=== PATIENT | female | born 1960 | race Caucasian/White ===

== ENCOUNTER 2020-04-29 10:58 | Emergency (ER) | payer MEDICARE, MEDICAID, SELFPAY ==
--- NOTE | ~2020-04-29 | US_ITS ---
US venous doppler LE RT DATE: 04/29/2020 12:08 INDICATION: Pain and swelling of the right leg TECHNIQUE: Real-time and color flow imaging and Doppler analysis of the veins of the right lower extr emity COMPARISON: None FINDINGS: The right greater saphenous vein is patent. There is spontaneous and phasic flow and normal augmentation and color flow signal and normal compression of the deep veins of the right lower extre mity. IMPRESSION: No evidence of deep venous thrombosis of the right lower extremity Reviewed, dictated and finalized at Location A. Reviewed, dictated and finalized at location A.
[2020-04-29 11:02] VITALS: BP 152/81; PULSE 95; RESP 20; TEMP 36.4; O2SAT 97
[2020-04-29 12:04] LABS: Basophils Percent Auto 0.6 % (0.2-1.2); Eosinophils Absolute Auto 0.1 K/mm3 (0-0.3); Eosinophils Percent Auto 1.5 % (0-4.4); Hematocrit 37.9 % (37.0-47.0); Hemoglobin 13.2 g/dL (12.0-15.0); Immature Granulocyte Absolute 0.03 K/mm3 (0.00-0.031); Immature Granulocyte Percent A 0.6 % (0-0.5); Lymphocytes Absolute Auto 1.98 K/mm3 (0.9-3.2); Lymphocytes Percent Auto 42.1 % (18.3-44.2); Mean Corpuscular HGB Conc 34.8 g/dl (32-36); Mean Corpuscular Hemoglobin 29.9 pg (26-34); Mean Corpuscular Volume 85.9 fl (80-100); Mean Platelet Volume 9.8 fl (7.4-10.4); Monocytes Absolute Auto 0.5 K/mm3 (0.1-0.6); Monocytes Percent Auto 11.1 % (2.6-8.5); Neutrophils Absolute Auto 2.1 K/mm3 (1.3-6.7); Neutrophils Percent Auto 44.1 % (45.5-73.1); Platelet Count Result 202 k/mm3 (150-375); Red Blood Count 4.41 M/mm3 (4.2-5.4); Red Cell Distribution Width 15.1 % (11.5-14.5); White Blood Count 4.7 K/mm3 (4.5-10.0)
[2020-04-29 12:14] LABS: Prothrombin Time 12.5 Seconds (11.1-14.7)
[2020-04-29 12:15] LABS: Partial Thromboplastin Time 23.2 SECONDS (22.3-36.8)
[2020-04-29 12:18] LABS: Alanine Aminotransferase 26 U/L (4-35); Albumin Level 3.6 g/dL (3.5-5.1); Alkaline Phosphatase 88 U/L (38-126); Anion Gap 7.6 mmol/L (7-16); Aspartate Amino Transferase 23 U/L (14-36); Bilirubin,Total 1.1 mg/dL (0.2-1.3); Blood Urea Nitrogen 15 mg/dL (7-17); CRP 2.1 mg/dL (<1.0); Calcium 8.5 mg/dL (8.4-10.2); Carbon Dioxide 25 mmol/L (22-30); Chloride 107 mmol/L (98-107); Estimated CRCL calculation 94 ml/min; Estimated Glomerular Filt Rate > 60; Glucose 103 mg/dL (65-105); Potassium 3.6 mmol/L (3.4-5.0); Sodium 136 mmol/L (137-145)
--- NOTE | 2020-04-29 13:05 | ED.LOWEXIN ---
HPI - Extremity Injury (Lower) General Chief Complaint: Extremity Injury, Lower Stated Complaint: right leg swelling/pain Time Seen by Provider: 04/29/20 11:16 Source: patient Mode of arrival: ambulatory Limitations: no limitations History of Present Illness HPI Narrative: This patient is a 59 year old female who presents for evaluation of right leg swelling. PAtient states on Thursday she developed mild redness to right lower leg. She had a video call with her PCP her prescribed doxycycline for cellulitis. She states yesterday and today her right leg feels like it is swollen. She reports redness is also now located to right calf. She denies chest pain or sob. She denies nausea, vomiting, fever or chills. Related Data Home Medications Medication Instructions Recorded Confirmed budesonide-formoterol [Symbicort] INHALATION 04/29/20 cyclobenzaprine mg 04/29/20 doxycycline hyclate 04/29/20 hydrocodone-acetaminophen tablet 04/29/20 nitrofurantoin monohyd/m-cryst 04/29/20 ranolazine mg PO 04/29/20 rosuvastatin mg 04/29/20 sumatriptan succinate mg PO 04/29/20 topiramate 04/29/20 04/29/20 Allergies Allergy/AdvReac Type Severity Reaction Status Date / Time Penicillins Allergy Mild Rash Verified 04/29/20 11:43 naproxen Allergy Unknown Hives Verified 04/29/20 11:43 NSAIDS (Non-Steroidal Allergy Hives Verified 04/29/20 11:43 Anti-Inflamma Review of Systems Review of Systems: All systems reviewed & are unremarkable except as noted in HPI and below PMFSH Past Medical History Medical History (Updated 04/29/20 @ 13:11 by Ale Mena MD) Migraine Surgical History Surgical History (Updated 04/29/20 @ 13:08 by Ale Mena MD) H/O tubal ligation Social History Social History (Updated 04/29/20 @ 13:09 by Ale Mena MD) Smoking status: Never smoker Alcohol intake: never Gender identity (if verbalized by the patient): Female Exam Const: General: no acute distress and alert Orientation/consciousness: patient oriented x3 Resp: Effort & Inspection: normal respiratory effort and no retractions Auscultation: clear to auscultation bilaterally Cardio: Rate: regular rate Rhythm: regular rhythm GI: GI Palp: Yes Soft to palpation, No Tenderness to palpation present (GI), No Guarding due to palpation present (GI) and No Rigid due to palpation Neuro: General: patient oriented x3 and moves all extremities Extrem: Other: FROM to right leg, mild blotchy areas of erythema to right lower leg. No significant swelling noticed or edema. She has strong palpable pedal pulses Course Reevaluation(s) Reevaluation #1: I have discussed with patient that labs are unremarkable. No DVT found. I will change her antibiotics. Date: 04/29/20 Time: 13:10 Vital Signs Vital signs: Vital Signs Temperature 97.6 F 04/29/20 11:02 Pulse Rate 95 04/29/20 11:02 Respiratory Rate 20 04/29/20 11:02 Blood Pressure 152/81 H 04/29/20 11:02 Pulse Oximetry 97 04/29/20 11:02 Temperature 97.8 F 04/29/20 13:36 Pulse Rate 64 04/29/20 13:36 Respiratory Rate 16 04/29/20 13:36 Blood Pressure 118/72 04/29/20 13:36 Pulse Oximetry 96 04/29/20 13:36 MDM - Extremity Injury (Lower) Lab Data Attestation: I reviewed the patient's lab results. Result diagrams: 04/29/20 11:56 04/29/20 11:56 Labs: Lab Results 04/29/20 04/29/20 04/29/20 Range/Units 11:56 11:56 11:56 WBC 4.7 (4.5-10.0) K/mm3 RBC 4.41 (4.2-5.4) M/mm3 Hgb 13.2 (12.0-15.0) g/dL Hct 37.9 (37.0-47.0) % MCV 85.9 (80-100) fl MCH 29.9 (26-34) pg MCHC 34.8 (32-36) g/dl RDW 15.1 H (11.5-14.5) % Plt Count 202 (150-375) k/mm3 MPV 9.8 (7.4-10.4) fl Immature Gran % (Auto) 0.6 H (0-0.5) % Neut % (Auto) 44.1 L (45.5-73.1) % Lymph % (Auto) 42.1 (18.3-44.2) % Crawford % (Auto) 11.1 H (2.6-8.5) % Eos % (Auto) 1.5 (0-
[2020-04-29 13:36] VITALS: BP 118/72; PULSE 64; RESP 16; TEMP 36.6; O2SAT 96
== END 2020-04-29 13:37 | disposition home or self-care (01) ==
PROVIDERS: Emergency Provider General Practice; PCP Emergency Medicine
DX: L03.115 Cellulitis of right lower limb (principal)
CPT/HCPCS: 36415; 80053; 85025; 85610; 85730; 86140; 93971; 99284

== ENCOUNTER → 2020-07-26 17:53 | Outpatient (CLI) | payer MEDICARE, MEDICAID, SELFPAY ==
--- NOTE | ~2020-07-26 | MR_ITS ---
EXAMINATION: MR cervical spine wo [facility] EXAM DATE: 07/26/2020 19:14 INDICATION: Cervical spondylosis. Neck pain radiating to shoulders and down arms. TECHNIQUE: Multi-sequential, multiplanar MR images of the cervical spine were obtained without contra st. Axial T2, axial T2 MERGE sequence. Sagittal T1, T2, T2 fat saturation images also obtained. Th ere is no prior study for comparison. FINDINGS: There is moderate disc disease at C6-7. Mild loss of the C5-6 disc height. Right mastoid e ffusion. The vertebral bodies are aligned in the AP dimension. Paraspinal soft tissue is unremarkable . The spinal cord signal intensity and intrinsic morphology is normal. Cervicomedullary junction is n ormal in appearance. Level by level evaluation: C2-C3: Disc does not extend beyond the endplate margin. Uncovertebral joint arthropathy: None. Facet joint arthropathy: Moderate right. Neural foraminal stenosis: No stenosis. Central canal stenosis: No stenosis. C3-C4: Disc does not extend beyond the endplate margin. Uncovertebral joint arthropathy: Mild bilateral. Facet joint arthropathy: Mild to moderate bilateral. Neural foraminal stenosis: Mild left. Central canal stenosis: No stenosis. C4-C5: Disc does not extend beyond the endplate margin. Uncovertebral joint arthropathy: Mild bilateral. Facet joint arthropathy: Mild bilateral. Neural foraminal stenosis: Mild bilateral. Central canal stenosis: No stenosis. C5-C6: There is a mild diffuse disc bulge. Uncovertebral joint arthropathy: Moderate bilateral. Facet joint arthropathy: Mild to moderate bilateral. Neural foraminal stenosis: Moderate left, mild to moderate right. Central canal stenosis: Mild. C6-C7: There is a mild diffuse disc bulge. Uncovertebral joint arthropathy: Moderate bilateral. Facet joint arthropathy: Mild bilateral. Neural foraminal stenosis: Mild to moderate bilateral. Central canal stenosis: Mild. C7-T1: Disc does not extend beyond the endplate margin. Uncovertebral joint arthropathy: Mild bilateral. Facet joint arthropathy: Mild bilateral. Neural foraminal stenosis: No stenosis. Central canal stenosis: No stenosis. IMPRESSION: 1. Moderate midcervical arthropathy. . Reviewed, dictated and finalized at location A.
== END ==
PROVIDERS: PCP Emergency Medicine; Visit Provider Emergency Medicine
DX: M47.892 Other spondylosis, cervical region (principal)
CPT/HCPCS: 72141

== ENCOUNTER 2020-10-01 14:00 | Outpatient (RCR) | payer MEDICARE, MEDICAID, SELFPAY ==
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
--- NOTE | 2020-09-05 13:44 | PCPTNOTE ---
Patient called & cancelled scheduled appointment this date due to increased pain following difficulty with constipation. Patient plans to attend next scheduled appt.
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
== END 2020-11-14 07:34 | disposition home or self-care (01) ==
LOC: ANHPT 14:00
PROVIDERS: PCP Emergency Medicine
DX: M25.511 Pain in right shoulder (principal); M25.512 Pain in left shoulder
CPT/HCPCS: 97032; 97110; 97140; 97162

== ENCOUNTER 2020-10-22 14:05 | Outpatient (CLI) | payer MEDICARE, MEDICAID, SELFPAY ==
--- NOTE | ~2020-10-22 | US_ITS ---
EXAMINATION: US retroperitoneal comp DATE: 10/22/2020 15:25 INDICATION: Chronic cystitis TECHNIQUE: Multiple grayscale, color Doppler, and pulsed Doppler images of the kidneys and renal tamara hayley were obtained. COMPARISON: None. FINDINGS: The right kidney measures 10.3 x 5.1 x 5.0 cm. The left kidney measures 10.4 x 5.7 x 5.7 cm. The kidn eys demonstrate normal echogenicity. There is no hydronephrosis in either kidney. No stones identifi ed. The bladder appears normal but is incompletely distended measuring approximately 9 x 5 x 5 cm whi ch mildly limits evaluation. IMPRESSION: 1. Normal renal and bladder ultrasound images. Of note e mail system administrator reported patient demonstrated urg ency despite the incompletely distended bladder. Reviewed, dictated and finalized at location A. CH OFFICE ADMINISTRATOR IMPRESSION: 1. Normal renal and bladder ultrasound images. Of note e mail system administrator reported santos sesay demonstrated urgency despite the incompletely distended bladder.
== END 2020-10-22 14:06 | disposition home or self-care (01) ==
PROVIDERS: PCP Emergency Medicine; Visit Provider Nurse Practitioner Adult Health
DX: N30.20 Other chronic cystitis without hematuria (principal)
CPT/HCPCS: 76770

== ENCOUNTER 2021-04-27 21:27 | Emergency (ER) | payer MEDICARE, MEDICAID, SELFPAY ==
--- NOTE | ~2021-04-27 | XR_ITS ---
XR ankle RT min 3V DATE: 04/27/2021 23:35 INDICATION: Right ankle and foot pain TECHNIQUE: 4 views COMPARISON: None FINDINGS: There is a small osteochondroma of the distal fibular diametaphysis. No fracture or dislocation of the ankle or disruption of the ankle mortise. No periosteal reaction or bone destruction. IMPRESSION: No fracture or dislocation Reviewed, dictated and finalized at location A. IMPRESSION: No fracture or dislocation
--- NOTE | ~2021-04-27 | XR_ITS ---
XR foot RT min 3V DATE: 04/27/2021 22:31 INDICATION: Fall 3 days ago. Right ankle and foot pain TECHNIQUE: 4 views COMPARISON: None FINDINGS: Mild osteoarthritis at the first metatarsophalangeal joint. No fracture, dislocation, periosteal reaction or bone destruction. IMPRESSION: Mild osteoarthritis at first metatarsophalangeal joint No recent fracture or dislocation Reviewed, dictated and finalized at location A.
[2021-04-27 21:28] VITALS: BP 143/95; PULSE 87; RESP 16; TEMP 36.8; O2SAT 97
--- NOTE | 2021-04-27 23:13 | ED.LOWEXIN ---
HPI - Extremity Injury (Lower) General Chief Complaint: Extremity Injury, Lower Stated Complaint: right foot pain after fall Time Seen by Provider: 04/27/21 22:45 Source: patient and RN notes reviewed Mode of arrival: wheelchair Limitations: no limitations History of Present Illness HPI Narrative: This is a 60 year old female with history of chronic right knee pain, back pain who presents for evaluation of right foot pain s/p fall. Patient states her right knee gave out on and it caused her to fall inverting her right foot. She developed pain and bruising at that time. She has been treating her pain with her chronic pain medications and wrapping her foot. Tonight she states she was walking when her knee gave out again and she fell again. Her right foot pain has worsened. Her pain is worse with trying to bear weight. Her pain is located right lateral foot just under her ankle. She took hydrocodone 10 mg 4 hours ago. She denies hitting her head or LOC. Related Data Home Medications Medication Instructions Recorded Confirmed furosemide 04/27/21 hydrocodone-acetaminophen tablet 04/27/21 omeprazole 04/27/21 oxybutynin chloride mg PO 04/27/21 ranolazine [Ranexa] mg PO 04/27/21 rosuvastatin mg 04/27/21 sumatriptan succinate mg PO 04/27/21 venlafaxine mg PO 04/27/21 Allergies Allergy/AdvReac Type Severity Reaction Status Date / Time Penicillins Allergy Mild Rash Verified 04/27/21 22:04 naproxen Allergy Unknown Hives Verified 04/27/21 22:04 NSAIDS (Non-Steroidal Allergy Hives Verified 04/27/21 22:04 Anti-Inflamma Review of Systems Review of Systems: All systems reviewed & are unremarkable except as noted in HPI and below PMFSH Past Medical History Medical History (Updated 04/27/21 @ 23:55 by Ale Mena MD) Chronic pain Migraine Surgical History Surgical History H/O tubal ligation Social History Social History (Updated 03/01/21 @ 09:42 by Monica Ibarra MA) Smoking status: Current every day smoker Alcohol intake: never Gender identity (if verbalized by the patient): Female Exam Const: General: no acute distress and alert Orientation/consciousness: patient oriented x3 Eyes: EOM: EOMs intact bilaterally Resp: Effort & Inspection: normal respiratory effort Neuro: General: patient oriented x3 and moves all extremities Extrem: Other: right foot with ecchymosis to right lateral foot, with swelling and tenderness just under right lateral malleolus, strong pedal pulsse Psych: Mental Status: mental status grossly normal Affect: normal affect Course Reevaluation(s) Reevaluation #1: I have reviewed with patient that she xray showing likely avulsion injury. She will be given glynn bandage with postop shoe. She states she does not think she can use crutches but she has a walker at home. Date: 04/27/21 Time: 23:52 Vital Signs Vital signs: Vital Signs Temperature 98.3 F 04/27/21 21:28 Pulse Rate 87 04/27/21 21:28 Respiratory Rate 16 04/27/21 21:28 Blood Pressure 143/95 H 04/27/21 21:28 Pulse Oximetry 97 04/27/21 21:28 Temperature 98.3 F 04/27/21 21:28 Pulse Rate 87 04/27/21 21:28 Respiratory Rate 16 04/27/21 21:28 Blood Pressure 143/95 H 04/27/21 21:28 Pulse Oximetry 97 04/27/21 21:28 MDM - Extremity Injury (Lower) Imaging Data Attestation: I personally reviewed and interpreted this imaging study as follows: My impression: right foot /ankle xray- avulsion injury at cuboid Discharge Plan Discharge Clinical Impression: Avulsion fracture of bone, Right ankle sprain Patient Disposition: Home, Self-Care Condition: Stable Instructions: Antibiotic Form, Avulsion Fracture (ED) Additional Instructions: IT is recommended to get fracture foot to help you bear weight. Follow up with your orthopedic surgeon within 1-2 weeks for reevaluation. Elevate when you
== END 2021-04-28 00:31 | disposition home or self-care (01) ==
PROVIDERS: Emergency Provider General Practice; PCP Emergency Medicine
DX: S93.401A Sprain of unspecified ligament of right ankle, initial encounter (principal); S92.211A Displaced fracture of cuboid bone of right foot, initial encounter for closed fracture; F17.200 Nicotine dependence, unspecified, uncomplicated; M19.071 Primary osteoarthritis, right ankle and foot; W18.39XA Other fall on same level, initial encounter; X50.9XXA Other and unspecified overexertion or strenuous movements or postures, initial encounter
CPT/HCPCS: 73610; 73630; 99284

== ENCOUNTER 2021-07-09 08:49 | Outpatient (CLI) | payer MEDICARE, MEDICAID, SELFPAY ==
[2021-07-09 12:49] LABS: NT Pro B Type Natriuretic Pept 368 pg/mL (5-100)
[2021-07-11 19:32] LABS: Alpha-1-Antitrypsin, QN 167 mg/dL (83-199)
[2021-07-13 23:46] LABS: NIL 0.11 IU/mL; Quantiferon TB Plus, 1T NEGATIVE (NEGATIVE); TB1-NIL <0.00 IU/mL; TB2-NIL <0.00 IU/mL
[2021-07-14 00:06] LABS: Immunoglobulin E 162 kU/L (<=114)
--- NOTE | 2021-07-15 12:00 | WPDMETH ---
Methacholine Procedure Perform Procedure Performed Methacholine Challenge Methacholine Challenge Testing was performed with increasing doses of nebulized methacholine using a 2 minute tidal breathing protocol. Following the administration of nebulized methacholine with concentration of 10 milligram/mL at level 4, the measured FEV1 decreased by approximately 26% from the baseline value. Post administration of a bronchodilator the FEV1 increased back up near the baseline value. Impression: Positive methacholine challenge testing.
== END 2021-07-09 08:50 | disposition home or self-care (01) ==
PROVIDERS: PCP Emergency Medicine; Visit Provider Nurse Practitioner
DX: J45.909 Unspecified asthma, uncomplicated (principal); R06.09 Other forms of dyspnea
CPT/HCPCS: 36415; 82103; 82104; 82785; 83880; 86480; 94070; J7674

== ENCOUNTER 2021-07-12 15:30 | Outpatient (CLI) | payer MEDICARE, MEDICAID, SELFPAY ==
--- NOTE | ~2021-07-12 | CT_ITS ---
EXAMINATION: CT diagnostic chest wo con DATE: 07/12/2021 15:59 INDICATION: Decreased diffusion capacity of the lungs TECHNIQUE: Computed tomography (CT) of the chest was performed without intravenous contrast. The dose -length product (DLP) was 718.05 mGy-cm. Automated exposure control and iterative reconstruction tech [employer] were employed. COMPARISON: 02/21/2009 FINDINGS: The lungs are free of focal airspace opacities. There is mild atelectasis. No pleural effus ion or pneumothorax is identified. Calcified right hilar lymph nodes are consistent with old granulom atous disease. The heart size is normal. There is dense calcification of the mitral annulus. Coronary artery atherosclerosis is noted. There are no pathologically enlarged thoracic lymph nodes. Chronic nodular thickening of the left adrenal gland is unchanged. There is severe thoracic spondylosis. IMPRESSION: 1. No CT correlate for the patient's symptoms. Reviewed, dictated and finalized at location F.
[2021-07-12 16:32] LABS: Basophils Absolute Auto 0.1 K/mm3 (0.0-0.1); Basophils Percent Auto 0.9 % (0.2-1.2); Eosinophils Absolute Auto 0.1 K/mm3 (0-0.3); Eosinophils Percent Auto 2.4 % (0-4.4); Hematocrit 43.5 % (37.0-47.0); Hemoglobin 14.6 g/dL (12.0-15.0); Immature Granulocyte Absolute 0.01 K/mm3 (0.00-0.031); Immature Granulocyte Percent A 0.2 % (0-0.5); Lymphocytes Absolute Auto 1.91 K/mm3 (0.9-3.2); Lymphocytes Percent Auto 32.6 % (18.3-44.2); Mean Corpuscular HGB Conc 33.6 g/dl (32-36); Mean Corpuscular Hemoglobin 29.3 pg (26-34); Mean Corpuscular Volume 87.3 fl (80-100); Mean Platelet Volume 9.6 fl (7.4-10.4); Monocytes Absolute Auto 0.5 K/mm3 (0.1-0.6); Monocytes Percent Auto 7.8 % (2.6-8.5); Neutrophils Absolute Auto 3.3 K/mm3 (1.3-6.7); Neutrophils Percent Auto 56.1 % (45.5-73.1); Platelet Count Result 217 k/mm3 (150-375); Red Blood Count 4.98 M/mm3 (4.2-5.4); White Blood Count 5.9 K/mm3 (4.5-10.0)
== END 2021-07-12 15:31 | disposition home or self-care (01) ==
PROVIDERS: PCP Emergency Medicine; Visit Provider Nurse Practitioner
DX: R94.2 Abnormal results of pulmonary function studies (principal)
CPT/HCPCS: 36415; 71250; 85025

== ENCOUNTER 2021-07-16 12:35 | Outpatient (CLI) | payer MEDICARE, MEDICAID, SELFPAY ==
[2021-07-20 01:17] LABS: Anti Nuclear Antibody Pattern Nuclear, Nucleolar; Anti Nuclear Antibody Titer 1:40 (Negative)
[2021-07-20 05:06] LABS: Angiotensin Converting Enzyme 44.3 U/L (9-67)
[2021-07-20 15:00] LABS: Blastomyces Antibody Negative (Negative)
[2021-07-24 17:19] LABS: Coccidioides Ab to F Ag (IgG) NEGATIVE; Coccidioides Ab to TP Ag (IgM) NEGATIVE
== END 2021-07-16 12:36 | disposition home or self-care (01) ==
PROVIDERS: PCP Emergency Medicine; Visit Provider Nurse Practitioner
DX: J84.10 Pulmonary fibrosis, unspecified (principal)
CPT/HCPCS: 36415; 82164; 86038; 86039; 86612; 86635; 86698

== ENCOUNTER 2021-07-31 15:06 | Outpatient (CLI) | payer MEDICARE, MEDICAID, SELFPAY ==
[2021-07-31 18:02] LABS: Rheumatoid Factor < 8.6 IU/ML (<12)
[2021-08-02 22:25] LABS: ANCA Screen Negative (Negative)
[2021-08-05 17:25] LABS: Scleroderma 70 Antibody <1.0
[2021-08-05 19:35] LABS: JO 1 Antibody <1.0; RNP Antibodies <1.0; SS-A <1.0; SS-B <1.0
== END 2021-07-31 15:07 | disposition home or self-care (01) ==
PROVIDERS: PCP Emergency Medicine; Visit Provider Nurse Practitioner
DX: R76.8 Other specified abnormal immunological findings in serum (principal)
CPT/HCPCS: 36415; 86021; 86225; 86235; 86430

== ENCOUNTER 2021-09-01 12:35 | Outpatient (CLI) | payer MEDICARE, MEDICAID, SELFPAY ==
--- NOTE | ~2021-09-01 | MR_ITS ---
EXAMINATION: MR lumbar spine wo con EXAM DATE: 09/01/2021 13:42 INDICATION: Radiculopathy, lumbar region. TECHNIQUE: Multi-sequential, multiplanar MR images of the lumbar spine were obtained without contrast . Sagittal T1, T2, T2 fat saturation images. Axial T2 weighted images. Comparison is made to prior examination from 04/21/2018. FINDINGS: There is moderate disc disease L2-L5 and T8-T11. Moderate size Schmorl's node superior endp late of L3 unchanged. The conus medullaris terminates at the L1 level and has normal signal intensity and morphology. There are no suspicious marrow signal abnormalities. Paraspinal soft tissue is unre markable. Level by level evaluation: T12-L1: Disc does not extend beyond the endplate margin. Facet arthropathy: Mild right. Neural foraminal stenosis: No stenosis. Central canal stenosis: No stenosis. L1-L2: Disc does not extend beyond the endplate margin. Facet arthropathy: Mild. Neural foraminal stenosis: No stenosis. Central canal stenosis: No stenosis. L2-L3: There is a mild to moderate diffuse disc bulge. Facet arthropathy: Mild to moderate. Neural foraminal stenosis: Mild to moderate left, mild right. Central canal stenosis: Mild. L3-L4: There is a moderate diffuse disc bulge. Facet arthropathy: Moderate . Ligamentum flavum enlargement. Neural foraminal stenosis: Moderate left, mild to moderate right. Central canal stenosis: Moderate. L4-L5: There is a moderate diffuse disc bulge. Facet arthropathy: Moderate. Neural foraminal stenosis: Moderate right, mild to moderate left. Central canal stenosis: Moderate. L5-S1: There is a mild diffuse disc bulge. Facet arthropathy: Moderate right, mild to moderate left. Neural foraminal stenosis: Mild right. Central canal stenosis: No stenosis. Mild interval progression spondylosis and central canal stenosis at L3-4 and L4-5. IMPRESSION: 1. Moderate mid lumbar spondylosis. Reviewed, dictated and finalized at location A. E FINISHER
== END 2021-09-01 12:36 | disposition home or self-care (01) ==
PROVIDERS: PCP Emergency Medicine; Visit Provider Anesthesiology
DX: M47.26 Other spondylosis with radiculopathy, lumbar region (principal)
CPT/HCPCS: 72148

== ENCOUNTER 2021-10-24 16:00 | Outpatient (RCR) | payer MEDICARE, MEDICAID, SELFPAY ==
--- NOTE | 2021-10-10 13:38 | PTOPEVAL ---
PHYSICAL THERAPY EVALUATION AND PLAN OF CARE 10-10-21 Thank you for referring Lisa Krueger to [facility] for the diagnosis of s/p R TKR. Lisa is scheduled to be seen for therapy? 2 x/week for 3 weeks. Please review, sign, date and return this plan of care ANITA. I agree with and certify that the following plan of care is medically necessary. Referring Physician Date Attending Provider: GRIFFIN Martinez PT Outpatient Evaluation Document 10/10/21 12:35 RADHA (Rec: 10/10/21 13:38 RADHA [id number]) Past Medical History Source of Past Medical History Recalled from Previous Visit, Confirmed with Patient/Family Neurological History Hx Other Neurological Disorders Yes: non diabetic neuropathy B feet and calves Cardiovascular History Hx Hypercholesterolemia Yes: meds Hx Peripheral Vascular Disease Yes Respiratory History Hx Asthma Yes Hx Chronic Obstructive Pulmonary Disease Yes (COPD) Gastrointestinal History Hx Appendectomy Yes Hx Other Gastrointestinal Disorders Yes: [place]'s esophagus Musculoskeletal History Hx Back Pain Yes: chronic back and neck pain- under care pain mgt for back pain Hx Degenerative Disk Disease Yes Hx Joint Replacement Yes: R shoulder replacement 2013 Hx Other Musculoskeletal Disorders Yes: spinal OA Endocrine History Hx Endocrine Disorders No Significant History HEENT History Hx Other HEENT Disorders Yes: sleep apnea-has night machine Pain History Has Past Pain Affected Your Daily Life Yes: neck and back issues-has had injections Other History Hx Other Medical Conditions Yes: obesity, stent L groin for circulation issues:B lower leg vein surgeries Evaluation Information Problem Diagnosis s/p R TKR Onset Sep 12, 2021 Subjective Information after left hospital, went to Query Text:As Reported By Patient/ [facility] for rehab, only stayed few Family days then went home; have CPM at home, set to 120, using daily; only doing exercise that she is doing at home i supine quad and glut set; using the wheeled walker, but short distance in her house without it; Previous Treatments Previous Treatments For This Problem have not had any HHC or out pt PT since left hospital Prior Level of Function Activity Level (Last 3 Months)
--- NOTE | 2021-10-17 15:58 | PCPTNOTE ---
Patient called & cancelled scheduled appointment this date due to not having a ride.
--- NOTE | 2021-10-29 16:38 | PCPTNOTE ---
Patient did not show up for scheduled appointment this date; called and left voicemail for reminder call on next appointment on 10/31 @15:30.
--- NOTE | 2021-11-04 13:27 | PCPTNOTE ---
pt called and canceled today's reeval, due to not feeling well;
--- NOTE | 2021-11-26 09:41 | PCPTNOTE ---
PHYSICAL THERAPY DISCHARGE 11-26-21 Attending Provider: GRIFFIN Martinez Patient:Lisa Krueger Date of :1960 Ms. Krueger has not returned for any further treatments since 10/24/2021, therefore she will be discharged at this time. She received 4 PT sessions, from October 10 to for the diagnosis of s/p R TKR. The goals were not assessed. Thank you for referring this patient to [facility]. Please review, sign, date and return this discharge summary ANITA. I have been updated about the patient's current status and I agree with discharge from the above service at this time. Referring Physician Date
== END 2021-12-25 10:41 | disposition home or self-care (01) ==
LOC: ANHPT 16:00
PROVIDERS: PCP Emergency Medicine; Visit Provider Physician Assistant
DX: Z47.1 Aftercare following joint replacement surgery (principal); Z96.651 Presence of right artificial knee joint
CPT/HCPCS: 97014; 97110; 97116; 97140; 97161; 97530; G0283

== ENCOUNTER 2022-01-08 15:02 | Outpatient (CLI) | payer MEDICARE, MEDICAID, SELFPAY ==
--- NOTE | ~2022-01-08 | XR_ITS ---
EXAMINATION: XR hip RT min 2V DATE: 01/08/2022 15:38 INDICATION: Right hip pain. TECHNIQUE: 2 views of right hip were obtained. COMPARISON: None. FINDINGS: Bone alignment is normal. No fracture. There is mild right hip osteoarthritis. Partially vi sualized is a vascular stent overlying the spine. IMPRESSION: 1. Mild right hip osteoarthritis. Reviewed, dictated and finalized at location A.
[2022-01-08 15:39] LABS: Anion Gap 10 mmol/L (8-16); Blood Urea Nitrogen 19 mg/dL (7-17); Carbon Dioxide 22 mmol/L (22-30); Chloride 105 mmol/L (98-107); Estimated Glomerular Filt Rate > 60; Glucose 157 mg/dL (65-110); Potassium 4.3 mmol/L (3.4-5.0); Sodium 137 mmol/L (137-145)
[2022-01-08 16:37] LABS: Calcium 8.5 mg/dL (8.4-10.2)
== END 2022-01-08 15:03 | disposition home or self-care (01) ==
PROVIDERS: PCP Emergency Medicine; Visit Provider Anesthesiology
DX: M16.11 Unilateral primary osteoarthritis, right hip (principal); Z79.899 Other long term (current) drug therapy
CPT/HCPCS: 36415; 73502; 80048

== ENCOUNTER 2022-11-14 00:20 | Emergency (ER) | payer MEDICARE, MEDICAID, SELFPAY ==
--- NOTE | ~2022-11-14 | XR_ITS ---
Left Knee Technique: AP, lateral, and oblique views were obtained. Clinical History: Pain Findings: No fracture or dislocation is seen. Mild tricompartmental degenerative spurring is noted.. Soft tissues are unremarkable. No joint effusion is seen. Impression: Mild tricompartmental degenerative change. Reviewed, dictated and finalized at location . ER MANAGER Impression: Mild tricompartmental degenerative change.
[2022-11-14 00:24] VITALS: BP 125/75; PULSE 72; RESP 20; TEMP 36.7; O2SAT 100
--- NOTE | 2022-11-14 01:39 | PC.NURSE ---
pt states she has increased l knee pain. denies any injury. states she needs a knee replacement but hasn't had it done yet. states she took hydrocodone, gabapentin, and muscle relaxer without any relief.
--- NOTE | 2022-11-14 01:42 | ED.EXTPRO ---
HPI - Extremity Problem General Chief complaint: Extremity Problem,Nontraumatic Stated complaint: knee pain Time Seen by Provider: 11/14/22 01:35 History of Present Illness HPI Narrative: 62-year-old female with a history of beatty's esophagus here for evaluation of atraumatic left knee pain. Patient states the pain has been present for 3 years but got acutely worse over the past week. States that she is on her feet all day and has been walking a lot more than usual. States the pain is gotten bad over the past 3 days and it has been difficult to walk. Has attempted hydrocodone and gabapentin without relief of her pain. Denies any trauma to the knee. No calf pain, leg swelling, fevers or chills, nausea or vomiting. History of right knee replacement at [facility] last year. No recent surgeries or history of DVT. Related Data Home Medications Medication Instructions Recorded Confirmed budesonide-formoterol HFA 160 2 puff inhalation Q12H 08/15/21 mcg-4.5 mcg/actuation aerosol inhaler (Symbicort) clindamycin HCl 300 mg capsule 300 mg PO Q6H 08/15/21 Allergies Allergy/AdvReac Type Severity Reaction Status Date / Time Penicillins Allergy Mild Rash Verified 04/27/21 22:04 naproxen Allergy Unknown Hives Verified 04/27/21 22:04 NSAIDS (Non-Steroidal Allergy Hives Verified 04/27/21 22:04 Anti-Inflamma Review of Systems Review of Systems: Gen: Denies fevers or chills Eyes: Denies eye pain or visual change ENT: Denies congestion Respiratory: Denies shortness of breath or cough CV: Denies chest pain or palpitations GI: Denies abdominal pain nausea, emesis or diarrhea denies burning, urgency, frequency or hematuria Musculoskeletal: Reports left knee pain Neuro: Denies numbness, tingling, weakness or focal weakness Skin: Denies rash Except as documented, all other systems reviewed and negative [facility] Past Medical History Medical History Chronic pain Migraine Surgical History Surgical History H/O tubal ligation Social History Social History (Updated 03/01/21 @ 09:42 by FILIPE Ramsay Smoking status: Current every day smoker Alcohol intake: never Gender identity (if verbalized by the patient): Female Exam Narrative: APPEARANCE: Well appearing, no pain in distress, well-nourished. Head: Normocephalic and atraumatic. EYES: PERRLA/EOMI, conjunctivae clear NOSE: No nasal drainage EARS: External ear normal in appearance THROAT: Oropharynx is clear. Mucous membranes are moist. NECK: Supple. No adenopathy, no masses. RESPIRATORY: Airway patent, respirations nonlabored. Clear to auscultation bilaterally, no rales, rhonchi, wheezing. CARDIOVASCULAR: Regular rate and rhythm without murmurs, rubs, or gallops. ABDOMINAL: Normoactive bowel sounds. Soft, nontender, nondistended. No rebound tenderness or guarding. MUSCULOSKELETAL: No pain with active range of motion of the left knee. No tenderness to palpation along the joint line at the patella. No obvious deformity. No pain with palpation of the calf. No pain with palpation of the hip or low back. Extremities are warm and well-perfused. Moves all extremities well. No edema. NEURO: Normal speech. No focal neurologic deficits. SKIN: Skin is warm and dry. No rashes. PSYCHIATRIC: Normal affect/mood. Course Vital Signs Vital signs: Vital Signs Temperature 98.0 F 11/14/22 00:24 Pulse Rate 72 11/14/22 00:24 Respiratory Rate 20 11/14/22 00:24 Blood Pressure 125/75 11/14/22 00:24 Pulse Oximetry 100 11/14/22 00:24 Oxygen Delivery Room Air 11/14/22 00:24 Temperature 98.0 F 11/14/22 00:24 Pulse Rate 72 11/14/22 00:24 Respiratory Rate 20 11/14/22 00:24 Blood Pressure 125/75 11/14/22 00:24 Pulse Oximetry 100 11/14/22 00:24 Oxygen Delivery Room Air 11/14/22 00:24 MDM - Extremity (No
[2022-11-14] MEDS: CYCLOBENZAPRINE HCL 5 MG TABLET PO (02:07)
[2022-11-14] MEDS: LIDOCAINE 5% PATCH 1 PATCH TRANSDERM (02:07)
[2022-11-14] MEDS: predniSONE 20 MG TABLET 40 MG PO (02:09)
[2022-11-14 03:50] VITALS: BP 136/71; PULSE 85; RESP 16; O2SAT 98
== END 2022-11-14 03:50 | disposition home or self-care (01) ==
PROVIDERS: Emergency Provider Physician Assistant; PCP Emergency Medicine
DX: M25.562 Pain in left knee (principal); G89.29 Other chronic pain; Z96.651 Presence of right artificial knee joint; F17.200 Nicotine dependence, unspecified, uncomplicated
CPT/HCPCS: 73562; 99283; A9270; J7512

== ENCOUNTER 2023-10-20 10:12 | Outpatient (CLI) | payer MEDICARE, MEDICAID, SELFPAY ==
--- NOTE | 2023-10-20 11:00 | NEURO_ITS ---
Impression: # Complains of pain in both hands. # Mild Carpal Tunnel Syndrome bilaterally. # Left ulnar neuropathy around the elbow. # Needle/EMG exam mildly abnormal. Nerve Conduction Studies Anti Sensory Summary Table Stim Site NR Peak (ms) P-T Amp (?V) Site1 Site2 Delta-P (ms) Dist (cm) Blaze (m/s) Left Median Anti Sensory (2-3nd Digit) Wrist 4.1 41.5 Wrist 2-3nd Digit 4.1 14.0 34 Wrist 4.3 19.1 Wrist 2-3nd Digit 4.1 14.0 34 Right Median Anti Sensory (2-3nd Digit) Wrist 3.8 20.5 Wrist 2-3nd Digit 3.8 14.0 37 Wrist 3.6 51.7 Wrist 2-3nd Digit 3.8 14.0 37 Left Radial Anti Sensory (Base 1st Digit) Wrist 2.2 21.9 Wrist Base 1st Digit 2.2 0.0 Right Radial Anti Sensory (Base 1st Digit) Wrist 2.4 33.5 Wrist Base 1st Digit 2.4 0.0 Left Ulnar Anti Sensory (5th Digit) Wrist 2.2 38.5 Wrist 5th Digit 2.2 14.0 64 Right Ulnar Anti Sensory (5th Digit) Wrist 2.1 69.3 Wrist 5th Digit 2.1 14.0 67 Motor Summary Table Stim Site NR Onset (ms) O-P Amp (mV) Site1 Site2 Delta-0 (ms) Dist (cm) Blaze (m/s) Left Median Motor (Abd Poll Brev) Wrist 3.7 2.3 Elbow Wrist 4.4 26.0 59 Elbow 8.1 1.4 Right Median Motor (Abd Poll Brev) Wrist 3.5 1.7 Elbow Wrist 4.4 26.0 59 Elbow 7.9 1.3 Left Ulnar Motor (Abd Dig Minimi) Wrist 2.3 5.7 A Elbow Wrist 6.1 29.0 48 A Elbow 8.4 3.7 B Elbow Wrist 5.0 23.0 46 B Elbow 7.3 3.4 Right Ulnar Motor (Abd Dig Minimi) Wrist 2.0 5.5 A Elbow Wrist 5.0 29.0 58 A Elbow 7.0 4.6 F Wave Studies NR F-Lat (ms) L-R F-Lat (ms) Left Median (Mrkrs) (Abd Poll Brev) 26.89 1.34 Right Median (Mrkrs) (Abd Poll Brev) 25.55 1.34 Left Ulnar (Mrkrs) (Abd Dig Min) 27.35 0.58 Right Ulnar (Mrkrs) (Abd Dig Min) 26.77 0.58 EMG Side Muscle Nerve Root Ins Act Fibs Amp Dur Recrt Comment Right 1stDorInt Ulnar C8-T1 Nml Nml Nml Nml Nml Right Ext Indicis Radial (Post Int) C7-8 Nml Nml Nml Nml Nml Right Ext Digitorum Radial (Post Int) C7-8 Nml Nml Nml Nml Nml Right BrachioRad Radial C5-6 Nml Nml Nml Nml Nml Right PronatorTeres Median C6-7 Nml Nml Nml Nml Nml Right Abd Poll Brev Median C8-T1 Nml Nml Nml Nml Nml Left 1stDorInt Ulnar C8-T1 Nml Nml Nml >12ms Reduced Left Ext Indicis Radial (Post Int) C7-8 Nml Nml Nml Nml Nml Left Ext Digitorum Radial (Post Int) C7-8 Nml Nml Nml Nml Nml Left BrachioRad Radial C5-6 Nml Nml Nml Nml Nml Left PronatorTeres Median C6-7 Nml Nml Nml Nml Nml Left Abd Poll Brev Median C8-T1 Nml Nml Nml Nml Nml Left Abd Dig Min Ulnar C8-T1 Nml Nml Nml >12ms Reduced MTDD
== END 2023-10-20 10:13 | disposition home or self-care (01) ==
LOC: ANHNEURO 10:13
PROVIDERS: PCP Emergency Medicine; Visit Provider Orthopaedic Surgery
DX: G56.03 Carpal tunnel syndrome, bilateral upper limbs (principal); G56.22 Lesion of ulnar nerve, left upper limb
CPT/HCPCS: 95886; 95911

== ENCOUNTER 2024-07-01 15:07 | Outpatient (CLI) | payer MEDICARE, MEDICAID, SELFPAY ==
--- NOTE | ~2024-07-01 | CT_ITS ---
EXAMINATION: CT lung screening DATE: 07/01/2024 15:36 INDICATION: Nicotine dependence TECHNIQUE: Computed tomography (CT) of the chest was performed without intravenous contrast. The dose -length product was 326.34 mGy-cm. Automated exposure control and iterative reconstruction technique were employed. COMPARISON: CT dated 07/12/2021 FINDINGS: There is evidence for chronic granulomatous disease. No thoracic lymphadenopathy. Heart siz e normal. No thoracic lymphadenopathy. No endobronchial lesions. There is atherosclerosis of the aort a and coronary arteries. Fatty infiltration of the liver. There are calcified granulomas in the right upper lobe. No pneumothorax. No focal airspace consolidation. No noncalcified pulmonary nodules or m asses are identified. Moderate thoracic spondylosis. No focal lytic or blastic lesions. IMPRESSION: 1. Lung-RADS category 1: Negative. Continue annual screening with noncontrast low-dose chest CT in 12 months. Reviewed, dictated and finalized at location B. IMPRESSION: 1. Lung-RADS category 1: Negative. Continue annual screening with noncontrast l ow-dose chest CT in 12 months.
== END 2024-07-01 15:08 | disposition home or self-care (01) ==
PROVIDERS: PCP Emergency Medicine; Visit Provider Emergency Medicine
DX: Z12.2 Encounter for screening for malignant neoplasm of respiratory organs (principal); F17.210 Nicotine dependence, cigarettes, uncomplicated
CPT/HCPCS: 71271

== ENCOUNTER 2024-07-11 23:22 | Emergency (ER) | payer MEDICARE, MEDICAID, SELFPAY ==
--- NOTE | ~2024-07-11 | XR_ITS ---
Left Knee Technique: AP, lateral, and oblique views were obtained. Clinical History: Pain and swelling Findings: No fracture or dislocation is seen. Osseous alignment is anatomic. There is moderate to adv anced tricompartmental degenerative change.. Soft tissues are unremarkable. No joint effusion is seen . Impression: Moderate to advanced tricompartmental osteoarthritis. Reviewed, dictated and finalized at location . Impression: Moderate to advanced tricompartmental osteoarthritis.
[2024-07-11 23:26] VITALS: BP 147/71; PULSE 85; RESP 16; TEMP 36.2; O2SAT 98
[2024-07-12 00:01] VITALS: BP 130/80; PULSE 71; RESP 15; TEMP 36.6; O2SAT 96
[2024-07-12 00:10] LABS: Basophils Absolute Auto 0.1 K/mm3 (0.0-0.1); Basophils Percent Auto 0.6 % (0.2-1.2); Eosinophils Absolute Auto 0.2 K/mm3 (0-0.3); Eosinophils Percent Auto 1.6 % (0-4.4); Hematocrit 38.7 % (37.0-47.0); Hemoglobin 12.9 g/dL (12.0-15.0); Immature Granulocyte Absolute 0.03 K/mm3 (0.00-0.031); Immature Granulocyte Percent A 0.3 % (0-0.5); Lymphocytes Absolute Auto 3.11 K/mm3 (0.9-3.2); Lymphocytes Percent Auto 32.6 % (18.3-44.2); Mean Corpuscular HGB Conc 33.3 g/dl (32-36); Mean Corpuscular Hemoglobin 29.4 pg (26-34); Mean Corpuscular Volume 88.2 fl (80-100); Mean Platelet Volume 9.8 fl (7.4-10.4); Monocytes Absolute Auto 0.5 K/mm3 (0.1-0.6); Monocytes Percent Auto 5.5 % (2.6-8.5); Neutrophils Absolute Auto 5.7 K/mm3 (1.3-6.7); Neutrophils Percent Auto 59.4 % (45.5-73.1); Platelet Count Result 218 k/mm3 (150-375); Red Blood Count 4.39 M/mm3 (4.2-5.4); Red Cell Distribution Width 13.2 % (11.5-14.5); White Blood Count 9.5 K/mm3 (4.5-10.0)
[2024-07-12 00:27] LABS: Anion Gap 6 mmol/L (4-12); Blood Urea Nitrogen 27 mg/dL (7-17); Carbon Dioxide 31 mmol/L (22-30); Chloride 101 mmol/L (98-107); Estimated CRCL calculation 67 ml/min; Estimated Glomerular Filt Rate > 60; Glucose 114 mg/dL (65-110); Potassium 4.3 mmol/L (3.4-5.0); Sodium 138 mmol/L (137-145)
[2024-07-12 00:30] LABS: INR 0.9; Prothrombin Time 12.5 Seconds (11.1-14.7)
[2024-07-12 00:31] LABS: Partial Thromboplastin Time 27.7 Seconds (22.3-36.8)
[2024-07-12 01:19] LABS: D Dimer 0.39 ug/mL (<0.48)
--- NOTE | 2024-07-12 01:20 | ED.GENADULT ---
HPI - General Adult General Chief complaint: Extremity Problem,Nontraumatic Stated complaint: left leg pain Time Seen by Provider: 07/11/24 23:56 History of Present Illness HPI narrative: patient is a 63-year-old female who presents emergency department chief complaint of pain and swelling in her left patient reports that started having some redness in the posterior calf on the left side reports she has pain and swelling behind patient reports she is supposed eventually have a knee replacement on that side. Patient reports no trauma denies fever Related Data Home Medications Medication Instructions Recorded Confirmed budesonide-formoterol HFA 160 2 puff inhalation Q12H 08/15/21 mcg-4.5 mcg/actuation aerosol inhaler (Symbicort) clindamycin HCl 300 mg capsule 300 mg PO Q6H 08/15/21 Allergies Allergy/AdvReac Type Severity Reaction Status Date / Time Penicillins Allergy Mild Rash Verified 07/11/24 23:23 naproxen Allergy Unknown Hives Verified 07/11/24 23:23 NSAIDS (Non-Steroidal Allergy Hives Verified 07/11/24 23:23 Anti-Inflamma Review of Systems Review of Systems: A 10 system review of systems was completed on the patient and is negative except for what is stated in the HPI. Nursing and ancillary documentation was reviewed. [facility] Past Medical History Medical History Chronic pain Migraine Surgical History Surgical History H/O tubal ligation Social History Social History Smoking status: Current every day smoker Alcohol intake: never Gender identity (if verbalized by the patient): Female Exam Narrative: GENERAL: Well-appearing, well-nourished, and in no acute distress. HEAD: Normocephalic, atraumatic. EYES: PERRLA and EOMI. ENT: Nares clear, no rhinorrhea or epistaxis. Mucous membranes moist. NECK: Supple. CHEST: Clear to auscultation. No respiratory distress. HEART: Regular rate and rhythm. No murmur heard. Normal peripheral pulses. ABDOMEN: Soft, nontender, nondistended, normal active bowel sounds. EXTREMITIES: Normal range of motion slight area of redness on the posterior calf on the left side. No edema. SKIN: Warm, dry, no rash. NEURO: No focal deficits. Alert and oriented x3. PSYCH: Normal mood and affect. Course Vital Signs Vital signs: Vital Signs Temperature 36.2 C L 07/11/24 23:26 Pulse Rate 85 07/11/24 23:26 Respiratory Rate 16 07/11/24 23:26 Blood Pressure 147/71 H 07/11/24 23:26 Pulse Oximetry 98 07/11/24 23:26 Oxygen Delivery Room Air 07/11/24 23:26 Temperature 36.6 C 07/12/24 00:01 Pulse Rate 71 07/12/24 00:01 Respiratory Rate 15 07/12/24 00:01 Blood Pressure 130/80 07/12/24 00:01 Pulse Oximetry 96 07/12/24 00:01 Oxygen Delivery Room Air 07/12/24 00:01 Medical Decision Making MDM Narrative Medical decision making narrative: differential diagnosis includes DVT, cellulitis, contusion patient has no reported trauma x-ray showed no evidence of fracture laboratory studies showed a normal CBC electrolytes were within normal limits coags were normal D-dimer is 0.39 which is negative Vital Signs Vital Signs: Vital Signs Temperature 36.2 C L 07/11/24 23:26 Pulse Rate 85 07/11/24 23:26 Respiratory Rate 16 07/11/24 23:26 Blood Pressure 147/71 H 07/11/24 23:26 Pulse Oximetry 98 07/11/24 23:26 Oxygen Delivery Room Air 07/11/24 23:26 Temperature 36.6 C 07/12/24 00:01 Pulse Rate 71 07/12/24 00:01 Respiratory Rate 15 07/12/24 00:01 Blood Pressure 130/80 07/12/24 00:01 Pulse Oximetry 96 07/12/24 00:01 Oxygen Delivery Room Air 07/12/24 00:01 Lab Data 07/11/24 23:32 07/11/24 23:32 Labs: Lab Results 07/11/24 Range/Units 23:32 WBC
[2024-07-12 01:43] VITALS: BP 117/74; PULSE 67; RESP 16; TEMP 37.1; O2SAT 95
== END 2024-07-12 01:44 | disposition home or self-care (01) ==
PROVIDERS: Emergency Provider Emergency Medicine; PCP Emergency Medicine
DX: M79.662 Pain in left lower leg (principal); F17.200 Nicotine dependence, unspecified, uncomplicated; M17.12 Unilateral primary osteoarthritis, left knee
CPT/HCPCS: 36415; 73562; 80048; 85025; 85380; 85610; 85730; 93971; 99281; 99283

== ENCOUNTER 2024-07-12 06:53 | Outpatient (CLI) | payer MEDICARE, MEDICAID, SELFPAY ==
--- NOTE | ~2024-07-12 | US_ITS ---
EXAMINATION:US venous doppler LE INDICATION:Leg pain and swelling TECHNIQUE: Multiple grayscale, color flow and Doppler images of the left lower extremity deep venous systems were obtained and reviewed. COMPARISON:No prior studies for comparison. FINDINGS: The common femoral, superficial femoral and popliteal veins demonstrate normal respiratory variation, augmentation and compressibility. Color flow is also seen within the posterior tibial, pe roneal, and profunda veins. There is superficial thrombosis of the greater saphenous vein. IMPRESSION: 1: No lower extremity deep venous thrombosis. 2: Superficial thrombosis of the greater saphenous vein. Reviewed, dictated and finalized at location B.
== END 2024-07-12 06:54 | disposition home or self-care (01) ==
PROVIDERS: PCP Emergency Medicine; Visit Provider Emergency Medicine
DX: M79.89 Other specified soft tissue disorders (principal); I82.812 Embolism and thrombosis of superficial veins of left lower extremity
CPT/HCPCS: 93971

== ENCOUNTER 2024-07-12 20:25 | Emergency (ER) | payer MEDICARE, MEDICAID, SELFPAY ==
[2024-07-12 21:08] VITALS: BP 139/79; PULSE 73; RESP 18; TEMP 36.4; O2SAT 96
[2024-07-12 22:24] VITALS: BP 120/70; PULSE 67; RESP 16; O2SAT 95
--- NOTE | 2024-07-12 23:00 | ED.EXTPRO ---
HPI - Extremity Problem General Chief complaint: Extremity Problem,Nontraumatic Stated complaint: Blood clot in left leg. +US today Time Seen by Provider: 07/12/24 22:23 Source: patient Mode of arrival: ambulatory Limitations: no limitations History of Present Illness HPI Narrative: This is a 63-year-old female that presents to the emergency department for abnormal outpatient ultrasound. Reports she was called and told she had a blood clot in her leg. Her primary is currently out of town, she presented to the ER for further management. Related Data Home Medications Medication Instructions Recorded Confirmed budesonide-formoterol HFA 160 2 puff inhalation Q12H 08/15/21 mcg-4.5 mcg/actuation aerosol inhaler (Symbicort) clindamycin HCl 300 mg capsule 300 mg PO Q6H 08/15/21 Allergies Allergy/AdvReac Type Severity Reaction Status Date / Time Penicillins Allergy Mild Rash Verified 07/12/24 21:12 naproxen Allergy Unknown Hives Verified 07/12/24 21:12 NSAIDS (Non-Steroidal Allergy Hives Verified 07/12/24 21:12 Anti-Inflamma Review of Systems Review of Systems: CONSTITUTIONAL: Denies fever MUSCULOSKELETAL: Reports myalgia. All systems reviewed & are unremarkable except as noted in HPI and below PMFSH Past Medical History Medical History Chronic pain Migraine Surgical History Surgical History H/O tubal ligation Social History Social History Smoking status: Current every day smoker Alcohol intake: never Gender identity (if verbalized by the patient): Female Exam Narrative: GENERAL: Well-appearing, well-nourished, and in no acute distress. HEAD: Normocephalic, atraumatic. EYES: EOMI. EXTREMITIES: Normal range of motion. Mild redness and edema distal to the left knee. Normal DP pulse. Normal sensation SKIN: Warm, dry, no rash. NEURO: No focal deficits. Alert and oriented x3. PSYCH: Normal mood and affect Course Course Emergency Course: Shared decision making occurred. Patient will be treated supportively, she has follow up with her ux design lead in the morning Vital Signs Vital signs: Vital Signs Temperature 97.5 F L 07/12/24 21:08 Pulse Rate 73 07/12/24 21:08 Respiratory Rate 18 07/12/24 21:08 Blood Pressure 139/79 07/12/24 21:08 Pulse Oximetry 96 07/12/24 21:08 Oxygen Delivery Room Air 07/12/24 21:08 Temperature 97.5 F L 07/12/24 21:08 Pulse Rate 67 07/12/24 22:24 Respiratory Rate 16 07/12/24 22:24 Blood Pressure 120/70 07/12/24 22:24 Pulse Oximetry 95 07/12/24 22:24 Oxygen Delivery Room Air 07/12/24 22:24 MDM - Extremity (Nontraumatic) MDM Narrative Medical decision making narrative: Patient presents to the emergency department for superficial venous thrombosis of the greater saphenous vein. This is distal to the knee. Shared decision making with the patient, we have decided to manage supportively at this time. I did put an order for repeat ultrasound of her leg to be done within the next week. She reports she has follow-up with her ux design lead in the morning. She was given warnings to return to the ER Differential Diagnosis Differential diagnosis: Likely superficial thrombophlebitis and deep vein thrombosis of lower extremity Imaging Data Radiologist's impression: IMPRESSION: 1: No lower extremity deep venous thrombosis. 2: Superficial thrombosis of the greater saphenous vein. Critical Care Time Critical Care Time Critical Care Time: No Discharge Plan Discharge Clinical Impression: Acute superficial venous thrombosis of left lower extremity Patient Disposition: Home, Self-Care Condition: Stable Instructions: Superficial Thrombophlebitis (ED) Additional Instructions: Return if symptoms worsen or concerns: any
[2024-07-12 23:49] VITALS: BP 108/72; PULSE 68; RESP 16; O2SAT 100
== END 2024-07-12 23:50 | disposition home or self-care (01) ==
PROVIDERS: Emergency Provider Physician Assistant; PCP Emergency Medicine
DX: I82.812 Embolism and thrombosis of superficial veins of left lower extremity (principal); F17.200 Nicotine dependence, unspecified, uncomplicated
CPT/HCPCS: 99281

== ENCOUNTER 2024-10-28 15:33 | Outpatient (CLI) | payer MEDICARE, MEDICAID, SELFPAY ==
--- NOTE | ~2024-10-28 | MR_ITS ---
EXAMINATION: MR cervical spine wo con DATE: 10/28/2024 16:14 INDICATION: Cervical radicular pain. TECHNIQUE: Magnetic resonance imaging (MRI) of the cervical spine was performed without intravenous c ontrast. COMPARISON: Cervical spine MRI 07/26/2020 FINDINGS: Alignment is normal. There is a compression fracture of C5 inferior endplate with less than 1/5 loss of height and edema-like marrow signal intensity. There is moderately decreased disc height at C5-C6 and severely decreased disc height at C6-C7. The spinal cord signal intensity is normal. Th e following disc levels are specifically discussed: C2-C3: The disc does not extend beyond the endplate margin. There is no uncovertebral joint osteoarth ritis. There is severe right and moderate left facet joint osteoarthritis. There is no neural foramin al stenosis. There is no central canal stenosis. C3-C4: There is a central protrusion. There is no uncovertebral joint osteoarthritis. There is severe right and moderate left facet joint osteoarthritis. There is mild left neural foraminal stenosis. Th ere is mild central canal stenosis. C4-C5: The disc is bulging. There is mild bilateral uncovertebral joint osteoarthritis. There is mode rate bilateral facet joint osteoarthritis. There is mild bilateral neural foraminal stenosis. There i s mild central canal stenosis. C5-C6: The disc is bulging. There is severe bilateral uncovertebral joint osteoarthritis. There is mi ld bilateral facet joint osteoarthritis. There is moderate bilateral neural foraminal stenosis. There is mild central canal stenosis. C6-C7: The disc is bulging. There is severe bilateral uncovertebral joint osteoarthritis. There is mi ld bilateral facet joint osteoarthritis. There is mild bilateral neural foraminal stenosis. There is mild central canal stenosis. C7-T1: There is a central protrusion. There is no uncovertebral joint osteoarthritis. There is severe bilateral facet joint osteoarthritis. There is mild bilateral neural foraminal stenosis. There is mi ld central canal stenosis. IMPRESSION: 1. C5 compression fracture, probably subacute. 2. Severe cervical spondylosis, slightly worsened from 07/26/2020. Reviewed, dictated and finalized at location B. E SPECIALIST
== END 2024-10-28 15:34 | disposition home or self-care (01) ==
LOC: MICIMG 15:36
PROVIDERS: PCP Emergency Medicine; Visit Provider Pain Medicine Pain Medicine
DX: S12.400A Unspecified displaced fracture of fifth cervical vertebra, initial encounter for closed fracture (principal); M43.02 Spondylolysis, cervical region; X58.XXXA Exposure to other specified factors, initial encounter
CPT/HCPCS: 72141

== ENCOUNTER 2024-12-07 15:15 | Outpatient (CLI) | payer MEDICARE, MEDICAID, SELFPAY ==
--- NOTE | ~2024-12-07 | XR_ITS ---
XR chest 2V Ordering provider: Brad Blancas MD History: 64 years Female with . Anterior chest wall pain . Comparison: None. FINDINGS: MEDIASTINUM: The cardiac silhouette is not enlarged. LUNGS: No infiltrates, effusions or pneumothorax. OTHER: No free air under the diaphragm. Right shoulder arthroplasty. Degenerative changes of the spin e. IMPRESSION: No acute cardiopulmonary pathology. Reviewed, dictated and finalized at location A. R FIELD SERVICE TECHNICIAN
--- NOTE | ~2024-12-07 | XR_ITS ---
XR ribs LT 2V Ordering provider: Brad Blancas MD History: . LEFT SIDE RIB PAIN FROM FALL 3 WKS AGO . Comparison: None. FINDINGS: BONES: Fracture of the left fourth, fifth, sixth and seventh ribs. Left shoulder osteoarthritic changes. Degenerative spine. LEFT LUNG: No effusions or infiltrates. No pneumothorax. SOFT TISSUES: Normal. IMPRESSION: Multiple left rib fractures. Reviewed, dictated and finalized at location A. SS SERVICE REPRESENTATIVE
--- OUTSIDE RECORDS SUMMARY | 2024-12-07 17:08 | XMS_ITS | Referral Summary ---
Author Organization [facility] [employer] Address [address] [place] [address] Care Team Providers Care Glass Cut Off Supervisor Name Role Phone Brad Blancas MD Primary Care Provider [phone] Elkin Bautista MD Unavailable Babatunde Valdez RN Unavailable [phone] Source Comments [facility],non-owned Affiliates and Associated Physician Practices is amultiple site organization consisting of ambulatory clinics and hospital sitesin [place], [place], [place] and [place]. This disclosure is being madepursuant to the Care Everywhere program and may not contain all information available regarding this patient. Last updated 18.[facility] Allergies Active Allergy Reactions Criticality Noted Date Comments Naproxen Urticaria 03/16/2015 Nsaids Nausea and/or Vomiting Low 07/15/2016 Penicillins Rash Medium 02/20/2015 Aminobenzoate Rash,Itching Medium 02/20/2015 Medications * Be aware that medications may not be up to date on this document. Alwaysverify current medications with the patient. Medication Sig Dispensed Refills Start Date End Date Status omeprazole (PRILOSEC) 20 MG capsule Take 20 mg by mouth daily before breakfast Active sertraline (ZOLOFT) 25 MG tablet Take 25 mg by mouth once daily Active nitroGLYCERIN (NITROSTAT) 0.4 MG tablet Dissolve 0.4 mg under the tongue every 5 minutes as needed for Angina Active topiramate (TOPAMAX) 100 MG tablet Take 100 mg by mouth 2 times daily Active ranolazine ER 12hr (RANEXA) 1000 MG tablet Take 1,000 mg by mouth every 12 hours Active gabapentin (NEURONTIN) 100 MG capsule 100 mg 2 times daily 06/21/2018 Acti ve albuterol (PROVENTIL;VENTOLIN) (2.5 MG/3ML) 0.083% nebulizer solution USE 3 ML IN NEBULIZER THREE TIMES DAILY DIRECTED 10/03/2019 Active cyclobenzaprine (FLEXERIL) 10 MG tablet Take by mouth 2 times daily 07/11/2020 Active fluticasone propionate (FLONASE) 50 MCG/ACT nasal spray fluticasone propionate 50 mcg/actuation nasal spray,suspension USE 2 SPRAYS IN EACH NOSTRIL BID FOR 7 DAYS. Active furosemide (LASIX) 20 MG tablet Take by mouth once daily 06/14/2020 Active HYDROcodone-acetamin ophen (NORCO) 10-325 MG tablet hydrocodone 10 mg-acetaminophen 325 mg tablet Active rosuvastatin (CRESTOR) 40 MG tablet Take by mouth once daily 05/18/2020 Active SUMAtriptan (IMITREX) 50 MG tablet as needed 02/20/2020 Active oxybutynin CR 24hr (DITROPAN-XL) 10 MG tablet Take 10 mg by mouth once daily 07/06/2020 Active Active Problems Problem Noted Date Diagnosed Date Smoker 06/23/2016 Status post shoulder replacement, right 08/14/20 15 Overview (09/08/2018): Overview: ICD-10 update Degenerative arthritis of right shoulder region 03/16/2015 Glenohumeral arthritis, right 02/20/2015 Immunizations Name Administration Dates Next Due INFLUENZA VACCINE 08/05/2020 INFLUENZA VACCINE, QUADR. (A FLURIA, FLUZONE QUADRIVALENT; 6MO+) (IIV4) 06/23/2016 PNEUMOCOCCAL PPSV23 06/23/2016 Zoster Hzv Vacc Recombinant Inj Im 06/11/2020 Social History Tobacco Use Types Packs/Day Years Used Date Smoking Tobacco: Every Day Cigarettes 1.5 40 Smokeless Tobacco: Never Tobacco Cessation:Counseling Given: Yes Alcohol Use Standard Drinks/Week Comments No 0 (1 standard drink = 0.6 oz pur e alcohol) Sex and Gender Information Value Date Recorded Sex Assigned at Not on file Gender Identity Not on file Sexual Orientation Not on file Last Filed Vital Signs Vital Sign Reading Time Taken Comments Blood Pressure 132/79 07/17/2020 10:11 AM CDT Pulse 64 07/17/2020 10:11 AM CDT Temperature 36.3 C (97.4 F) 03/20/2015 5:32 AM CDT Respiratory Rate 14 03/20/2015 5:32 AM CDT Oxygen Saturation 94% 03/20/2015 5:32 AM CDT Inhaled Oxygen Concentration - - Weight 104.3 kg (230 lb) 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 No 03/20/2015 Is person blind or have serious difficulty seein g? No 03/20/2015 Does person have serious dif ficulty walking/climbing stairs? No 03/20/2015 Does person have difficulty dressing/bathing? No 03/20/2015 Does person have difficulty doing errands alone? No 03/20/2015 Cognitive Status Response Date of Assessm ent Does person have difficulty concentrating/remembering/making decisions? No 03/20/2015 Plan of Treatment Not on file Medical Devices Implanted Type Area Blocker Metal Base Device Identifier Shelf Expiration Date Model / Serial / Lot [place] Peg Xlink 44mm Implanted:Qty: 1 on 03/19/2015 by Jose Polo MD at [facility] Right: Shoulder [employer] 02/02/2020 6 [id number] Harvey Bone Merrill-G Hv 40/20 Implanted:Qty: 1 on 03/19/2015 by Jose Polo MD at [facility] Right: Shoulder [employer] 10/05/2016 [id number] / / [id number] [employer] Porocoat Stem Implanted:Qty: 1 on 03/19/2015 by Jose Polo MD at [facility] Right: Shoulder [employer] 08/05/2024 1100-07-14 0 / / [id number] [employer] Anatomic Proximal Body Implanted:Qty: 1 on 03/19/2015 by Jose Polo MD at [facility] Right: Shoulder [employer] 09/04/2024 0 / / [id number] [employer] Eccentric Humeral Head Implanted:Qty: 1 on 03/19/2015 by Jose Polo MD at [facility] Right: Shoulder [employer] 03/05/2024 0 / / [id number] Sys Shld Tot Arthroplst Implanted:Qty: 1 on 03/19/2015 by Jose Polo MD at [facility] [employer] S3 DEPUY / / Procedures Procedure Name Priority Date/Time Associated Diagnosis Comments BASIC METABOLIC PANEL (CALCIUM TOTAL) AM Draw 03/20/2015 3:49 AM CDT from Last 3 Months or Most Recently Relevant to Health Maintenance Results * (ABNORMAL) BASIC METABOLIC PANEL (CALCIUM TOTAL) (03/20/2015 3:49 AM CDT) [facility] Glucose 120(H) 74 - 106 mg/dL 03/20/2015 5:44 AM CDT [facility] Sodium 141 136 - 145 mmol/L 03/20/2015 5:44 AM CDT [facility] Potassium 4.3 3.5 - 5.1 mmol/L 03/20/2015 5:44 AM CDT [facility] Chloride 105 98 - 107 mmol/L 03/20/2015 5:44 AM CDT [facility] CO2 27 22 - 31 mmol/L 03/20/2015 5:44 AM CDT [facility] Calcium 8.4(L) 8.5 - 10.1 mg/dL 03/20/2015 5:44 AM CDT [facility] Anion Gap 9 5 - 15 mmol/L 03/20/2015 5:44 AM CDT [facility] BUN 8 7 - 21 mg/dL 03/20/2015 5:44 AM CDT [facility] Creatinine 0.67 0.50 - 1.30 mg/dL 03/20/2015 5:44 AM CDT [facility] eGFR by MDRD >60 >60 mL/min/1.7 3m2 03/20/2015 5:44 AM CDT [facility] eGFR by MDRD >60 >60 mL/min/1.7 3m2 03/20/2015 5:44 AM CDT [facility] Blood BLOOD SPECIMEN / Unknown Lab Venipuncture / Unknown 03/20/2015 3:49 AM CDT 03/20/2015 5:15 AM CDT Hira Esqueda MD LAB - CHEMISTRY JACK Lai Organization Address City/State/ZIP Co de Phone Number [facility] [address] [place] [address] from Last 3 Months or Most Recently Relevant to Health Maintenance Advance Directives * Full Code (Latest Code Status on File) Date Activated Date Inactivated Comments 03/19/2015 9:35 PM 03/20/2015 6:23 PM Care Teams Glass Cut Off Supervisor Relationship Specialty Start Date End Date Brad Blancas MD [address] [place] [address] PCP - General Family Medicine 06/23/16 Elkin Bautista MD [address] [place], [place] [address] [place] [address] Internal Medicine 06/23/16 Babatunde Valdez, RN Folder Machine Adjuster 03/20/15
--- OUTSIDE RECORDS SUMMARY | 2024-12-07 17:08 | XMS_ITS | Referral Summary ---
Author Organization [facility] [address] Address [address] [place] [address] Care Team Providers Care Forest Technician Name Role Phone Brad Blancas MD Primary Care Provider Gadiel Wadsworth Unavailable [phone] Rebel Guajardo MD Unavailable Encounters Date Type Department Care Team Description 11/21/2024 Orders Only [facility] Emergency Department [address] [place] [address] Prema Couch MD 11/05/2024 Documentation [facility] 4th Floor [address] [place] [id number] Omar Rae MD 11/04/2024 7:39 PM SPAGHETTI PRESS HELPER - 11/05/2024 6:46 AM SPAGHETTI PRESS HELPER Emergency [facility] Emergency Department [address] [place] [address] Sen Mike MD Kim, Albert Junhyun, MD Spondylosis of lumbar spine (Primary Dx); History of COPD; NITA (obstructive sleep apnea); History of depression; Cervical stenosis of spinal canal Discharge Disposition: Discharge to home or self care from Last 3 Months Allergies Active Allergy Reactions Criticality Noted Date Comments Aminobenzoic Acid Itching,Rash Medium 02/20/2015 Atorvastatin Muscle pain High 02/10/2018 Celecoxib Hives Medium 01/28/2022 Isosorbide Headache High 01/01/2017 Meloxicam Hives Medium 01/28/2022 Naproxen Hives,Urticaria Medium 03/16/2015 Nsaids (Non-Steroidal Anti-Inflammatory Drug) Nausea & Vomiting,Nausea And Vomiting Low 07/15/2016 Penicillins Rash High 02/20/2015 Medications RANEXA 1,000 mg 12 hr tablet TAKE ONE TABLET DAILY FOR CHRONIC ANGINA 4 9 Active fluticasone propionate (FLONASE) 50 mcg/actuation nasal spray Administer 2 sprays into each nostril as needed Active nitroglycerin (NITROSTAT) 0.4 mg SL tablet nitroglycerin 0.4 mg sublingual tablet Active rosuvastatin (CRESTOR) 40 mg tablet Take 1 tablet (40 mg total) by mouth daily 0 Active oxybutynin XL (DITROPAN-XL) 10 mg 24 hr tablet Take 1 tablet (10 mg total) by mouth daily 0 Active furosemide (LASIX) 20 mg tablet Take by mouth daily 0 Active venlafaxine XR (EFFEXOR-XR) 75 mg 24 hr capsule Take by mouth daily 0 Active SUMAtriptan (IMITREX) 50 mg tablet Take 1 tablet (50 mg total) by mouth once as needed 0 Active cyclobenzaprin e (FLEXERIL) 10 mg tablet Take by mouth 2 (two) times a day as needed 0 Active montelukast (SINGULAIR) 10 mg tablet Take 1 tablet (10 mg total) by mouth nightly Active azelastine (ASTELIN) 137 mcg (0.1 %) nasal spray Administer 1 spray into each nostril 2 (two) times a day Use in each nostril as directed Active loratadine (CLARITIN) 10 mg tablet Take 1 tablet (10 mg total) by mouth daily Active cholecalcifero l (VITAMIN D-3) 5,000 unit capsule Take 1 capsule (5,000 Units total) by mouth daily Active albuterol 1.25 mg/3 mL nebulizer solution Take 3 mL (1.25 mg total) by nebulization every 6 (six) hours as needed for wheezing Active buprenorphine (BUTRANS) 7.5 mcg/hour 2 Active omeprazole (PriLOSEC) 20 mg capsule 2 Active pregabalin (LYRICA) 100 mg capsule 2 Active chlorthalidone 25 mg tablet daily Active econazole 1 % cream daily Active losartan (COZAAR) 50 mg tablet 1 tablet (50 mg total) Active lubiprostone (AMITIZA) 24 mcg capsule every 12 hours Act oskar metFORMIN (GLUCOPHAGE) 500 mg tablet daily Active Gemtesa 75 mg tablet Take 75 mg by mouth daily 4 Active Mounjaro 12.5 mg/0.5 mL pen injector INJECT (12.5MG) BY SUBCUTANEOUS ROUTE EVERY WEEK 4 Active biotin 10,000 mcg capsule Take by mouth daily Active HYDROcodone-ac etaminophen (NORCO) 7.5-325 mg per tablet Take 1 tablet by mouth every 4 (four) hours as needed 4 Active gabapentin (NEURONTIN) 100 mg capsule Take 1 capsule (100 mg total) by mouth 3 (three) times a day As needed Active budesonide-for moteroL (SYMBICORT) 80-4.5 mcg/actuation inhaler Inhale 2 puffs 2 (two) times a day Rinse mouth with water after use. Do not swallow. 1 each 11 4 Active Active Problems Problem Noted Date Diagnosed Date History of total knee arthroplasty, right 2021 Pre-operative clearance 09/13/2021 Acute sinusitis 07/16/2021 Asthma 07/16/2021 Pulmonary granuloma 07/16/2021 Knee pain 06/14/2021 Morbid obesity with BMI of 45.0-49.9, adult 06/05 Anxiety 01/24/2021 Calcaneal spur 01/24/2021 Carpal tunnel syndrome 01/24/2021 Cough 01/24/2021 Degeneration of intervertebral disc 01/24/2021 Depressive disorder 01/24/2021 Disorder of bursae of shoulder region 01/24/2021 Enthesopathy of hip region 01/24/2021 Hypertensive disorder 01/24/2021 Numbness of lower limb 01/24/2021 Microscopic hematuria 01/24/2021 Migraine 01/24/2021 Neuropathy 01/24/2021 Nicotine dependence 01/24/2021 Shoulder joint pain 01/24/2021 Upper respiratory infection 01/24/2021 Urinary incontinence 01/24/2021 Adrenal nodule 07/19/2020 Assessment & Plan (02/28/2021 4:57 PM CDT): Laboratory workup requested again, including 24 hour metanephrines, 1 mg dexamethasone suppression test, aldosterone renin ratio Will repeat adrenal imaging with CT of the abdomen Assessment & Plan (07/19/2020 3:36 PM CDT): With radiographic appearance of a benign adenoma. Although there is no clear indication of hyper functionality, will request a 1 mg dexamethasone suppression test to rule out hypercortisolism, as well as 24 hour urine collection for free metanephrine, to rule out pheochromocytoma Also will request aldosterone to renin ratio. If negative, follow-up in 4-[address] Special screening examination for unspecified vi ral disease 05/30/2020 Exposure to SARS-associated coronavirus 05/16/20 20 History of tobacco use 03/08/2019 Chronic obstructive pulmonary disease 03/08/2019 Edema 02/10/2018 Gastroesophageal reflux disease with hiatal bladimir ia 10/19/2017 Sciatica 01/01/2017 Skin lesion 12/19/2016 Atherosclerotic heart diseas e of [place] coronary artery without angina pectoris 12/19/2016 Chronic venous hypertension (idiopathic) with inflammation of bilateral lower extremity 12/09/2016 Obesity 11/13/2016 Bradycardia, unspecified 11/13/2016 Obstructive sleep apnea 11/13/2016 Personal history of nicotine dependence 11/13/19 17 Shortness of breath 11/13/2016 Complains of low back pain 07/15/2016 Elevated lipids 07/15/2016 Generalized anxiety disorder 07/15/2016 Smoker 06/23/2016 Status post shoulder replacement, right 08/14/20 15 Overview (01/24/2021): Overview: ICD-10 update Primary osteoarthritis of right knee 03/16/2015 Glenohumeral arthritis, right 02/20/2015 Immunizations Immunization Administration Dates Next Due Pfizer SARS-CoV-2 Monovalent Vaccination (12+ Yrs) PURPLE 01/01/2021,12/04/2020 Social History Tobacco Use Types Packs/Day Years Used Date Smoking Tobacco: Former Cigarettes 1.5 3.2 1 11/09/2020 - 1968 Smokeless Tobacco: Never Tobacco Cessation:Counseling Given: Not Answered Alcohol Use Standard Drinks/Week Comments Yes 0 (1 standard drink = 0.6 oz pur e alcohol) AUDIT-C Answer Date Recorded Q1: How often do you have a drink containing alc ohol? Never 09/09/2021 Average Number of Drinks Not on file Frequency of Binge Drinking Not on file 03/2021 PHQ-2 Answer Date Recorded PHQ-2 Total Score (If total score is 3 or more points, staff should administer the PHQ-9) 0 09/15/2021 Personal Safety Answer Date Recorded Have you ever been in or are you currently in a harmful physical or emotional relationship or is someone making you feel afraid or unsafe? Denies 11/04/2024 Comments Unknown Sex and Gender Information Value Date Recorded Sex Assigned at Not on file Legal Sex Female 1:45 AM SPAGHETTI PRESS HELPER Gender Identity Not on file Sexual Orientation Not on file Last Filed Vital Signs Vital Sign Reading Time Taken Comments Blood Pressure 104/55 11/05/2024 6:30 AM SPAGHETTI PRESS HELPER Pulse 61 11/05/2024 6:30 AM SPAGHETTI PRESS HELPER Temperature 36.5 C (97.7 F) 11/04/2024 5:03 PM SPAGHETTI PRESS HELPER Respiratory Rate 16 11/05/2024 6:30 AM SPAGHETTI PRESS HELPER Oxygen Saturation 91% 11/05/2024 6:30 AM SPAGHETTI PRESS HELPER Inhaled Oxygen Concentration - - Weight 98.4 kg (217 lb) 11/04/2024 5:03 PM SPAGHETTI PRESS HELPER Height 154.9 cm (5' 1 ) 11/04/2024 5:03 PM SPAGHETTI PRESS HELPER Body Mass Index 41 11/04/2024 5:03 PM SPAGHETTI PRESS HELPER Plan of Treatment Not on file Medical Devices Implanted Type Area Planting Material Carrier Device Identifier Shelf Expiration Date Model / Serial / Lot [employer]ed[employer] [id number] Attune Cruciate Retain Cementless Knee Right 4 Component Femoral - [id number] Implanted:Qty: 1 on 09/12/2021 by Jose Luis Yin MD at [facility] Right: Knee [employer] 10/04/2030 [id number] / / [id number] [employer] [id number] Attune 7mm Cruciate Retaining Rotate Platform Knee 4 Insert - [id number] Implanted:Qty: 1 on 09/12/2021 by Jose Luis Yin MD at [facility] Right: Knee [employer] 11/04/2024 [id number] / / [id number] [employer] [id number] Attune Cementless Rotate Platform Knee 5 Baseplate Tibial - [id number] Implanted:Qty: 1 on 09/12/2021 by Jose Luis Yin MD at [facility] Right: Knee [employer] 04/03/2031 [id number] / / 04/03/2031 Procedures Procedure Name Priority Date/Time Associated Diagnosis Comments MRI SPINE THORACIC LUMBAR W WO CONTRAST ED Urgent/IP Urgent 11/05/2024 12:59 AM SPAGHETTI PRESS HELPER APTT STAT 11/04/2024 11:44 PM SPAGHETTI PRESS HELPER PROTIME-INR STAT 11/04/2024 11:[address] THORACIC AND LUMBAR SPINE WO CONTRAST ED Urgent/IP Urgent 11/04/2024 11:[address] HEAD AND CERVICAL SPINE WO CONTRAST ED Urgent/IP Urgent 11/04/2024 11:40 PM SPAGHETTI PRESS HELPER XR SPINE CERVICAL 2 OR 3 VIEWS ED Urgent/IP Urgent 11/04/2024 10:25 PM SPAGHETTI PRESS HELPER XR SPINE LUMBAR 2 OR 3 VIEWS ED Urgent/IP Urgent 11/04/2024 10:25 PM SPAGHETTI PRESS HELPER POCT GLUCOSE DEVICE Routine 11/04/2024 1 0:00 PM SPAGHETTI PRESS HELPER B CHECK SAMPLE STAT 11/04/2024 10:00 PM SPAGHETTI PRESS HELPER NEURO MR OUTSIDE CONSULT Routine 11/04/2024 9:43 PM SPAGHETTI PRESS HELPER ECG 12-LEAD STAT 11/04/2024 9:14 PM SPAGHETTI PRESS HELPER XR CHEST 1 VIEW ED Urgent/IP Urgent 11/04/2024 9:00 PM SPAGHETTI PRESS HELPER EGFR STAT 11/04/2024 8:54 PM SPAGHETTI PRESS HELPER DIFFERENTIAL AUTO STAT 11/04/2024 8:5 4 PM SPAGHETTI PRESS HELPER TROPONIN I HIGH-SENSITIVITY Routine 11/04/2024 8:54 PM SPAGHETTI PRESS HELPER CBC WITH AUTO DIFFERENTIAL STAT 11/04/2024 8:54 PM SPAGHETTI PRESS HELPER COMPREHENSIVE METABOLIC PANEL STAT 11/04/2024 8:54 PM SPAGHETTI PRESS HELPER TYPE AND SCREEN STAT 11/04/2024 8:54 PM SPAGHETTI PRESS HELPER from Last 3 Months Results * MRI Spine Thoracic and Lumbar W WO Contrast (11/05/2024 12:59 AM SPAGHETTI PRESS HELPER) Anatomical Region Laterality Modality Spine N/A Magnetic Resonan ce 11/05/2024 2:47 AM SPAGHETTI PRESS HELPER Impressions 11/05/2024 7:01 AM SPAGHETTI PRESS HELPER 1. Multilevel degenerative changes in the lumbar spine are most pronounced from L2 to L5 and most severe at L3-L4 with severe spinal canal stenosis. Moderate right L4-L5 and bilateral L3-L4 and left L2-L3 neural foraminal stenosis. 2. Lower back muscle edema on the right at L4-L5, which may be due to muscle strain or trauma. 3. Multilevel degenerative changes in the thoracic and lumbar spine with multiple sites of active Modic type I endplate changes. No high-grade spinal canal or neuroforaminal stenosis. 4. Thickening at the posterior zhao of the left adrenal gland as seen on 07/01/2024 CT and may be compatible with an adrenal adenoma. If clinically indicated, may correlate with dedicated imaging. Dictated by: Lucho Mayer M.D. The radiology attending physician has personally reviewed this study, and had reviewed and/or edited this written report and agrees with it. Electronically signed by: Joycelyn Ruggiero MD, PhD Narrative 11/05/2024 7:01 AM SPAGHETTI PRESS HELPER EXAMINATION: 1. Magnetic resonance imaging (MRI) of the thoracic spine without and with contrast 2. Magnetic resonance imaging (MRI) of the lumbar spine without and with contrast HISTORY: 64 years-old Female with chronic back pain. Patient originally presented due to concern for cervical spine fracture on MRI. Concern for cauda equina syndrome. TECHNIQUE: Multiplanar multi-weighted MRI of the thoracic was performed without and with intravenous contrast using the standard protocol. Multiplanar multi-weighted MRI of the lumbar spine was performed without and with intravenous contrast using the standard protocol. Contrast information: 18 mL Gadoterate Meglumine COMPARISON: CT thoracic and lumbar spine 11/04/2024 FINDINGS: THORACIC SPINE: There is slight right convex curvature of the midthoracic spine. There are no suspicious vertebral body lesions. Modic type I endplate changes present at T4-T5, T7-T8, T10-T11, and T12-L1. Modic type II endplate changes present at T5-T6 . There are no compression fractures. The spinal cord demonstrates normal signal intensity on all sequences. There is multilevel intervertebral disc height loss and vacuum disc phenomenon. Limited views of the chest and abdomen show no soft tissue abnormality. The aorta is normal. There are multilevel mild disc bulges, most prominently at T4-T5,, T5-T6, T6-T7, T8-T9, T9-T10, and T10-T11. There is multilevel facet arthropathy. There is no high-grade neuroforaminal stenosis. There is mild spinal canal stenosis at T10-T11. LUMBAR SPINE: Slight rightward curvature of the lumbar spine. There are no suspicious vertebral body lesions. Modic type I endplate changes present at T12-L1 and L3-L4. Modic type II endplate changes present at L2-L3, L3-L4, L4-L5. Prominent Schmorl's node in the superior endplate of L3. There are no compression fractures. The conus medullaris terminates at the level of L1-L2. The distal spinal cord signal intensity is normal. There is multilevel intervertebral disc height loss with vacuum disc phenomenon, most prominently at L3-L4 and L4-L5, better seen on CT. There fissures present at L3-L4 and L4-L5. There is a left common iliac vein stent. Linear edema present in the paraspinal musculature on the right at L4-L5. The aorta is normal. L1-L2: Minimal diffuse disc bulge with ligamentum flavum hypertrophy. There is moderate bilateral facet arthropathy. There is no neuroforaminal stenosis. There is no spinal canal stenosis. L2-L3: Diffuse disc bulge with ligamentum flavum hypertrophy. There is moderate bilateral facet arthropathy. There is mild right and moderate left neuroforaminal stenosis. There is moderate spinal canal stenosis. L3-L4: Diffuse disc bulge with effacement of the left greater than right lateral recesses. There is severe bilateral facet arthropathy. There is moderate bilateral neuroforaminal stenosis. There is severe spinal canal stenosis. L4-L5: Mild diffuse disc bulge. Ligamentum flavum hypertrophy. Effacement of the bilateral lateral recesses. There is severe bilateral facet arthropathy. There is moderate right and mild left neuroforaminal stenosis. There is moderate spinal canal stenosis. L5-S1: Mild diffuse disc bulge There is severe bilateral facet arthropathy. There is moderate right and mild left neuroforaminal stenosis. There is no spinal canal stenosis. 1.0 cm thickening at the posterior zhao of the left adrenal gland. Procedure Note Joycelyn Ruggiero MD PhD - 11/05/2024 EXAMINATION: 1. Magnetic resonance imaging (MRI) of the thoracic spine without and with contrast 2. Magnetic resonance imaging (MRI) of the lumbar spine without and with contrast HISTORY: 64 years-old Female with chronic back pain. Patient originally presented due to concern for cervical spine fracture on MRI. Concern for cauda equina syndrome. TECHNIQUE: Multiplanar multi-weighted MRI of the thoracic was performed without and with intravenous contrast using the standard protocol. Multiplanar multi-weighted MRI of the lumbar spine was performed without and with intravenous contrast using the standard protocol. Contrast information: 18 mL Gadoterate Meglumine COMPARISON: CT thoracic and lumbar spine 11/04/2024 FINDINGS: THORACIC SPINE: There is slight right convex curvature of the midthoracic spine. There are no suspicious vertebral body lesions. Modic type I endplate changes present at T4-T5, T7-T8, T10-T11, and T12-L1. Modic type II endplate changes present at T5-T6 . There are no compression fractures. The spinal cord demonstrates normal signal intensity on all sequences. There is multilevel intervertebral disc height loss and vacuum disc phenomenon. Limited views of the chest and abdomen show no soft tissue abnormality. The aorta is normal. There are multilevel mild disc bulges, most prominently at T4-T5,, T5-T6, T6-T7, T8-T9, T9-T10, and T10-T11. There is multilevel facet arthropathy. There is no high-grade neuroforaminal stenosis. There is mild spinal canal stenosis at T10-T11. LUMBAR SPINE: Slight rightward curvature of the lumbar spine. There are no suspicious vertebral body lesions. Modic type I endplate changes present at T12-L1 and L3-L4. Modic type II endplate changes present at L2-L3, L3-L4, L4-L5. Prominent Schmorl's node in the superior endplate of L3. There are no compression fractures. The conus medullaris terminates at the level of L1-L2. The distal spinal cord signal intensity is normal. There is multilevel intervertebral disc height loss with vacuum disc phenomenon, most prominently at L3-L4 and L4-L5, better seen on CT. There fissures present at L3-L4 and L4-L5. There is a left common iliac vein stent. Linear edema present in the paraspinal musculature on the right at L4-L5. The aorta is normal. L1-L2: Minimal diffuse disc bulge with ligamentum flavum hypertrophy. There is moderate bilateral facet arthropathy. There is no neuroforaminal stenosis. There is no spinal canal stenosis. L2-L3: Diffuse disc bulge with ligamentum flavum hypertrophy. There is moderate bilateral facet arthropathy. There is mild right and moderate left neuroforaminal stenosis. There is moderate spinal canal stenosis. L3-L4: Diffuse disc bulge with effacement of the left greater than right lateral recesses. There is severe bilateral facet arthropathy. There is moderate bilateral neuroforaminal stenosis. There is severe spinal canal stenosis. L4-L5: Mild diffuse disc bulge. Ligamentum flavum hypertrophy. Effacement of the bilateral lateral recesses. There is severe bilateral facet arthropathy. There is moderate right and mild left neuroforaminal stenosis. There is moderate spinal canal stenosis. L5-S1: Mild diffuse disc bulge There is severe bilateral facet arthropathy. There is moderate right and mild left neuroforaminal stenosis. There is no spinal canal stenosis. 1.0 cm thickening at the posterior zhao of the left adrenal gland. IMPRESSION: 1. Multilevel degenerative changes in the lumbar spine are most pronounced from L2 to L5 and most severe at L3-L4 with severe spinal canal stenosis. Moderate right L4-L5 and bilateral L3-L4 and left L2-L3 neural foraminal stenosis. 2. Lower back muscle edema on the right at L4-L5, which may be due to muscle strain or trauma. 3. Multilevel degenerative changes in the thoracic and lumbar spine with multiple sites of active Modic type I endplate changes. No high-grade spinal canal or neuroforaminal stenosis. 4. Thickening at the posterior zhao of the left adrenal gland as seen on 07/01/2024 CT and may be compatible with an adrenal adenoma. If clinically indicated, may correlate with dedicated imaging. Dictated by: Lucho Mayer M.D. The radiology attending physician has personally reviewed this study, and had reviewed and/or edited this written report and agrees with it. Electronically signed by: Joycelyn Ruggiero MD, PhD Prema Couch MD IMG MRI PROCEDURES Final Result * aPTT (11/04/2024 11:44 PM SPAGHETTI PRESS HELPER) aPTT 28 28 - 38 sec Comment: Interpretive Data Heparin therapeutic range: 66.0 - 100.0 seconds. Range based on correlation with therapeutic heparin activity range of 0.3 - 0.7 Units/mL. Current interpretive data was last revised on 2023. Blood 11/04/2024 11:4 4 PM SPAGHETTI PRESS HELPER 11/05/2024 12:17 AM SPAGHETTI PRESS HELPER Prema Couch MD LAB BLOOD ORDERABLES Fin al Result [facility] Department [place] [address] * Protime-INR (11/04/2024 11:44 PM SPAGHETTI PRESS HELPER) PT 11.5 9.7 - 13.0 sec INR 1.06 0.90 - 1.20 [facility] Comment: Interpretive data Oral anticoagulant therapeutic ranges: Venous thromboembolism prophylaxis or treatment: 2.0-3.0 CARDIOLOGY Standard range: 2.0-3.0 High-intensity range: 2.5-3.5 Refer to indication-specific guidelines for appropriate target ranges for prosthetic heart valve replacement. Current interpretive data was last revised on 2019. Blood 11/04/2024 11:4 4 PM SPAGHETTI PRESS HELPER 11/05/2024 12:17 AM SPAGHETTI PRESS HELPER Prema Couch MD LAB BLOOD ORDERABLES Fin al Result [facility] Department [place] [address] * CT Head and Cervical Spine WO Contrast (11/04/2024 11:40 PM SPAGHETTI PRESS HELPER) Anatomical Region Laterality Modality Head and Neck N/A Computed Tomogra phy 11/05/2024 12:0 3 AM SPAGHETTI PRESS HELPER Impressions 11/05/2024 9:47 AM SPAGHETTI PRESS HELPER 1. No acute intracranial hemorrhage, hemorrhage or herniation. No large edematous hypodensity to suggest acute territorial infarct. 2. Degenerative changes in the cervical vertebrae without definite vertebral body height loss to suggest compression fracture. Mild canal stenosis at C5-C6. 3. Degenerative changes in the lumbar spine, most prominent at L4-S1 with moderate to severe canal stenosis. 4. Left iliac vein stent is seen with apparent projection beyond the wall of the inferior vena cava. Dictated by: Lu Palomino MD The radiology attending physician has personally reviewed this study, and had reviewed and/or edited this written report and agrees with it. Electronically signed by: Shakeel Goodwin MD Narrative 11/05/2024 9:47 AM SPAGHETTI PRESS HELPER EXAMINATION: 1. CT head without contrast 2. CT of the cervical spine without contrast 3. CT of the thoracic spine with contrast 4. CT of the lumbar spine with contrast HISTORY: 64-year-old with possible subacute C5 fracture and most recent MRI on 10/28/2024 and and numbness in the left face left arm and left leg a fall the day before . TECHNIQUE: CT of the head was performed with images acquired from skull base to vertex without intravenous contrast. CT of the cervical spine was performed according to the standard protocol without intravenous contrast. Dedicated reconstructions of the thoracic and lumbar spine were generated using data from a CT of the chest, abdomen, and pelvis acquired with intravenous contrast according to standard protocol. COMPARISON: MRI on 10/28/2024 FINDINGS: HEAD: There is no acute intracranial hemorrhage. Ventricles are of normal size and morphology. No mass effect or midline shift is present. The delcid-white matter differentiation is normal. The visualized portions of the orbits are normal. The visualized portions of the mastoids are normal. The visualized portions of the paranasal sinuses are normal. No fractures are identified. Partially empty sella CERVICAL SPINE: The loss of cervical lordosis. Minimal retrolisthesis of C5 over C6. Degenerative disc disease most prominent at C5-C6 and C6-C7 with endplate erosions. No definite evidence of compression fracture. The craniocervical junction is normal. Limited views of the skull base appear normal. The sphenoid sinus is well aerated. No soft tissue abnormality is identified. Degenerative disc disease in the cervical spine most prominent at C5-T1. There is mild spinal canal stenosis C5-C6. There is severe degenerative disc height loss at C6-C7. Mild facet arthropathy and uncovertebral arthropathy throughout the cervical spine without high-grade neural foraminal or spinal canal stenosis. THORACIC SPINE: There are 12 rib-bearing thoracic vertebra. Minimal levocurvature of the thoracic spine. There is no acute fracture. Vertebral bodies are normal in height without compression fractures Degenerative disc height loss throughout the thoracic spine, with endplate erosions most prominent at T7-T12. No significant spinal canal or neuroforaminal stenosis. LUMBAR SPINE: There is no acute fracture. The vertebral bodies are normal in height without compression fractures. Degenerative disc disease most prominent at L4-S1. Moderate to severe bilateral neural foraminal stenosis from L1 through S1. Moderate to severe canal stenosis at L5-S1. Moderate canal stenosis at L4-5. No Dependent atelectasis in both lungs. Calcification of the abdominal aorta. Left iliac vein stent is seen with apparent projection beyond the wall of the inferior vena cava. Nodularity of the left adrenal. Procedure Note Shakeel Goodwin MD PhD - 11/05/2024 EXAMINATION: 1. CT head without contrast 2. CT of the cervical spine without contrast 3. CT of the thoracic spine with contrast 4. CT of the lumbar spine with contrast HISTORY: 64-year-old with possible subacute C5 fracture and most recent MRI on 10/28/2024 and and numbness in the left face left arm and left leg a fall the day before Thanksgiving. TECHNIQUE: CT of the head was performed with images acquired from skull base to vertex without intravenous contrast. CT of the cervical spine was performed according to the standard protocol without intravenous contrast. Dedicated reconstructions of the thoracic and lumbar spine were generated using data from a CT of the chest, abdomen, and pelvis acquired with intravenous contrast according to standard protocol. COMPARISON: MRI on 10/28/2024 FINDINGS: HEAD: There is no acute intracranial hemorrhage. Ventricles are of normal size and morphology. No mass effect or midline shift is present. The delcid-white matter differentiation is normal. The visualized portions of the orbits are normal. The visualized portions of the mastoids are normal. The visualized portions of the paranasal sinuses are normal. No fractures are identified. Partially empty sella CERVICAL SPINE: The loss of cervical lordosis. Minimal retrolisthesis of C5 over C6. Degenerative disc disease most prominent at C5-C6 and C6-C7 with endplate erosions. No definite evidence of compression fracture. The craniocervical junction is normal. Limited views of the skull base appear normal. The sphenoid sinus is well aerated. No soft tissue abnormality is identified. Degenerative disc disease in the cervical spine most prominent at C5-T1. There is mild spinal canal stenosis C5-C6. There is severe degenerative disc height loss at C6-C7. Mild facet arthropathy and uncovertebral arthropathy throughout the cervical spine without high-grade neural foraminal or spinal canal stenosis. THORACIC SPINE: There are 12 rib-bearing thoracic vertebra. Minimal levocurvature of the thoracic spine. There is no acute fracture. Vertebral bodies are normal in height without compression fractures Degenerative disc height loss throughout the thoracic spine, with endplate erosions most prominent at T7-T12. No significant spinal canal or neuroforaminal stenosis. LUMBAR SPINE: There is no acute fracture. The vertebral bodies are normal in height without compression fractures. Degenerative disc disease most prominent at L4-S1. Moderate to severe bilateral neural foraminal stenosis from L1 through S1. Moderate to severe canal stenosis at L5-S1. Moderate canal stenosis at L4-5. No Dependent atelectasis in both lungs. Calcification of the abdominal aorta. Left iliac vein stent is seen with apparent projection beyond the wall of the inferior vena cava. Nodularity of the left adrenal. IMPRESSION: 1. No acute intracranial hemorrhage, hemorrhage or herniation. No large edematous hypodensity to suggest acute territorial infarct. 2. Degenerative changes in the cervical vertebrae without definite vertebral body height loss to suggest compression fracture. Mild canal stenosis at C5-C6. 3. Degenerative changes in the lumbar spine, most prominent at L4-S1 with moderate to severe canal stenosis. 4. Left iliac vein stent is seen with apparent projection beyond the wall of the inferior vena cava. Dictated by: Lu Palomino MD The radiology attending physician has personally reviewed this study, and had reviewed and/or edited this written report and agrees with it. Electronically signed by: Shakeel Goodwin MD Prema Couch MD IMG CT PROCEDURES Final Result * CT Thoracic and Lumbar Spine WO Contrast (11/04/2024 11:40 PM [employer]HE[employer] PRESS HELPER) Anatomical Region Laterality Modality Spine N/A Computed Tomogra phy 11/05/2024 12:0 3 AM [employer]HE[employer] PRESS HELPER Impressions 11/05/2024 9:47 AM [employer]HE[employer] PRESS HELPER 1. No acute intracranial hemorrhage, hemorrhage or herniation. No large edematous hypodensity to suggest acute territorial infarct. 2. Degenerative changes in the cervical vertebrae without definite vertebral body height loss to suggest compression fracture. Mild canal stenosis at C5-C6. 3. Degenerative changes in the lumbar spine, most prominent at L4-S1 with moderate to severe canal stenosis. 4. Left iliac vein stent is seen with apparent projection beyond the wall of the inferior vena cava. Dictated by: Lu Palomino MD The radiology attending physician has personally reviewed this study, and had reviewed and/or edited this written report and agrees with it. Electronically signed by: Shakeel Goodwin MD Narrative 11/05/2024 9:47 AM SPAGHE[employer] PRESS HELPER EXAMINATION: 1. CT head without contrast 2. CT of the cervical spine without contrast 3. CT of the thoracic spine with contrast 4. CT of the lumbar spine with contrast HISTORY: 64-year-old with possible subacute C5 fracture and most recent MRI on 10/28/2024 and and numbness in the left face left arm and left leg a fall the day before Thanksgiving. TECHNIQUE: CT of the head was performed with images acquired from skull base to vertex without intravenous contrast. CT of the cervical spine was performed according to the standard protocol without intravenous contrast. Dedicated reconstructions of the thoracic and lumbar spine were generated using data from a CT of the chest, abdomen, and pelvis acquired with intravenous contrast according to standard protocol. COMPARISON: MRI on 10/28/2024 FINDINGS: HEAD: There is no acute intracranial hemorrhage. Ventricles are of normal size and morphology. No mass effect or midline shift is present. The delcid-white matter differentiation is normal. The visualized portions of the orbits are normal. The visualized portions of the mastoids are normal. The visualized portions of the paranasal sinuses are normal. No fractures are identified. Partially empty sella CERVICAL SPINE: The loss of cervical lordosis. Minimal retrolisthesis of C5 over C6. Degenerative disc disease most prominent at C5-C6 and C6-C7 with endplate erosions. No definite evidence of compression fracture. The craniocervical junction is normal. Limited views of the skull base appear normal. The sphenoid sinus is well aerated. No soft tissue abnormality is identified. Degenerative disc disease in the cervical spine most prominent at C5-T1. There is mild spinal canal stenosis C5-C6. There is severe degenerative disc height loss at C6-C7. Mild facet arthropathy and uncovertebral arthropathy throughout the cervical spine without high-grade neural foraminal or spinal canal stenosis. THORACIC SPINE: There are 12 rib-bearing thoracic vertebra. Minimal levocurvature of the thoracic spine. There is no acute fracture. Vertebral bodies are normal in height without compression fractures Degenerative disc height loss throughout the thoracic spine, with endplate erosions most prominent at T7-T12. No significant spinal canal or neuroforaminal stenosis. LUMBAR SPINE: There is no acute fracture. The vertebral bodies are normal in height without compression fractures. Degenerative disc disease most prominent at L4-S1. Moderate to severe bilateral neural foraminal stenosis from L1 through S1. Moderate to severe canal stenosis at L5-S1. Moderate canal stenosis at L4-5. No Dependent atelectasis in both lungs. Calcification of the abdominal aorta. Left iliac vein stent is seen with apparent projection beyond the wall of the inferior vena cava. Nodularity of the left adrenal. Procedure Note Shakeel Goodwin MD PhD - 11/05/2024 EXAMINATION: 1. CT head without contrast 2. CT of the cervical spine without contrast 3. CT of the thoracic spine with contrast 4. CT of the lumbar spine with contrast HISTORY: 64-year-old with possible subacute C5 fracture and most recent MRI on 10/28/2024 and and numbness in the left face left arm and left leg a fall the day before Thanksgiving. TECHNIQUE: CT of the head was performed with images acquired from skull base to vertex without intravenous contrast. CT of the cervical spine was performed according to the standard protocol without intravenous contrast. Dedicated reconstructions of the thoracic and lumbar spine were generated using data from a CT of the chest, abdomen, and pelvis acquired with intravenous contrast according to standard protocol. COMPARISON: MRI on 10/28/2024 FINDINGS: HEAD: There is no acute intracranial hemorrhage. Ventricles are of normal size and morphology. No mass effect or midline shift is present. The delcid-white matter differentiation is normal. The visualized portions of the orbits are normal. The visualized portions of the mastoids are normal. The visualized portions of the paranasal sinuses are normal. No fractures are identified. Partially empty sella CERVICAL SPINE: The loss of cervical lordosis. Minimal retrolisthesis of C5 over C6. Degenerative disc disease most prominent at C5-C6 and C6-C7 with endplate erosions. No definite evidence of compression fracture. The craniocervical junction is normal. Limited views of the skull base appear normal. The sphenoid sinus is well aerated. No soft tissue abnormality is identified. Degenerative disc disease in the cervical spine most prominent at C5-T1. There is mild spinal canal stenosis C5-C6. There is severe degenerative disc height loss at C6-C7. Mild facet arthropathy and uncovertebral arthropathy throughout the cervical spine without high-grade neural foraminal or spinal canal stenosis. THORACIC SPINE: There are 12 rib-bearing thoracic vertebra. Minimal levocurvature of the thoracic spine. There is no acute fracture. Vertebral bodies are normal in height without compression fractures Degenerative disc height loss throughout the thoracic spine, with endplate erosions most prominent at T7-T12. No significant spinal canal or neuroforaminal stenosis. LUMBAR SPINE: There is no acute fracture. The vertebral bodies are normal in height without compression fractures. Degenerative disc disease most prominent at L4-S1. Moderate to severe bilateral neural foraminal stenosis from L1 through S1. Moderate to severe canal stenosis at L5-S1. Moderate canal stenosis at L4-5. No Dependent atelectasis in both lungs. Calcification of the abdominal aorta. Left iliac vein stent is seen with apparent projection beyond the wall of the inferior vena cava. Nodularity of the left adrenal. IMPRESSION: 1. No acute intracranial hemorrhage, hemorrhage or herniation. No large edematous hypodensity to suggest acute territorial infarct. 2. Degenerative changes in the cervical vertebrae without definite vertebral body height loss to suggest compression fracture. Mild canal stenosis at C5-C6. 3. Degenerative changes in the lumbar spine, most prominent at L4-S1 with moderate to severe canal stenosis. 4. Left iliac vein stent is seen with apparent projection beyond the wall of the inferior vena cava. Dictated by: Lu Palomino MD The radiology attending physician has personally reviewed this study, and had reviewed and/or edited this written report and agrees with it. Electronically signed by: Shakeel Goodwin MD Prema Couch MD IMG CT PROCEDURES Final Result * XR Spine Lumbar 2 or 3 Views (11/04/2024 10:25 PM [employer] PRESS HELPER) Anatomical Region Laterality Modality Spine N/A Computed Radiogr aphy 11/04/2024 10:5 7 PM [employer] PRESS HELPER Impressions 11/05/2024 9:15 AM [employer] PRESS HELPER Lumbar spine: Left iliac stent. Vascular calcifications. Apparent cortical irregularity off the T12 vertebral body may be related to rotation/overlapping osseous structures versus a fracture. Recommend correlation with point tenderness. Otherwise, vertebral body heights are maintained. No significant anterolisthesis or retrolisthesis. Multilevel facet arthropathy. Cervical spine: The C5-C7 vertebral bodies are obscured by overlying soft tissues. The remainder of the vertebral body heights and intervertebral disc spaces are preserved. No anterolisthesis or retrolisthesis. Multilevel facet and uncovertebral joint arthropathy. No acute displaced dens fracture. The lateral masses of C1 are well aligned with C2. Partially imaged prevertebral soft tissue thickening anterior to C5 which is nonspecific and could be related to collapse of soft tissues versus hematoma. Dictated by: Rayray Devine MD The radiology attending physician has personally reviewed this study, and had reviewed and/or edited this written report and agrees with it. Electronically signed by: Trell Castaneda M.D. Narrative 11/05/2024 9:15 AM [employer]HE[employer]I PRESS HELPER EXAMINATION: XR SPINE LUMBAR 2 OR 3 VIEWS, XR SPINE CERVICAL 2 OR 3 VIEWS HISTORY: Concern for lumbar spine fracture with saddle anesthesia, and bilateral arm weakness COMPARISON: MR cervical spine 10/28/2024, CT abdomen 03/25/2021 Procedure Note Trell Castaneda MD - 11/05/2024 EXAMINATION: XR SPINE LUMBAR 2 OR 3 VIEWS, XR SPINE CERVICAL 2 OR 3 VIEWS HISTORY: Concern for lumbar spine fracture with saddle anesthesia, and bilateral arm weakness COMPARISON: MR cervical spine 10/28/2024, CT abdomen 03/25/2021 IMPRESSION: Lumbar spine: Left iliac stent. Vascular calcifications. Apparent cortical irregularity off the T12 vertebral body may be related to rotation/overlapping osseous structures versus a fracture. Recommend correlation with point tenderness. Otherwise, vertebral body heights are maintained. No significant anterolisthesis or retrolisthesis. Multilevel facet arthropathy. Cervical spine: The C5-C7 vertebral bodies are obscured by overlying soft tissues. The remainder of the vertebral body heights and intervertebral disc spaces are preserved. No anterolisthesis or retrolisthesis. Multilevel facet and uncovertebral joint arthropathy. No acute displaced dens fracture. The lateral masses of C1 are well aligned with C2. Partially imaged prevertebral soft tissue thickening anterior to C5 which is nonspecific and could be related to collapse of soft tissues versus hematoma. Dictated by: Rayray Devine MD The radiology attending physician has personally reviewed this study, and had reviewed and/or edited this written report and agrees with it. Electronically signed by: Trell Castaneda M.D. us Prema Couch MD IMG XR PROCEDURES Final Result * XR Spine Cervical 2 or 3 Views (11/04/2024 10:25 PM SP[employer]HE[employer]I PRESS HELPER) Anatomical Region Laterality Modality Spine N/A Computed Radiogr aphy 11/04/2024 10:5 7 PM [employer]HE[employer] PRESS HELPER Impressions 11/05/2024 9:15 AM [employer]HE[employer] PRESS HELPER Lumbar spine: Left iliac stent. Vascular calcifications. Apparent cortical irregularity off the T12 vertebral body may be related to rotation/overlapping osseous structures versus a fracture. Recommend correlation with point tenderness. Otherwise, vertebral body heights are maintained. No significant anterolisthesis or retrolisthesis. Multilevel facet arthropathy. Cervical spine: The C5-C7 vertebral bodies are obscured by overlying soft tissues. The remainder of the vertebral body heights and intervertebral disc spaces are preserved. No anterolisthesis or retrolisthesis. Multilevel facet and uncovertebral joint arthropathy. No acute displaced dens fracture. The lateral masses of C1 are well aligned with C2. Partially imaged prevertebral soft tissue thickening anterior to C5 which is nonspecific and could be related to collapse of soft tissues versus hematoma. Dictated by: Rayray Devine MD The radiology attending physician has personally reviewed this study, and had reviewed and/or edited this written report and agrees with it. Electronically signed by: Trell Castaneda M.D. Narrative 11/05/2024 9:15 AM [employer]AGHETTI PRESS HELPER EXAMINATION: XR SPINE LUMBAR 2 OR 3 VIEWS, XR SPINE CERVICAL 2 OR 3 VIEWS HISTORY: Concern for lumbar spine fracture with saddle anesthesia, and bilateral arm weakness COMPARISON: MR cervical spine 10/28/2024, CT abdomen 03/25/2021 Procedure Note Trell Castaneda MD - 11/05/2024 EXAMINATION: XR SPINE LUMBAR 2 OR 3 VIEWS, XR SPINE CERVICAL 2 OR 3 VIEWS HISTORY: Concern for lumbar spine fracture with saddle anesthesia, and bilateral arm weakness COMPARISON: MR cervical spine 10/28/2024, CT abdomen 03/25/2021 IMPRESSION: Lumbar spine: Left iliac stent. Vascular calcifications. Apparent cortical irregularity off the T12 vertebral body may be related to rotation/overlapping osseous structures versus a fracture. Recommend correlation with point tenderness. Otherwise, vertebral body heights are maintained. No significant anterolisthesis or retrolisthesis. Multilevel facet arthropathy. Cervical spine: The C5-C7 vertebral bodies are obscured by overlying soft tissues. The remainder of the vertebral body heights and intervertebral disc spaces are preserved. No anterolisthesis or retrolisthesis. Multilevel facet and uncovertebral joint arthropathy. No acute displaced dens fracture. The lateral masses of C1 are well aligned with C2. Partially imaged prevertebral soft tissue thickening anterior to C5 which is nonspecific and could be related to collapse of soft tissues versus hematoma. Dictated by: Rayray Devine MD The radiology attending physician has personally reviewed this study, and had reviewed and/or edited this written report and agrees with it. Electronically signed by: Trell Castaneda M.D. Prema Couch MD IMG XR PROCEDURES Final Result * Check Sample (11/04/2024 10:00 PM [employer]HE[employer] PRESS HELPER) ABO Rh A Positive [facility] OTHER 11/04/2024 10:0 0 PM [employer]HE[employer]I PRESS HELPER 11/04/2024 10:55 PM SP[employer]HE[employer]I PRESS HELPER Sen Mike MD LAB BLOOD ORDERABLES Final Re sult Performing Organization Address [facility] Co de Phone Number [facility] [place] [address] BJ * POCT glucose (11/04/2024 10:00 PM SPAGHETTI PRESS HELPER) Glucose, POC 87 70 - 199 mg/dL Blood 11/04/2024 10:0 0 PM [employer]HE[employer]I PRESS HELPER 11/04/2024 10:00 PM [employer] PRESS HELPER Result [facility] Sen Mike MD LAB POCT ORDERABLES - DEVICE Final Result Performing Organization Address [facility] de Phone Number [facility] Department [place] [address] * Neuro MR Outside Consult (11/04/2024 9:43 PM SPAGHETTI PRESS HELPER) Anatomical Region Laterality Modality N/A Magnetic Resonan ce 11/05/2024 9:28 AM SP[employer]HETTI PRESS HELPER Impressions 11/05/2024 9:28 AM [employer]I PRESS HELPER Mild to moderate degenerative changes of the cervical spine as described above. The findings, conclusions and recommendations within this report do not replace the initial findings, conclusions and recommendations made at the facility where the study was performed based upon the imaging and clinical condition at that time. Comparison with the prior report and clinical history is necessary. The provided images may or may not represent the [place] source data set and thus may contain changes that may lower the accuracy of this second-opinion interpretation. Electronically signed by: Dimitry Garcia M.D. Narrative 11/05/2024 9:28 AM [employer]HE[employer]I PRESS HELPER EXAMINATION: RADIOLOGY CONSULTATION ON OUTSIDE IMAGING STUDY STUDY INITIALLY PERFORMED: 10/28/2024 at [facility]. TYPE OF STUDY: Multiple MR images of the spine without intravenous contrast are provided at the time of this interpretation. CONTRAST ROUTE: No contrast was administered. The protocol was adequate to address the clinical question. The outside final report was not available at the time of this second opinion interpretation. TYPE OF CONSULTATION: Consult on outside imaging study with images submitted through [facility] DATE OF CONSULTATION: 11/05/2024 8:58 AM HISTORY: Neck pain COMPARISON: None available. FINDINGS: There is normal alignment of the cervical spine with no compression fracture. There is mild degenerative disc disease most significantly involving the level of C6-C7 with Modic changes. Cord signal is within normal limits. Axial views demonstrate no significant canal stenosis. There is [id number] foraminal narrowing on the right side at the level of C4-C5, moderate bilateral foraminal stenosis at C5-C6 due to uncovertebral joint disease, and mild bilateral foraminal stenosis at C6-C7. Procedure Note Dimitry Garcia MD PhD - 11/05/2024 EXAMINATION: RADIOLOGY CONSULTATION ON OUTSIDE IMAGING STUDY STUDY INITIALLY PERFORMED: 10/28/2024 at [facility]. TYPE OF STUDY: Multiple MR images of the spine without intravenous contrast are provided at the time of this interpretation. CONTRAST ROUTE: No contrast was administered. The protocol was adequate to address the clinical question. The outside final report was not available at the time of this second opinion interpretation. TYPE OF CONSULTATION: Consult on outside imaging study with images submitted through [facility] DATE OF CONSULTATION: 11/05/2024 8:58 AM HISTORY: Neck pain COMPARISON: None available. FINDINGS: There is normal alignment of the cervical spine with no compression fracture. There is mild degenerative disc disease most significantly involving the level of C6-C7 with Modic changes. Cord signal is within normal limits. Axial views demonstrate no significant canal stenosis. There is [id number] foraminal narrowing on the right side at the level of C4-C5, moderate bilateral foraminal stenosis at C5-C6 due to uncovertebral joint disease, and mild bilateral foraminal stenosis at C6-C7. IMPRESSION: Mild to moderate degenerative changes of the cervical spine as described above. The findings, conclusions and recommendations within this report do not replace the initial findings, conclusions and recommendations made at the facility where the study was performed based upon the imaging and clinical condition at that time. Comparison with the prior report and clinical history is necessary. The provided images may or may not represent the [place] source data set and thus may contain changes that may lower the accuracy of this second-opinion interpretation. Electronically signed by: Dimitry Garcia M.D. Prema Couch MD IMG MRI PROCEDURES Final Result * ECG 12-LEAD (11/04/2024 9:14 PM SPAGHETTI PRESS HELPER) Narrative [facility] - 11/04/2024 9:14 PM SPAGHETTI PRESS HELPER Sen Mike MD 11/04/2024 9:15 PM ECG 12 lead Date/Time: 11/04/2024 9:14 PM Performed by: Sen Mike MD Authorized by: Prema Couch MD Quality: Tracing quality: Limited by artifact Rate: ECG rate: 69 ECG rate assessment: normal Rhythm: Rhythm: sinus rhythm Ectopy: Ectopy: none QRS: QRS axis: Normal Conduction: Conduction: normal ST segments: ST segments: Normal T waves: T waves: normal Previous ECG: Previous ECG: Compared to current Date of previous EC06/26/2021 Similarity: No change Interpretation: Interpretation: normal Recommended Follow-up: Recommended follow up: further workup in the ED Procedure Note Sen Mike MD - 11/04/2024 9:14 PM CST Procedure ECG 12 lead Date/Time: 11/04/2024 9:14 PM Performed by: Sen Mike MD Authorized by: Prema Couch MD Quality: Tracing quality: Limited by artifact Rate: ECG rate: 69 ECG rate assessment: normal Rhythm: Rhythm: sinus rhythm Ectopy: Ectopy: none QRS: QRS axis: Normal Conduction: Conduction: normal ST segments: ST segments: Normal T waves: T waves: normal Previous ECG: Previous ECG: Compared to current Date of previous EC06/26/2021 Similarity: No change Interpretation: Interpretation: normal Recommended Follow-up: Recommended follow up: further workup in the ED Sen Mike MD 11/04/242114 us Prema Couch MD ECG ORDERABLES Final Re sult [facility] * XR Chest 1 View (11/04/2024 9:00 PM SPAGHETTI PRESS HELPER) Anatomical Region Laterality Modality Body, Chest N/A Computed Radiogr aphy 11/04/2024 9:07 PM SPAGHETTI PRESS HELPER Impressions 11/05/2024 9:15 AM SPAGHETTI PRESS HELPER The current study is compared with the prior radiograph dated 09/10/[address] 07/01/2024. Right shoulder arthroplasty. No focal consolidation or pulmonary edema. No pleural effusion. No pneumothorax. Cardiomediastinal silhouette is stable. Dictated by: Rayray Devine MD The radiology attending physician has personally reviewed this study, and had reviewed and/or edited this written report and agrees with it. Electronically signed by: Trell Castaneda M.D. Narrative 11/05/2024 9:15 AM [employer]AGHETTI PRESS HELPER EXAMINATION: 1 view chest radiograph Procedure Note Trell Castaneda MD - 11/05/2024 EXAMINATION: 1 view chest radiograph IMPRESSION: The current study is compared with the prior radiograph dated 09/10/[address] 07/01/2024. Right shoulder arthroplasty. No focal consolidation or pulmonary edema. No pleural effusion. No pneumothorax. Cardiomediastinal silhouette is stable. Dictated by: Rayray Devine MD The radiology attending physician has personally reviewed this study, and had reviewed and/or edited this written report and agrees with it. Electronically signed by: Trell Tonya, M.D. us Prema Couch MD IMG XR PROCEDURES Final Result * Troponin I high-sensitivity (11/04/2024 8:54 PM SPAGHETTI PRESS HELPER) Trop I hs 4 <=17 ng/L Comment: Interpretive Data For further hscTnI resources including the diagnostic algorithm and an aid in interpretation, copy and paste this link: https://bjhlab.testcatalog.org/show/[email or web address] Current Interpretive Data last revised 2020. Blood 11/04/2024 8:54 PM SPAGHETTI PRESS HELPER 11/04/2024 9:09 PM SPAGHETTI PRESS HELPER us Prema Couch MD LAB BLOOD ORDERABLES Fin al Result [facility] Department [place] [address] * eGFR (11/04/2024 8:54 PM SPAGHETTI PRESS HELPER) Pathologist [facility] eGFR >90 >=60 mL/min/1. 73 m2 Comment: Interpretive Data Reference Interval Normal >/= 90 mL/min/1.73m2 Mildly decreased* 60 - 89 mL/min/1.73m2 Mildly to moderately decreased 45 - 59 mL/min/1.73m2 Moderately to severely decreased 30 - 44 mL/min/1.73m2 Severely decreased 15 - 29 mL/min/1.73m2 Kidney Failure < 15 mL/min/1.73m2 *Relative to young adult level Estimated glomerular filtration rate is determined by the 2020 CKD-EPI equation recommended by the National Kid[employer] (A Unifying Approach to GFR Estimation: Recommendations of the NKF-ASK Task Force on Reassessing the Inclusion of Race in Diagnosing Kidney Disease, JASN 2020). The CKD-EPI equation should not be used for patients with unstable renal function and has not been validated in children and those over 70. Current interpretive data was last reviewed 2021. Blood 11/04/2024 8:54 PM SP[employer]HETTI PRESS HELPER 11/04/2024 9:09 PM SPAGHETTI PRESS HELPER us Prema Couch MD LAB BLOOD ORDERABLES Fin al Result [facility] Department [place] [address] * Differential, auto (11/04/2024 8:54 PM SPAGHETTI PRESS HELPER) Neutrophil abs 2.0 1.5 - 6.5 K/cumm Imm gran abs 0.0 0.0 - 0.1 K/cumm [facility] Lymphocyte abs 2.4 0.8 - 3.3 K/cumm [facility] Monocyte abs 0.4 0.2 - 0.8 K/cumm [facility] Eosinophil abs 0.1 0.0 - 0.5 K/cumm [facility] Basophil abs 0.0 0.0 - 0.1 K/cumm [facility] Neutrophil pct 40.0 % [facility] Comment: Interpretive Data Percent cell count reference ranges are not reported, since discordance with absolute values may lead to misinterpretation of CBC data. Current Interpretive Data was last revised on 2018. Imm gran pct 0.2 % [facility] Comment: Interpretive Data Percent cell count reference ranges are not reported, since discordance with absolute values may lead to misinterpretation of CBC data. Current Interpretive Data was last revised on 2018. Lymphocyte pct 48.6 % [facility] Comment: Interpretive Data Percent cell count reference ranges are not reported, since discordance with absolute values may lead to misinterpretation of CBC data. Current Interpretive Data was last revised on 2018. Monocyte pct 8.0 % [facility] Comment: Interpretive Data Percent cell count reference ranges are not reported, since discordance with absolute values may lead to misinterpretation of CBC data. Current Interpretive Data was last revised on 2018. Eosinophil pct 2.4 % [facility] Comment: Interpretive Data Percent cell count reference ranges are not reported, since discordance with absolute values may lead to misinterpretation of CBC data. Current Interpretive Data was last revised on 2018. Basophil pct 0.8 % [facility] Comment: Interpretive Data Percent cell count reference ranges are not reported, since discordance with absolute values may lead to misinterpretation of CBC data. Current Interpretive Data was last revised on 2018. Blood 11/04/2024 8:54 PM SPAGHETTI PRESS HELPER 11/04/2024 9:09 PM SPAGHETTI PRESS HELPER Prema Couch MD LAB BLOOD ORDERABLES Fin al Result Performing Organization Address City/[facility]/ZIP Co de Phone Number [facility] [place] [address] * CBC with auto differential (11/04/2024 8:54 PM SPAGHETTI PRESS HELPER) [facility] WBC 5.0 3.8 - 9.9 K/cumm Hgb 12.9 11.9 - 15.5 g/dL [facility] Hct 37.6 35.6 - 45.5 % [facility] Plt 216 150 - 400 K/cumm [facility] MPV 10.2 9.1 - 12.3 fL [facility] RBC 4.49 3.90 - 5.20 M/cumm [facility] MCV 83.7 81.3 - 96.4 fL [facility] MCH 28.7 27.1 - 33.3 pg [facility] MCHC 34.3 32.3 - 35.7 g/dL [facility] RDW CV 13.0 11.1 - 14.9 % [facility] RDW SD 39.8 35.7 - 48.1 fL [facility] NRBC abs 0.00 0.00 - 0.01 K/cumm [facility] Blood 11/04/2024 8:54 PM SP[employer]HETTI PRESS HELPER 11/04/2024 9:09 PM SPAGHETTI PRESS HELPER Prema Couch MD LAB BLOOD ORDERABLES Fin al Result Performing Organization Address City/[facility]/ZIP Co de Phone Number [facility] Department [place] [address] * Type and screen (11/04/2024 8:54 PM SPAGHETTI PRESS HELPER) Idalia, indirect Negative ABO Rh A Positive [facility] Blood 11/04/2024 8:54 PM SPAGHETTI PRESS HELPER 11/04/2024 9:06 PM [employer]AGHETTI PRESS HELPER Narrative [facility] - 11/04/2024 9:53 PM SPAGHETTI PRESS HELPER Has the patient had Daratumumab or Isatuximab in the past 6 months?->Unknown Prema Couch MD LAB BLOOD BANK TEST ORDE MARK Final Result [facility] Department [place] [address] * Comprehensive metabolic panel (11/04/2024 8:54 PM SPAGHETTI PRESS HELPER) Pathologist [facility] Sodium 145 135 - 145 mmol/L Potassium, pl 4.2 3.3 - 4.9 mmol/L [facility] Chloride 109 97 - 110 mmol/L [facility] CO2 28 22 - 32 mmol/L [facility] Anion gap 8 2 - 15 mmol/L [facility] BUN 16 6 - 25 mg/dL [facility] Creatinine 0.73 0.60 - 1.10 mg/dL [facility] Glucose 95 70 - 199 mg/dL [facility] Comment: Interpretive Data Fasting glucose >/= 126 mg/dl is diagnostic for diabetes. Fasting is defined as no caloric intake for at least 8 hours. Fasting glucose between 100 mg/dl to 125 mg/dl is diagnostic of prediabetes. In a patient with classic symptoms of hyperglycemia or hyperglycemic crisis, a random glucose >/= 200 mg/dl is diagnostic for diabetes. In the absence of unequivocal hyperglycemia, results should be confirmed by repeat testing. The classification and Diagnosis of Diabetes Diabetes Care 202; 46: S19-S40. Current interpretive data was last revised 2022. Calcium 9.2 8.5 - 10.3 mg/dL [facility] Bilirubin, total 0.6 0.1 - 1.2 mg/dL [facility] Protein, pl 7.0 6.5 - 8.5 g/dL [facility] Albumin 3.9 3.5 - 5.0 g/dL [facility] Alk phos 86 40 - 130 Units/L [facility] ALT 20 7 - 45 Units/L [facility] AST 34 10 - 45 Units/L [facility] Blood 11/04/2024 8:54 PM SPAGHETTI PRESS HELPER 11/04/2024 9:09 PM SPAGHETTI PRESS HELPER us Prema Couch MD LAB BLOOD ORDERABLES Fin al Result [facility] Department [place] [address] from Last 3 Months Insurance [employer] IDPA IDPA [employer] MEDICARE [employer] IDPA Advance Directives For more information, please contact: [phone] * Full Code (Latest Code Status on File) Date Activated Date Inactivated Comments 09/12/2021 8:02 AM 09/17/2021 6:41 PM Care Teams Forest Technician Relationship Specialty Start Date End Date Brad Blancas MD [address] [place] [address] PCP - General Family Medicine 02/14/19 Gadiel Wadsworth PA [address] [place] [address] [address] [place] [address] Physician [facility] Orthopedic Surgery 09/17/21 [place] [id number] [address] [address] Consulting Physician Cardiovascular Disease 08/08/24
--- OUTSIDE RECORDS SUMMARY | 2024-12-07 17:08 | XMS_ITS | Patient Health Summary ---
Author Organization [facility] Address [address] [place] [address] Care Team Providers Care Supreme Court Judge Name Role Phone Brad Blancas MD Primary Care Provider [phone] Elkin Bautista MD Unavailable Babatunde Valdez RN Unavailable [phone] Note [address] [facility],non-owned Affiliates and Associated Physician Practices is amultiple site organization consisting of ambulatory clinics and hospital sitesin [place], [place] and [place]. This disclosure is being madepursuant to the Care Everywhere program and may not contain all information available regarding this patient. Last updated 18.[facility] Allergies * Naproxen(Urticaria) * Nsaids(Nausea and/or Vomiting) -Low Criticality * Penicillins(Rash) -Medium Criticality * Aminobenzoate(Rash,Itching) -Medium Criticality * Naproxen(Urticaria) -Medium Criticality,Inactive * Penicillins(Rash) -Medium Criticality,Inactive Medications * Be aware that medications may not be up to date on this document. Alwaysverify current medications with the patient. * omeprazole (PRILOSEC) 20 MG capsule Take 20 mg by mouth daily before breakfast * sertraline (ZOLOFT) 25 MG tablet Take 25 mg by mouth once daily * nitroGLYCERIN (NITROSTAT) 0.4 MG tablet Dissolve 0.4 mg under the tongue every 5 minutes as needed for Angina * topiramate (TOPAMAX) 100 MG tablet Take 100 mg by mouth 2 times daily * ranolazine ER 12hr (RANEXA) 1000 MG tablet Take 1,000 mg by mouth every 12 hours * gabapentin (NEURONTIN) 100 MG capsule(Started 06/21/2018) 100 mg 2 times daily * albuterol (PROVENTIL;VENTOLIN) (2.5 MG/3ML) 0.083% nebulizer solution(Started 10/03/2019) USE 3 ML IN NEBULIZER THREE TIMES DAILY DIRECTED * cyclobenzaprine (FLEXERIL) 10 MG tablet(Started 07/11/2020) Take by mouth 2 times daily * fluticasone propionate (FLONASE) 50 MCG/ACT nasal spray fluticasone propionate 50 mcg/actuation nasal spray,suspension USE 2 SPRAYS IN EACH NOSTRIL BID FOR 7 DAYS. * furosemide (LASIX) 20 MG tablet(Started 06/14/2020) Take by mouth once daily * HYDROcodone-acetaminophen (NORCO) 10-325 MG tablet hydrocodone 10 mg-acetaminophen 325 mg tablet * rosuvastatin (CRESTOR) 40 MG tablet(Started 05/18/2020) Take by mouth once daily * SUMAtriptan (IMITREX) 50 MG tablet(Started 02/20/2020) as needed * oxybutynin CR 24hr (DITROPAN-XL) 10 MG tablet(Started 07/06/2020) Take 10 mg by mouth once daily Active Problems Problem Noted Date Diagnosed Date Smoker 06/23/2016 Status post shoulder replacement, right 08/14/20 15 Degenerative arthritis of right shoulder region 03/16/2015 Glenohumeral arthritis, right 02/20/2015 Immunizations * INFLUENZA VACCINE(Given 08/05/2020) * INFLUENZA VACCINE, QUADR. (AFLURIA, FLUZONE QUADRIVALENT; 6MO+) (IIV4)(Given 06/23/2016) * PNEUMOCOCCAL PPSV23(Given 06/23/2016) * Zoster Hzv Vacc Recombinant Inj Im(Given 06/11/2020) Social History Tobacco Use Types Packs/Day Years [...] 104.3 kg (230 lb) 10/02/2020 8:59 AM INDUSTRIAL RELATIONS COMMISSIONER Height 154.9 cm (5' 1 ) 10/02/2020 8:59 AM INDUSTRIAL RELATIONS COMMISSIONER Body Mass Index 43.46 10/02/2020 8:59 AM INDUSTRIAL RELATIONS COMMISSIONER Medical Devices Implanted Type Area Assembler Movement Device Identifier Shelf Expiration Date Model / Serial / Lot [place] Peg Xlink 44mm Implanted:Qty: 1 on 03/19/2015 by Jose Polo MD at [facility] [place] Right: Shoulder [employer] 02/02/2020 6 / / [id number] Harvey Bone [place]-G Hv 40/20 Implanted:Qty: 1 on 03/19/2015 by Jose Polo MD at [facility] [place] Right: Shoulder [employer] 10/05/2016 [id number] / / [id number] [employer] Porocoat Stem Implanted:Qty: 1 on 03/19/2015 by Jose Polo MD at [facility] [place] Right: Shoulder [employer] 08/05/202410991100-07-14 0 / / [id number] [employer] Anatomic Proximal Body Implanted:Qty: 1 on 03/19/2015 by Jose Polo MD at [facility] [place] Right: Shoulder [employer] 09/04/20241099 0 / / [id number] [employer] Eccentric Humeral Head Implanted:Qty: 1 on 03/19/2015 by Jose Polo MD at [facility] [place] Right: Shoulder [employer] 03/05/2024 0 / / [id number] Sys Shld Tot Arthroplst Implanted:Qty: 1 on 03/19/2015 by Jose Polo MD at [facility] [employer] S3 DEPUY / / Procedures * VT DRAIN/INJECT LARGE JOINT/BURSA(Performed 07/17/2020) Performed for Chronic pain of both shoulders * XR SHOULDER BILAT 2VW OR MORE(Performed 07/17/2020) Performed for Pain * XR LUMBAR SPINE 2 OR 3VW(Performed 09/08/2018) Performed for Osteoarthritis of spine with radiculopathy, lumbar region * VT DESTROY PREMALIG LESION, 1ST LESION(Performed 07/20/2018) Performed for Actinic keratosis * VT DESTRUCT BENIGN LESION, 1-14(Performed 07/20/2018) Performed for Seborrheic keratoses, inflamed * VT DESTROY PREMALIG LESION, 1ST LESION(Performed 02/04/2018) Performed for Actinic keratosis * VT DESTROY PREMALIG LESION, 2-14(Performed 02/04/2018) Performed for Actinic keratosis * XR SHOULDER RIGHT 2VW OR MORE(Performed 05/05/2017) Performed for Right shoulder pain, unspecified chronicity * XR LUMBAR SPINE 2 OR 3VW(Performed 04/29/2017) Performed for Back pain, unspecified back location, unspecified back pain laterality, unspecified chronicity * XR KNEE BILAT 4VW OR MORE(Performed 08/13/2016) Performed for Chronic pain of both knees * XR SHOULDER RIGHT 2VW OR MORE(Performed 10/16/2015) Performed for Right shoulder pain * XR PELVIS W BILAT HIP 2VW(Performed 08/15/2015) Performed for Bilateral hip pain * XR KNEE BILAT 4VW OR MORE(Performed 08/15/2015) Performed for Bilateral knee pain * XR SHOULDER RIGHT 2VW OR MORE(Performed 06/12/2015) Performed for Pain in joint, shoulder region, right * XR SHOULDER RIGHT 2VW OR MORE(Performed 05/01/2015) Performed for Pain in joint, shoulder region, right * XR SHOULDER RIGHT 2VW OR MORE(Performed 04/03/2015) Performed for Pain in joint, shoulder region, right * CARDIAC RHYTHM STRIP ORDER(Performed 03/21/2015) * CARDIAC EKG ORDER(Performed 03/21/2015) * LAB RESULTS ORDER(Performed 03/21/2015) * BASIC METABOLIC PANEL (CALCIUM TOTAL)(Performed 03/20/2015) * CBC W AUTO DIFFERENTIAL(Performed 03/20/2015) * XR SHOULDER RIGHT 2VW OR MORE(Performed 03/19/2015) Performed for Primary osteoarthritis of right shoulder * ARTHROPLASTY TOTAL SHOULDER(Performed 03/19/2015) Performed for Primary localized osteoarthrosis, shoulder region * PERIPHERAL BLOCK(Performed 03/19/2015) * CULTURE MSSA/MRSA(Performed 02/20/2015) Performed for Pre-op evaluation Results * VT DRAIN/INJECT LARGE JOINT/BURSA (07/17/2020 10:48 AM CDT) Narrative Jose Polo MD - 07/17/2020 10:48 AM CDT Jose Polo MD 07/17/2020 10:48 AM INJECTION PROCEDURE NOTE: The injection site was marked. A timeout was performed. Under sterile conditions, without complications, tolerated well by the patient, 4 cc ropivacaine and 80 mg (2 cc) triamcinolone were injected into the left subacromial space posteriorly. Jose Polo MD PROCEDURE/MINOR SURG ICAL ORDERABLES * XR SHOULDER BILAT 2VW (07/17/2020 10:09 AM CDT) Anatomical Region Laterality Modality Upper Extremity Radiographic Juana ging 07/17/2020 11:5 8 AM CDT Impressions 07/17/2020 11:59 AM CDT Unchanged intact right shoulder arthroplasty Left shoulder primary osteoarthritis *Reading Radiologist: Leo Stevens on 07/17/2020 at 11:59 AM Narrative 07/17/2020 11:59 AM CDT Bilateral shoulders, 3 views each DATE: 07/17/2020. INDICATION: Bilateral shoulder pain. FINDINGS: On the right a total shoulder arthroplasty is unchanged since 05/05/2017. No evidence of hardware failure or loosening. On the left the joint space is narrowed and subchondral cysts are noted in the glenoid indicating primary osteoarthritis. The AC joint is normally aligned. Procedure Note Leo Stevens MD - 07/17/2020 Bilateral shoulders, 3 views each DATE: 07/17/2020. INDICATION: Bilateral shoulder pain. FINDINGS: On the right a total shoulder arthroplasty is unchanged since 05/05/2017. No evidence of hardware failure or loosening. On the left the joint space is narrowed and subchondral cysts are noted in the glenoid indicating primary osteoarthritis. The AC joint is normally aligned. IMPRESSION Unchanged intact right shoulder arthroplasty Left shoulder primary osteoarthritis *Reading Radiologist: Leo Stevens on 07/17/2020 at 11:59 AM Jose Polo MD DIAGNOSTIC IMAGING O RDERABLES * XR LUMBAR SPINE 2 OR 3VW (09/08/2018 3:48 PM INDUSTRIAL RELATIONS COMMISSIONER) Only the most recent of2 resultswithin the time period is included. Anatomical Region Laterality Modality Spine Radiographic Juana ging 09/08/2018 3:52 PM INDUSTRIAL RELATIONS COMMISSIONER Impressions 09/08/2018 4:16 PM INDUSTRIAL RELATIONS COMMISSIONER Degenerative changes. Edited by Shraddha Adame on 09/08/2018 4:14 PM Reading Radiologist: Cas Bui MD on 09/08/2018 at 4:16 PM Narrative 09/08/2018 4:16 PM INDUSTRIAL RELATIONS COMMISSIONER LUMBOSACRAL SPINE TWO VIEWS HISTORY: Pain. AP and lateral views of the lumbosacral spine show normal vertebral heights. There is interspace height loss with sclerosis and spur formation seen on vertebral bodies. Pedicles are intact. A stent projects over the lower lumbar spine. Procedure Note Cas Bui MD - 09/08/2018 LUMBOSACRAL SPINE TWO VIEWS HISTORY: Pain. AP and lateral views of the lumbosacral spine show normal vertebral heights. There is interspace height loss with sclerosis and spur formation seen on vertebral bodies. Pedicles are intact. A stent projects over the lower lumbar spine. IMPRESSION Degenerative changes. Edited by Shraddha Adame on 09/08/2018 4:14 PM Reading Radiologist: Cas Bui MD on 09/08/2018 at 4:16 PM Marilee Fritz PA-C DIAGNOSTIC IMAG ING ORDERABLES * VT DESTROY PREMALIG LESION, 1ST LESION (07/20/2018 9:19 AM CDT) Narrative Monica Hughes MD - 07/20/2018 9:19 AM CDT Khloe Isabel MD 07/14/2018 7:40 PM Diagnosis and treatment options discussed for AKs. Verbal consent obtained. Cryotherapy (Liquid Nitrogen) performed to 1 lesion on L dorsal foot for 6-7 seconds each. Number of cycles: 1. Wound care reviewed and post-cryotherapy handout given. Khloe Isabel MD [facility] Dermatology Resident, PGY-4 Monica Hughes MD PROCEDURE/MINOR CHIU RGICAL ORDERABLES * VT DESTRUCT BENIGN LESION, 1-14 (07/20/2018 9:19 AM CDT) Narrative Monica Hughes MD - 07/20/2018 9:19 AM CDT Khloe Isabel MD 07/14/2018 7:41 PM Diagnosis and treatment options discussed for ISK. Verbal consent obtained. Cryotherapy (Liquid Nitrogen) performed to 3 lesions on L upper chest, R shoulder, R inner thigh for 10 seconds each. Number of cycles: 1. Wound care reviewed and post-cryotherapy handout given. Khloe Isabel MD [facility] Dermatology Resident, PGY-4 Moncia Hughes MD PROCEDURE/MINOR CHIU RGICAL ORDERABLES * XR SHOULDER 2+ VW RIGHT (05/05/2017 8:50 AM CDT) Only the most recent of6 resultswithin the time period is included. Anatomical Region Laterality Modality Upper Extremity Radiographic Juana ging 05/05/2017 9:50 AM CDT Impressions 05/05/2017 9:51 AM CDT Right total shoulder arthroplasty in unchanged near anatomic position. Narrative 05/05/2017 9:51 AM CDT Examination: Right shoulder minimum 2 views History: Right shoulder pain Findings: 3 views of the right shoulder were performed with comparison made to 10/16/2015. There is a right total shoulder arthroplasty in unchanged near anatomic position. There is no periprosthetic lucency or acute fracture. Procedure Note Antwon Mckenzie MD - 05/05/2017 Examination: Right shoulder minimum 2 views History: Right shoulder pain Findings: 3 views of the right shoulder were performed with comparison made to 10/16/2015. There is a right total shoulder arthroplasty in unchanged near anatomic position. There is no periprosthetic lucency or acute fracture. IMPRESSION Right total shoulder arthroplasty in unchanged near anatomic position. Jose Polo MD DIAGNOSTIC IMAGING O RDERABLES * XR KNEE BILAT MIN 4 VIEWS (08/13/2016 10:27 AM INDUSTRIAL RELATIONS COMMISSIONER) Only the most recent of2 resultswithin the time period is included. Anatomical Region Laterality Modality Lower Extremity Radiographic Juana ging 08/13/2016 10:3 2 AM INDUSTRIAL RELATIONS COMMISSIONER Narrative 08/13/2016 10:47 AM INDUSTRIAL RELATIONS COMMISSIONER BILATERAL KNEES, 6 VIEWS HISTORY: Knee pain There is mild tricompartmental hypertrophic degenerative change with medial sided joint space narrowing on the right. No fracture or dislocation or joint effusion is seen. Edited by Marilyn Cadena on 08/13/2016 10:36 AM Procedure Note Qasim Sharpe MD - 08/13/2016 BILATERAL KNEES, 6 VIEWS HISTORY: Knee pain There is mild tricompartmental hypertrophic degenerative change with medial sided joint space narrowing on the right. No fracture or dislocation or joint effusion is seen. Edited by Marilyn Cadena on 08/13/2016 10:36 AM Daniel Deluca MD DIAGNOSTIC IMAGING ORDERABLES * XR PELVIS W BILAT HIP 2VW (08/15/2015 9:47 AM INDUSTRIAL RELATIONS COMMISSIONER) Anatomical Region Laterality Modality Pelvis, Lower Extremity Radiogra phic Imaging 08/15/2015 10:1 1 AM INDUSTRIAL RELATIONS COMMISSIONER Narrative 08/15/2015 11:00 AM INDUSTRIAL RELATIONS COMMISSIONER BILATERAL HIPS, 5 VIEWS INCLUDING AP PELVIS HISTORY: Pain. There is mild degenerative change of the hip joints bilaterally. No joint space narrowing is seen. The sacroiliac joints are open. Edited by Glory Lyle on 08/15/2015 10:49 AM Procedure Note Qasim Sharpe MD - 08/15/2015 BILATERAL HIPS, 5 VIEWS INCLUDING AP PELVIS HISTORY: Pain. There is mild degenerative change of the hip joints bilaterally. No joint space narrowing is seen. The sacroiliac joints are open. Edited by Glory Lyle on 08/15/2015 10:49 AM Daniel Deluca MD DIAGNOSTIC IMAGING ORDERABLES * CARDIAC RHYTHM STRIP ORDER (03/21/2015 7:20 PM CDT) Narrative 03/21/2015 7:20 PM CDT Ordered by an unspecified provider. Scanned Document CARDIAC SERVICES ORD ERABLES * CARDIAC EKG ORDER (03/21/2015 7:20 PM CDT) Narrative 03/21/2015 7:20 PM CDT Ordered by an unspecified provider. Scanned Document CARDIAC SERVICES ORD ERABLES * LAB RESULTS ORDER (03/21/2015 7:19 PM CDT) Narrative 03/21/2015 7:19 PM CDT Ordered by an unspecified provider. Scanned Document LAB - THERAPEUTIC DR TEE MONITORING ORDERABLES * (ABNORMAL) CBC W AUTO DIFFERENTIAL (03/20/2015 3:49 AM CDT) WBC 8.9 4.4 - 10.7 x10^9/L 03/20/2015 5:35 AM CDT [facility] WBC Corrected x10^9/L 03/20/2015 5:35 AM CDT [facility] RBC 4.18 3.80 - 5.20 x10^12/L 03/20/2015 5:35 AM CDT [facility] Hemoglobin 12.2 12.0 - 15.6 gm/dL 03/20/2015 5:35 AM CDT [facility] Hematocrit 35.7(L) 35.9 - 45.5 % 03/20/2015 5:35 AM CDT [facility] MCV 85.4 80.7 - 98.3 fl 03/20/2015 5:35 AM CDT [facility] MCH 29.2 26.7 - 34.0 pg 03/20/2015 5:35 AM CDT [facility] MCHC 34.2 30.8 - 35.9 gm/dL 03/20/2015 5:35 AM CDT [facility] Platelet Count 220 153 - 416 x10^9/L 03/20/2015 5:35 AM CDT [facility] RDW-CV 13.4 12.1 - 14.9 % 03/20/2015 5:35 AM CDT [facility] MPV 9.9 9.4 - 12.9 fl 03/20/2015 5:35 AM CDT [facility] Neutrophils % 87.2(H) 44.0 - 73.0 % 03/20/2015 5:35 AM CDT [facility] Lymphocytes % 8.1(L) 20.0 - 43.0 % 03/20/2015 5:35 AM CDT [facility] Monocytes % 4.4(L) 5.0 - 13.0 % 03/20/2015 5:35 AM CDT [facility] Eosinophils % 0.0 0.0 - 6.0 % 03/20/2015 5:35 AM CDT [facility] Basophils % 0.1 0.0 - 2.0 % 03/20/2015 5:35 AM CDT [facility] Immature Granulocytes 0.2 0 - 1 % 03/20/2015 5:35 AM T [facility] Neutrophil Absolute 7.79(H) 2.01 - 7.14 x10^9/L 03/20/2015 5:35 AM CDT [facility] Lymphocytes Absolute 0.72(L) 1.07 - 3.94 x10^9/L 03/20/2015 5:35 AM CDT [facility] Monocytes Absolute 0.39 0.26 - 1.07 x10^9/L 03/20/2015 5:35 AM CDT [facility] Eosinophils Absolute 0.00 0 - 0.47 x10^9/L 03/20/2015 5:35 AM T [facility] Basophils Absolute 0.01 0 - 0.08 x10^9/L 03/20/2015 5:35 AM T [facility] Immature Granulocytes Absolute 0.02 0.00 - 0.06 x10^9/L 03/20/2015 5:35 AM T [facility] Blood BLOOD SPECIMEN / Unknown Lab Venipuncture / Unknown 03/20/2015 3:49 AM CDT 03/20/2015 5:14 AM CDT Hira Esqueda MD LAB - HEMATOLOGY ORD ERABLES [facility] [address] [place] [address] * (ABNORMAL) BASIC METABOLIC PANEL (CALCIUM TOTAL) (03/20/2015 3:49 AM CDT) Glucose 120(H) 74 - 106 mg/dL 03/20/2015 5:44 AM CDT [facility] Sodium 141 136 - 145 mmol/L 03/20/2015 5:44 AM CDT [facility] Potassium 4.3 3.5 - 5.1 mmol/L 03/20/2015 5:44 AM CDT [facility] Chloride 105 98 - 107 mmol/L 03/20/2015 5:44 AM CDT [facility] CO2 27 22 - 31 mmol/L 03/20/2015 5:44 AM CDT [facility] Calcium 8.4(L) 8.5 - 10.1 mg/dL 03/20/2015 5:44 AM CDT [facility] Anion Gap 9 5 - 15 mmol/L 03/20/2015 5:44 AM CDT [facility] BUN 8 7 - 21 mg/dL 03/20/2015 5:44 AM CDT [facility] Creatinine 0.67 0.50 - 1.30 mg/dL 03/20/2015 5:44 AM CDT [facility] eGFR by MDRD >60 >60 mL/min/1.7 3m2 03/20/2015 5:44 AM CDT [facility] eGFR by MDRD >60 >60 mL/min/1.7 3m2 03/20/2015 5:44 AM CDT [facility] Blood BLOOD SPECIMEN / Unknown Lab Venipuncture / Unknown 03/20/2015 3:49 AM CDT 03/20/2015 5:15 AM CDT Hira Esqueda MD LAB - CHEMISTRY [facility] [place] Organization Address City/State/ZIP Co de Phone Number [facility] [address] [place] [address] * PERIPHERAL BLCOK (03/19/2015 4:04 PM CDT) Narrative Yang Covarrubias MD - 03/19/2015 4:04 PM CDT Yang Covarrubias MD 03/19/2015 4:04 PM Peripheral Block Patient Location: holding area Pre Procedure Indication: at surgeon's request Preanesthetic Checklist: patient identified, IV checked, site marked, risks and benefits discussed, surgical consent verified, monitors and equipment checked, pre-op evaluation done, timeout performed, informed consent obtained and questions answered / anesthesia plan accepted Monitors: BP, Pulse Ox, EKG and ETCO2 Patient Condition: sedated, meaningful contact maintained Patient Position: sitting Procedure Laterality: right Block Performed: interscalene Prep: Chloraprep Sterile Field: sterile field established Skin Numbed with: lidocaine 1% Needle Type: nerve stimulator Needle Gauge: 22 Needle Length: 80mm Nerve Stimulator .5 Loss of Stimulation at 0.4 mA Ultrasound guided Technique: in plane Visualization: target ID'd and good spread of local around target 40 mL Other Additives: decadron 4 Events blood not aspirated injection not painful no injection resistance no paresthesia no other events Block Start Time: 03/19/2015 3:35 PM Block End Time: 03/19/2015 3:45 PM Block Performed by: Satish Yang Covarrubias MD GENERAL ANESTHESIA ORDERABLES * CULTURE MSSA/MRSA (02/20/2015 2:58 PM CDT) Culture Negative for MRSA/MSSA CHARLES 02/21/2015 6:28 PM CDT [facility] MICROBIOLOGY Microbiology SPECIMEN FROM NASAL FOSSAE / Unknown Collection / Unknown 02/20/2015 2:58 PM CDT 02/20/2015 2:58 PM CDT Jose Polo MD LAB - MICROBIOLOGY O RDERABLES [facility] MICROBIOLOGY [address] [phone] Judge Relationship Specialty Start Date End Date Brad Blancas MD [address] [place] [address] PCP - General Family Medicine 06/23/16 Elkin Bautista MD [address] [place] [address] [address] [place] [address] Internal Medicine 06/23/16 Babatunde Valdez RN Product Design Manager 03/20/15
--- OUTSIDE RECORDS SUMMARY | 2024-12-07 17:08 | XMS_ITS | Clinical Summary ---
Author Organization [facility] [employer] Address [address] [place] [address] Care Team Providers Care Sql Tech Name Role Phone Brad Blancas MD Primary Care Provider Elkin Bautista MD Unavailable Babatunde Valdez RN Unavailable [phone] Source Comments [facility],non-owned Affiliates and Associated Physician Practices is amultiple site organization consisting of ambulatory clinics and hospital sitesin [place], [place], [place] and [place]. This disclosure is being madepursuant to the Care Everywhere program and may not contain all information available regarding this patient. Last updated 18.[facility] [employer] Allergies Active Allergy Reactions Criticality Noted Date [...] Zoster Hzv Vacc Recombinant Inj Im 06/11/2020 Family History Medical History Relation Name Comments Cancer - Skin, Melanoma Maternal Grandfather Cancer - Skin, Non Melanoma Mother Cancer - Skin, Non Melanoma Sister Asthma Neg Hx CVA Neg Hx Cancer - Breast Neg Hx Cancer - Other Neg Hx Eczema Neg Hx Hemophilia Neg Hx Psoriasis Neg Hx Relation Name Status Comments Maternal Grandfather Mother Sister Social History Tobacco Use Types Packs/Day Years [...] 104.3 kg (230 lb) 10/02/2020 8:59 AM JOURNEYMAN SHE[employer] WORK[employer] Height 154.9 cm (5' 1 ) 10/02/2020 8:59 AM JOURNEYMAN SHE[employer] MET[employer] WORKER Body Mass Index 43.46 10/02/2020 8:59 AM JOURNEYMAN SHE[employer] WORKER Plan of Treatment Health Maintenance Due Date Last Done Comments BONE DENSITY TESTING 1960 COLOGUARD (AGES 45-75) - COLON CA SCREENING 1958 COLON MONITORING 1958 COLONOSCOPY - COLON CA SCREENING 1958 CT COLONOGRAPHY - COLON CA SCREENING 1960 Colorectal Cancer Screening 1958 FIT - COLON CA SCREENING 1958 FLEX SIG - COLON CA SCREENING 1958 MAMMOGRAM 1958 HEPATITIS C SCREENING 08/02/1976 DTAP/TDAP/TD VACCINES (1 - Tdap) 1977 LUNG CANCER SCREENING 2008 PNEUMOCOCCAL VACCINE 50+ (2 of 2 - PCV) 06/23/2017 06/23/2016 Respiratory Syncytial Virus (RSV) Vaccine Pt: or over 60 yrs (1 - Risk 60-74 years 1-dose series) 2018 SCREENING FOR DIABETES 09/08/2018 03/20/2015 ZOSTER VACCINE (2 of 2) 08/06/2020 06/11/2020 DEPRESSION SCREENING 10/05/2024 MEDICARE AWV CALENDAR YEAR 2024 COVID-19 VACCINE Completed 06/24/2024, , 01/01/2021, Additional history exists INFLUENZA VACCINE Completed 06/24/2024, , 08/05/2020, Additional history exists HEPATITIS B VACCINE Aged Out No longe r eligible based on patient's age to complete this topic HIB VACCINE Aged Out No longer eligi ble based on patient's age to complete this topic HPV VACCINE Aged Out No longer eligi ble based on patient's age to complete this topic MENINGOCOCCAL (Group B) VACCINE Aged Out No longer eligible based on patient's age to complete this topic MENINGOCOCCAL VACCINE Aged Out No nagi cachorro eligible based on patient's age to complete this topic Medical Devices Implanted Type Area Epic Manager Device Identifier Shelf Expiration Date Model / Serial / Lot Volcano Peg Xlink 44mm Implanted:Qty: 1 on 03/19/2015 by Jose Polo MD at [facility] [place][note 2] Right: Shoulder [employer] 02/02/2020 6 / / [id number] Harvey Bone Seward-G Hv 40/20 Implanted:Qty: 1 on 03/19/2015 by Jose Polo MD at [facility] [place][note 2] Right: Shoulder [employer] 10/05/2016 [id number] / / [id number] [employer] Porocoat Stem Implanted:Qty: 1 on 03/19/2015 by Jose Polo MD at [facility] [place][note 2] Right: Shoulder [employer] 08/05/202410991100-07-14 0 / / [id number] [employer] Anatomic Proximal Body Implanted:Qty: 1 on 03/19/2015 by Jose Polo MD at [facility] [place][note 2] Right: Shoulder [employer] 09/04/20241099 0 / / [id number] [employer] Eccentric Humeral Head Implanted:Qty: 1 on 03/19/2015 by Jose Polo MD at [facility] [place][note 2] Right: Shoulder [employer] 03/05/2024 0 / / [id number] Sys Shld Tot Arthroplst Implanted:Qty: 1 on 03/19/2015 by Jose Polo MD at [facility] S3 DEPUY / / Procedures Procedure Name Priority Date/Time Associated Diagnosis Comments BASIC METABOLIC PANEL (CALCIUM TOTAL) AM Draw 03/20/2015 3:49 AM CDT from Last 3 Months or Most Recently Relevant to Health Maintenance Results * (ABNORMAL) BASIC METABOLIC PANEL (CALCIUM TOTAL) (03/20/2015 3:49 AM CDT) [facility] Glucose 120(H) 74 - 106 mg/dL 03/20/2015 5:44 AM CDT [facility] Sodium 141 136 - 145 mmol/L 03/20/2015 5:44 AM CDT [facility] Potassium 4.3 3.5 - 5.1 mmol/L 03/20/2015 5:44 AM CDT [facility] Chloride 105 98 - 107 mmol/L 03/20/2015 5:44 AM CDT [facility] CO2 27 22 - 31 mmol/L 03/20/2015 5:44 AM CDT [facility] Calcium 8.4(L) 8.5 - 10.1 mg/dL 03/20/2015 5:44 AM CDT [facility] Anion Gap 9 5 - 15 mmol/L 03/20/2015 5:44 AM CDT [facility] BUN 8 7 - 21 mg/dL 03/20/2015 5:44 AM CDT [facility] Creatinine 0.67 0.50 - 1.30 mg/dL 03/20/2015 5:44 AM CDT [facility] eGFR by MDRD >60 >60 mL/min/1.7 3m2 03/20/2015 5:44 AM CDT [facility] eGFR by MDRD >60 >60 mL/min/1.7 3m2 03/20/2015 5:44 AM CDT [facility] Blood BLOOD SPECIMEN / Unknown Lab Venipuncture / Unknown 03/20/2015 3:49 AM CDT 03/20/2015 5:15 AM CDT Hira Esqueda MD LAB - CHEMISTRY JACK FLORES [facility] Organization Address City/State/ZIP Co de Phone Number [facility] [address] [place] [address] from Last 3 Months or Most Recently Relevant to Health Maintenance Advance Directives * Full Code (Latest Code Status on File) Date Activated Date Inactivated Comments 03/19/2015 9:35 PM 03/20/2015 6:23 PM Care Teams Sql Tech Relationship Specialty Start Date End Date Brad Blancas MD [address] [place] [address] PCP - General Family Medicine 06/23/16 Elkin Bautista MD [address] [place], [place] [address] [place] [address] Internal Medicine 06/23/16 Babatunde Valdez RN [employer]ive Ordnance Disposal Specialist 03/20/15
--- OUTSIDE RECORDS SUMMARY | 2024-12-07 17:08 | XMS_ITS | Clinical Summary ---
[facility] Organization [facility] Address [address] [place] [address] Care Team Providers Care Inspector Aide Name Role Phone Brad Blancas MD Primary Care Provider [phone] Gadiel Wadsworth Unavailable [phone] Rebel Guajardo MD Unavailable Allergies Active Allergy Reactions Criticality Noted Date [...] lesion 12/19/2016 Atherosclerotic heart diseas e of [place] coronary artery without angina pectoris 12/19/2016 Chronic [...] right knee 03/16/2015 Glenohumeral arthritis, right 02/20/2015 Encounters Date Type Department Care Team Description 11/21/2024 Orders Only [facility] Emergency Department [address] [place] [address] Prema Couch MD 11/05/2024 Documentation [facility] 4th Floor [address] [place] [address] Omar Rae MD 11/04/2024 7:39 PM RN REVIEW - 11/05/2024 6:46 AM RN REVIEW Emergency [facility] Emergency Department [address] [place] [address] Sen Mike MD Kim, Albert Junhyun, MD Spondylosis of lumbar spine (Primary Dx); History of COPD; NITA (obstructive sleep apnea); History of depression; Cervical stenosis of spinal canal Discharge Disposition: Discharge to home or self care from Last 3 Months Immunizations Immunization Administration Dates Next Due Pfizer SARS-CoV-2 Monovalent Vaccination (12+ Yrs) PURPLE 01/01/2021,12/04/2020 Surgical History Surgery Date Site/Laterality Comments CARDIAC CATHETERIZATION TOTAL SHOULDER REPLACEMENT Right FEMORAL ARTERY STENT Left stent left groin APPENDECTOMY TUBAL LIGATION BLADDER SUSPENSION Medical History Medical History Date Comments Hypercholesteremia Peripheral neuropathy Gastric reflux Hiatal hernia Osteoporosis Osteoarthritis Migraines Sleep apnea Lung disease COPD Asthma [place] esophagus Family History Medical History Relation Name Comments Breast cancer Mother Arthritis Other Asthma Other Cancer Other Heart disease Other Hypertension Other Kidney disease Other Relation Name Status Comments Mother Other Social History Tobacco Use Types Packs/Day Years [...] Average Number of Drinks Not on file 021 Frequency of Binge Drinking Not on file [...] on file Legal Sex Female 1:45 AM RN REVIEW Gender Identity Not on file Sexual Orientation Not on file Obstetrics History Last Filed Vital Signs Vital Sign Reading Time Taken Comments Blood Pressure 104/55 11/05/2024 6:30 AM RN REVIEW Pulse 61 11/05/2024 6:30 AM RN REVIEW Temperature 36.5 C (97.7 F) 11/04/2024 5:03 PM RN REVIEW Respiratory Rate 16 11/05/2024 6:30 AM RN REVIEW Oxygen Saturation 91% 11/05/2024 6:30 AM RN REVIEW Inhaled Oxygen Concentration - - Weight 98.4 kg (217 lb) 11/04/2024 5:03 PM RN REVIEW Height 154.9 cm (5' 1 ) 11/04/2024 5:03 PM RN REVIEW Body Mass Index 41 11/04/2024 5:03 PM RN REVIEW Plan of Treatment Health Maintenance Due Date Last Done Comments Breast Cancer Screening-Mammogram 1958 Colon Cancer Screening-Colonoscopy 1960 Hepatitis C Screening 1960 Osteoporosis Screening-Bone Density Scan 1958 Hepatitis B Screening 1976 DTaP/Tdap/Td Vaccine (1 - Tdap) 08/08/2014 4 Depression Screening 08/20/2022 08/20/2021, 02/28/2021, 07/19/2020 Fall Risk Assessment 09/17/2022 09/17/2021 Well Visit 65+ 2023 Covid-19 Vaccine (5 - 2023-2 5 season) 2024 06/24/2024, 09/30/2021, 01/01/2021, Additional history exists Zoster Vaccine Completed 11/15/2021, 06/11/2020 Influenza Vaccine Completed 06/24/2024, , 09/30/2021, Additional history exists Pneumococcal vaccine 65+ Completed 024, 06/23/2016, 2014 Medical Devices Implanted Type Area Warping Mill Operator Device Identifier Shelf Expiration Date Model / Serial / Lot [employer] [id number] Attune Cruciate Retain Cementless Knee Right 4 Component Femoral - [id number] Implanted:Qty: 1 on 09/12/2021 by Jose Luis Yin MD at [facility] Right: Knee [employer] 10/04/2030 [id number] / / [id number] [employer] [id number] Attune 7mm Cruciate Retaining Rotate Platform Knee 4 Insert - [id number] Implanted:Qty: 1 on 09/12/2021 by Jose Luis Yin MD at [facility] Right: Knee [employer] 11/04/2024 [id number] / / [id number] [employer] [id number] Attune Cementless Rotate Platform Knee 5 Baseplate Tibial - [id number] Implanted:Qty: 1 on 09/12/2021 by Jose Luis Yin MD at [facility] Right: Knee [employer] 04/03/2031 [id number] / / 04/03/2031 Procedures Procedure Name Priority Date/Time Associated Diagnosis Comments MRI SPINE THORACIC LUMBAR W WO CONTRAST ED Urgent/IP Urgent 11/05/2024 12:59 AM RN REVIEW APTT STAT 11/04/2024 11:44 PM RN REVIEW PROTIME-INR STAT 11/04/2024 11:[address] THORACIC AND LUMBAR SPINE WO CONTRAST ED Urgent/IP Urgent 11/04/2024 11:[address] HEAD AND CERVICAL SPINE WO CONTRAST ED Urgent/IP Urgent 11/04/2024 11:40 PM RN REVIEW XR SPINE CERVICAL 2 OR 3 VIEWS ED Urgent/IP Urgent 11/04/2024 10:25 PM RN REVIEW XR SPINE LUMBAR 2 OR 3 VIEWS ED Urgent/IP Urgent 11/04/2024 10:25 PM RN REVIEW POCT GLUCOSE DEVICE Routine 11/04/2024 1 0:00 PM RN REVIEW B CHECK SAMPLE STAT 11/04/2024 10:00 PM RN REVIEW NEURO MR OUTSIDE CONSULT Routine 11/04/2024 9:43 PM RN REVIEW ECG 12-LEAD STAT 11/04/2024 9:14 PM RN REVIEW XR CHEST 1 VIEW ED Urgent/IP Urgent 11/04/2024 9:00 PM RN REVIEW EGFR STAT 11/04/2024 8:54 PM RN REVIEW DIFFERENTIAL AUTO STAT 11/04/2024 8:5 4 PM RN REVIEW TROPONIN I HIGH-SENSITIVITY Routine 11/04/2024 8:54 PM RN REVIEW CBC WITH AUTO DIFFERENTIAL STAT 11/04/2024 8:54 PM RN REVIEW COMPREHENSIVE METABOLIC PANEL STAT 11/04/2024 8:54 PM RN REVIEW TYPE AND SCREEN STAT 11/04/2024 8:54 PM RN REVIEW from Last 3 Months Results * MRI Spine Thoracic and Lumbar W WO Contrast (11/05/2024 12:59 AM RN REVIEW) Anatomical Region Laterality Modality Spine N/A Magnetic Resonan ce 11/05/2024 2:47 AM RN REVIEW Impressions 11/05/2024 7:01 AM RN REVIEW 1. Multilevel degenerative changes in the lumbar [...] Ruggiero MD, PhD Narrative 11/05/2024 7:01 AM RN REVIEW EXAMINATION: 1. Magnetic resonance imaging (MRI) of [...] Final Result * aPTT (11/04/2024 11:44 PM RN REVIEW) aPTT 28 28 - 38 sec Comment: Interpretive Data Heparin therapeutic range: 66.0 - 100.0 seconds. Range based on correlation with therapeutic heparin activity range of 0.3 - 0.7 Units/mL. Current interpretive data was last revised on 2023. Blood 11/04/2024 11:4 4 PM RN REVIEW 11/05/2024 12:17 AM RN REVIEW Prema Couch MD LAB BLOOD ORDERABLES Fin al Result Performing Organization Address [facility] de Phone Number [facility] [place] [employer] [place] [address] * Protime-INR (11/04/2024 11:44 PM RN REVIEW) PT 11.5 9.7 - 13.0 sec INR 1.06 0.90 - 1.20 [facility] Comment: Interpretive data Oral anticoagulant therapeutic ranges: Venous thromboembolism prophylaxis or treatment: 2.0-3.0 CARDIOLOGY Standard range: 2.0-3.0 High-intensity range: 2.5-3.5 Refer to indication-specific guidelines for appropriate target ranges for prosthetic heart valve replacement. Current interpretive data was last revised on 2019. Blood 11/04/2024 11:4 4 PM RN REVIEW 11/05/2024 12:17 AM RN REVIEW Prema Couch MD LAB BLOOD ORDERABLES Fin al Result Performing Organization Address [facility] de Phone Number [facility] [employer] [place] [address] * CT Head and Cervical Spine WO Contrast (11/04/2024 11:40 PM RN REVIEW) Anatomical Region Laterality Modality Head and Neck N/A Computed Tomogra phy 11/05/2024 12:0 3 AM RN REVIEW Impressions 11/05/2024 9:47 AM RN REVIEW 1. No acute intracranial hemorrhage, hemorrhage or [...] Shakeel Goodwin MD Narrative 11/05/2024 9:47 AM RN REVIEW EXAMINATION: 1. CT head without contrast 2. CT of the cervical spine without contrast 3. CT of the thoracic spine with contrast 4. CT of the lumbar spine with contrast HISTORY: 64-year-old with possible subacute C5 fracture and most recent MRI on 10/28/2024 and and numbness in the left face left arm and left leg a fall the day before [facility]. TECHNIQUE: CT of the head was performed [...] by: Shakeel Goodwin MD Prema Couch MD IM CT PROCEDURES Final Result * CT Thoracic and Lumbar Spine WO Contrast (11/04/2024 11:40 PM RN REVIEW) Anatomical Region Laterality Modality Spine N/A Computed Tomogra phy 11/05/2024 12:0 3 AM RN REVIEW Impressions 11/05/2024 9:47 AM RN REVIEW 1. No acute intracranial hemorrhage, hemorrhage or [...] Shakeel Goodwin MD Narrative 11/05/2024 9:47 AM RN REVIEW EXAMINATION: 1. CT head without contrast 2. [...] 2 or 3 Views (11/04/2024 10:25 PM RN REVIEW) Anatomical Region Laterality Modality Spine N/A Computed Radiogr aphy 11/04/2024 10:5 7 PM RN REVIEW Impressions 11/05/2024 9:15 AM RN REVIEW Lumbar spine: Left iliac stent. Vascular calcifications. [...] Trell Castaneda M.D. Narrative 11/05/2024 9:15 AM RN REVIEW EXAMINATION: XR SPINE LUMBAR 2 OR 3 [...] 2 or 3 Views (11/04/2024 10:25 PM RN REVIEW) Anatomical Region Laterality Modality Spine N/A Computed Radiogr aphy 11/04/2024 10:5 7 PM RN REVIEW Impressions 11/05/2024 9:15 AM RN REVIEW Lumbar spine: Left iliac stent. Vascular calcifications. [...] Trell Castaneda M.D. Narrative 11/05/2024 9:15 AM RN REVIEW EXAMINATION: XR SPINE LUMBAR 2 OR 3 [...] Result * Check Sample (11/04/2024 10:00 PM RN REVIEW) ABO Rh A Positive [facility] OTHER 11/04/2024 10:0 0 PM RN REVIEW 11/04/2024 10:55 PM RN REVIEW Sen Mike MD LAB BLOOD ORDERABLES Final Re sult Performing Organization Address [facility] Co de Phone Number [facility] [place] [address] [facility] * POCT glucose (11/04/2024 10:00 PM RN REVIEW) Glucose, POC 87 70 - 199 mg/dL Blood 11/04/2024 10:0 0 PM RN REVIEW 11/04/2024 10:00 PM RN REVIEW Sen Mike MD LAB POCT ORDERABLES - DEVICE Final Result Performing Organization Address [facility] [place] [address] * Neuro MR Outside Consult (11/04/2024 9:43 PM RN REVIEW) Anatomical Region Laterality Modality N/A Magnetic Resonan ce 11/05/2024 9:28 AM RN REVIEW Impressions 11/05/2024 9:28 AM RN REVIEW Mild to moderate degenerative changes of the [...] images may or may not represent the cocopah source data set and thus may contain changes that may lower the accuracy of this second-opinion interpretation. Electronically signed by: Dimitry Garcia M.D. Narrative 11/05/2024 9:28 AM RN REVIEW EXAMINATION: RADIOLOGY CONSULTATION ON OUTSIDE IMAGING STUDY STUDY INITIALLY PERFORMED: 10/28/2024 at [facility]. TYPE OF STUDY: Multiple MR images [...] demonstrate no significant canal stenosis. There is [id number] foraminal narrowing on the right side at the level of C4-C5, moderate bilateral foraminal stenosis at C5-C6 due to uncovertebral joint disease, and mild bilateral foraminal stenosis at C6-C7. Procedure Note Dimitry Garcia MD PhD - 11/05/2024 EXAMINATION: RADIOLOGY CONSULTATION ON OUTSIDE IMAGING STUDY STUDY INITIALLY PERFORMED: 10/28/2024 at [facility]. TYPE OF STUDY: Multiple MR images [...] demonstrate no significant canal stenosis. There is [id number]-[id number] foraminal narrowing on the right side at [...] images may or may not represent the cocopah source data set and thus may contain changes that may lower the accuracy of this second-opinion interpretation. Electronically signed by: Dimitry Garcia M.D. us Prema Couch MD IMG MRI PROCEDURES Final Result * ECG 12-LEAD (11/04/2024 9:14 PM RN REVIEW) Narrative [facility] - 11/04/2024 9:14 PM RN REVIEW Sen Mike MD 11/04/2024 9:15 PM ECG [...] Couch MD ECG ORDERABLES Final Re sult [facility] * XR Chest 1 View (11/04/2024 9:00 PM RN REVIEW) Anatomical Region Laterality Modality Body, Chest N/A Computed Radiogr aphy 11/04/2024 9:07 PM RN REVIEW Impressions 11/05/2024 9:15 AM RN REVIEW The current study is compared with the [...] Trell Castaneda M.D. Narrative 11/05/2024 9:15 AM RN REVIEW EXAMINATION: 1 view chest radiograph Procedure Note [...] * Troponin I high-sensitivity (11/04/2024 8:54 PM RN REVIEW) Trop I hs 4 <=17 ng/L Comment: Interpretive Data For further hscTnI resources including the diagnostic algorithm and an aid in interpretation, copy and paste this link: [email or web address].testcatalog.org/show/[email or web address] Current Interpretive Data last revised 2020. Blood 11/04/2024 8:54 PM RN REVIEW 11/04/2024 9:09 PM RN REVIEW Prema Couch MD LAB BLOOD ORDERABLES Fin al Result Performing Organization Address [facility] Co de Phone Number [facility] [place] [address] * eGFR (11/04/2024 8:54 PM RN REVIEW) eGFR >90 >=60 mL/min/1. 73 m2 Comment: [...] last reviewed 2021. Blood 11/04/2024 8:54 PM RN REVIEW 11/04/2024 9:09 PM RN REVIEW Prema Couch MD LAB BLOOD ORDERABLES Fin al Result Performing Organization Address [facility] Co de Phone Number [facility] [place] [address] * Differential, auto (11/04/2024 8:54 PM RN REVIEW) Neutrophil abs 2.0 1.5 - 6.5 K/cumm Imm gran abs 0.0 0.0 - 0.1 K/cumm [facility] Lymphocyte abs 2.4 0.8 - 3.3 K/cumm [facility] Monocyte abs 0.4 0.2 - 0.8 K/cumm [facility] Eosinophil abs 0.1 0.0 - 0.5 K/cumm [facility] Basophil abs 0.0 0.0 - 0.1 K/cumm [facility] Neutrophil pct 40.0 % [facility] Comment: Interpretive Data Percent cell count reference ranges are not reported, since discordance with absolute values may lead to misinterpretation of CBC data. Current Interpretive Data was last revised on 2018. Imm gran pct 0.2 % [facility] Comment: Interpretive Data Percent cell count reference ranges are not reported, since discordance with absolute values may lead to misinterpretation of CBC data. Current Interpretive Data was last revised on 2018. Lymphocyte pct 48.6 % [facility] Comment: Interpretive Data Percent cell count reference ranges are not reported, since discordance with absolute values may lead to misinterpretation of CBC data. Current Interpretive Data was last revised on 2018. Monocyte pct 8.0 % [facility] Comment: Interpretive Data Percent cell count reference ranges are not reported, since discordance with absolute values may lead to misinterpretation of CBC data. Current Interpretive Data was last revised on 2018. Eosinophil pct 2.4 % [facility] Comment: Interpretive Data Percent cell count reference ranges are not reported, since discordance with absolute values may lead to misinterpretation of CBC data. Current Interpretive Data was last revised on 2018. Basophil pct 0.8 % [facility] Comment: Interpretive Data Percent cell count reference ranges are not reported, since discordance with absolute values may lead to misinterpretation of CBC data. Current Interpretive Data was last revised on 2018. Blood 11/04/2024 8:54 PM RN REVIEW 11/04/2024 9:09 PM RN REVIEW us Prema Couch MD LAB BLOOD ORDERABLES Fin al Result [facility] [place] [address] * CBC with auto differential (11/04/2024 8:54 PM RN REVIEW) WBC 5.0 3.8 - 9.9 K/cumm Hgb 12.9 11.9 - 15.5 g/dL [facility] Hct 37.6 35.6 - 45.5 % [facility] Plt 216 150 - 400 K/cumm [facility] MPV 10.2 9.1 - 12.3 fL [facility] RBC 4.49 3.90 - 5.20 M/cumm [facility] MCV 83.7 81.3 - 96.4 fL [facility] MCH 28.7 27.1 - 33.3 pg [facility] MCHC 34.3 32.3 - 35.7 g/dL [facility] RDW CV 13.0 11.1 - 14.9 % [facility] RDW SD 39.8 35.7 - 48.1 fL [facility] NRBC abs 0.00 0.00 - 0.01 K/cumm [facility] Blood 11/04/2024 8:54 PM RN REVIEW 11/04/2024 9:09 PM RN REVIEW Prema Couch MD LAB BLOOD ORDERABLES Fin al Result Performing Organization Address City/[facility]/ZIP Co de Phone Number [facility] [employer] [place] [address] * Type and screen (11/04/2024 8:54 PM RN REVIEW) Pathologist [facility] [place], indirect Negative ABO Rh A Positive [facility] Blood 11/04/2024 8:54 PM RN REVIEW 11/04/2024 9:06 PM RN REVIEW Narrative [facility] - 11/04/2024 9:53 PM RN REVIEW Has the patient had Daratumumab or Isatuximab in the past 6 months?->Unknown Prema Couch MD LAB BLOOD BANK TEST ORDE RABLES Final Result [facility] [employer] [place] [address] * Comprehensive metabolic panel (11/04/2024 8:54 PM RN REVIEW) Sodium 145 135 - 145 mmol/L Potassium, pl 4.2 3.3 - 4.9 mmol/L [facility] Chloride 109 97 - 110 mmol/L [facility] CO2 28 22 - 32 mmol/L [facility] Anion gap 8 2 - 15 mmol/L [facility] BUN 16 6 - 25 mg/dL [facility] Creatinine 0.73 0.60 - 1.10 mg/dL [facility] Glucose 95 70 - 199 mg/dL [facility] Comment: Interpretive Data Fasting glucose >/= 126 [...] classification and Diagnosis of Diabetes Diabetes Care 2021; 46: S19-S40. Current interpretive data was last revised 2022. Calcium 9.2 8.5 - 10.3 mg/dL [facility] Bilirubin, total 0.6 0.1 - 1.2 mg/dL [facility] Protein, pl 7.0 6.5 - 8.5 g/dL [facility] Albumin 3.9 3.5 - 5.0 g/dL [facility] Alk phos 86 40 - 130 Units/L [facility] ALT 20 7 - 45 Units/L [facility] AST 34 10 - 45 Units/L [facility] Blood 11/04/2024 8:54 PM RN REVIEW 11/04/2024 9:09 PM RN REVIEW us Prema Couch MD LAB BLOOD ORDERABLES Fin al Result [facility] [place] [address] from Last 3 Months Insurance [employer] MEDICARE [employer] Advance Directives For more information, please contact: [phone] * Full Code (Latest Code Status on File) Date Activated Date Inactivated Comments 09/12/2021 8:02 AM 09/17/2021 6:41 PM Care Teams Inspector Aide Relationship Specialty Start Date End Date Brad Blancas MD [address] [place] [address] PCP - General Family Medicine 02/14/19 Gadiel Wadsworth PA [address] [place] [address] [address] [address] Physician Forest Scientist Orthopedic Surgery 09/17/21 [place] [id number] [address] Consulting Physician Cardiovascular Disease 08/08/24
--- OUTSIDE RECORDS SUMMARY | 2024-12-07 17:08 | XMS_ITS | Encounter Summary ---
Author Organization [facility] Health Address [address] [place] [address] Care Team Providers Care Worship Pastor Name Role Phone Brad Blancas MD Primary Care Provider Elkin Bautista MD Unavailable Babatunde Valdez RN Unavailable [phone] Encounter Details Date Type Department Care Team (Late st Contact Info) Description 07/31/2020 Telephone [facility] [address] [place] [address] Jose Polo MD [address] [facility] [place] [address] Social History Tobacco Use Types Packs/Day Years Used Date Smoking Tobacco: Every Day Cigarettes 1.5 40 Smokeless Tobacco: Never Alcohol Use Standard Drinks/Week Comments No 0 (1 standard drink = 0.6 oz pur e alcohol) Sex and Gender Information Value Date Recorded Sex Assigned at Not on file Gender Identity Not on file Sexual Orientation Not on file documented as of this encounter Functional Status Functional Status Response Date of [...] person have difficulty concentrating/remembering/making decisions? No 03/20/2015 documented as of this encounter Miscellaneous Notes * Telephone Encounter - Umu Weinstein - 07/31/2020 2:41 PM CDT Pt would like to have and order for Physical Therapy faxed over to [facility] at [phone]. documented in this encounter Plan of Treatment Not on file documented as of this encounter Visit Diagnoses Not on filedocumented in this encounter Care Teams Worship Pastor Relationship Specialty Start Date End Date Brad Blancas MD [address] [facility] [address] [place] [address] PCP - General Family Medicine 06/23/16 Elkin Bautista MD [address] [place] [address] [address] [place] [address] Internal Medicine 06/23/16 Babatunde Valdez, RN Stallion Manager 03/20/15 documented as of this encounter
--- OUTSIDE RECORDS SUMMARY | 2024-12-07 17:09 | XMS_ITS | Data Portability ---
Author Organization [facility], Main Office Address [address] [place] [id number] Care Team Providers Care [employer] Black Belt Name Role Phone [facility] YIN Primary Care Provider PABLITO HOFFMAN Primary Care Provider Assessment Encounter Date Assessment Date Assessment LastModified by Organization Details LastModified Time 09/19/2021 09/19/2021 The patient improved with therapy, nursing, and medical care at our post-acute facility and is being discharged home today with home health services. The patient will be discharged home with home health orders of home health RN / PT / OT to evaluate and treat by Dr. Yin. The patient requires PT for training to restore safe independent functional ambulation in community; and OT for training to improve ability to fulfill ADLs. Please follow-up with your primary care provider within 1 week. Call your primary care provider for instructions or go to the emergency room for new or worsening symptoms. Not available 09/23/2021 15:39:06 Plan of Treatment Reminders Order Date Submit Date Provider Last Modified By Organization Details Last Modified Time Details Appointments None recorded. Lab None recorded. Referral None recorded. Procedures None recorded. Surgeries None recorded. Imaging None recorded. Medication Orders pregabalin 75 mg capsule 2020 021 VANDANA Not available 17:35:07 oxycodone-a cetaminophe n 5 mg-325 mg tablet 2020 021 VANDANA Not available 17:35:05 Patient TargetsNo targets recorded. Patient Instructions Encounter Date Encounter Id Patient Instructions Last Modified By Organization Details Last Modified Time 09/18/2021 [id number] I spent {{10 15 20 25 30 35 40 45* 50 60 >75}} minutes providing care to the patient today. More than 50% of that time was spent in discussing the expected course of the disease, discussing prognosis, coordinating care and counseling of the patient/family. Originally patient wanted to discharge today to be able to go back home and was going to do this with the assistance of her niece and sister. I spoke with Dr. Lopez concerning patient's current status and plan of care and was advised that if patient would discharge due to inability to confirm her safety and her deferring therapy she would need to discharge AMA. It was later after this that I was notified by the operations research director that the patient spoke with a nurse in Dr. Giang told his office who had convinced her to stay the night with plans to discharge home tomorrow and Dr. Giang told his office would be initiating home health as well as therapy. [email or web address] Not available 09/18/2021 15:56:03 Reason for Referral None Reported. Problems Name Problem SNOMED Code Status Onset Date Resolution Date Notes Provider Name and Address Organization Details Recorded Time Coronary arterioscle rosis 72527905 Active 2020 [place] [facility] 15:27:42 Essential hypertensio n 16134069 Active 2020 [place] [facility] 15:27:58 Hyperlipide geoffrey 86043686 Active 2020 [place] [facility] 15:28:05 Hiatal hernia with gastroesoph ageal reflux 585488761 Active 2020 Mil[place] [facility] 15:28:28 Urinary incontinenc e 452764505 Active 2020 Mil[place] [facility] 15:28:38 Mixed anxiety and depressive disorder 514448288 Active 2020 Mil[place] [facility] 15:29:01 Osteoarthri tis of right knee joint 9465476853947 00 Active 2020 Mil[place] [facility] 15:29:26 Low back pain 011406630 Active 2020 Mil[place] [facility] 15:29:35 History of migraine 098568554 Active 2020 Mil[place] [facility] 15:29:59 Neuropathy 992059804 Active 2020 [place] [facility] 15:30:08 Obstructive sleep apnea syndrome 30908193 Active 2020 [place] [facility] 15:30:13 Problem Notes None recorded. Procedures Surgical History Date Name Laterality Status Provider Name and Address Organization Details Recorded Time total shoulder replacement completed Arely Mahmood [place] [facility] 09/17/2021 16:17:26 Appendectomy completed [place] [facility] 09/17/2021 16:17:33 cardiac catheterization completed Arely Mahmood [place] [facility] 09/17/2021 16:17:59 insertion of stent into femoral artery completed Milady MARTINEZ - [facility] 09/18/2021 15:34:53 ligation of fallopian tube completed Milady MARTINEZ - [facility] 09/18/2021 15:35:07 Imaging Results None recorded. Procedure Notes None recorded. Medical Equipment None Reported. Allergies Allergen ID Allergen Name Allergen Category Reaction Reaction Severity Criticality Documentation Date Start Date Code Code System Note Provider Name and Address Organization Details Recorded Time 44052 atorvasta tin medicatio n Not available Not available Not available 09/17/2021 82497 RxNorm Not Available Not Available Not Available 84629 isosorbid e medicatio n Not available Not available Not available 09/17/2021 6057 RxNorm Not Available Not Available Not Available 62939 naproxen medicatio n Not available Not available Not available 09/17/2021 7258 RxNorm Not Available Not Available Not Available 75062 Non-stero idal anti-infl ammatory agent (product) medicatio n Not available Not available Not available 09/17/2021 18728 005 SNOMED Not Available Not Available Not Available 62486 Product containin g penicilli n (product) medicatio n Not available Not available Not available 09/17/2021 39409 8001 SNOMED Not Available Not Available Not Available Medications Name Sig Start Date Stop Date Status Note LastModified by Organization Details LastModified Time cyclobenzap rine 10 mg tablet Take 1 tablet twice a day by oral route as needed. active Not Available Not Available N ot Available venlafaxine ER 75 mg capsule,ext ended release 24 hr Take 1 capsule every day by oral route. active Not Available Not Available No t Available oxybutynin chloride ER 10 mg tablet,exte nded release 24 hr Take 1 tablet every day by oral route. active Not Available Not Available No t Available albuterol sulfate 1.25 mg/3 mL solution for nebulizatio n Inhale 1.25 mg every 6 hours by inhalation route as needed. active Not Available Not Available No t Available sumatriptan 50 mg tablet Take 1 tablet every day by oral route as needed. active Not Available Not Available No t Available omeprazole 40 mg capsule,del ayed release Take 1 capsule every day by oral route. active Not Available Not Available No t Available oxycodone-a cetaminophe n 5 mg-325 mg tablet Take 1 tablet every 4 hours by oral route as needed. 2020 active Not Available Not Available Not Avai lable ascorbic acid (vitamin C) 500 mg tablet Take 1 tablet twice a day by oral route. active Not Available Not Available No t Available ferrous sulfate 325 mg (65 mg iron) tablet Take 1 tablet every day by oral route. active Not Available Not Available No t Available nitroglycer in 0.[address] 1 tablet as needed by sublingual route around the clock. active PLACE ONE TABLET NEEDED Q5MIN Not Available Not Available Not Available aspirin 81 mg chewable tablet Chew 1 tablet twice a day by oral route. active Not Available Not Available No t Available montelukast 10 mg tablet Take 1 tablet every day by oral route. active Not Available Not Available No t Available furosemide 20 mg tablet Take 1 tablet every day by oral route. active Not Available Not Available No t Available azelastine 137 mcg (0.1 %) nasal spray [place] 2 sprays twice a day by intranasal route. active Not Available Not Available No t Available cholecalcif reji (vitamin D3) 125 mcg (5,000 unit) capsule Take 1 capsule every day by oral route. active Not Available Not Available No t Available loratadine 10 mg tablet Take 1 tablet every day by oral route. active Not Available Not Available No t Available rosuvastati n 40 mg tablet Take 1 tablet every day by oral route. active Not Available Not Available No t Available pregabalin 75 mg capsule Take 1 capsule twice a day by oral route. 2020 active Not Available Not Available Not Avai lable ranolazine ER 1,000 mg tablet,exte nded release,12 hr Take 1 tablet every day by oral route. active Not Available Not Available No t Available Allergy Relief (fluticason e) 50 mcg/actuati on nasal spray,suspe nsion [place] 2 sprays twice a day by intranasal route as needed. active Not Available Not Available No t Available sennosides 8.6 mg-docusate sodium 50 mg capsule Take 1 capsule twice a day by oral route as needed. active Not Available Not Available N ot Available budesonide 160 mcg-glycopy r 9 mcg-formot 4.8 mcg/actuati on HFA inhaler Inhale 2 puffs twice a day by inhalation route. active Not Available Not Available No t Available Vitals Date Recorded Body weight Body mass index (BMI) Body height Heart rate Oxygen saturation Oxygen saturation in Arterial blood by Pulse oximetry Respiratory rate Body temperature Systolic blood pressure Diastolic blood pressure Provider Name and Address Organization Details Last Updated DateTime 1 429253. 54 g 46.1 kg/m2 154.94 cm 66 /min 95 % 95 % 16 /min 97.5 [degF] 130 mm[Hg] 76 mm[Hg] Milady Bhandari [facility] 15:17:44 Date Recorded Body height Heart rate Oxygen saturation Oxygen saturation in Arterial blood by Pulse oximetry Respiratory rate Body temperature Systolic blood pressure Diastolic blood pressure Provider Name and Address Organization Details Last Updated DateTime 1 154.94 cm 88 /min 96 % 96 % 24 /min 97.7 [degF] 131 mm[Hg] 63 mm[Hg] Milady Bhandari [facility] 15:33:04 Social History Question Answer Notes LastModified by Organizat ion Details LastModified Time Tobacco Smoking Status Current Every Day Smoker Arely dumont [facility] 09/17/2021 16:25:53 What Is Your Level Of Alcohol Consumption? None [email or web address] Information not available 09/18/2021 Are You Blind Or Do You Have Difficulty Seeing? No [email or web address] Information not available 09/18/2021 Are You Deaf Or Do You Have Serious Difficulty Hearing? No Information not available 09/18/2021 Able To Care For Self? Yes [email or web address] Information not available 09/18/2021 Live Alone Or With Others? Alone [email or web address] Information not available 09/18/2021 Do You Have A Caregiver? No [email or web address] Information not available 09/18/2021 What Is Your Relationship Status? [email or web address] Information not available 09/18/2021 How Much Tobacco Do You Smoke? 1 PPD Information not available 09/17/2021 Do You Use Any Illicit Or Recreational Drugs? No [email or web address] Information not available 09/18/2021 Sex: Unknown Functional Status Question Answer Note LastModified by Organizat ion Details LastModified Time Do you have difficulty walking or climbing stairs? Yes new since knee surgery Information not available 09/18/2021 Are you able to walk? YESASSIST Pt uses wheeled walker and requires standby assist Information not available 09/17/2021 Do you have difficulty doing errands alone? No Pt is independent with cooking and cleaning per note Information not available 09/17/2021 Are you able to care for yourself? Yes [email or web address] Information not available 09/18/2021 Do you have difficulty dressing or bathing? No Pt is independent with bathing and dressing per note Information not available 09/17/2021 Mental Status Question Answer Note LastModified by Organization D etails LastModified Time Do you have difficulty concentrating, remembering or making decisions? No [email or web address] Information no t available 09/18/2021 Family History Relationship Description Onset Age of this Age Resolved Age Notes LastModified by Organization Details LastModified Time Unspecified Relation Heart disease [email or web address] Not available 2020 15:30:50 Unspecified Relation Arthritis [email or web address] Not available 09/18 15:31:02 Unspecified Relation Malignant neoplastic disease [email or web address] Not available 12/15/ 2021 15:31:14 Unspecified Relation Hypertensive disorder [email or web address] Not available 2020 15:31:21 Unspecified Relation Kidney disease [email or web address] Not available 2020 15:31:28 Notes:not on file Medical History Condition Response Osteoporosis / Osteopenia Y Psychiatric -- Anxiety Disorder Y Osteoarthritis / DJD Y Obesity Y Psychiatric -- Depression Y COPD Y Fall Y Asthma Y Back Pain Y GERD / Reflux Y Neuropathy Y Arrhythmia Y Sleep Apnea / NITA Y Gynecological HistoryNo gynecological history recorded. Obstetrics History GPAL:G 0 P 0 0 0 0 Immunizations Vaccine Type Date Status Note Provider Nam e and Address Organization Details Recorded Time SARS-COV-2 (COVID-19) vaccine, UNSPECIFIED 01/01/2021 completed [place] [facility] 09/17/2021 16:25:03 influenza, unspecified formulation 08/29/2020 completed [place] [facility] 09/17/2021 16:25:24 COVID-19, mRNA, LNP-S, PF, 30 mcg/0.3 mL dose 12/04/2020 completed [place] [facility] 09/18/2021 15:27:08 Past Encounters Encounter ID Performer Location Encounter Start Date Encounter Closed Date Diagnosis/Indication Diagnosis SNOMED-CT Code Diagnosis ICD10 Code Diagnosis Note [id number] Milady WHITESIDE [facility] [address] [place] [id number] 09/18/2021 13:13:12 09/21/2021 23:23:11 Postoperative pain 663718061 G89.18 controlled substance refill script(s) below sent today due to pt. not being sent from the hospital with scriptCont inue with Percocet when necessary as well as Flexeril when necessary Neuropathy 724289172 G62 .9 controlled substance refill script(s) below sent today due to pt. not being sent from the hospital with scriptCont inue with Lyrica Osteoarthr itis of right knee joint 3403431648 74873 M17.11 s/p TKR on 09/[address] Ryan CODY for DVT prophylaxi sstart PT/OT - per therapy pt. has deferred exams todayFollo w up with otho scheduled. Coronary arteriosclerosis 22146589 I25.10 continue with ASAcontinu e with ranolazine for angina and PRN nitro Essential hypertension 28246302 I10 Continue with LasixLabs ordered upon patients admit yesterday should have been drawn today unsure if patient agreed to having blood drawn at this time. Hiatal her mena with gastroesophageal reflux 167877738 K21.9 Continue with omeprazole History of migraine 1614 24398 Z86.69 Continue with when necessary Imitrex Hyperlipidemia 66701251 E78.5 Continue with rosuvastat in Low back pain 109376101 M54.50 History of degenerati ve disc diseaseCur rently on Lyrica Mixed anxi ety and depressive disorder 199581601 F41.8 Continue with Effexor; presumed stable Obstructiv e sleep apnea syndrome 79336596 G47.33 Patient with CPAP at bedsideRT following patient; was notified by respirator y therapy today that patient deferred use of CPAP through the night last night Urinary incontinence 165 371162 R32 Continue with oxybutynin presume stable Constipation 22849711 K5 9.00 Continue with when necessary senna plus Allergic rhinitis 955723 04 J30.9 Continue with loratidine and montelukas tContinue with scheduled Astelin as well as when necessary Flonase Continue with when necessary nebulizers Patient is on twice daily inhaler however it is uncertain at this time as to why she uses this per her medical records Iron deficiency 92044314 E61.1 Continue with iron supplement ation Vitamin D deficiency 347 60686 E55.9 Continue with supplement ation [id number] Milady Bhandari [facility] [address] [place] [address] 09/19/2021 08:15:02 09/27/2021 00:01:30 Postoperative pain 221655742 G89.18 Continue with Percocet when necessary as well as Flexeril when necessary pt. will need to follow up with Dr. Yin for further refills Neuropathy 326464486 G62 .9 Continue with Lyrica pt. will need to follow up with PCP for further refills Osteoarthr itis of right knee joint 5099509466 50942 M17.11 s/p TKR on 09/[address] Davis ASA for DVT prophylaxi sstart PT/OT - per therapy pt. has deferred exams todayFollo w up with otho scheduled. Coronary arteriosclerosis 79196675 I25.10 continue with ASAcontinu e with ranolazine for angina and PRN nitro Essential hypertension 61349776 I10 Continue with LasixLabs ordered upon patients admit yesterday should have been drawn today unsure if patient agreed to having blood drawn at this time. Hiatal her mena with gastroesophageal reflux 574715103 K21.9 Continue with omeprazole History of migraine 1614 42138 Z86.69 Continue with when necessary Imitrex Hyperlipidemia 62212252 E78.5 Continue with rosuvastat in Low back pain 196019054 M54.50 History of degenerati ve disc diseaseCur rently on Lyrica Mixed anxi ety and depressive disorder 498699151 F41.8 Continue with Effexor; presumed stable Obstructiv e sleep apnea syndrome 79565759 G47.33 Patient with CPAP at bedsideRT following patient; was notified by respirator y therapy today that patient deferred use of CPAP through the night last night Urinary incontinence 165 352452 R32 Continue with oxybutynin presume stable Constipation 31315003 K5 9.00 Continue with when necessary senna plus Allergic rhinitis 772524 04 J30.9 Continue with loratidine and montelukas tContinue with scheduled Astelin as well as when necessary Flonase Continue with when necessary nebulizers Patient is on twice daily inhaler however it is uncertain at this time as to why she uses this per her medical records Iron deficiency 77923250 E61.1 Continue with iron supplement ation Vitamin D deficiency 347 92510 E55.9 Continue with supplement ation Health Concerns Section Related Observation LastModified by Organization Detai ls LastModified Time None Recorded Concern Status LastModified by Organization Details LastModified Time None Recorded Advance Directives Directive None Recorded Payers Encounter Date Sequence Insurance Name Policy Number Policy De Paz Covered Member ID De Paz Member ID Guarantor Name 09/18/2021 1 [facility] (MEDICARE REPLACEMENT/A DVANTAGE - PPO) [id number] Lisa Krueger [id number] Lisa Krueger 09/19/2021 1 [facility] (MEDICARE REPLACEMENT/A DVANTAGE - PPO) [id number] Lisa Krueger [id number] Lisa Krueger Notes Date Note Type Note Provider Name and Address Organization Details Recorded Time 09/18/2021 text/html 61 y/o female admitted to post acute rehab s/p right TKR with Dr. Yin on 09/12. Pt. [facility] day [facility]. Patient laying in bed for exam today. Patient states that she is not wanting an additional provider to be seeing her at this time. Patient states that she is having pain to the right knee currently. Patient states that she is wanting to be able to go home today. Patient states that her niece and her sister have both agreed to help her at home. Spoke with therapy and was told by therapy that she is refused any evaluations by them. Also spoke with nursing and was made aware that she is refused to all morning medications from them as she does not feel that these are medications that have been ordered by her physicians. Pt. deferred exam today. All medical hx. obtained from [facility] medical records. 09/25 Follow up with Gadiel Wadsworth with [facility] 09/18/2021 15:56:24 09/19/2021 text/html 61 y/o female admitted to post acute rehab s/p right TKR with Dr. Yin on 09/12. Pt. was discharged to [facility] on post [facility] day 6. Patient sitting up on side of bed for exam today. Patient is willing to allow me to assess her today. Patient denies any fevers chills fatigue cough wheezing difficult to breathing chest pain palpitations abdominal pain nausea vomiting diarrhea constipation. Patient states that she does have pain to the right knee but this has been unchanged since surgery. States that she has been up walking on her own some in her room. Patient states that she is waiting to be discharged home and will have the assistance of both her niece and friend. Patient denies any other concerns complaint at this time. Nursing denies any concerns complaint at this time. Therapy is not evaluated the patient due to her refusal at this time. [facility] 09/23/2021 15:40:04 OBGyn Episode No OBEpisode recorded.
--- OUTSIDE RECORDS SUMMARY | 2024-12-07 17:09 | XMS_ITS | Continuity of Care Document ---
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 Name Role Phone Brad Balncas MD Unavailable Unavailable Allergies, Adverse Reactions, Alerts Substance Reaction Status Criticality NSAIDS (Non-Steroidal Anti-Inflammatory Drug) Active No Information Penicillins Active No Information Medications Medication Instructions Dosage Effective Dates (start - stop) Status Comments Mounjaro 15 mg/0.5 mL subcutaneous pen injector inject (15MG) by subcutaneous route every week 15 MG - Active Inpefa 200 mg tablet take 1 tablet by oral route every day 200 MG - Active Singulair 10 mg tablet take 1 tablet by oral route every day in the evening 10 MG - Active Breztri Aerosphere 160 mcg-9mcg-4.8mcg/act uation HFA aerosol inhaler inhale 2 puff by inhalation route 2 times every day in the morning and evening 2.00 puff - Active Effexor XR 75 mg capsule,extended release take 1 capsule by oral route every day with food 75 MG - Active Crestor 20 mg tablet take 1 tablet by oral route every day 20 MG - Active Vitamin D2 1,250 mcg (50,000 unit) capsule take one capsule orally once per week - Active Topamax 100 mg tablet take 1 Tablet by oral route 2 times every day 100 MG - Active Imitrex 50 mg tablet take 1 tablet by oral route as needed 50 MG - Active take one orally at onset of headache, may repeat x one in two hours max 2/24 hours oxybutynin chloride 5 mg tablet take 1 tablet by oral route 2 times every day 5 MG - Active Lasix 20 mg tablet take 1 tablet by oral route every day 20 MG - Active omeprazole 20 mg tablet,delayed release take 1 tablet by oral route every day 1 tablet - Active Ventolin HFA 90 mcg/actuation aerosol inhaler inhale 2 puff by inhalation route every 4 - 6 hours as needed - Active Procedures Procedure Date OFFICE/OUTPATIENT VISIT, EST OFFICE/OUTPATIENT VISIT, EST OFFICE/OUTPATIENT VISIT, EST OFFICE/OUTPATIENT VISIT, EST OFFICE/OUTPATIENT VISIT, EST OFFICE/OUTPATIENT VISIT, EST OFFICE/OUTPATIENT VISIT, EST OFFICE/OUTPATIENT VISIT, EST OFFICE/OUTPATIENT VISIT, EST PREV VISIT, EST, 65 & OVER OFFICE/OUTPATIENT VISIT, EST OFFICE/OUTPATIENT VISIT, EST OFFICE/OUTPATIENT VISIT, EST OFFICE/OUTPATIENT VISIT, EST OFFICE/OUTPATIENT VISIT, EST OFFICE/OUTPATIENT VISIT, EST OFFICE/OUTPATIENT VISIT, EST PREV VISIT, EST, AGE 40-64 OFFICE/OUTPATIENT VISIT, EST OFFICE/OUTPATIENT VISIT, EST OFFICE/OUTPATIENT VISIT, EST OFFICE/OUTPATIENT VISIT, EST OFFICE/OUTPATIENT VISIT, EST OFFICE/OUTPATIENT VISIT, EST OFFICE/OUTPATIENT VISIT, EST OFFICE/OUTPATIENT VISIT, EST OFFICE/OUTPATIENT VISIT, EST OFFICE/OUTPATIENT VISIT, EST OFFICE/OUTPATIENT VISIT, EST PREV VISIT, EST, AGE 40-64 OFFICE/OUTPATIENT VISIT, EST OFFICE/OUTPATIENT VISIT, EST OFFICE/OUTPATIENT VISIT, EST PREV VISIT, EST, AGE 40-64 OFFICE/OUTPATIENT VISIT, EST OFFICE/OUTPATIENT VISIT, EST Initial preventive exam OFFICE/OUTPATIENT VISIT, EST OFFICE/OUTPATIENT VISIT, EST OFFICE/OUTPATIENT VISIT, EST OFFICE/OUTPATIENT VISIT, EST OFFICE/OUTPATIENT VISIT, EST PREV VISIT, EST, AGE 40-64 OFFICE/OUTPATIENT VISIT, EST OFFICE/OUTPATIENT VISIT, EST OFFICE/OUTPATIENT VISIT, EST OFFICE/OUTPATIENT VISIT, EST OFFICE/OUTPATIENT VISIT, EST OFFICE/OUTPATIENT VISIT, EST OFFICE/OUTPATIENT VISIT, EST OFFICE/OUTPATIENT VISIT, EST OFFICE/OUTPATIENT VISIT, EST OFFICE/OUTPATIENT VISIT, EST OFFICE/OUTPATIENT VISIT, EST PREV VISIT, NEW, AGE 40-64 OFFICE/OUTPATIENT VISIT, NEW Advance Directives Directive Yes / No Effective Date File Name No Information Encounters Encounter Description Practice Location Reason(s) For Visit Diagnoses Date Provider Providers Copied on Encounter OFFICE/OUTPA TIENT VISIT, [facility], [address] [place], [address], tel:[phone] [facility] chest pain1 (chief complaint) Anterior chest-wall pain 5 Yonny Cameron [address], [place], [place], [address] , [place]. tel:[phone] OFFICE/OUTPA TIENT VISIT, [facility], [address] [place], [address], tel:[phone] [facility] Fall (chief complaint) DM (chief complaint) TN (chief complaint) Trigeminal neuralgiaType 2 diabetes mellitus without complicationsAbnorm alities of gait 4 Yonny Cameron [address], [place], [place], [address] , [place]. tel:[phone] OFFICE/OUTPA TIENT VISIT, [facility], [address], [place], [place], [address], [place] tel:[phone] [facility] facial pain1 (chief complaint) Trigeminal neuralgia 4 Yonny Salinas. [address], [place], [place], [address] , [place]. tel:[phone] OFFICE/OUTPA TIENT VISIT, [facility], [address], [place], [place], [address], [place] tel:[phone] [facility] DM (chief complaint) thrombi1 (chief complaint) COPD1 (chief complaint) Type 2 diabetes mellitus without complicationsEmboli sm and thrombosis of superficial veins of left lower extremityCentrilobu lar emphysemaDiastolic heart failure 4 Yonny Salinas. [address], [place], [place], [address] , [place]. tel:[phone] OFFICE/OUTPA TIENT VISIT, [facility], [address], [place], [place], [address], [place] tel:[phone] [facility] DM (chief complaint) barrett1 (chief complaint) Abnormal weight lossType 2 diabetes mellitus without complicationsEncntr screen mammogram for malignant neoplasm of breastBarrett's esophagus without dysplasia 4 Yonny Salinas. [address], [place], [place], [address] , [place]. tel:[phone] OFFICE/OUTPA TIENT VISIT, [facility], [address], [place], [place], [address], [place] tel:[phone] [facility] DM (chief complaint) Type 2 diabetes mellitus without complicationsAbnorm al weight loss 4 Yonny Salinas. [address], [place], [place], [address] , [place]. tel:[phone] OFFICE/OUTPA TIENT VISIT, [facility], [address], [place], [place], [address], [place] tel:[phone] [facility] DM (chief complaint) asthma1 (chief complaint) HTN (chief complaint) Abnormal weight lossType 2 diabetes mellitus without complicationsEssent ial (primary) hypertensionMild intermittent asthma, uncomplicated Yrn- 4 Yonny Salinas. [address], [place], [place], [address] , [place]. tel:[phone] OFFICE/OUTPA TIENT VISIT, [facility], [address], [place], [place], [address], [place] tel:[phone] [facility] DM (chief complaint) Barrett1 (chief complaint) HLP (chief complaint) Beatty's esophagus without dysplasiaType 2 diabetes mellitus without complicationsAbnorm al weight lossDiverticulosis of intestine without abscess without hemorrhageMixed hyperlipidemia 4 Yonny Salinas. [address], [place], [place], [address] , [place]. tel:[phone] OFFICE/OUTPA TIENT VISIT, [facility], [address], [place], [place], [address], [place] tel:[phone] [facility] HLP (chief complaint) Pre-DM (chief complaint) osteopenia 1 (chief complaint) barrett1 (chief complaint) anxiety1 (chief complaint) headache1 (chief complaint) Mixed hyperlipidemiaHyper glycemiaOther specified disorder of bone densityPersonal history of nicotine dependenceEncntr screen mammogram for malignant neoplasm of breastMigraine w/o aura, not intractable, w/o status migrainosusGenerali zed Anxiety Disorder 4 Yonny Salinas. [address], [place], [place], [address] , [place]. tel:[phone] PREV VISIT, EST, 65 & OVER [facility], [address], [place], [place], [address], [place] tel:[phone] [facility] physical (chief complaint) Encounter for general adult medical exam w abnormal findingsFatty liverCentrilobular emphysemaBarrett's esophagus without dysplasiaMigraine w/o aura, not intractable, w/o status migrainosusMixed hyperlipidemiaOther specified disorder of bone densityGeneralized Anxiety DisorderHyperglycem ia Dec- 4 Yonny Cameron [address], [place], [place], [address] , [place]. tel:[phone] OFFICE/OUTPA TIENT VISIT, [facility], [address], [place], [place], [address], [place] tel:[phone] [facility] hand pain1 (chief complaint) Lesion of ulnar nerve of right armPalmar fascial fibromatosis [Dupuytren] 3 Yonny Cameron [address], [place], [place], [address] , [place]. [phone] OFFICE/OUTPA TIENT VISIT, [facility], [address], [place], [place], [address], [place] tel:[phone] [facility] osteopenia 1 (chief complaint) fatty liver1 (chief complaint) CAD (chief complaint) emphysema1 (chief complaint) Barrett1 (chief complaint) Centrilobular emphysemaBarrett's esophagus without dysplasiaOther specified disorder of bone densityFatty liverArterioscleros is of [place]-apache coronary artery without angina pectoris Jun- 3 Yonny Cameron [address], [place], [place], [address] , [place]. [phone] OFFICE/OUTPA TIENT VISIT, [facility], [address], [place], [place], [address], [place] tel:[phone] [facility] Barrett1 (chief complaint) migraine1 (chief complaint) anxiety1 (chief complaint) Migraine w/o aura, not intractable, w/o status migrainosusGenerali zed Anxiety DisorderBarrett's esophagus without dysplasia 3 Yonny Cameron [address], [place], [place], [address] , [place]. [phone] OFFICE/OUTPA TIENT VISIT, EST [facility], [address], [place], [place], [address], [place] tel:[phone] [facility] anxiety1 (chief complaint) HLp (chief complaint) Barrett1 (chief complaint) migraine1 (chief complaint) Beatty's esophagus without dysplasiaGeneralize d Anxiety DisorderMixed hyperlipidemiaMigra ine w/o aura, not intractable, w/o status migrainosusChronic pain syndrome 3 Yonny Salinas. [address], [place], [place], [address] , [place]. tel:[phone] OFFICE/OUTPA TIENT VISIT, EST [facility], [address], [place], [place], [address], [place] tel:[phone] [facility] COPD1 (chief complaint) bone1 (chief complaint) sleep apnea1 (chief complaint) Tobacco useCentrilobular emphysemaOther specified disorder of bone densityPrimary central sleep apneaEncounter for other screening for malignant neoplasm of breast 3 Yonny Salinas. [address], [place], [address] , [place]. tel:[phone] OFFICE/OUTPA TIENT VISIT, EST [facility], [address], [place], [place], [address], [place] tel:[phone] [facility] sick1 (chief complaint) Viral infection 3 Yonny Salinas. [address], [place], [place], [address] , [place]. tel:[phone] PREV VISIT, EST, AGE 40-64 [facility], [address], [place], [place], [address], [place] tel:[phone] [facility] physical (chief complaint) Beatty's esophagus without dysplasiaMixed hyperlipidemiaChron ic pain syndromeHyperglycem iaEncounter for general adult medical exam w abnormal findingsGeneralized Anxiety Disorder 2 Yonny Salinas. [address], [place], [address] , [place]. tel:[phone] OFFICE/OUTPA TIENT VISIT, [facility], [address] [place], [address], tel:[phone] [facility] migraine1 (chief complaint) HLP (chief complaint) anxiety1 (chief complaint) barrett1 (chief complaint) MigraineBarrett's esophagus without dysplasiaHyperlipid emiaGeneralized Anxiety Disorder 2 Yonny Salinas. [address], [place], [place], [address] , [place]. tel:[phone] OFFICE/OUTPA TIENT VISIT, [facility], [address] [place], [address], tel:[phone] [facility] asthma1 (chief complaint) CAD (chief complaint) OAB (chief complaint) knee pain1 (chief complaint) AsthmaOveractive bladderPeripheral vascular disease, unspecifiedOsteoart hritis of knee 1 Yonny Salinas. [address], [place], [place], [address] , [place]. tel:[phone] OFFICE/OUTPA TIENT VISIT, [facility], [address] [place], [address], [place] tel:[phone] [facility] headache1 (chief complaint) HLP (chief complaint) COPD1 (chief complaint) Barrett1 (chief complaint) anxiety1 (chief complaint) glucose1 (chief complaint) Beatty's esophagus without dysplasiaHyperlipid emiaVenous insufficiencyEmphys emaMigraineGenerali zed Anxiety DisorderVitamin D deficiency, unspecifiedHypergly cemiaEncounter for oth screening for malignant neoplasm of breast Jun- 1 Yonny Salinas. [address], [place], [place], [address] , [place]. tel:[phone] OFFICE/OUTPA TIENT VISIT, [facility], [address] [place], [address], [place] tel:[phone] [facility] fatty liver1 (chief complaint) headache1 (chief complaint) barrett1 (chief complaint) sinus1 (chief complaint) chronic pain1 (chief complaint) MigraineOther spondylosis, cervical regionBarrett's esophagus without dysplasiaHyperlipid emiaFatty liverAcute sinusitisEncounter for oth screening for malignant neoplasm of breast Dec-0 1 Yonny Cameron [address], [place], [address] , [place]. tel:[phone] OFFICE/OUTPA TIENT VISIT, [facility], [address], [place], [place], [address], [place] tel:[phone] [facility] anxiety1 (chief complaint) headache1 (chief complaint) chronic pain1 (chief complaint) Other spondylosis, cervical regionGeneralized Anxiety DisorderMigraine 0 Yonny Cameron [address], [place], [place], [address] , [place]. tel:[phone] Referring Provider: Bessie Will[address], [place], [place], [address]. tel:[phone] OFFICE/OUTPA TIENT VISIT, [facility], [address], [place], [place], [address], [place] tel:[phone] [facility] neck pain1 (chief complaint) HLP (chief complaint) headache1 (chief complaint) barrett1 (chief complaint) Other spondylosis, cervical regionHyperlipidemi aHeadacheBarrett's esophagus without dysplasia Jun-2 0 Yonny Cameron [address], [place], [address] , [place]. tel:[phone] Referring Provider: Bessie Willams [address], [place], [place], [address]. tel:[phone] OFFICE/OUTPA TIENT VISIT, [facility], [address], [place], [place], [address], [place] tel:[phone] [facility] chest pain1 (chief complaint) Anterior chest-wall pain Jun- 0 Blancas Brad. [address], [place], [place], [address] , [place]. [phone] Referring Provider: Bessie Willams [address], [place], [place], [address]. tel:[phone] OFFICE/OUTPA TIENT VISIT, [facility], [address], [place], [place], [address], [place] tel:[phone] [facility] cellulitis 1 (chief complaint) sick (chief complaint) Stasis dermatitisUpper respiratory infection 0 Yonny Salinas. [address], [place], [address] , [place]. tel:[phone] Referring Provider: Bessie Willams [address], [place], [place], [address]. tel:[phone] OFFICE/OUTPA TIENT VISIT, [facility], [address], [place], [place], [address], [place] tel:[phone] [facility] rash1 (chief complaint) cough1 (chief complaint) Cellulitis of right lower limbAcute bronchitis 0 Yonny Salinas. [address], [place], [place], [address] , [place]. tel:[phone] Referring Provider: Bessie Willams [address], [place], [place], [address]. tel:[phone] OFFICE/OUTPA TIENT VISIT, [facility], [address], [place], [place], [address], [place] tel:[phone] [facility] UTI1 (chief complaint) Urinary tract infectionEncounter for oth screening for malignant neoplasm of breast 0 Yonny Salinas. [address], [place], [place], [address] , [place]. [phone] Referring Provider: Bessie Willams [address], [place], [place], [address]. tel:[phone] PREV VISIT, EST, AGE 40-64 [facility], [address], [place], [place], [address], [place] [phone] [facility] Medicine physical (chief complaint) Encounter for general adult medical exam w abnormal findingsHeadacheHyp erlipidemiaBarrett' s esophagus without dysplasiaSleep apneaCOPD 0 Yonny Salinas. [address], [place], [place], [address] , [place]. tel:[phone] Referring Provider: Bessie Willams [address], [place], [place], [address]. tel:[phone] OFFICE/OUTPA TIENT VISIT, EST [facility], [address], [place], [place], [address], [place] tel:[phone] [facility] HLP (chief complaint) proteinuri a1 (chief complaint) D (chief complaint) migraine1 (chief complaint) GERD1 (chief complaint) Beatty's esophagus without dysplasiaHeadachePr oteinuriaVitamin D deficiency, unspecifiedHyperlip idemia 9 Yonny Salinas. [address], [place], [place], [address] , [place]. [phone] Referring Provider: [address], [place], [place], [address]. tel:[phone] OFFICE/OUTPA TIENT VISIT, [facility], [address], [place], [place], [address], [place] [phone] [facility] HLP (chief complaint) anxiety1 (chief complaint) GERD1 (chief complaint) headache1 (chief complaint) Encounter for oth screening for malignant neoplasm of breastSleep apneaHyperlipidemia Beatty's esophagus without dysplasiaHeadacheGe neralized Anxiety Disorder 9 Yonny Salinas. [address], [place], [address] , [place]. tel:[phone] Referring Provider: Bessie Willams [address], [place], [place], [address]. tel:[phone] PREV VISIT, EST, AGE 40-64 [facility], [address], [place], [place], [address], [place] tel:[phone] [facility] PHysical (chief complaint) Body mass index (BMI) 40.0-44.9, adultEncounter for general adult medical exam w abnormal findingsLumbago with sciatica, left sideHyperlipidemiaC OPDVenous insufficiency 9 Yonny Cameron [address], [place], [address] , [place]. [phone] Referring Provider: Bessie Willams [address], [place], [address]. tel:[phone] OFFICE/OUTPA TIENT VISIT, [facility], [address], [place], [place], [address], [place] tel:[phone] [facility] COPD1 (chief complaint) cough1 (chief complaint) HLP (chief complaint) chest pain1 (chief complaint) HyperlipidemiaCOPDC hest painSleep apneaBody mass index (BMI) 45.0-49.9, adult 8 Yonny Cameron [address], [place], [address] , [place]. tel:[phone] Referring Provider: Bessie Willams [address], [place], [place], [address]. tel:[phone] OFFICE/OUTPA TIENT VISIT, [facility], [address], [place], [place], [address], [place] tel:[phone] [facility] physical (chief complaint) Body mass index (BMI) 45.0-49.9, adultBarrett's esophagus without dysplasiaHyperlipid emiaCOPDEncounter for general adult medical exam w abnormal findingsHeadache 8 Yonny Cameron [address], [place], [address] , [place]. [phone] Referring Provider: Bessie Willams [address], [place], [place], [address]. tel:[phone] OFFICE/OUTPA TIENT VISIT, [facility], [address], [place], [place], [address], [place] tel:[phone] [facility] COPD1 (chief complaint) HLP (chief complaint) tobacco (chief complaint) foot pain1 (chief complaint) Body mass index (BMI) 40.0-44.9, adultPain in footHyperlipidemiaT obacco useCOPD 8 Yonny Salinas. [address], [place], [address] , [place]. [phone] Referring Provider: Bessie Will[address], [place], [place], [address]. tel:[phone] OFFICE/OUTPA TIENT VISIT, [facility], [address], [place], [place], [address], [place] tel:[phone] [facility] anxiety1 (chief complaint) HLP (chief complaint) headache1 (chief complaint) COPD1 (chief complaint) Body mass index (BMI) 40.0-44.9, adultHyperlipidemia COPDHeadacheBarrett 's esophagus without dysplasiaGeneralize d Anxiety Disorder 8 Yonny Salinas. [address], [place], [address] , [place]. [phone] Referring Provider: Bessie Willams [address], [place], [place], [address]. tel:[phone] OFFICE/OUTPA TIENT VISIT, [facility], [address], [place], [place], [address], [place] tel:[phone] [facility] sick (chief complaint) tobacco (chief complaint) headache1 (chief complaint) Tobacco useHeadacheAcute upper respiratory infection, unspecifiedConjunct ivitis 8 Yonny Cameron [address], [place], [place], [address] , [place]. [phone] Referring Provider: Bessie Willams [address], [place], [place], [address]. tel:[phone] OFFICE/OUTPA TIENT VISIT, [facility], [address], [place], [place], [address], [place] tel:[phone] [facility] headache1 (chief complaint) CAD1 (chief complaint) COPD1 (chief complaint) HLP (chief complaint) HeadacheHyperlipide miaCOPDArterioscler osis of [place]-apache coronary artery w/o angina pectoris 7 Yonny Salinas. [address], [place], [place], [address] , [place]. tel:[phone] Referring Provider: Bess[address], [place], [place], [address]. tel:[phone] PREV VISIT, [facility], AGE 40-64 [facility], [address], [place], [place], [address], [place] tel:[phone] [facility] PHysical (chief complaint) Encounter for general adult medical exam w abnormal findingsOther migraine, not intractable, without status migrainosusHyperlip idemiaGeneralized Anxiety Disorder Yonny Salinas. [address], [place], [place], [address] , [place]. [phone] Referring Provider: Bessie [address], [place], [place], [address]. tel:[phone] OFFICE/OUTPA TIENT VISIT, [facility], [address], [place], [place], [address], [place] tel:[phone] [facility] tobacco1 (chief complaint) headache1 (chief complaint) Beatty (chief complaint) Beatty's esophagus without dysplasiaHeadacheAb normal weight lossTobacco use 7 Yonny Salinas. [address], [place], [address] , [place]. tel:[phone] Referring Provider: Bess[address], [place], [place], [address]. tel:[phone] OFFICE/OUTPA TIENT VISIT, [facility], [address], [place], [place], [address], [place] tel:[phone] [facility] HLP (chief complaint) SOB (chief complaint) Barrett1 (chief complaint) weight loss1 (chief complaint) HyperlipidemiaBarre tt's esophagus without dysplasiaGeneralize d Anxiety DisorderAbnormal weight loss May-0 9-201 7 Yonny Salinas. [address], [place], [place], [address] , [place]. tel:[phone] OFFICE/OUTPA TIENT VISIT, [facility], [address], [place], [place], [address], [place] tel:[phone] [facility] HLP (chief complaint) chest pain1 (chief complaint) hep C (chief complaint) COPD (chief complaint) Beatty (chief complaint) anxiety1 (chief complaint) HyperlipidemiaHeada cheGeneralized Anxiety DisorderEncounter for screening for other viral diseases Jan- 0-201 7 Yonny Cameron [address], [place], [place], [address] , [place]. tel:[phone] Referring Provider: Bessie Will[address], [place], [place], [address]. tel:[phone] OFFICE/OUTPA TIENT VISIT, [facility], [address], [place], [place], [address], [place] tel:[phone] [facility] chest pain1 (chief complaint) SOB1 (chief complaint) HLP (chief complaint) Barrett1 (chief complaint) headache1 (chief complaint) Shortness of breathHyperlipidemi aBarrett's esophagus without dysplasiaHeadache Dec- 3-201 7 Yonny Cameron [address], [place], [place], [address] , [place]. tel:[phone] Referring Provider: Bessie Willams [address], [place], [place], [address]. tel:[phone] OFFICE/OUTPA TIENT VISIT, [facility], [address], [place], [place], [address], [place] tel:[phone] [facility] Beatty (chief complaint) HLP (chief complaint) tobacco1 (chief complaint) CAD (chief complaint) Arteriosclerosis of [place] coronary artery w/o angina pectorisBarrett's esophagus without dysplasiaHyperlipid emiaHyperglycemia 7 Yonny Salinas. [address], [place], [place], [address] , [place]. tel:[phone] Referring Provider: Bessie Willams [address], [place], [place], [address]. tel:[phone] OFFICE/OUTPA TIENT VISIT, [facility], [address], [place], [address], [place] tel:[phone] [facility] GERD1 (chief complaint) headache1 (chief complaint) HLP (chief complaint) tobacco1 (chief complaint) HeadacheHyperlipide miaBarrett's esophagus without dysplasiaTobacco use 7 Yonny Salinas. [address], [place], [place], [address] , [place]. [phone] Referring Provider: Bessie Willams [address], [place], [place], [address]. tel:[phone] OFFICE/OUTPA TIENT VISIT, [facility], [address], [place], [place], [address], [place] tel:[phone] [facility] headache1 (chief complaint) back pain1 (chief complaint) Beatty (chief complaint) obesity1 (chief complaint) LumbagoBarrett's esophagus without dysplasiaHeadacheBo dy mass index (BMI) 45.0-49.9, adult 6 Yonny Salinas. [address], [place], [place], [address] , [place]. [phone] Referring Provider: Bessie Willams [address], [place], [place], [address]. tel:[phone] OFFICE/OUTPA TIENT VISIT, [facility], [address], [place], [address], [place] tel:[phone] [facility] Beatty (chief complaint) HLP (chief complaint) headache1 (chief complaint) obesity1 (chief complaint) HyperlipidemiaBarre tt's esophagus without dysplasiaEssential (primary) hypertensionHeadach e 6 Yonny Salinas. [address], [place], [address] , [place]. tel:[phone] Referring Provider: Bessie Willams [address], [place], [place], [address]. tel:[phone]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 chest Pt denies any chest pain. Pt states that nitro helps her chest pressure. pt also feels upper back pain. Pt c/o productive coughing with green phlegm. for one week. pt denies any recent travel or bedrest pt denies any calf pain. Pt denies any acute chest pain or pressure. chest pain1 HLP Pt has HLP Pt ginger vera. Pt is out Pt has not done lab yet physical Pt needs annual physical pt has PAD and she has left leg stent. Pt sees cardiology. pt does not have any known CAD. Pt is not on ASA or plavix per cardiology. Pt is allergic to ASA and she told me cardiology took her off plavix. PT unable to tolerate lipitor due to myalgia. Pt has COPD. Pt takes incruse and ventolin PRN. Pt denies any acute sob. Pt uses ventolin once per day on average. Pt also has beatty esophagus. Pt takes omeprazole and doing ok. Pt denies any GERD nausea. Pt also has headache Pt takes topamax and imitrex PRN. Pt has benign MRI of brain Pt has headache 1-2 per month. Pt denies any acute headache. Pt denies any other complaints. Pt wants to try phentermine for obinna loss COPD1 Pt has COPD. Pt continues to smoke. Pt takes incruse and doing better HLP Pt unable to yokasta erarte lipitor. due to leg pain. Pt does have PAD with left leg stent. Pt states that she stopped lipitor and leg pain went away. her cardiology wants to put her on zetia and she stopped the lipitor alreay foot pain1 Pt c/o bilateral plantar surface forfoot pain for several months Pt notices some numbness around dorsal left foot, Pt denies any injury tobacco Pt continues to smoke. Pt had negative LDCT anxiety1 Pt has chronic a nxiety and depression Pt takes zoloft and doing ok. Pt denies any suicidal or homicidal thought HLP Pt has HLP Pt ta kes lipitor. her lipid profile is ok. Pt denies any myalgia headache1 Pt has chronic m igraine headache. Pt takes topamax and imitrex and is helping her headache. Her MRI of brain is ok. Pt states that imitrex does help with headache. Pt has headache 2-3 per month pt denies any head injury Pt denies waking up at night with headache COPD1 Pt feels sob ramona ly due to smoking about one pack per day, aerospan is not available anymore. pt uses venotlin daily Pt denies any acute sob tobacco Pt has 50 pack y ear tobacco smoking. She still smoking now. Pt denies any acute sob. Pt does have headache1 Pt has migraine headache. Pt takes topamax. Pt has headache 1-2 per month now. Pt denies any acute heaache. Pt denies any head injury. Pt needs imitrex refill sick Pt c/o sinus con gestion, ear pain, sore throat productive coughing for 4 weeks. Pt went to urgent care and ER during last several weeks and she tested negative for influenza pt was treated with breathing treatment and also steroid. Pt c/o ear pain and some injection both eyes. Pt states that she still has persistent URI symptoms. Pt denies any fever. Pt notices some clear eye drinage. pt denies any vision change CAD1 Pt has CAD with stent. Pt also has PAD. Pt had benign cardiac cath. Pt takes lipitor ASA. renexa daily Pt sees cardiology. Pt denies any chest pain. Pt takes plavix daily HLP Pt did not try 8 0 mg lipitor. Pt is on 40 mg lipitor. her lipid profile is still high headache1 Pt has migraine and tension type of headache. Pt has low back pain and rest less leg. pt takes klonopin qhs PRN. Pt states that she has headache 1-2 per week and imitrex does help. . Pt denies any mastoid area pain. Pt has chronic neck pain but not mastoid area. COPD1 Pt takse aerospa n and ventolin. Pt uses venotlin 1-2 per week if that. pt denies any acute sob. Pt still smoking PHysical Pt has chronic m igraine headaache. Pt has throbbing headache with nasuea, vomiting and photophobia. Pt denies any head injury. Pt takes topamax and she has headache once every 3 days. pt states that imitrex does help her headache. Pt c/o waking up in the morning with headache sometimes. Pt has chronic anxiety and depression. Pt takes zoloft and doing ok pt denies any suicidal or homicidal thought Pt also has HLP. Pt takes lipitor pt has shotness of breath. Pt uses aerospan and also venotlin. Pt uses venotlin about 3 times per week. Pt denie any acute sob Pt denies ay other complaints tobacco1 Pt is taking zyb an which is helping her cutting down on cig. Pt smokes 8-10 per day. pt used to smoke 1-2 ppd. Pt denie any acute sob headache1 Pt has chronic m igraine headache. pt has throbbing headache with nausea, photophobia 1-2 per week while on topamax. Pt used to have headache daily Pt denies any waking up at night with headache Pt denies any head injury. Pt takes imitex which helps Beatty Pt has beatty e osphagus. her insurance no longer covers omerpazole again. Pt is getting omerpzole from her freind and she takes 20 mg daily Pt could not afford to get OTC. Pt doing ok as long as she takes omerpazole. Pt denies any nausea, vomiting weight loss1 Pt has been diet and exercising and she lost weight on her own. Pt denies any worsening GERD Pt denies any blood in stool Barrett1 Pt has beatty. Her omeprazole is not covered. Pt has not been taking any PPIs Pt denies any abd pain. Pt does have intermittent gERD. SOB Pt denies any ac iliamna SOB. pt has been using aerospan and her breathing is much better Pt rarely uses albuterol. Pt still smoking Pt failed patch. Pt is using e cig and she is smoking about 1 PPD. HLP Pt has HLP. Pt h as been taking lipitor. Her lipid profile is ok. Pt has mildly high tG. Pt denies any myalgia anxiety1 Pt has chronic a nxiety and depression. Pt takes zoloft and klonpin PRN. Pt denies any suicijdal or homicjidal thought. Pt denies any cyring spells chest pain1 Pt told me she h ad benign cardiac cath but she was told she has angina. Pt is on rexena and plavix now and she will start ECP soon. Pt denies any chest pain since taking renexa HLP Pt takes lipitor . Pt denies any myalgia.k Pt is on low fat and low carb diet Beatty Pt has jaci tovar. pt still dont have omeprazole. Pt talked to [facility] and was told they never received omeprazole PA in the past COPD Pt uses aerospan and ventolin Pt uses ventolin 2-3 per month now. pt still smoking Pt failed patch hep C Pt needs Hep C s creening Pt does not use iv drug headache1 Pt c/o persisten t throbbing headache around posterior head area and she states that topamax and imitrex does help., especially imitrex. Pt has been having more headache lately, almost daily. Pt has nausa with headache Pt denies any head injury chest pain1 Pt has mild inte rmittent chest pain with SOB. Pt is on imdur now. Pt had negative cardiac stress test. Pt will have cardiac cath soon. Pt denies any acute chset pain SOB1 Pt feels frequen t SOB. Pt uses venotlin almost daily. Pt still smoking 1/2 PPD. HLP Pt has HLP. Pt t akej lipitor Pt denies any myalgia. Barrett1 Pt has jaci munoz. Pt states that her insurance still not approving for the omeprazole yet. Pt has been taking OTC omeprazole. Pt denies any GERD or abd pain Beatty Pt has beatty. Pt states that she only gets 28 omeprzole per month. Pt has GERD symptoms. pt denies any abd pain HLP Pt has been taki ng lovastatin. Her TC is much imrpoved Pt denies any myalgia tobacco1 Pt states that s he stopped smoking as of today. pt had negative lung Ct. No lung nodule CAD Pt has evidence of CAD on chest CT. Pt denies any chest pian HLP Pt has HLP. Pt t akes lovasatin and doing ok Pt denies any myalgia tobacco1 Pt has 50 pack y ear history of tobacco. Pt feels SOB frequently Pt denies any chest pain headache1 Pt has chornic h eadache. Pt states that topamax helped. Pt takes imitrex PRn which helps also. pt has headache 3 times during last month, which is much better than before. GERD1 Pt has jaci tovar. Pt states that insurance only gives her 28 omeprazole daily. Pt denies any GERD meds while on med headache1 Pt has chronic h eadache. Pt has headache 2-3 per week. Pt has throbbing headache Pt has nausea, and photophobia. Pt states that topamax is not helping. Pt states that imitex does help back pain1 Pt has chronic l ow back pain. Pt has knee pain Pt c/o sciatica and leg numbness. Pt told me neurosurgery is still reviewing her case. Pt denies any loss of bowel or bladder control. Pt denies any worsening pain Beatty pt has beatty. Pt takes omeprazole 40 mg and is doing ok. Pt feels less GERD. Pt denies any abd pain obesity1 Pt talked to the bariatric surgeon and she does not like the idea and she just canceled her appointment? pt wants try phentermine Beatty Pt has jaci tovar. Pt is takign zegrid now which helps. pt states that she still has GERD with 20 mg omeprazole. Pt denies any abd pain HLP Pt has HLP. Pt t olerating lovastatin ok. Pt denies any myalgia pt is on low fat and low carb diet headache1 Pt has migraine headache. Pt states that she is seeing Dr. Orellana for restless leg and for pain meds for her back. pt has throbbing headache once per week. Pt has photophobia and nauea with headache. Pt had MRI of brain which was normal in the past. Pt denies any worsening headache obesity1 Pt is morbidly o bese. Pt has knee and back problem. Pt failed obinna loss effort. HLP Pt unable to yokasta erate zocor due to muscle pain. Pt stopped zocor and muscle pain resolved anxiety1 Pt has chronic a nxiety and depression. Pt takes zoloft and klonopin and doing ok Pt denies any suicidal or homicidal thought. pt denie sany crying spells back pain1 Pt has chronic l ow back pain. Pt has been taking flexeril but not helping. Pt c/o bilateral sciatica. Pt denies any numbness. Pt denies any loss of bowel or bladder control. GERD1 Pt told me she h as beatty disease but she is on zantac?? Pt is seeing GI. Pt will have EGD in two weeks. Pt states that she has daily GERD headache1 Pt has chronic m igraine headache with throbbing frontal headache with photophobia and nausea for years. pt has headache about twice per month. Pt states that she has to take multilpe 25 mg imitrex to help. Pt denies any head injury HLP Pt has HLP. Pt i s not on any diet and exercise. anxiety1 Pt has chronic a nxiety and depression Pt takes zoloft and klonpin Pt denies any suicidal or homicdial thought Pt denies any crying spells glucose1 Pt has high gluc ose. Pt denies any polyuria, polydipsia vitami D Pt has low D. Pt just had bone denstiy done. Result not available yet COPD Pt smokes about one pack per day. Pt feels SOB Pt uses ventolin. Her chest xray normal. PFT pending. Pt denies any acute SOB Physical Pt needs annual physical. pt has chronic anxiety and depression. Pt takes zoloft and klonpin. Pt doing ok Pt has GERD and she takes zantac and doing ok pt has chronic back apin. Pt had MRi done which showed severe canal stenosis and also DDD. Pt also has shoulder and knee pain. Pt has chronic migraine. Pt had MRI several years ago which was normal Pt has headache 2-3 per weeks.Pt has throbbing headache with photophobia and nauea. Pt takes imitrex [place] which work ok. Pt also smokes and she feels SOB frequently. Pt has frequent dry cough. Pt denie any acute symptoms. Pt denies any chest painPt denies any other complaints Instructions Date Instruction Additional Infor casandra Special diet education Related t o Body mass index (BMI) 45.0-49.9, adult Special diet education Related t o Body mass index (BMI) 45.0-49.9, adult Quit smoking Related to Encou nter for oth screening for malignant neoplasm of breast Special diet education Related t o Body mass index (BMI) 40.0-44.9, adult Increase physical activity Relat ed to Encounter for general adult medical exam w abnormal findings Quit smoking Related to Encou nter for general adult medical exam w abnormal findings Weight management Related to Enc ounter for general adult medical exam w abnormal findings Special diet education Related t o Body mass index (BMI) 45.0-49.9, adult Increase activity. Related to Hy perlipidemia Stop smoking. Related to Hyper lipidemia Perform monthly self breast examinations. Related to Encntr for general adult medical exam w/o abnormal findings Quit smoking. Related to Encnt r for general adult medical exam w/o abnormal findings Increase activity. Related to En cntr for general adult medical exam w/o abnormal findings Special diet education Related t o Body mass index (BMI) 45.0-49.9, adult Special diet education Related t o Body mass index (BMI) 40.0-44.9, adult Prescribed dietary intake Relate d to Body mass index (BMI) 40.0-44.9, adult Quit smoking Related to Pain in foot Weight management Related to Lexx n in foot Prescribed dietary intake Relate d to Body mass index (BMI) 40.0-44.9, adult Quit smoking Related to [place] Prescribed Activity and Exercise Education Related to Dietary Surveillance and Counseling Prescribed Diet Educ ation/Lifestyle Education Regarding Diet Related to Dietary Surveillance and Counseling Quit smoking Related to Dieta ry surveillance and counseling Prescribed Activity and Exercise Education Related to Dietary Surveillance and Counseling Prescribed Diet Educ ation/Lifestyle Education Regarding Diet Related to Dietary Surveillance and Counseling Increase physical activity Relat ed to Headache Quit smoking Related to [place] Weight management Related to Hea dache Prescribed Diet Educ ation/Lifestyle Education Regarding Diet Related to Dietary Surveillance and Counseling Quit smoking Related to Encou nter for general adult medical exam w abnormal findings Weight management Related to Enc ounter for general adult medical exam w abnormal findings Prescribed Activity and Exercise Education Related to Dietary Surveillance and Counseling Prescribed Diet Educ ation/Lifestyle Education Regarding Diet Related to Dietary Surveillance and Counseling Increase physical activity Relat ed to Encounter for general adult medical exam w abnormal findings Quit smoking Related to Encou nter for general adult medical exam w abnormal findings Weight management Related to Enc ounter for general adult medical exam w abnormal findings Prescribed Activity and Exercise Education Related to Dietary Surveillance and Counseling Prescribed Activity and Exercise Education Related to Dietary Surveillance and Counseling Prescribed Diet Educ ation/Lifestyle Education Regarding Diet Related to Dietary Surveillance and Counseling Prescribed Activity and Exercise Education Related to Dietary Surveillance and Counseling Prescribed Diet Educ ation/Lifestyle Education Regarding Diet Related to Dietary Surveillance and Counseling Prescribed Activity and Exercise Education Related to Dietary Surveillance and Counseling Prescribed Diet Educ ation/Lifestyle Education Regarding Diet Related to Dietary Surveillance and Counseling Prescribed Activity and Exercise Education Related to Dietary Surveillance and Counseling Prescribed Diet Educ ation/Lifestyle Education Regarding Diet Related to Dietary Surveillance and Counseling Prescribed Activity and Exercise Education Related to Dietary Surveillance and Counseling Prescribed Diet Educ ation/Lifestyle Education Regarding Diet Related to Dietary Surveillance and Counseling Prescribed Activity and Exercise Education Related to Dietary Surveillance and Counseling Prescribed Diet Educ ation/Lifestyle Education Regarding Diet Related to Dietary Surveillance and Counseling Prescribed Activity and Exercise Education Related to Dietary Surveillance and Counseling Prescribed Diet Educ ation/Lifestyle Education Regarding Diet Related to Dietary Surveillance and Counseling Prescribed Activity and Exercise Education Related to Dietary Surveillance and Counseling Prescribed Diet Educ ation/Lifestyle Education Regarding Diet Related to Dietary Surveillance and Counseling Prescribed Activity and Exercise Education Related to Dietary Surveillance and Counseling Prescribed Diet Educ ation/Lifestyle Education Regarding Diet Related to Dietary Surveillance and Counseling Prescribed Activity and Exercise Education Related to Dietary Surveillance and Counseling Prescribed Diet Educ ation/Lifestyle Education Regarding Diet Related to Dietary Surveillance and Counseling Assessments Type Assessment Date assessment Anterior chest-wall pain 2024 Mental Status Date Cognitive Assessment Orientation - [place] ed to time, place, person, situation.
--- OUTSIDE RECORDS SUMMARY | 2024-12-07 17:09 | XMS_ITS | Patient Health Record ---
Author Organization [facility] Address [address] [place] [address] [place] [address] Care Team Providers Care Rn Field Name Role Phone PABLITO HOFFMAN MD Primary Care Provider Layo Cooley Unavailable [phone] ALLERGIES Allergen (clinical drug ingredient) Drug/Non Drug Allergy documented on EMR Reaction Allergy Type Onset Date Status celecoxib CeleBREX hives Drug Allergy Active meloxicam Mobic hives Drug Allergy Active Non-steroidal anti-inflammatory agent (FN) NSAIDs hives Drug Allergy Active Penicillin Unknown Drug Allergy Active REASON FOR REFERRAL No Information MEDICATIONS Medication SIG (Take, Route, Frequency, Duration) Notes Start Date End Date Status Chlorthalidone 25 MG 1 tablet in the mor anna with food Orally Once a day for 30 day(s) Active metFORMIN HCl 500 MG 1 tablet with a richard l Orally Once a day for 30 day(s) Active SUMAtriptan Succinate 50 MG 1 tablet as needed Orally Once a day Active Wixela Inhub 500-50 MCG/DOSE 1 puff Inha lation Twice a day Active Breze Active Amitiza 24 MCG 1 capsule with food and water Orally Twice a day for 30 day(s) Active Famotidine 20 MG 1 tablet at bedtime as needed Orally Once a day for 30 day(s) Active Butrans 15 MCG/HR 1 patch to skin Transdermal every 7 days for SEVERE PAIN for 28 days 05/07/2022 Active Rosuvastatin Calcium 40 MG 1 tablet Oral ly Once a day for 30 day(s) Active Ibuprofen 800 MG 1 tablet with food o r milk as needed Orally Three times a day Active Albuterol Sulfate (2.5 MG/3ML) 0.083% 3 ml as needed Inhalation every 6 hrs Active Cetirizine HCl 10 MG 1 tablet Orally Onc e a day for 30 day(s) Active Gabapentin 300 MG 1 capsule Orally Onc e a day for 30 day(s) Active Topiramate 100 MG 1 tablet Orally Once a day for 30 day(s) Active Econazole Nitrate 1 % 1 application Exte rnally Once a day for 14 day(s) Active Losartan Potassium 50 MG 1 tablet Orally Once a day for 30 day(s) Active PROBLEMS Problem Type ICD Code Onset Dates Problem Status W/U Status Risk SNOMED Code Notes Problem Morbid (severe) obesity due to excess calories (E66.01) Active confirmed Morbid obesity (disorder) (712693253) Problem Bilateral primary osteoarthritis of knee (M17.0) Active confirmed Osteoarthritis of knee (768263291) Problem Pain in right hip (M25.551) Active confirmed Arthralgia of t he pelvic region and thigh (655778149) Problem Pain in unspecified knee (M25.569) Active confirmed Pain of knee region (finding) (0759307675) Problem Sacroiliitis, not elsewhere classified (M46.1) Active confirmed Solitary sacroiliitis (539195770) Problem Spondylosis without myelopathy or radiculopathy, lumbar region (M47.816) Active confirmed Lumbosacral spondylosis without myelopathy (80731505) Problem Spondylosis without myelopathy or radiculopathy, lumbosacral region (M47.817) Active confirmed Lumbosacral spondylosis without myelopathy (disorder) (10222269) Problem Other intervertebral disc degeneration, lumbar region (M51.36) Active confirmed Degeneration of lumbar intervertebral disc (98803960) Problem Radiculopathy, cervical region (M54.12) Active confirmed Cervical radiculopathy (35619727) Problem Radiculopathy, lumbar region (M54.16) Active confirmed Lumbar radiculopathy (308477120) Problem Osseous stenosis of neural canal of lumbar region (M99.33) Active confirmed Spinal stenosis of lumbar region (66623976) Problem terminal make up operator (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) use of opiate analgesic (Z79.891) Active confirmed High risk drug monitoring status (510117567) Problem Other terminal make up operator (current) drug therapy (Z79.899) Active confirmed Long-term current use of drug therapy (984462852) Problem Spinal stenosis, lumbar region with neurogenic claudication (M48.062) Active confirmed Neurogenic claudication (582235996) PLAN OF TREATMENT Pending Test Test Name Order Date Chem 7 (BUN, Cr, Lytes, Glu) 11/28/2021 MRI : Lumbar Spine without contrast (311 03) 08/15/2021 XRAY right shoulder 11/28/2021 [facility] Results 03/27/2022 Insurance Providers Payer Name Payer Address Payer Phone Subscriber Number Group Number Insured Name Patient Relationship to Insured Coverage Start Date Coverage End Date [facility] MEDIC[facility] [employer]VANTAGE (PPO) [address] [address] [place] [phone] [id number] TRUDI BARRETT Self - patient is the insured Medicaid [place] [address] [address] [place] [phone] [id number] TRUDI BARRETT Self - patient is the insured MEDICAL (GENERAL) HISTORY Medical History History ICD Code GERD Type 2 Diabetes Mellitus Essential Hypertension Asthma Osteo Arthritis Surgical History Surgery Date(Month/Year) Right Shoulder Arthroplasty Right TKA 09/12/2021
--- OUTSIDE RECORDS SUMMARY | 2024-12-07 17:09 | XMS_ITS | CONTINUITY OF CARE DOCUMENT ---
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 Name Role Phone Rebel Guajardo MD Unavailable [phone] PABLITO HOFFMAN MD Unavailable [phone] PABLITO HOFFMAN MD Unavailable [phone] PROBLEMS Condition Status Date Provider Notes Special screening examination for unspecified viral disease active Bonnie Lively Obesity active Rebel Guajardo MD Shortness of breath active Rebel Guajardo MD Bradycardia sinus active Rebel Guajardo MD Tobacco use quit active Rebel Guajardo MD Dyslipidemia active Rebel Guajardo MD CAD - 12/2019 CATH 25% RCA, 25% LAD active Oliver Dorman Chest pain completed - Rebel Guajadro MD Palpitations completed - Rebel Guajardo MD Obstructive sleep apnea active Reebl Guajardo MD Leg pain, bilateral active Rebel Guajardo MD Venous hypertension - BLE inflammation S/P L GSV Clarivein 11/2018 and R GSV Clarivein 03/2019 active Oliver Dorman 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 Rebel Guajardo MD Angina pectoris active Rebel Guajardo MD Groin pain completed - Oliver Dorman Arthritis active Rebel Guajardo MD [place]'s esophagus active Oliver Delong rg Edema active Oliver Dorman Exposure to SARS-associated coronavirus active Oliver Dorman HTN essential active eRna Seay CHF - HFpEF active Rebel Guajardo MD Facial paresthesia, left active Alexandro sloan 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 Date Type Provider Location Encounter Diag nosis - In-person encounter Office Visit Rebel Guajardo MD [place] [facility] - In-person encounter Office Visit Rica Regan MD [place] [facility] Facial paresthesia, left - In-person encounter Office Visit Rebel Guajardo MD [place] [facility] CHF - HFpEF - In-person encounter Office Visit Rebel Guajardo MD [facility] - In-person encounter Office Visit Rebel Guajardo MD [facility] HTN essential - In-person encounter Office Visit Rebel Guajardo MD [facility] - In-person encounter Office Visit Rebel Guajardo MD [place] [facility] - In-person encounter Office Visit Rebel Guajardo MD [facility] - In-person encounter Office Visit Rebel Guajardo MD [facility] - In-person encounter Office Visit Rebel Guajardo MD [place] [facility] - 12/2019 CATH 25% RCA, 25% LADExposure to SARS-associated coronavirus - In-person encounter Office Visit Rica Regan MD [place] [facility] - In-person encounter Office Visit Rebel Guajardo MD [place] [facility] Chest painPalpitationsVenous hypertension - BLE inflammation S/P L GSV Clarivein 11/2018 and R GSV Clarivein 03/2019 - In-person encounter Office Visit Rebel Guajardo MD [place] [facility] - In-person encounter Office Visit Tylor Garcia MD [facility] - In-person encounter Office Visit Rebel Guajardo MD [place] [facility] - In-person encounter Office Visit Tylor Garcia MD [facility] Venous hypertension - BLE inflammation S/P L GSV Clarivein 11/2018 and R GSV Clarivein 03/2019 - In-person encounter Office Visit Rebel Guajardo MD [place] [facility] Venous hypertension - BLE inflammation S/P L GSV Clarivein 11/2018 and R GSV Clarivein 03/2019 - In-person encounter Office Visit Rebel Guajardo MD [place] [facility] Edema - In-person encounter Office Visit Rebel Guajardo MD [place] [facility] Obstructive sleep apnea - In-person encounter Office Visit Rebel Guajardo MD [place] [facility] Groin painBarrett's esophagus - In-person encounter Office Visit Rebel Guajardo MD [place] [facility] Arthritis - In-person encounter Office Visit Rebel Guajardo MD [place] [facility] CAD - 12/2019 CATH 25% RCA, 25% LADCompression of left common iliac vein S/P stent ngina pectoris - In-person encounter Office Visit Rebel Guajardo MD [facility] Chest painVenous hypertension - BLE inflammation S/P L GSV Clarivein 11/2018 and R GSV Clarivein 03/2019 - In-person encounter Office Visit Rebel Guajardo MD [facility] ObesityShortness of breathBradycardia sinusTobacco use quitDyslipidemiaCAD - 12/2019 CATH 25% RCA, 25% LADObstructive sleep apneaLeg pain, bilateral VITAL SIGNS Date Observation Value Provider Body Mass Index (Ratio) 42.13 kg/m2 Xavier Meyer blood pressure, diastolic 80 mm[Hg] Ayde amaral Houghton blood pressure, systolic 128 mm[Hg] Steff yap [place] oxygen saturation, oximetry 98 % Annie Houghton pulse rate 69 /min Annie Houghton respiratory rate E&M 14 /min Annie Houghton weight E&M 223 [lb_av] Annie Houghton height E&M 61 [in_i] Annie Houghton blood pressure, cuff size regular An munir [place] blood pressure, diastolic 78 mm[Hg] Li nkLog blood pressure, systolic 121 mm[Hg] Nayeli kLogic Body Mass Index (Ratio) 42.32 kg/m2 Vera h Bonareri [employer]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 blood pressure, diastolic 78 mm[Hg] Yoko yla [facility] blood pressure, systolic 121 mm[Hg] Marcelina la Rucentral [facility] blood pressure, cuff size regular Yoko ibarra [facility] oxygen saturation, oximetry 96 % Kristin [facility] pulse rate 75 /min Kristin [facility] weight E&M 224 [lb_av] Kristin [facility] height E&M 61 [in_i] Kristin [facility] Body Mass Index (Ratio) 42.13 kg/m2 Xavier Meyer blood pressure, diastolic 75 mm[Hg] [facility], systolic 119 mm[Hg] Vip in [facility] pulse rate 59 /min Oneil [facility] respiratory rate E&M 16 /min Oneil M [facility] oxygen saturation, oximetry 97 % Oneil [facility] weight E&M 223 [lb_av] Oneil [facility] blood pressure, cuff size regular [facility] 61 [in_i] [facility] Body Mass Index (Ratio) 46.10 kg/m2 Wendie roberts Gloria blood pressure, diastolic 81 mm[Hg] Ela nkLogic blood pressure, systolic 135 mm[Hg] Nayeli kLogic blood pressure, cuff size regular Ja rret blood pressure, diastolic 81 mm[Hg] Ja rret blood pressure, systolic 135 mm[Hg] Jar ret pulse rate 67 /min Garrick y oxygen saturation, oximetry 99 % Garrick respiratory rate E&M 12 /min Garrick weight E&M 244 [lb_av] Garrick y height E&M 61 [in_i] Garrick y Body Mass Index (Ratio) 49.50 kg/m2 Lisa Seay blood pressure, diastolic 89 mm[Hg] Ke rri Gruenenfelder blood pressure, systolic 152 mm[Hg] Ker ri Michaeluenenfelder blood pressure, cuff size large Ke rri Gruenenfelder oxygen saturation, oximetry 97 % Raisa Naman respiratory rate E&M 16 /min Raisa G nikoser pulse rate 76 /min Raisa Analianenfe lder weight E&M 262 [lb_av] Raisa Analianenfe lder height E&M 61 [in_i] Raisa Gruenenfe lder height E&M 61 [in_i] Skylar david Body Mass Index (Ratio) 45.91 kg/m2 Rebel Guajardo MD respiratory rate E&M 17 /min Ellen Si ms blood pressure, diastolic 73 mm[Hg] Sa ra Oh blood pressure, systolic 110 mm[Hg] Chica a Oh blood pressure, cuff size large Sa ra Oh oxygen saturation, oximetry 96 % Ellen Oh pulse rate 87 /min Ellen Oh weight E&M 243 [lb_av] Ellen Oh height E&M 61 [in_i] Ellen Oh Body Mass Index (Ratio) 46.67 kg/m2 Lisa bhatt [place]wood oxygen saturation, oximetry 97 % Chastity Jackie blood pressure, diastolic 83 mm[Hg] Ch astity Jackie blood pressure, systolic 134 mm[Hg] Cyndie stity Jackie pulse rate 84 /min Chastity Jackie respiratory rate E&M 16 /min Chastit y Jackie weight E&M 247 [lb_av] Chastity Jackie height E&M 61 [in_i] Chastity Jackie Body Mass Index (Ratio) 47.61 kg/m2 Lisa bhatt [place]wood blood pressure, diastolic 71 mm[Hg] Li nkLogic blood pressure, systolic 120 mm[Hg] Nayeli kLogic blood pressure, diastolic 71 mm[Hg] Rh onda Jeny blood pressure, systolic 120 mm[Hg] Rho nda Jeny oxygen saturation, oximetry 98 % Irais Fermin pulse rate 73 /min Iraiscora Fermin weight E&M 252 [lb_av] Iraiscora Fermin respiratory rate E&M 18 /min Iraiscora Fermin blood pressure, resting No Rhon da Jeny blood pressure, cuff size regular Rh onda Jeny height E&M 61 [in_i] Irais Fermin Body Mass Index (Ratio) 45.34 kg/m2 Gabriel Dorman blood pressure, diastolic 85 mm[Hg] Cy jacky Carrasquillo blood pressure, systolic 137 mm[Hg] Deena neal Carrasquillo blood pressure, cuff size regular Cy jacky Carrasquillo oxygen saturation, oximetry 99 % Jenniferneal Carrasquillo respiratory rate E&M 16 /min Jenniferneal Carrasquillo pulse rate 89 /min Jenniferneal Alex l weight E&M 240 [lb_av] Jennifer Campbel l height E&M 61 [in_i] Jennifer Campbel l Body Mass Index (Ratio) 45.15 kg/m2 Horace Albert blood pressure, diastolic 83 mm[Hg] To nsha Austin blood pressure, systolic 128 mm[Hg] Ton sha Austin oxygen saturation, oximetry 97 % Tonsha Austin respiratory rate E&M 16 /min Tonsha Austin pulse rate 87 /min Tonsha Austin weight E&M 239 [lb_av] Tonsha Austin height E&M 61 [in_i] Tonsha Austin Body Mass Index (Ratio) 49.50 kg/m2 Gabriel Dorman respiratory rate E&M 16 /min Tonsha Austin blood pressure, diastolic 87 mm[Hg] To nsha Austin blood pressure, systolic 129 mm[Hg] Ton sha Austin oxygen saturation, oximetry 96 % Tonsha Austin pulse rate 88 /min Tonsha Austin weight E&M 262 [lb_av] Tonsha Austin height E&M 61 [in_i] Tonsha Austin pulse rate #2 65 Bridgette Tebid blood pressure, eri ham, second observation 68 mm[Hg] Bridgette blood pressure, syst olic, second observation 102 mm[Hg] Bridgette oxygen saturation, oximetry 98 % Bridgette pulse rate 65 /min [place] blood pressure, diastolic 68 mm[Hg] Vi ctoria Ted blood pressure, systolic 102 mm[Hg] Curly elyia Tebid pulse rate #2 64 [place] blood pressure, hwang tolic, second observation 84 mm[Hg] Bridgette blood pressure, syst olic, second observation 115 mm[Hg] Bridgette oxygen saturation, oximetry 98 % Bridgette pulse rate 64 /min [place] blood pressure, diastolic 84 mm[Hg] Vi ctoria Ted blood pressure, systolic 115 mm[Hg] Curly hay Ted pulse rate #2 63 [place] blood pressure, hwang tolic, second observation 82 mm[Hg] Bridgette blood pressure, syst olic, second observation 116 mm[Hg] Bridgette oxygen saturation, oximetry 98 % Bridgette pulse rate 63 /min [place] blood pressure, diastolic 82 mm[Hg] Vi ctoria Ted blood pressure, systolic 116 mm[Hg] Curly hay Tebid pulse rate #2 60 [place] blood pressure, hwang tolic, second observation 85 mm[Hg] Bridgette blood pressure, syst olic, second observation 136 mm[Hg] Bridgette d oxygen saturation, oximetry 98 % [place] pulse rate 60 /min [place] blood pressure, diastolic 85 mm[Hg] Vi ctoria Tebid blood pressure, systolic 136 mm[Hg] Curly elyia Tebid pulse rate #2 62 [place] blood pressure, hwang tolic, second observation 78 mm[Hg] Bridgette blood pressure, syst olic, second observation 120 mm[Hg] Bridgette oxygen saturation, oximetry 98 % Bridgette pulse rate 62 /min Bridgette blood pressure, diastolic 78 mm[Hg] [facility], systolic 120 mm[Hg] Curly hay pulse rate #2 64 [place] blood pressure, hwang tolic, second observation 84 mm[Hg] [place] blood pressure, syst olic, second observation 123 mm[Hg] [place] oxygen saturation, oximetry 98 % [place] pulse rate 64 /min [place] blood pressure, diastolic 84 mm[Hg] Vi [facility] blood pressure, systolic 123 mm[Hg] Curly hay d pulse rate #2 59 [place] blood pressure, hwang tolic, second observation 81 mm[Hg] Bridgette blood pressure, syst olic, second observation 134 mm[Hg] [place] oxygen saturation, oximetry 98 % [place] pulse rate 59 /min [place] blood pressure, diastolic 81 mm[Hg] Vi [facility] blood pressure, systolic 134 mm[Hg] Curly hay d pulse rate #2 73 [place] blood pressure, hwang tolic, second observation 71 mm[Hg] [place] blood pressure, syst olic, second observation 114 mm[Hg] [place] oxygen saturation, oximetry 98 % [place] pulse rate 73 /min [place] blood pressure, diastolic 71 mm[Hg] Vi [facility] d blood pressure, systolic 114 mm[Hg] Curly guido [facility] pulse rate #2 65 [facility] blood pressure, hwang tolic, second observation 76 mm[Hg] [facility] blood pressure, syst olic, second observation 117 mm[Hg] [facility] oxygen saturation, oximetry 98 % [facility] pulse rate 65 /min [facility] blood pressure, diastolic 76 mm[Hg] Vi [facility] blood pressure, systolic 117 mm[Hg] [facility] pulse rate #2 74 [facility] blood pressure, hwang tolic, second observation 65 mm[Hg] [facility] blood pressure, syst olic, second observation 114 mm[Hg] [facility] oxygen saturation, oximetry 98 % [facility] pulse rate 74 /min [facility] blood pressure, diastolic 65 mm[Hg] Vi [facility] blood pressure, systolic 114 mm[Hg] [facility] Body Mass Index (Ratio) 45.72 kg/m2 Gabriel Dorman blood pressure, cuff size small Cy jacky Carrasquillo blood pressure, diastolic 80 mm[Hg] jacky Carrasquillo blood pressure, systolic 124 mm[Hg] Deena de jesus Foreign oxygen saturation, oximetry 95 % Jennifer Carrasquillo respiratory rate E&M 16 /min Jennifer Carrasquillo pulse rate 79 /min Jennifer Alex l weight E&M 242 [lb_av] Jennifer Westonbel l height E&M 61 [in_i] Jennifer Ontiverosbel l Body Mass Index (Ratio) 46.29 kg/m2 Tkr natividad Ellison RN blood pressure, cuff size large Ch astity Jackie blood pressure, diastolic 82 mm[Hg] Ch astity Jackie blood pressure, systolic 130 mm[Hg] Cyndie stity Jackie oxygen saturation, oximetry 96 % Cyndiestity Jackie respiratory rate E&M 17 /min Chastit y Jackie pulse rate 77 /min Cyndiestity Jackie weight E&M 245 [lb_av] Cyndiestity Jackie height E&M 61 [in_i] [facility] Body Mass Index (Ratio) 45.72 kg/m2 Gabriel martell Lakia blood pressure, diastolic 80 mm[Hg] Da yoni Tonya blood pressure, systolic 120 mm[Hg] Dac ia Tonya oxygen saturation, oximetry 95 % Andria Tonya respiratory rate E&M 16 /min Andria V oss pulse rate 70 /min Andria Tonya weight E&M 242 [lb_av] Andria Tonya height E&M 61 [in_i] Andria Tonya Body Mass Index (Ratio) 45.72 kg/m2 Pedro Garcia MD blood pressure, diastolic 70 mm[Hg] Vish [facility] O'Juan Jose blood pressure, systolic 120 mm[Hg] [facility] cleopatra O'Juan Jose oxygen saturation, oximetry 98 % Allegra O'Juan Jose respiratory rate E&M 18 /min Allegra O'Juan Jose pulse rate 76 /min Allegra O'Juan Jose weight E&M 242 [lb_av] Allegra O'Juan Jose height E&M 61 [in_i] Allegra O'Juan Jose Body Mass Index (Ratio) 46.10 kg/m2 Gabriel martell Lakia blood pressure, diastolic 80 mm[Hg] Da yoni Tonya blood pressure, systolic 128 mm[Hg] Dac ia Tonya oxygen saturation, oximetry 93 % Andria Tonya respiratory rate E&M 18 /min Andria V oss pulse rate 80 /min Andria Tonya weight E&M 244 [lb_av] Andria Tonya height E&M 61 [in_i] Andria Tonya Body Mass Index (Ratio) 45.15 kg/m2 Gabriel jasbir Dorman blood pressure, cuff size large Ke rri Gruenenfelder blood pressure, diastolic 80 mm[Hg] Ke rri [facility] blood pressure, systolic 122 mm[Hg] Nathan ri [facility] oxygen saturation, oximetry 96 % Raisa Chikaer respiratory rate E&M 22 /min Raisa Joy davey pulse rate 74 /min Raisa Anurage er weight E&M 239 [lb_av] Raisa Michaelhuberte er height E&M 61 [in_i] Raisa Analianenfe er Body Mass Index (Ratio) 44.44 kg/m2 Gabriel jasbir Dorman blood pressure, diastolic 87 mm[Hg] Vish almaBecky Prabhakarenson blood pressure, systolic 128 mm[Hg] Angela Vasquez oxygen saturation, oximetry 95 % Mohan Prabhakarenson respiratory rate E&M 18 /min Lesly Vasquez pulse rate 76 /min Mohan Oswald zenon weight E&M 235.2 [lb_av] Mohan Prabhakar enson height E&M 61 [in_i] Mohan Akers nson Body Mass Index (Ratio) 42.13 kg/m2 Gabriel Dorman blood pressure, diastolic 70 mm[Hg] Ki lleen Pimentel blood pressure, systolic 110 mm[Hg] Kil smita Pimentel oxygen saturation, oximetry 99 % Raleigh Pimentel respiratory rate E&M 16 /min Raleigh Pimentel pulse rate 71 /min Camilo Pimentel weight E&M 223 [lb_av] Camilo Pimentel height E&M 61 [in_i] Camilo Pimentel pulse rate #2 72 [facility] blood pressure, hwang tolic, second observation 64 mm[Hg] [facility] blood pressure, syst olic, second observation 102 mm[Hg] [facility] oxygen saturation, oximetry 98 % [facility] pulse rate 72 /min [facility] blood pressure, diastolic 64 mm[Hg] Vi [facility] blood pressure, systolic 102 mm[Hg] [facility] Body [facility] (Ratio) 44.40 kg/m2 Aba Nathanray pulse rate #2 61 [facility] blood pressure, hwang tolic, second observation 76 mm[Hg] [facility] blood pressure, syst olic, second observation 113 mm[Hg] [facility] oxygen saturation, oximetry 98 % [facility] pulse rate 61 /min [facility] blood pressure, diastolic 76 mm[Hg] Vi ctoria Ted blood pressure, systolic 113 mm[Hg] [facility] #2 63 [facility] blood pressure, hwang tolic, second observation 77 mm[Hg] [facility], syst olic, second observation 116 mm[Hg] [facility], [facility]ximetry 98 % [facility] pulse rate 63 /min [facility] blood pressure, diastolic 77 mm[Hg] Vi ctoria Tebid blood pressure, systolic 116 mm[Hg] Curly elyia Tebid pulse rate #2 65 [facility] blood pressure, hwang tolic, second observation 81 mm[Hg] [facility], syst olic, second observation 121 mm[Hg] [facility] oxygen saturation, oximetry 98 % [facility] pulse rate 65 /min [facility], diastolic 81 mm[Hg] Vi ctoria Tebid blood pressure, systolic 121 mm[Hg] Curly hay Tebid pulse rate #[address] [facility] blood pressure, hwang tolic, second observation 77 mm[Hg] [facility], syst olic, second observation 116 mm[Hg] [facility] oxygen saturation, oximetry 98 % [facility] pulse rate 70 /min [facility] blood pressure, diastolic 77 mm[Hg] Vi ncoria Tebid blood pressure, systolic 116 mm[Hg] Curly hay Tebid pulse rate #[address] [facility] blood pressure, hwang tolic, second observation 79 mm[Hg] [facility] blood pressure, syst olic, second observation 124 mm[Hg] [facility], oximetry 98 % [place] pulse rate 65 /min [facility] blood pressure, diastolic 79 mm[Hg] Vi ctoria Tebid blood pressure, systolic 124 mm[Hg] Curly elyia Tebid pulse rate #[address] [facility] blood pressure, hwang tolic, second observation 69 mm[Hg] [facility], syst olic, second observation 110 mm[Hg] [facility], oximetry 96 % [facility] pulse rate 70 /min [facility] blood pressure, diastolic 69 mm[Hg] Vi ctoria Tebid blood pressure, systolic 110 mm[Hg] Curly hay Tebid pulse rate #[address] [facility] blood pressure, hwang tolic, second observation 86 mm[Hg] [facility] blood pressure, syst olic, second observation 120 mm[Hg] [facility] oxygen saturation, oximetry 98 % [facility] pulse rate 63 /min [place] Tebid blood pressure, diastolic 86 mm[Hg] Vi ctoria Tebid blood pressure, systolic 120 mm[Hg] Curly hay Tebid pulse rate #2 64 [place] Tebid blood pressure, hwang tolic, second observation 87 mm[Hg] [facility] blood [facility], syst olic, second observation 126 mm[Hg] [facility] oxygen saturation, oximetry 98 % [facility] pulse rate 64 /min [facility] blood pressure, diastolic 87 mm[Hg] Vi ncoria Tebid blood pressure, systolic 126 mm[Hg] Curly hay Tebid pulse rate #[address] [facility] blood pressure, hwang tolic, second observation 87 mm[Hg] [facility] blood [facility], syst olic, second observation 130 mm[Hg] Bridgette Tebid oxygen saturation, oximetry 98 % [facility] pulse rate 65 /min [place] Tebid blood pressure, diastolic 87 mm[Hg] Vi ctoria Tebid blood pressure, systolic 130 mm[Hg] Curly hay Tebid pulse rate #[address] [facility] blood pressure, hwang tolic, second observation 76 mm[Hg] [facility] blood pressure, syst olic, second observation 111 mm[Hg] [place] Tebid oxygen saturation, oximetry 98 % [facility] pulse rate 69 /min [facility] blood pressure, diastolic 76 mm[Hg] Vi ctoria Tebid blood pressure, systolic 111 mm[Hg] Curly hay Tebid pulse rate #2 64 [place] Tebid blood pressure, hwang tolic, second observation 84 mm[Hg] Bridgette Tebid blood pressure, syst olic, second observation 125 mm[Hg] Bridgette Tebid oxygen saturation, oximetry 98 % [facility] pulse rate 64 /min [place] Tebid blood pressure, diastolic 84 mm[Hg] Vi ctoria Tebid blood pressure, systolic 125 mm[Hg] [facility] T[facility]id pulse rate #[address] [facility] blood pressure, hwang tolic, second observation 87 mm[Hg] [facility] blood [facility], syst olic, second observation 127 mm[Hg] [facility] oxygen saturation, oximetry 98 % [facility] pulse rate 59 /min [facility] blood pressure, diastolic 87 mm[Hg] Vi [facility] Tebid blood pressure, systolic 127 mm[Hg] [facility] Tebid pulse rate #[address] [facility] blood pressure, hwang tolic, second observation 87 mm[Hg] [facility] blood [facility], syst olic, second observation 134 mm[Hg] [facility], oximetry 98 % [facility] pulse rate 71 /min [facility] blood pressure, diastolic 87 mm[Hg] Vi ctoria Tebid blood pressure, systolic 134 mm[Hg] Curly hay Tebid pulse rate #[address] [facility] blood pressure, hwang tolic, second observation 85 mm[Hg] [facility] blood pressure, syst olic, second observation 123 mm[Hg] [facility] oxygen saturation, oximetry 98 % [facility] pulse rate 81 /min [facility] Hospitalbililian blood pressure, diastolic 85 mm[Hg] Vi tavia Bainedson blood pressure, systolic 123 mm[Hg] Curly guido Odelllilian blood pressure, cuff size large Angelina Whitehead blood pressure, diastolic 80 mm[Hg] Angelina Whitehead blood pressure, systolic 132 mm[Hg] Elliot Whitehead oxygen saturation, oximetry 98 % Sara Whitehead respiratory rate E&M 16 /min Sara Whitehead pulse rate 75 /min Sara Whitehead weight E&M 235 [lb_av] Saraherb Whitehead height E&M 61 [in_i] Saraherb Whitehead pulse rate #2 67 [facility] blood pressure, hwang tolic, second observation 80 mm[Hg] [facility] blood pressure, syst olic, second observation 122 mm[Hg] [facility] oxygen saturation, oximetry 98 % [facility] pulse rate 67 /min [facility] blood pressure, diastolic 80 mm[Hg] Vi tavia d blood pressure, systolic 122 mm[Hg] Curly hay Odelllilian pulse rate #2 73 [facility] blood pressure, hwang tolic, second observation 84 mm[Hg] [facility] blood pressure, syst olic, second observation 133 mm[Hg] [facility] oxygen saturation, oximetry 98 % [facility] pulse rate 73 /min [facility] blood pressure, diastolic 84 mm[Hg] Vi tavia d blood pressure, systolic 133 mm[Hg] Curly hay d pulse rate #2 69 [facility] blood pressure, hwang tolic, second observation 90 mm[Hg] [facility] blood pressure, syst olic, second observation 134 mm[Hg] [facility] oxygen saturation, oximetry 98 % [facility]min Bridgette Tebid blood pressure, diastolic 90 mm[Hg] Vi ncoria Tebid blood pressure, systolic 134 mm[Hg] Curly hay Tebid pulse rate #[address] [facility], hwang tolic, second observation 74 mm[Hg] Bridgette Tebid blood pressure, syst olic, second observation 117 mm[Hg] [facility], [facility]xim[facility] 98 % [facility] pulse [facility] 68 /min [place] Tebid blood pressure, diastolic 74 mm[Hg] Vi [facility] Tebid blood pressure, systolic 117 mm[Hg] Curly hay Tebid pulse rate #[address] [facility], hwang tolic, second observation 76 mm[Hg] [facility], syst olic, second observation 115 mm[Hg] [facility], oximetry 98 % [facility] pulse rate 70 /min [facility], diastolic 76 mm[Hg] Vi [facility] Tebid blood pressure, systolic 115 mm[Hg] Curly hay Tebid pulse rate #[address] [facility] blood pressure, hwang tolic, second observation 76 mm[Hg] Bridgette Tebid blood pressure, syst olic, second observation 115 mm[Hg] Bridgette Tebid oxygen saturation, oximetry 98 % [facility] 63 /min [place] Tebid blood pressure, diastolic 76 mm[Hg] Vi ncoria Tebid blood pressure, systolic 115 mm[Hg] Curly hay Tebid pulse rate #[address] [facility], hwang tolic, second observation 73 mm[Hg] Bridgette Tebid blood pressure, syst olic, second observation 110 mm[Hg] [facility] oximetry 98 % [facility] pulse rate 73 /[facility], diastolic 73 mm[Hg] Vi ctoria Tebid blood pressure, systolic 110 mm[Hg] Curly ahy Tebid pulse rate #2 72 [facility] blood pressure, hwang tolic, second observation 79 mm[Hg] Bridgette d blood pressure, syst olic, second observation 121 mm[Hg] [facility] oxygen saturation, oximetry 98 % [place] pulse rate 72 /min [place] blood pressure, diastolic 79 mm[Hg] Vi ncoria Tebid blood pressure, systolic 121 mm[Hg] Curly elyia Tebid pulse rate #2 68 [place] d blood pressure, hwang tolic, second observation 74 mm[Hg] [facility], syst [facility]lic, second observation 126 mm[Hg] [place] d oxygen saturation, oximetry 98 % [place] pulse rate 68 /min [place] d blood pressure, diastolic 74 mm[Hg] Vi ncoria Tebid blood pressure, systolic 126 mm[Hg] Curly elyia Tebid pulse rate #2 65 [place] bid blood pressure, hwang tolic, second observation 79 mm[Hg] Bridgette Tebid blood pressure, syst olic, second observation 131 mm[Hg] Bridgette Tebid oxygen saturation, oximetry 98 % [place] d pulse rate 65 /min Br[place] bid blood pressure, diastolic 79 mm[Hg] Vi ctoria Tebid blood pressure, systolic 131 mm[Hg] Curly elyia Tebid pulse rate #2 63 [place] d blood pressure, hwang tolic, second observation 84 mm[Hg] Bridgette Tebid blood pressure, syst olic, second observation 125 mm[Hg] Bridgette Tebid oxygen saturation, oximetry 98 % [place] bid pulse rate 63 /min [place] Tebid blood pressure, diastolic 84 mm[Hg] Vi ctoria Tebid blood pressure, systolic 125 mm[Hg] Curly hay Tebid pulse rate #2 72 [place] d blood pressure, hwang tolic, second observation 94 mm[Hg] [facility], syst olic, second observation 138 mm[Hg] Bridgette bid oxygen saturation, oximetry 98 % [place] d pulse rate 72 /min [place] blood pressure, diastolic 94 mm[Hg] Vi ncoria Tebid blood pressure, systolic 138 mm[Hg] Curly hay Tebid pulse rate #2 64 [place] bid blood pressure, hwang tolic, second observation 88 mm[Hg] Bridgette d blood pressure, syst olic, second observation 135 mm[Hg] Bridgette bid oxygen saturation, oximetry 98 % Bridgette d pulse rate 64 /min [place] Tebid blood pressure, diastolic 88 mm[Hg] Vi ctoria Tebid blood pressure, systolic 135 mm[Hg] Curly hay Tebid pulse rate #2 64 [place] bid blood pressure, hwang tolic, second observation 88 mm[Hg] Bridgette Tebid blood pressure, syst olic, second observation 135 mm[Hg] Bridgette Tebid oxygen saturation, oximetry 98 % [facility] 64 /min [place] Tebid blood pressure, diastolic 88 mm[Hg] Vi ctoria Tebid blood pressure, systolic 135 mm[Hg] Curly hay Tebid Body Mass Index (Ratio) 45.53 kg/m2 Gabriel Dorman blood pressure, cuff size regular [facility] blood pressure, diastolic 93 mm[Hg] Ke rri Gruenelilianaeldtanja blood pressure, systolic 133 mm[Hg] Nathan Osbornhilary oxygen saturation, oximetry 98 % Raisa Osbornhilary respiratory rate E&M 16 /min Raisa martinezhilary pulse rate 62 /min Raisa Moh[facility] weight E&M 241 [lb_av] Raisa Smithlilianaapolonia [facility] height E&M 61 [in_i] Raisa Moh[facility] pulse rate #2 68 [facility] blood pressure, hwang tolic, second observation 76 mm[Hg] [facility], syst olic, second observation 109 mm[Hg] [facility], [facility] 98 % [facility] pulse rate 68 /min [facility] blood pressure, diastolic 76 mm[Hg] Vi ncoria Tebid blood pressure, systolic 109 mm[Hg] Curly elyia Tebid pulse rate #2 70 [facility] blood pressure, hwang tolic, second observation 82 mm[Hg] [place] Tebid blood pressure, syst olic, second observation 120 mm[Hg] [facility], [facility]xim[facility] 98 % [facility] pulse rate 70 /min [facility], diastolic 82 mm[Hg] Vi ctoria Tebid blood pressure, systolic 120 mm[Hg] Curly elyia Tebid Body Mass Index (Ratio) 45.53 kg/m2 Gabriel Dorman blood pressure, diastolic 88 mm[Hg] Vish Woodard blood pressure, systolic 128 mm[Hg] Angela Woodard oxygen saturation, oximetry 96 % Allegra Woodard respiratory rate E&M 16 /min Allegra OJuan Jose pulse rate 93 /min Allegra Beardal weight E&M 241 [lb_av] Allegra O'Juan Jose height E&M 61 [in_i] Allegra O'Juan Jose blood pressure, resting No Gabriel Dorman Body Mass Index (Ratio) 45.15 kg/m2 Gabriel Dorman blood pressure, diastolic 74 mm[Hg] Shaheen candelario Mena blood pressure, systolic 130 mm[Hg] Nick duff Trina blood pressure, cuff size large Shaheen palomino Mena pulse rate 81 /min Salena Trina respiratory rate E&M 20 /min Salenasherin Mena oxygen saturation, oximetry 96 % Salena Trina weight E&M 239 [lb_av] Salena Trina height E&M 61 [in_i] Salena Trina ALLERGIES Allergy Name Onset Date Reaction Criticality Status LIPITOR Myalgia Myalgia High Criticality act oskar ASA made her have tr ouble swallowing and SOB High Criticality active ISOSORBIDE Headaches High Criticality active NAPROXEN Low Criticality active PENICILLIN Low Criticality active ANTINFLAMMATORIES Low Criticality ac tive RESULTS Date Observation Value Provider Reference Range Interpretation Location prothrombin time (patient) 10.4 s [facility] 9.1-12.0 international normalized ratio (INR) 1.0 [facility] 0.8-1.2 basophil count, absolute 0.1 x10E3/uL [facility] 0.0-0.2 Eosinophil Absolute Count 0.1 X10E3/UL [facility] 0.0-0.4 monocyte count, blood, automated 0.4 X10E3/UL [facility] 0.1-0.9 lymphocyte count, blood, automated 2.3 X10E3/UL [facility] 0.7-3.1 Absolute Neutrophils 3.1 X10E3/UL [facility] 1.4-7.0 basophils as percent of blood leukocytes 1 % [facility] Not Estab. eosinophils as percent of blood leukocytes 2 % [facility] Not Estab. monocytes as percent of blood leukocytes 7 % [facility] Not Estab. lymphocytes as percent of blood leukocytes 38 % [facility] Not Estab. neutrophils as percent of blood leukocytes 52 % [facility] Not Estab. platelet count 240 X10E3/UL [facility] [id number]/08/ 29 red blood cell distribution width 13.3 % [facility] 11.7-15.4 mean corpuscular hemoglobin concentration, RBC 33.0 G/DL [facility] 31.5-35.7 mean corpuscular hemoglobin, RBC 29.5 pg [facility] 26.6-33.0 mean corpuscular volume, RBC 89 fL [facility] 79-97 hematocrit, blood 42.1 % [facility] 34.0-46.6 hemoglobin, blood 13.9 g/dL [facility] 11.1-15.9 erythrocyte (RBC) count 4.71 X10E6/UL [facility] 3.77-5.28 leukocyte count, blood 5.9 X10E3/UL [facility] 3.4-10.8 LDL cholesterol, serum 124 mg/dL [facility] B-type natriuretic peptide 41.7 pg/mL [facility] 0.0-100.0 alanine aminotransferase (SGPT), serum 21 1/L [facility] 0-32 aspartate aminotransferase (SGOT), serum 21 1/L [facility] 0-40 alkaline phosphatase, serum 97 1/L [facility] 39-117 bilirubin, serum, total 0.7 mg/dL [facility] 0.0-1.2 albumin/globulin ratio, serum 1.9 [facility] 1.2-2.2 globulin, serum 2.4 [facility] 1.5-4.5 albumin, serum 4.5 g/dL [facility] 3.8-4.8 protein, total, serum 6.9 g/dL [facility] 6.0-8.5 calcium, serum 9.7 mg/dL [facility] 8.7-10.3 carbon dioxide, venous blood 22 mmol/L [facility] 20-29 chloride, serum 106 mmol/L [facility] 96-106 potassium, serum 4.4 mmol/L [facility] 3.5-5.2 sodium, serum 143 mmol/L [facility] 954-000 7358/08/ 07 urea nitrogen/creatinine ratio, serum 22 [facility] 12-28 eGFR if 109 mL/min/{1 .73_m2} [facility] >59 eGFR if not 94 mL/min/{1 .73_m2} [facility] >59 creatinine, serum 0.69 mg/dL [facility] 0.57-1.00 urea nitrogen, blood 15 mg/dL [facility] 8-27 blood glucose, random 78 mg/dL [facility] 65-99 pro brain natriuretic peptide 110 pg/mL [facility] 0-287 prothrombin time (patient) 10.5 s [facility] 9.1-12.0 international normalized ratio (INR) 1.0 [facility] 0.8-1.2 lipoprotein, beta, serum, point, quantitative, calculated 124 mg/dL [facility] 0-99 High very low density lipoproteins 27 mg/dL [facility] 5-40 HDL cholesterol, serum 59 mg/dL [facility] >39 triglyceride, serum, random 134 mg/dL [facility] 0-149 cholesterol, serum 210 mg/dL [facility] 100-199 High calcium, serum 9.7 mg/dL [facility] 8.7-10.3 carbon dioxide, venous blood 26 mmol/L [facility] 20-29 chloride, serum 98 mmol/L [facility] 96-106 potassium, serum 4.6 mmol/L [facility] 3.5-5.2 sodium, serum 141 mmol/L [facility] [phone]/02/ 06 urea nitrogen/creatinine ratio, serum 14 [facility] 12-28 eGFR if 68 mL/min/{1 .73_m2} [facility] >59 eGFR if not 59 mL/min/{1 .73_m2} [facility] >59 Low creatinine, serum 1.03 mg/dL [facility] 0.57-1.00 High urea nitrogen, blood 14 mg/dL [facility] 8-27 blood glucose, random 110 mg/dL [facility] 65-99 High basophil count, absolute 0.0 x10E3/uL [facility] 0.0-0.2 Eosinophil Absolute Count 0.1 X10E3/UL [facility] 0.0-0.4 monocyte count, blood, automated 0.4 X10E3/UL [facility] 0.1-0.9 lymphocyte count, blood, automated 1.3 X10E3/UL [facility] 0.7-3.1 Absolute Neutrophils 4.1 X10E3/UL [facility] 1.4-7.0 basophils as percent of blood leukocytes 0 % [facility] Not Estab. eosinophils as percent of blood leukocytes 1 % [facility] Not Estab. monocytes as percent of blood leukocytes 7 % [facility] Not Estab. lymphocytes as percent of blood leukocytes 22 % [facility] Not Estab. neutrophils as percent of blood leukocytes 70 % [facility] Not Estab. platelet count 260 X10E3/UL [facility] [id number]/02/ 06 red blood cell distribution width 13.4 % [facility] 11.7-15.4 mean corpuscular hemoglobin concentration, RBC 33.6 G/DL [facility] 31.5-35.7 mean corpuscular hemoglobin, RBC 29.2 pg [facility] 26.6-33.0 mean corpuscular volume, RBC 87 fL [facility] 79-97 hematocrit, blood 44.1 % [facility] 34.0-46.6 hemoglobin, blood 14.8 g/dL [facility] 11.1-15.9 erythrocyte (RBC) count 5.06 X10E6/UL [facility] 3.77-5.28 leukocyte count, blood 5.9 [facility]E3/[facility] 3.4-10.8 LDL cholesterol, serum 116 mg/dL [facility] very low density lipoproteins 26.4 mg/dL [facility] 5.0 - 40.0 LDL/HDL (low-density lipoprotein/high-den sity lipoprotein) ratio 2.1 RATIO [facility] - lipoprotein, beta, serum, point, quantitative, calculated 116.6 (?) [facility] 0.0 - 100.0 High HDL cholesterol, serum 55.0 mg/dL [facility] 45.0 - 65.0 cholesterol, serum 198.0 mg/dL [facility] 0.0 - 200.0 triglyceride, serum, fasting 132.0 mg/dL [facility] 0.0 - 150.0 urea nitrogen/creatinine ratio, serum 25.7 [facility] - Estimated Glomerular Filtration Rate (calc) 91.3 (?) [facility] 59.0 - chloride, serum 106.1 mmol/L [facility] 98.0 - 107.0 potassium, serum 4.3 mmol/L [facility] 3.5 - 5.1 sodium, serum 145.0 mmol/L [facility] 136.0 - 145.0 creatinine, serum 0.7 mg/dL [facility] 0.5 - 1.0 carbon dioxide, venous blood 22.0 mmol/L [facility] 22.0 - 29.0 calcium, serum 9.7 mg/[facility] 8.6 - 10.2 urea nitrogen, blood 18.0 mg/dL [facility] 6.0 - 20.0 blood glucose, random 98.0 mg/dL [facility] 74.0 - 99.0 red blood cell distribution width, size density 44.1 fL [facility] - immature granulocytes, percentage of total cells, blood 0.2 % [facility] - nucleated red blood cells as percent of blood leukocytes 0.0 % [facility] - red blood cell (erythrocyte) count, per high power field 0.0 10*3/UL [facility] - eosinophils as percent of blood leukocytes 1.9 % [facility] - neutrophils as percent of blood leukocytes 56.3 % [facility] - Absolute Neutrophils 3.6 CELLS/UL [facility] 1.5 - 7.8 basophils as percent of blood leukocytes 0.8 % [facility] Absolute Basophils 0.1 CELLS/UL [facility] 0.0 - 0.2 monocytes as percent of blood leukocytes 6.0 % [facility] - Absolute Monocytes 0.4 CELLS/UL [facility] 0.2 - 1.0 lymphocytes as percent of blood leukocytes 34.8 % [facility] - Absolute Lymphocytes 2.3 CELLS/UL [facility] 0.9 - 3.9 mean platelet volume 10.2 (?) [facility] - platelet count 256.0 THOUSAND/ UL [facility] 100.0 - 400.0 mean corpuscular hemoglobin concentration, RBC 33.0 G/DL [facility] 31.0 - 38.0 mean corpuscular hemoglobin, RBC 28.2 pg [facility] 25.0 - 35.0 mean corpuscular volume, RBC 85.3 fL [facility] 75.0 - 100.0 hematocrit, blood 46.3 % [facility] 35.0 - 55.0 hemoglobin, blood 15.3 g/dL [facility] 11.5 - 16.5 erythrocyte count, whole blood 5.4 MILLION/U L [facility] 3.5 - 5.5 prothrombin time (patient) 10.4 s [facility] 9.0 - 11.5 international normalized ratio (INR) 0.9 [facility] 0.9 - 1.1 HISTORY OF MEDICATION USE Medication Status Instructions Dates Provider Indications Com ments carbamazepine 200 mg tablet active 1 tablet by mouth twice a day Annie Rosado aspirin 81 mg tablet,delayed release (DR/EC) active Take 1 tablet by mouth once daily Alexandro Kirk NP Inpefa 200 mg tablet completed 1 tablet by mouth once a day - Alexandro Kirk NP Gemtesa 75 mg tablet active 1 tablet by mouth once a day Oneil Denney hydrocodone-acetam inophen 7.5-325 mg tablet active 1 tablet every 6 hours Oneil Denney montelukast 10 mg tablet active once daily Oneil Denney Mounjaro 2.5 mg/0.5 mL pen injector completed - Oneil Denney Mounjaro 12.5 mg/0.5 mL pen injector active INJECT 1 PEN UNDER THE SKIN WEEKLY Oneil Denney albuterol sulfate 90 mcg/actuation HFA aerosol inhaler active Oneil Denney Jardiance 10 mg tablet completed Take 1 tablet by mouth once a day - Oneil Denney Inpefa 200 mg tablet completed 1 tablet by mouth once a day - Lula MOYA Specialist furosemide 20 mg tablet active TAKE 1 TABLET BY MOUTH DAILY Monica Dennis hydrocodone-acetam inophen 5-325 mg tablet completed Take 1 tablet by mouth single dose Take one tablet 15-30 minutes prior to your procedure - Shawn Douglas RN diazepam 2 mg tablet completed Take 1 tablet by mouth single dose Take one tablet 15-30 minutes prior to your procedure - Shawn Douglas RN Valium 5 mg tablet completed Take 1 tablet by mouth single dose Take 1 tablet 15 minutes prior to procedure - Rebel Guajardo MD hydrocodone-acetam inophen 5-325 mg tablet completed Take 1 tablet by mouth single dose Take 1 tablet 15 minutes prior to procedure - Rebel Guajardo MD furosemide 20 mg tablet completed TAKE 1 TABLET BY MOUTH DAILY - Monica Dennis cyclobenzaprine 10 mg tablet active Take as needed Corina Mejia Flonase Allergy Relief 50 mcg/actuation spray,suspension active [place] 2 spray into both nostrils twice a day Cyndiestnikhil Mejia Nasonex 50 mcg/actuation spray,non-aerosol active [place] 2 spray into both nostrils as needed Corina Mejia oxybutynin chloride 10 mg tablet extended release 24hr completed 1 tablet by mouth once a day - Oneil Denney furosemide 20 mg tablet completed Take 1 tablet by mouth once a day - Rica Regan MD ISOSORBIDE MONONITRATE ER 60 MG ORAL TABLET EXTENDED RELEASE 24 HOUR completed Take one tablet daily - Rebel Guajardo MD Crestor 20 mg tablet active Take 1 tablet by mouth once a day Jennifer Carrasquillo DIAZEPAM 2 MG ORAL TABLET completed One tab by mouth prior to procedure - Irais Fermin Ranexa 1,000 mg tablet extended release 12 hr completed Take 1 tablet by mouth twice a day - Oneil Denney INCRUSE ELLIPTA 62.5 MCG/INH INHALATION AEROSOL POWDER BREATH ACTIVATED completed as directed - Jennifer Carrasquillo CLONAZEPAM 0.5 MG ORAL TABLET completed as needed - Irais Fermin VENTOLIN HFA 108 (90 BASE) MCG/ACT INHALATION AEROSOL SOLUTION completed 2 puffs every 4-6 hours - Irais Fermin phentermine 15 mg capsule completed Take 1 capsule by mouth once a day - Oneil Denney TOPAMAX 100 MG ORAL TABLET completed One tablet daily - Irais Fermin QSYMIA 7.5-46 MG ORAL CAPSULE EXTENDED RELEASE 24 HOUR completed one tablet daily - Rebel Guajardo MD QSYMIA 3.75-23 MG ORAL CAPSULE EXTENDED RELEASE 24 HOUR completed one tablet daily - Rebel Guajardo MD gabapentin 100 mg capsule active Take 1 capsule by mouth three times a day Andria Tonya CRESTOR 10 MG ORAL TABLET completed take one daily - Oliver Dorman ZETIA 10 MG ORAL TABLET completed ONE TAB. DAILY - Andria Tonya Nitrostat 0.4 mg tablet, sublingual completed 1 tablet under tongue as needed - Oneil Denney PROAIR HFA 108 (90 BASE) MCG/ACT INHALATION AEROSOL SOLUTION completed 2 puffs daily as needed - Mohan Vasquez AEROSPAN 80 MCG/ACT INHALATION AEROSOL SOLUTION completed 2 puffs twice a day - Camilo Pimentel BUPROPION HCL ER (SR) 150 MG ORAL TABLET EXTENDED RELEASE 12 HOUR completed take 1-2 a day - Mohan Vasquez PLAVIX 75 MG ORAL TABLET completed take one pill a day - Rebel Guajardo MD RANEXA 1000 MG ORAL TABLET EXTENDED RELEASE 12 HOUR completed ONE TABLET TWICE DAILY for chronic angina - Andria Tonya CYCLOBENZAPRINE HCL 10 MG ORAL TABLET completed one tab three times per day as needed for back spasm - Mohan Vasquez ISOSORBIDE MONONITRATE ER 60 MG ORAL TABLET EXTENDED RELEASE 24 HOUR completed One tablet daily - Raisa Florence hydrocodone-acetam inophen 10-325 mg tablet completed tablet by mouth as needed - Rebel Guajardo MD sumatriptan succinate 50 mg tablet active as directed Rebel Guajardo MD VENTOLIN HFA 108 (90 BASE) MCG/ACT INHALATION AEROSOL SOLUTION completed 2 puffs every 4-6 hours - Mohan Vasquez SUZETTE ASPIRIN EC LOW DOSE 81 MG ORAL TABLET DELAYED RELEASE completed 1 TAB DAILY - Raisa Florence CLONAZEPAM 1 MG ORAL TABLET completed 1 TAB AT BEDTIME - Mohan Vasquez omeprazole 20 mg capsule,delayed release(DR/EC) active 1 capsule by mouth once a day Rebel Guajardo MD ATORVASTATIN CALCIUM 80 MG ORAL TABLET completed 1 TAB DAILY - Rebel Guajardo MD TOPAMAX 50 MG ORAL TABLET completed 1 TAB TWICE DAILY - Mohan Vasquez SERTRALINE HCL 100 MG ORAL TABLET completed 1 tab once daily - Jossue Austin SOCIAL HISTORY Date Observation Value Provider personal history of marijuana use no Jaylen Meyer drug use no Jaylen Dang alcohol use no Jaylen Dang smoking, year quit 2020 Jaylen cristobal number of years as a smoker 41 a Jaylen Meyer smoking, date started 1973 Jaylen Meyer smoking history, tot al pack/year 41 Jaylen Meyer smoking history, tot al pack/day 1 Jaylen Meyer cigarette use yes Jaylen Lemos smoking status Former smoker Jaylen alexanedr personal history of marijuana use no Alexandro Kirk 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 drug use no Alexandro Kirk 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 alcohol use no Verah Bonareri 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 smoking, year quit 2020 Alexandro Dickeyri 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 number of years as a smoker 41 a Alexandro Mathewri 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 smoking, date started 1973 Alexandro Mathewri 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 smoking history, tot al pack/year 41 Alexandro Mathewri 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 smoking history, tot al pack/day 1 Alexandro Mathewri 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 cigarette use yes Alexandro Mathewri 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 smoking status Former smoker Alexandro Mathew ri 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 alcohol use no Jaylen Dang smoking, year quit 2016 Jaylen cristobal number of years as a smoker 41 a Jaylen Meyer smoking, date started 1973 Jaylen Meyer smoking history, tot al pack/year 41 Jaylen Meyer smoking history, tot al pack/day 1 Jaylen Meyer cigarette use yes Jaylen Lemos smoking status Former smoker Jaylen Herrmann [facility] social history reviewed E&M revi ewed - no changes required Rebel Guajardo MD smoking, year quit 2016 Rebel mcdermott MD number of years as a smoker 41 a Rebel Guajardo MD smoking, date started 1973 Rebel Guajardo MD smoking history, tot al pack/year 43 Rebel Guajardo MD smoking history, tot al pack/day 1 Rebel Guajardo MD cigarette use yes Rebel Guajardo MD smoking status Former smoker Rebel Guajardo MD smoking, year quit 2016 Raisa biggs number of years as a smoker 41 a Raisa Florence smoking, date started 1973 Raisa Florence smoking history, tot al pack/year 43 Raisa [place] smoking history, tot al pack/day 1 Raisa Farrer cigarette use yes Raisa Smithnf elder smoking status Former smoker Raisa Smith nfelder social history reviewed E&M revi ewed - no changes required Rena Seay social history E&M S moking History: P sergio is a former smoker. Mango Davina social history reviewed E&M revi ewed - no changes required Mango Ghosh cigarette use yes Ellen hO smoking status Former smoker Ellen Oh smoking history, tot al pack/year 41 Rebel Guajardo MD social history E&M S moking History: Romeo hill is a former smoker. Rena Seay social history reviewed E&M revi ewed - no changes required Rena Seay smoking, year quit 2017 Chastity Jackie number of years as a smoker 41 a Chastity Jackie smoking, date started 1975 [facility] Jackie smoking history, tot al pack/year 43 Chastity Jackie smoking history, tot al pack/day 1 Chastity Jackie cigarette use yes Chastity Jackie smoking status Former smoker Chastity Hog ue social history E&M S moking History: Romeo hill is a former smoker. Rebel Guajardo MD social history reviewed E&M revi ewed - no changes required Rebel Guajardo MD smoking status Former smoker Irais Jeny number of years as a smoker 41 a Oliver Dorman social history E&M Smoking Histo ry: Romeo hill is a former smoker. Oliver Dorman social history reviewed E&M revi ewed - no changes required Oliver Dorman number of grandchildren Rebel Dorman smoking, year quit 2016 Jennifer elias smoking, date started 1974 Srini Carrasquillo smoking history, tot al pack/year 41 Jennifer Carrasquillo smoking history, tot al pack/day 1 Jennifer Carrasquillo cigarette use yes Jennifer zhang smoking status Former smoker Jennifer powell smoking, year quit 2016 Rica Regan MD smoking, date started 1973 Willie Regan MD smoking history, tot al pack/year 41 Rcia Regan MD smoking history, tot al pack/day 1 Rica Regan MD cigarette use yes Rica miles MD smoking status Former smoker Rica andrews MD social history E&M Smoking Histo ry: Romeo hill is a former smoker. Rica Regan MD social history reviewed E&M revi ewed - no changes required Rica Regan MD number of grandchildren Rica Regan MD smoking, year quit 2016 Tonsha Mo ss smoking, date started 1973 Tonsha Austin smoking history, tot al pack/year 43 Tonsha Austin smoking history, tot al pack/day 1 Tonsha Austin cigarette use yes Tonsha Austin smoking status Former smoker Tonsha Austin social history reviewed E&M revi ewed - no changes required Rebel Guajardo MD alcohol use no Jennifer mehta smoking, year quit 2016 Jennifer Aracelis elias smoking, date started 1973 Srini Carrasquillo smoking history, tot al pack/year 43 Jennifer Carrasquillo smoking history, tot al pack/day 1 Jennifer Carrasquillo cigarette use yes Jennifer zhang smoking status Former smoker Jennifer Ontiveros sherry alcohol use no Tylor Jose ADAMSON smoking, year quit 2016 Lilian hutchinson MD smoking, date started 1973 p Jose ADAMSON smoking history, tot al pack/year 43 Tylor Jose ADAMSON smoking history, tot al pack/day 1 Jose ADAMSON cigarette use yes Jose ADAMSON smoking status Former smoker Tylor Jose ADAMSON social history reviewed E&M revi ewed - no changes required Tylor Jose ADAMSON social history reviewed E&M revi ewed - no changes required Rebel Guajardo MD alcohol use no Andria Tonya smoking, year quit 2016 Andria Richard s smoking, date started 1973 Andria Tonya smoking history, tot al pack/year 43 Andria Tonya smoking history, tot al pack/day 1 Andria Tonya cigarette use yes Andria Tonya smoking status Former smoker Andria Tonya social history reviewed E&M revi ewed - no changes required Ariadne Ellison RN smoking status Former smoker Allegra Jo Ann mehta social history reviewed E&M revi ewed - no changes required Rebel Guajardo MD alcohol use no Andria Tonya smoking, year quit 2016 Andria Richard s smoking, date started 1974 Andria Tonya smoking history, tot al pack/year 43 Andria Tonya smoking history, tot al pack/day 1 Andria Tonya cigarette use yes Andria Tonya smoking status Former smoker Andria Tonya social history reviewed E&M revi ewed - no changes required Rebel Guajardo MD alcohol use no Raisa griffiths smoking, year quit 2016 Raisa biggs smoking, date started 1975 Raisa Florence smoking history, tot al pack/year 43 Raisa Florence smoking history, tot al pack/day 1 Raisa Florence cigarette use yes Raisa richard smoking status Former smoker Raisa cabreraer social history reviewed E&M revi ewed - no changes required Rebel Guajardo MD alcohol use no Mohan Akers nson smoking, year quit 2016 Mohan Vasquez smoking, date started 1973 Roselyn Vasquez smoking history, tot al pack/year 43 Mohan Prabhakarenson smoking history, tot al pack/day 1 Mohan Vasquze cigarette use yes Mohan Prabhakar enson smoking status Former smoker Mohan Trevizo social history reviewed E&M revi ewed - no changes required Rebel Guajardo MD alcohol use no Raleigh Pimentel smoking, year quit 2016 Raleigh I ngram smoking, date started 1973 Yash rider Pimentel smoking history, tot al pack/year 43 Raleigh Pimentel smoking history, tot al pack/day 1 Raleigh Pimentel cigarette use yes Raleigh Pimentel smoking status Former smoker Camilo Ingr am number of grandchildren Rebel Erickson smoking history, tot al pack/day 1 Oliver Dorman social history reviewed E&M revi ewed - no changes required Rebel Guajardo MD alcohol use no Sara Whitehead smoking, year quit 2017 Sara daniels smoking, date started 1974 Sara Whitehead smoking history, tot al pack/year 43 Sara Whitehead cigarette use yes Saar Whitehead smoking status Former smoker Sara Whitehead smoking, year quit 2016 Raisa biggs smoking, date started 1973 Raisa Florence smoking history, tot al pack/year 43 Raisa Florence cigarette use yes Raisa richard smoking status Former smoker Raisa early smoking history, tot al pack/year 43 Oct Miley GILLIAM smoking history, tot al pack/year 43 Oct Miley GILLIAM social history reviewed E&M revi ewed - no changes required Rebel Guajardo MD smoking status Former smoker Allegra Jo Ann mehta social history reviewed E&M revi ewed - no changes required Rebel Guajardo MD social history E&M Smoking Histo ry: Romoe hill is a former smoker. Rebel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 (Rosuvastatin calcium) ..... Take 1 tablet daily Orders: L IPID PANEL (6787) [facility] Cardiology:Recently she has not been able to tolerate her CPAP machine and we will obtain a titration study. [facility] Cardiology:This joan ent has angina (defined as chest pain, chest discomfort, or pain in arms, neck, jaw, shoulder, or back, and may include symptoms of shortness of breath, fatigue, dizziness, nausea, or diaphoresis) of [place] Cardiovascular Society Class III (defined as symptoms with everyday living activities, i.e. moderate limitation) or [place] Cardiovascular Society Class IV (defined as inability to perform any activity without angina or angina at rest, i.e. severe limitation). T his patient?s angina is disabling and in my opinion is not readily amenable to surgical intervention by PTCA or cardiac bypass because the patient's coronary anatomy is not readily amenable to such procedures. She had benefit in the past from ECP. Last year she had to stop early due to insurance coverage. We will resume ECP and try Isosorbide 60mg daily. [facility] Cardiology:Pt compla ins of SOB with minimal exertion. Moderate coronary artery calcifications and calcification of the mitral valve were noted on a recent chest CT, however coronary calcification was noted on chest CT from 2016 and cardiac cath in 2016 did not show significant CAD. Echo last year showed normal EF. In view of the above, we will obtain cardiac cath. She had benefit in the past from ECP. Last year she had to stop early due to insurance coverage. We will resume ECP and try Isosorbide 60mg daily. Her updated medication list for this problem includes: Isosorbide Mononitrate Er 60 Mg Oral Tablet Extended Release 24 Hour (Isosorbide mononitrate) ..... Take one tablet daily Ranexa 1000 Mg Oral Tablet Extended Release 12 Hour (Ranolazine) ..... Take one tablet by mouth twice daily *nitroglycerin 0.4mg 4x25 Sl (Nitroglycerin) ..... Dissolve one tablet under the tongue every 5 minutes for a total of 3 doses as needed for chest pain. if no relief after 3rd dose seek medic [facility] Cardiology:Pt compla ins of SOB with minimal exertion. Moderate coronary artery calcifications and calcification of the mitral valve were noted on a recent chest CT, however coronary calcification was noted on chest CT from 2017 and cardiac cath in 2017 did not show significant CAD. Echo last year showed normal EF. In view of the above, we will obtain an echo and R/L heart cath and proBNP. [facility] Cardiology follow up :Her updated medication list for this problem includes: Crestor 20 Mg Oral Tablet (Rosuvastatin calcium) ..... Take 1 tablet daily [facility] Cardiology follow up :Her updated medication list for this problem includes: Ranexa 1000 Mg Oral Tablet Extended Release 12 Hour (Ranolazine) ..... Take one tablet by mouth twice daily Nitrostat 0.4 Mg Sublingual Tablet Sublingual (Nitroglycerin) ..... Apply one tab under tongue every 5 minutes for 3 total doses as needed for chest pain. if no relief after 3rd dose, go to er [facility] Cardiology follow up :This patient has angina (defined as chest pain, chest discomfort, or pain in arms, neck, jaw, shoulder, or back, and may include symptoms of shortness of breath, fatigue, dizziness, nausea, or diaphoresis) of [place] Cardiovascular Society Class III (defined as symptoms with everyday living activities, i.e. moderate limitation) or [place] Cardiovascular Society Class IV (defined as inability to perform any activity without angina or angina at rest, i.e. severe limitation). T his patient?s angina is disabling and in my opinion is not readily amenable to surgical intervention by PTCA or cardiac bypass because the patient's coronary anatomy is not readily amenable to such procedures. Rebel Guajardo MD Cardiology follow up Rebel Guajardo MD Cardiology follow up Rebel Guajardo MD Cardiology:Pain in her rt knee. Tylorteresa Garcia MD Cardiology:Denies cp. Tylorromeo Vaughan MD Cardiology:Pt referr ed for venous insufficiency. Her rt knee normally bothers her, but if she stands for too long then her left thigh will become numb. Leg pains have not improveed with compression stockings and are possibly worse since use. Occurs at rest and not associated with exertion. Worse at night and tries to elevate her legs without improvement. Sleeps in recliner, and has seen some improvement with this. She reports lumbar disc disease including sciatic nerve compression. Venous u/s showed left GSV reflux 2.8 sec, left proximal GSV 6.6 mm, right proximal GSV 5.2 mm, right GSV without significant reflux Discussed location and description of patient's pain in lt thigh and rt knee. U nsure if leg pains will improve with EVLT Ariadne Ellison RN Cardiology:Pt referr ed for venous insufficiency. Her rt knee normally bothers her, but if she stands for too long then her left thigh will become numb. Leg pains have not improveed with compression stockings and are possibly worse since use. Occurs at rest and not associated with exertion. Worse at night and tries to elevate her legs without improvement. Sleeps in recliner, and has seen some improvement with this. She reports lumbar disc disease including sciatic nerve compression. Venous u/s showed left GSV reflux 2.8 sec, left proximal GSV 6.6 mm, right proximal GSV 5.2 mm, right GSV without significant reflux S he has failed conservative treatment, and we will schedule venous occlusion of left GSV at her convenience. Ariadne Ellison RN Cardiology follow up:She's tryin g support stockings. [facility] Cardiology follow up :Her updated medication list for this problem includes: Crestor 10 Mg Oral Tablet (Rosuvastatin calcium) ..... Take one daily [facility] Cardiology follow up :Her updated medication list for this problem includes: Nitrostat 0.4 Mg Sublingual Tablet Sublingual (Nitroglycerin) ..... Apply one tab under tongue every 5 minutes for 3 total doses as needed for chest pain. if no relief after 3rd dose, go to er [facility] Cardiology follow up:Has f/u aki Garcia. [facility] Cardiology -ltr done : here for evaluation for venous insufficiency. She has had pain, swelling, discoloration to both legs, Left>Right, mostly in her left thigh. C/o leg heaviness. She had improvement in her symptoms following left iliac vein stent for er, but her symptoms have been gradually worsening since then. The patient has visible varicosities on left leg. The pain and edema get worse after standing for a long time and improve with leg elevation. The patient has not tried elastic stockings. The patient has no history of DVT. Discussed conserverative measures - including ambulation, leg elevation, and thigh high 20-30mmHg compresion stockings w ill see her back in 6-8 weeks Ariadne Ellison RN Cardiology -ltr done :She had improvement in her symptoms following left iliac vein stent for er, but her symptoms have been gradually worsening since then. Ariadne Ellison RN Cardiology follow up :Weight loss encouraged. She would like to try Qsymia. [facility] Cardiology follow up:Referring t fernando Garcia for EVLT. Rebel Guajardo MD Cardiology Follow up :She cannot tolerate Lipitor due to muscle aches. Will try Zetia. The following medications were removed from the medication list: Atorvastatin Calcium 80 Mg Oral Tablet (Atorvastatin calcium) ..... 1 tab daily Her updated medication list for this problem includes: Zetia 10 Mg Oral Tablet (Ezetimibe) ..... One tab. daily [facility] Cardiology Follow up :She complains of swelling of the left foot for about a week (she had iliac vein stent on the left last year). Will obtain venous duplex. [facility] Cardiology Follow up :Chest pain improved after she had esophageal dilation performed. [facility] Cardiology Oliver Delong guero Cardiology:The pt co mplains of episodes of chest pressure at rest, not related to exertion. Cardiac cath last year revealed no significant CAD. She has hx of [place]'s esophagus. Will recommend GI consultation. [facility] Cardiology:The pt co mplains of episodes of chest pressure at rest, not related to exertion. Cardiac cath last year revealed no significant CAD. She has hx of [place]'s esophagus. Will try ntg subl and recommend GI consultation. [facility] Cardiology:[facility] for this problem includes: Atorvastatin Calcium 80 Mg Oral Tablet (Atorvastatin calcium) ..... 1 tab daily [facility] Cardiology:Weight loss advised. [facility] Cardiology:The patie nt is using CPAP on a regular basis. The patient has been benefiting from therapy and should continue use. [facility] Cardiology:It has be en close to a year since we did the iliac vein stent and she can stop Plavix. [facility] Follow up:She complains of pain in the left groin and we will obtain a duplex. [facility] Follow up:Sleep study showed that her CPAP is working well. [facility] Follow up:She was found to have May-Thurner syndrome and was treated with a Wallstent with significant symptomatic improvement. [facility] Follow up:Cardiac cath revealed no significant coronary stenosis and normal EF. Her chest pain has improved with Ranexa and ECP. [facility] Cardiology:CAROL's wer e normal. Venous duplex revealed venous insufficiency in the left leg. [facility] Cardiology:Venous du plex revealed venous insufficiency in the left leg. When she comes for cardiac cath, will consider IVUS of the left iliac in view of her symptoms on the left. [facility] Cardiology:Myoview s can and echo were essentially normal. In view of her symptoms, will schedule a cardiac cath. [facility] Cardiology:Myoview s can and echo were essentially normal. The pt continues to have SOB and chest pain with minimal exertion. Will try Imdur 60mg daily. In view of her symptoms, will schedule a cardiac cath. Oliver [facility] Cardiology:Orders: C ardiac Cath - Left - GC (*) Oliver [facility] Cardiology:Weight loss and exerc ise advised. [facility] Cardiology:Orders: E KG (CPT-84138) S TR - Adenosine (CPT-73430) Z IO Holter (CPT-92724) [facility] Cardiology:Orders: V enous Doppler Bilateral LE - Standing (CPT-78473) A rterial Duplex Bi-Lower EX (CPT-62129) [facility] Cardiology:Orders: S leep Study Home (CPT-76484) [facility] Cardiology:CT of the chest showed three vessel coronary calcifications. [facility] Cardiology:The pt co mplains of SOB with minimal exertion but no chest pain. CT of the chest showed three vessel coronary calcifications. She has hx of smoking. She reports PFT's were normal. Orders: C omplete Echo (CPT-93314) S TR - Adenosine (CPT-83003) Oliver [facility] Date Name VenaSeal CT Head with,without contrast Venous Doppler Bilat eral LE - Reflux Complete Echo Stress Regadenoson RPM (remote patient monitoring) PROBNP, N TERMINAL BASIC METABOLIC PANE L W/EGFR Complete Echo Venous Doppler Unila teral LLE Venous Doppler Unila teral RLE Complete Echo VenaSeal Venous Doppler Bilat eral LE - Reflux HEMOGLOBIN A1c Venous Doppler Unila teral LLE Venous Doppler Bilat eral LE CT Chest with,withou t contrast CT Abdomen with,with out contrast Venous Doppler Bilat eral LE - Reflux CT Abdomen/pelvis wi th contrast COVID19 nasal swab ( LC) PROTHROMBIN TIME WIT H INR CBC (INCLUDES DIFF/P LT) Venogram w/ IVUS - S [facility] Covid Antibody IgA ( LC) Covid Antibody IgM ( LC) Covid Antibody Igg Venous Doppler Bilat eral LE - Reflux Complete Echo B TYPE NATRIURETIC P EPTIDE (BNP) COMPREHENSIVE METABO LIC PANEL, W/EGFR ECP - Medicare PROBNP, N TERMINAL PROTHROMBIN TIME WIT H INR LIPID PANEL CBC (INCLUDES DIFF/P LT) BASIC METABOLIC PANE L W/EGFR Sleep Study Titratio n Complete Echo Complete Echo ECP - Medicare Venous Doppler Bilat eral LE - Reflux Arterial Duplex to r /o psuedoanuerysim CBC (INCLUDES DIFF/P LT) LIPID PANEL BASIC METABOLIC PANE L W/EGFR PROTHROMBIN TIME WIT H INR Cardiac Cath - Left - GC Arterial Duplex Bi-L ower EX Venous Doppler Bilat eral LE - Standing Sleep Study Home ZIO Holter STR - Adenosine Complete Echo HISTORY OF PROCEDURES Procedure Date Procedure Name Provider Procedure Notes S tatus Complex e/m visit add on Rebel Guajardo MD completed EKG Rica Regan MD completed Complex e/m visit add on Rebel Guajardo MD completed EKG Rebel Guajardo MD completed EKG Marko Jose Luis Fermin DO completed EKG Rebel Guajardo MD completed EKG Rica Regan MD completed [facility] MD Ivan Guajardo MD completed EKG Rebel Guajardo MD completed EKG Rebel Guajardo MD completed EKG Rebel Guajardo MD completed SNOMED-CT: [id number] Current Medications Documented Rebel Guajardo MD completed SNOMED-CT: [id number] Current Medications Documented Rebel Guajardo MD completed SNOMED-CT: [id number] 899555 Current Medications Documented Rebel Guajardo MD completed EKG Rebel Guajardo MD completed SNOMED-CT: [id number] 070211 Current Medications Documented Rebel Guajardo MD completed Stress EKG Smiley Lagos MD complet ed Regadenoson, 4 units Smiley Lagos MD completed Cardiolite, 2 units Smiley Lagos MD completed SPECT Images Smiley Lagos MD compl eted Home Sleep Study Rebel Guajardo MD comp leted ZIO Holter Hookup Rebel Guajardo MD com pleted EKG Rebel Guajardo MD completed SNOMED-CT: [id number] Current Medications Documented Rebel Guajardo MD completed
== END 2024-12-07 15:16 | disposition home or self-care (01) ==
PROVIDERS: PCP Emergency Medicine; Visit Provider Emergency Medicine
DX: S22.42XA Multiple fractures of ribs, left side, initial encounter for closed fracture (principal); R07.89 Other chest pain; W19.XXXA Unspecified fall, initial encounter
CPT/HCPCS: 71046; 71100

== ENCOUNTER 2025-06-17 00:50 | Emergency (ER) | payer MEDICARE, MEDICAID, SELFPAY ==
--- OUTSIDE RECORDS SUMMARY | 2025-05-11 12:07 | XMS_ITS | Continuity of Care Document ---
Author Organization [facility] Address [address] [place] [address] [place] [address] Phone Care Team Providers Care Payroll Director Name Role Phone Brad Blancas MD Unavailable Unavailable Allergies, Adverse Reactions, Alerts Substance Reaction Status Criticality NSAIDS (Non-Steroidal Anti-Inflammatory Drug) Active No Information Penicillins Active No Information Medications Medication Instructions Dosage Effective Dates (start - stop) Status Comments Imitrex 50 mg tablet take 1 tablet by oral route as needed 50 MG - Active take one orally at onset of headache, may repeat x one in two hours max 2/24 hours prednisone 20 mg tablet take 3 Tablet by oral route every day 60 MG - Active Mounjaro 15 mg/0.5 mL subcutaneous pen injector inject (15MG) by subcutaneous route every week 15 MG - Active Singulair 10 mg tablet take 1 tablet by oral route every day in the evening 10 MG - Active hydrocodone 10 mg-acetaminophen 325 mg tablet take 1 by Oral route 3 times every day 1 - Active buspirone 10 mg tablet take 1 tablet by oral route 2 times every day 10 MG - Active Vitamin D2 1,250 mcg (50,000 unit) capsule take one capsule orally once per week - Active Topamax 100 mg tablet take 1 Tablet by oral route 2 times every day 100 MG - Active Symbicort 160 mcg-4.5 mcg/actuation HFA aerosol inhaler inhale 2 puff by inhalation route 2 times every day in the morning and evening 2.00 puff - Active Crestor 20 mg tablet take 1 tablet by oral route every day 20 MG - Active Effexor XR 75 mg capsule,extended release take 1 capsule by oral route every day with food 75 MG - Active oxybutynin chloride 5 mg tablet take 1 [...] Active Procedures Procedure Date OFFICE/OUTPATIENT VISIT, EST PREV VISIT, EST, 63 [...] Diagnoses Date Provider Providers Copied on Encounter [facility], [address] [place], [place], [address], [place] tel:[phone] [facility] No Information Taryn Salinas. [address] [place], [place], [address] , [place]. tel:[phone] OFFICE/OUTPA TIENT VISIT, [facility], [address] [place], [place], [address], [place] tel:[phone] [facility] headache1 (chief complaint) asthma1 (chief complaint) DM (chief complaint) facial numbness1 (chief complaint) aniety1 (chief complaint) Migraine w/o aura, not intractable, w/o status migrainosusMild intermittent asthma, uncomplicatedAtypic al facial painType 2 diabetes mellitus without complicationsAbnorm al weight lossGeneralized Anxiety Disorder 5 Yonny Salinas. [address], [place], [place], [address] , [place]. tel:[phone] [facility], [address] [place], [address], [place] tel:[phone] [facility] No Information 5 Yonny Salinas. [address], [place], [place], [address] , [place]. tel:[phone] PREV VISIT, EST, 65 & OVER [facility], [address], [place], [place], [address], [place] tel:[phone] [facility] physical (chief complaint) Encounter for general adult medical exam w abnormal findingsMild intermittent asthma, uncomplicatedType 2 diabetes mellitus without complicationsGenera lized Anxiety DisorderMixed hyperlipidemiaBarre tt's esophagus without dysplasiaMigraine w/o aura, not intractable, w/o status migrainosusDiastoli c heart failureBorderline osteopenia 5 Yonny Salinas. [address], [place], [place], [address] , [place]. tel:[phone] OFFICE/OUTPA TIENT VISIT, EST [facility], [address] [place], [address], [place] tel:[phone] [facility] COPD1 (chief complaint) HLP (chief complaint) rib (chief complaint) cough1 (chief complaint) anxiety1 (chief complaint) DM (chief complaint) Centrilobular emphysemaType 2 diabetes mellitus without complicationsGenera lized Anxiety DisorderMixed hyperlipidemiaAcute bronchitis 5 Yonny Salinas. [address], [place], [place], [address] , [place]. tel:[phone] OFFICE/OUTPA TIENT VISIT, [facility], [address], [place], [place], [address], [place] tel:[phone] [facility] chest pain1 (chief complaint) Anterior chest-wall pain 5 Blancas Brad. [address], [place], [place], [address] , [place]. tel:[phone] OFFICE/OUTPA TIENT VISIT, [facility], [address], [place], [place], [address], [place] tel:[phone] [facility] Fall (chief complaint) DM (chief complaint) TN (chief complaint) Trigeminal neuralgiaType 2 diabetes mellitus without complicationsAbnorm alities of gait 4 Yonny Salinas. [address], [place], [place], [address] , [place]. tel:[phone] OFFICE/OUTPA TIENT VISIT, [facility], [address], [place], [place], [address], [place] tel:[phone] [facility] facial pain1 (chief complaint) Trigeminal neuralgia 4 Blancas Brad. [address], [place], [place], [address] , [place]. tel:[phone] OFFICE/OUTPA TIENT VISIT, [facility], [address], [place], [place], [address], [place] tel:[phone] [facility] DM (chief complaint) thrombi1 (chief complaint) COPD1 (chief complaint) Type 2 diabetes mellitus without complicationsEmboli sm and thrombosis of superficial veins of left lower extremityCentrilobu lar emphysemaDiastolic heart failure 4 Blancas Brad. [address], [place], [place], [address] , [place]. tel:[phone] OFFICE/OUTPA TIENT VISIT, [facility], [address], [place], [place], [address], [place] tel:[phone] [facility] DM (chief complaint) barrett1 (chief complaint) Abnormal weight lossType 2 diabetes mellitus without complicationsEncntr screen mammogram for malignant neoplasm of breastBarrett's esophagus without dysplasia 4 Blancas Brad. [address], [place], [place], [address] , [place]. tel:[phone] OFFICE/OUTPA TIENT VISIT, [facility], [address], [place], [place], [address], [place] tel:[phone] [facility] DM (chief complaint) Type 2 diabetes mellitus without complicationsAbnorm al weight loss 4 Yonny Salinas. [address], [place], [place], [address] , [place]. tel:[phone] OFFICE/OUTPA TIENT VISIT, [facility], [address], [place], [place], [address], [place] tel:[phone] [facility] DM (chief complaint) asthma1 (chief complaint) HTN (chief complaint) Abnormal weight lossType 2 diabetes mellitus without complicationsEssent ial (primary) hypertensionMild intermittent asthma, uncomplicated 4 Yonny Salinas. [address], [place], [place], [address] , [place]. tel:[phone] OFFICE/OUTPA TIENT VISIT, [facility], [address], [place], [place], [address], [place] tel:[phone] [facility] DM (chief complaint) Barrett1 (chief complaint) HLP (chief complaint) Beatty's esophagus without dysplasiaType 2 diabetes mellitus without complicationsAbnorm al weight lossDiverticulosis of intestine without abscess without hemorrhageMixed hyperlipidemia 4 Yonny Brad. [address], [place], [place], [address] , [place]. tel:[phone] OFFICE/OUTPA TIENT VISIT, [facility], [address], [place], [place], [address], [place] tel:[phone] [facility] HLP (chief complaint) Pre-DM (chief complaint) osteopenia 1 (chief complaint) barrett1 (chief complaint) anxiety1 (chief complaint) headache1 (chief complaint) Mixed hyperlipidemiaHyper glycemiaOther specified disorder of bone densityPersonal history of nicotine dependenceEncntr screen mammogram for malignant neoplasm of breastMigraine w/o aura, not intractable, w/o status migrainosusGenerali zed Anxiety Disorder Jan- 4 Yonny Salinas. [address], [place], [place], [address] , [place]. tel:[phone] PREV VISIT, EST, 65 & OVER [facility], [address], [place], [place], [address], [place] tel:[phone] [facility] physical (chief complaint) Encounter for general adult medical exam w abnormal findingsFatty liverCentrilobular emphysemaBarrett's esophagus without dysplasiaMigraine w/o aura, not intractable, w/o status migrainosusMixed hyperlipidemiaOther specified disorder of bone densityGeneralized Anxiety DisorderHyperglycem ia Dec- 4 Yonny Salinas. [address], [place], [place], [address] , [place]. [phone] OFFICE/OUTPA TIENT VISIT, [facility], [address] [place], [address], [place] tel:[phone] [facility] hand pain1 (chief complaint) Lesion of ulnar nerve of right armPalmar fascial fibromatosis [Dupuytren] 3 Yonny Salinas. [address], [place], [place], [address] , [place]. tel:[phone] OFFICE/OUTPA TIENT VISIT, [facility], [address], [place], [place], [address], [place] tel:[phone] [facility] osteopenia 1 (chief complaint) fatty liver1 (chief complaint) CAD (chief complaint) emphysema1 (chief complaint) Barrett1 (chief complaint) Centrilobular emphysemaBarrett's esophagus without dysplasiaOther specified disorder of bone densityFatty liverArterioscleros is of umat[place] tribe coronary artery without angina pectoris 3 Yonny Cameron [address], [place], [place], [address] , [place]. tel:[phone] OFFICE/OUTPA TIENT VISIT, [facility], [address], [place], [place], [address], [place] tel:[phone] [facility] Barrett1 (chief complaint) migraine1 (chief complaint) anxiety1 (chief complaint) Migraine w/o aura, not intractable, w/o status migrainosusGenerali zed Anxiety DisorderBarrett's esophagus without dysplasia 3 Yonny Cameron [address], [place], [place], [address] , [place]. tel:[phone] OFFICE/OUTPA TIENT VISIT, [facility], [address], [place], [place], [address], [place] tel:[phone] [facility] anxiety1 (chief complaint) HLp (chief complaint) Barrett1 (chief complaint) migraine1 (chief complaint) Beatty's esophagus without dysplasiaGeneralize d Anxiety DisorderMixed hyperlipidemiaMigra ine w/o aura, not intractable, w/o status migrainosusChronic pain syndrome 3 Yonny Cameron [address], [place], [place], [address] , [place]. [phone] OFFICE/OUTPA TIENT VISIT, [facility], [address], [place], [place], [address], [place] tel:[phone] [facility] COPD1 (chief complaint) bone1 (chief complaint) sleep apnea1 (chief complaint) Tobacco useCentrilobular emphysemaOther specified disorder of bone densityPrimary central sleep apneaEncounter for other screening for malignant neoplasm of breast 3 Yonny Cameron [address], [place], [place], [address] , [place]. tel:[phone] OFFICE/OUTPA TIENT VISIT, EST [facility], [address], [place], [place], [address], [place] tel:[phone] [facility] sick1 (chief complaint) Viral infection 3 Yonny Salinas. [address], [place], [place], [address] , [place]. [phone] PREV VISIT, EST, AGE 40-64 [facility], [address], [place], [place], [address], [place] [phone] [facility] physical (chief complaint) Beatty's esophagus without dysplasiaMixed hyperlipidemiaChron ic pain syndromeHyperglycem iaEncounter for general adult medical exam w abnormal findingsGeneralized Anxiety Disorder Jun-0 2 Yonny Salinas. [address], [place], [place], [address] , [place]. tel:[phone] OFFICE/OUTPA TIENT VISIT, EST [facility], [address], [place], [place], [address], [place] tel:[phone] [facility] migraine1 (chief complaint) HLP (chief complaint) anxiety1 (chief complaint) barrett1 (chief complaint) MigraineBarrett's esophagus without dysplasiaHyperlipid emiaGeneralized Anxiety Disorder 2 Yonny Salinas. [address], [place], [place], [address] , [place]. [phone] OFFICE/OUTPA TIENT VISIT, EST [facility], [address], [place], [place], [address], [place] tel:[phone] [facility] asthma1 (chief complaint) CAD (chief complaint) OAB (chief complaint) knee pain1 (chief complaint) AsthmaOveractive bladderPeripheral vascular disease, unspecifiedOsteoart hritis of knee 1 Yonny Salinas. [address], [place], [place], [address] , [place]. tel:[phone] OFFICE/OUTPA TIENT VISIT, [facility], [address], [place], [place], [address], [place] tel:[phone] [facility] headache1 (chief complaint) HLP (chief complaint) COPD1 (chief complaint) Barrett1 (chief complaint) anxiety1 (chief complaint) glucose1 (chief complaint) Beatty's esophagus without dysplasiaHyperlipid emiaVenous insufficiencyEmphys emaMigraineGenerali zed Anxiety DisorderVitamin D deficiency, unspecifiedHypergly cemiaEncounter for oth screening for malignant neoplasm of breast Jun-0 1 Yonny Cameron [address], [place], [place], [address] , [place]. tel: [phone] OFFICE/OUTPA TIENT VISIT, [facility], [address], [place], [place], [address], [place] tel:[phone] [facility] fatty liver1 (chief complaint) headache1 (chief complaint) barrett1 (chief complaint) sinus1 (chief complaint) chronic pain1 (chief complaint) MigraineOther spondylosis, cervical regionBarrett's esophagus without dysplasiaHyperlipid emiaFatty liverAcute sinusitisEncounter for oth screening for malignant neoplasm of breast Dec- 1 Yonny Cameron [address], [place], [place], [address] , [place]. tel: [phone] OFFICE/OUTPA TIENT VISIT, [facility], [address] [place], [address], [place] tel:[phone] [facility] anxiety1 (chief complaint) headache1 (chief complaint) chronic pain1 (chief complaint) Other spondylosis, cervical regionGeneralized Anxiety DisorderMigraine 0 Yonny Cameron [address], [place], [place], [address] , [place]. tel: [phone] Referring Provider: Bessie Will[address], [place], [place], [address]. tel:[phone] OFFICE/OUTPA TIENT VISIT, [facility], [address], [place], [place], [address], [place] tel:[phone] [facility] neck pain1 (chief complaint) HLP (chief complaint) headache1 (chief complaint) barrett1 (chief complaint) Other spondylosis, cervical regionHyperlipidemi aHeadacheBarrett's esophagus without dysplasia Jun- 0 Yonny Salinas. [address], [place], [place], [address] , [place]. tel:[phone] Referring Provider: Brad Blancas, [address], [place], [place], [address]. tel:[phone] OFFICE/OUTPA TIENT VISIT, [facility], [address], [place], [place], [address], [place] tel:[phone] [facility] chest pain1 (chief complaint) Anterior chest-wall pain Jun- 0 Yonny Salinas. [address], [place], [place], [address] , [place]. tel:[phone] Referring Provider: Brad Blancas [address], [place], [place], [address]. tel:[phone] OFFICE/OUTPA TIENT VISIT, [facility], [address], [place], [place], [address], [place] tel:[phone] [facility] cellulitis 1 (chief complaint) sick (chief complaint) Stasis dermatitisUpper respiratory infection May-0 0 Yonny Salinas. [address], [place], [place], [address] , [place]. tel:[phone] Referring Provider: Bessie Will[address], [place], [place], [address]. tel:[phone] OFFICE/OUTPA TIENT VISIT, [facility], [address], [place], [place], [address], [place] tel:[phone] [facility] rash1 (chief complaint) cough1 (chief complaint) Cellulitis of right lower limbAcute bronchitis [address], [place], [place], [address] , [place]. tel:[phone] Referring Provider: Bessie Willams [address], [place], [place], [address]. tel:[phone] OFFICE/OUTPA TIENT VISIT, EST [facility], [address], [place], [place], [address], [place] tel:[phone] [facility] UTI1 (chief complaint) Urinary tract infectionEncounter for oth screening for malignant neoplasm of breast 0 Yonny Cameron [address], [place], [place], [address] , [place]. tel:[phone] Referring Provider: Bess[address] Will[address], [place], [place], [address]. tel:[phone] PREV VISIT, EST, AGE 40-64 [facility], [address], [place], [place], [address], [place] tel:[phone] [facility] physical (chief complaint) Encounter for general adult medical exam w abnormal findingsHeadacheHyp erlipidemiaBarrett' s esophagus without dysplasiaSleep apneaCOPD [address], [place], [place], [address] , [place]. tel:[phone] Referring Provider: Bessie Willams [address], [place], [place], [address]. tel:[phone] OFFICE/OUTPA TIENT VISIT, EST [facility], [address], [place], [place], [address], [place] tel:[phone] [facility] HLP (chief complaint) proteinuri a1 (chief complaint) D (chief complaint) migraine1 (chief complaint) GERD1 (chief complaint) Beatty's esophagus without dysplasiaHeadachePr oteinuriaVitamin D deficiency, unspecifiedHyperlip idemia 201 9 Yonny Cameron [address], [place], [place], [address] , [place]. tel:[phone] Referring Provider: Bessie Willams [address], [place], [place], [address]. tel:[phone] OFFICE/OUTPA TIENT VISIT, EST [facility], [address], [place], [place], [address], [place] tel:[phone] [facility] HLP (chief complaint) anxiety1 (chief complaint) GERD1 (chief complaint) headache1 (chief complaint) Encounter for oth screening for malignant neoplasm of breastSleep apneaHyperlipidemia Beatty's esophagus without dysplasiaHeadacheGe neralized Anxiety Disorder 9 Yonny Cameron [address], [place], [place], [address] , [place]. tel:[phone] Referring Provider: [address], [place], [place], [address]. tel:[phone] PREV VISIT, EST, AGE 40-64 [facility], [address], [place], [place], [address], [place] tel:[phone] [facility] PHysical (chief complaint) Body mass index (BMI) 40.0-44.9, adultEncounter for general adult medical exam w abnormal findingsLumbago with sciatica, left sideHyperlipidemiaC OPDVenous insufficiency 9 Yonny Cameron [address], [place], [place], [address] , [place]. tel:[phone] Referring Provider: Bessie Willams [address], [place], [place], [address]. tel:[phone] OFFICE/OUTPA TIENT VISIT, EST [facility], [address] [place], [address], [place] tel:[phone] [facility] COPD1 (chief complaint) cough1 (chief complaint) HLP (chief complaint) chest pain1 (chief complaint) HyperlipidemiaCOPDC hest painSleep apneaBody mass index (BMI) 45.0-49.9, adult [address], [place], [place], [address] , [place]. tel:[phone] Referring Provider: Bessie Willams [address], [place], [place], [address]. tel:[phone] OFFICE/OUTPA TIENT VISIT, [facility], [address], [place], [place], [address], [place] tel:[phone] [facility] physical (chief complaint) Body mass index (BMI) 45.0-49.9, adultBarrett's esophagus without dysplasiaHyperlipid emiaCOPDEncounter for general adult medical exam w abnormal findingsHeadache 8 Yonny Cameron [address], [place], [place], [address] , [place]. tel:[phone] Referring Provider: Bessie Willams [address], [place], [place], [address]. tel:[phone] OFFICE/OUTPA TIENT VISIT, [facility], [address], [place], [place], [address], [place] tel:[phone] [facility] COPD1 (chief complaint) HLP (chief complaint) tobacco (chief complaint) foot pain1 (chief complaint) Body mass index (BMI) 40.0-44.9, adultPain in footHyperlipidemiaT obacco useCOPD 8 [address], [place], [place], [address] , [place]. tel:[phone] Referring Provider: Bessie Willams [address], [place], [place], [address]. tel:[phone] OFFICE/OUTPA TIENT VISIT, [facility], [address], [place], [place], [address], [place] tel:[phone] [facility] anxiety1 (chief complaint) HLP (chief complaint) headache1 (chief complaint) COPD1 (chief complaint) Body mass index (BMI) 40.0-44.9, adultHyperlipidemia COPDHeadacheBarrett 's esophagus without dysplasiaGeneralize d Anxiety Disorder 8 Yonny Cameron [address], [place], [place], [address] , [place]. tel:[phone] Referring Provider: [address], [place], [place], [address]. tel:[phone] OFFICE/OUTPA TIENT VISIT, [facility], [address], [place], [place], [address], [place] tel:[phone] [facility] sick (chief complaint) tobacco (chief complaint) headache1 (chief complaint) Tobacco useHeadacheAcute upper respiratory infection, unspecifiedConjunct ivitis 8 Yonny Cameron [address], [place], [place], [address] , [place]. [phone] Referring Provider: [address], [place], [place], [address]. tel:[phone] OFFICE/OUTPA TIENT VISIT, [facility], [address], [place], [place], [address], [place] tel:[phone] [facility] headache1 (chief complaint) CAD1 (chief complaint) COPD1 (chief complaint) HLP (chief complaint) HeadacheHyperlipide miaCOPDArterioscler osis of um[place] tribe coronary artery w/o angina pectoris 7 [address], [place], [place], [address] , [place]. tel:[phone] Referring Provider: [address], [place], [place], [address]. tel:[phone] PREV VISIT, EST, AGE 40-64 [facility], [address], [place], [place], [address], [place] tel:[phone] [facility] PHysical (chief complaint) Encounter for general adult medical exam w abnormal findingsOther migraine, not intractable, without status migrainosusHyperlip idemiaGeneralized Anxiety Disorder 0 7 Blancas Brad. [address], [place], [place], [address] , [place]. tel:[phone] Referring Provider: Bessie Willams [address], [place], [place], [address]. tel:[phone] OFFICE/OUTPA TIENT VISIT, [facility], [address], [place], [place], [address], [place] tel:[phone] [facility] tobacco1 (chief complaint) headache1 (chief complaint) Beatty (chief complaint) Beatty's esophagus without dysplasiaHeadacheAb normal weight lossTobacco use 7 Yonny Cameron [address], [place], [place], [address] , [place]. tel:[phone] Referring Provider: Bessie Willams [facility] [address], [place], [place], [address]. tel:[phone] OFFICE/OUTPA TIENT VISIT, [facility], [address], [place], [place], [address], [place] tel:[phone] [facility] HLP (chief complaint) SOB (chief complaint) Barrett1 (chief complaint) weight loss1 (chief complaint) HyperlipidemiaBarre tt's esophagus without dysplasiaGeneralize d Anxiety DisorderAbnormal weight loss 7 [address], [place], [place], [address] , [place]. tel:[phone] OFFICE/OUTPA TIENT VISIT, [facility], [address], [place], [place], [address], [place] tel:[phone] [facility] HLP (chief complaint) chest pain1 (chief complaint) hep C (chief complaint) COPD (chief complaint) Beatty (chief complaint) anxiety1 (chief complaint) HyperlipidemiaHeada cheGeneralized Anxiety DisorderEncounter for screening for other viral diseases Jan- 7 [address], [place], [place], [address] , [place]. tel:[phone] Referring Provider: Bessie Willams [address], [place], [place], [address]. tel:[phone] OFFICE/OUTPA TIENT VISIT, [facility], [address], [place], [place], [address], [place] tel:[phone] [facility] chest pain1 (chief complaint) SOB1 (chief complaint) HLP (chief complaint) Barrett1 (chief complaint) headache1 (chief complaint) Shortness of breathHyperlipidemi aBarrett's esophagus without dysplasiaHeadache 7 Yonny Salinas. [address], [address], [place], [place], [address] , [place]. tel:[phone] Referring Provider: [address]ie [address], [place], [place], [address]. tel:[phone] OFFICE/OUTPA TIENT VISIT, [facility], [address], [place], [place], [address], [place] tel:[phone] [facility] Beatty (chief complaint) HLP (chief complaint) tobacco1 (chief complaint) CAD (chief complaint) Arteriosclerosis of [place] coronary artery w/o angina pectorisBarrett's esophagus without dysplasiaHyperlipid emiaHyperglycemia 7 Yonny Salinas. [address], [address], [place], [place], [address] , [place]. [phone] Referring Provider: Bessie Willams [address], [place], [place], [address]. tel:[phone] OFFICE/OUTPA TIENT VISIT, [facility], [address], [place], [place], [address], [place] tel:[phone] [facility] GERD1 (chief complaint) headache1 (chief complaint) HLP (chief complaint) tobacco1 (chief complaint) HeadacheHyperlipide miaBarrett's esophagus without dysplasiaTobacco use 7 Yonny Salinas. [address], [place], [place], [address] , [place]. tel:[phone] Referring Provider: Bessie Willams [address], [place], [place], [address]. tel:[phone] OFFICE/OUTPA TIENT VISIT, [facility], [address], [place], [place], [address], tel:[phone] [facility] headache1 (chief complaint) back pain1 (chief complaint) Beatty (chief complaint) obesity1 (chief complaint) LumbagoBarrett's esophagus without dysplasiaHeadacheBo dy mass index (BMI) 45.0-49.9, adult 6 Yonny Salinas. [address], [address], [place], [place], [address] , [place]. tel:[phone] Referring Provider: Bessie Willams [address], [place], [place], [address]. tel:[phone] OFFICE/OUTPA TIENT VISIT, [facility], [address] [place], [address], [place] tel:[phone] [facility] Beatty (chief complaint) HLP (chief complaint) headache1 (chief complaint) obesity1 (chief complaint) HyperlipidemiaBarre tt's esophagus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
--- OUTSIDE RECORDS SUMMARY | 2025-05-11 12:07 | XMS_ITS | Continuity of Care Document ---
Author Organization [facility] Address [address] [place] [address] [place] [address] Phone Care Team Providers Care Hat Finisher Name Role Phone Brad Blancas MD Unavailable Unavailable Allergies, Adverse Reactions, Alerts Substance Reaction Status Criticality NSAIDS (Non-Steroidal Anti-Inflammatory Drug) Active No Information Penicillins Active No Information Medications Medication Instructions Dosage Effective Dates (start - stop) Status Comments buspirone 10 mg tablet take 1 tablet by oral route 2 times every day 10 MG - Active hydrocodone 10 mg-acetaminophen 325 mg tablet take 1 by Oral route 3 times every day 1 - Active Singulair 10 mg tablet take 1 tablet by oral route every day in the evening 10 MG - Active Mounjaro 15 mg/0.5 mL subcutaneous pen injector inject (15MG) by subcutaneous route every week 15 MG - Active prednisone 20 mg tablet take 3 Tablet by oral route every day 60 MG - Active Imitrex 50 mg tablet take 1 tablet by oral route as needed 50 MG - Active take one orally at onset of headache, may repeat x one in two hours max 2/24 hours Topamax 100 mg tablet take 1 Tablet by oral route 2 times every day 100 MG - Active Vitamin D2 1,250 mcg (50,000 unit) capsule take one capsule orally once per week - Active Symbicort 160 mcg-4.5 mcg/actuation HFA [...] route every day 20 MG - Active Lasix 20 mg tablet take 1 tablet by oral route every day 20 MG - Active oxybutynin chloride 5 mg tablet take 1 tablet by oral route 2 times every day 5 MG - Active omeprazole 20 mg tablet,delayed [...] Diagnoses Date Provider Providers Copied on Encounter [facility], [address] [place], [place], [address], [place] tel:[phone] [facility] No Information Taryn Salinas. [address] [place], [place], [address] , [place]. tel:[phone] OFFICE/OUTPA TIENT VISIT, [facility], [address] [place], [place], [address], [place] tel:[phone] [facility] headache1 (chief complaint) asthma1 (chief complaint) DM (chief complaint) facial numbness1 (chief complaint) aniety1 (chief complaint) Migraine w/o aura, not intractable, w/o status migrainosusMild intermittent asthma, uncomplicatedAtypic al facial painType 2 diabetes mellitus without complicationsAbnorm al weight lossGeneralized Anxiety Disorder 5 Yonny Salinas. [address], [place], [place], [address] , [place]. tel:[phone] [facility], [address] [place], [address], [place] tel:[phone] [facility] No Information 5 Yonny Salinas. [address], [place], [place], [address] , [place]. tel:[phone] PREV VISIT, EST, 65 & OVER [facility], [address], [place], [place], [address], [place] tel:[phone] [facility] physical (chief complaint) Encounter for general adult medical exam w abnormal findingsMild intermittent asthma, uncomplicatedType 2 diabetes mellitus without complicationsGenera lized Anxiety DisorderMixed hyperlipidemiaBarre tt's esophagus without dysplasiaMigraine w/o aura, not intractable, w/o status migrainosusDiastoli c heart failureBorderline osteopenia 5 Yonny Salinas. [address], [place], [place], [address] , [place]. tel:[phone] OFFICE/OUTPA TIENT VISIT, EST [facility], [address] [place], [address], [place] tel:[phone] [facility] COPD1 (chief complaint) HLP (chief complaint) rib (chief complaint) cough1 (chief complaint) anxiety1 (chief complaint) DM (chief complaint) Centrilobular emphysemaType 2 diabetes mellitus without complicationsGenera lized Anxiety DisorderMixed hyperlipidemiaAcute bronchitis 5 Yonny Salinas. [address], [place], [place], [address] , [place]. tel:[phone] OFFICE/OUTPA TIENT VISIT, [facility], [address], [place], [place], [address], [place] tel:[phone] [facility] chest pain1 (chief complaint) Anterior chest-wall pain 5 Blancas Brad. [address], [place], [place], [address] , [place]. tel:[phone] OFFICE/OUTPA TIENT VISIT, [facility], [address], [place], [place], [address], [place] tel:[phone] [facility] Fall (chief complaint) DM (chief complaint) TN (chief complaint) Trigeminal neuralgiaType 2 diabetes mellitus without complicationsAbnorm alities of gait 4 Yonny Salinas. [address], [place], [place], [address] , [place]. tel:[phone] OFFICE/OUTPA TIENT VISIT, [facility], [address], [place], [place], [address], [place] tel:[phone] [facility] facial pain1 (chief complaint) Trigeminal neuralgia 4 Blancas Brad. [address], [place], [place], [address] , [place]. tel:[phone] OFFICE/OUTPA TIENT VISIT, [facility], [address], [place], [place], [address], [place] tel:[phone] [facility] DM (chief complaint) thrombi1 (chief complaint) COPD1 (chief complaint) Type 2 diabetes mellitus without complicationsEmboli sm and thrombosis of superficial veins of left lower extremityCentrilobu lar emphysemaDiastolic heart failure 4 Blancas Brad. [address], [place], [place], [address] , [place]. tel:[phone] OFFICE/OUTPA TIENT VISIT, [facility], [address], [place], [place], [address], [place] tel:[phone] [facility] DM (chief complaint) barrett1 (chief complaint) Abnormal weight lossType 2 diabetes mellitus without complicationsEncntr screen mammogram for malignant neoplasm of breastBarrett's esophagus without dysplasia 4 Blancas Brad. [address], [place], [place], [address] , [place]. tel:[phone] OFFICE/OUTPA TIENT VISIT, [facility], [address], [place], [place], [address], [place] tel:[phone] [facility] DM (chief complaint) Type 2 diabetes mellitus without complicationsAbnorm al weight loss 4 Yonny Salinas. [address], [place], [place], [address] , [place]. tel:[phone] OFFICE/OUTPA TIENT VISIT, [facility], [address], [place], [place], [address], [place] tel:[phone] [facility] DM (chief complaint) asthma1 (chief complaint) HTN (chief complaint) Abnormal weight lossType 2 diabetes mellitus without complicationsEssent ial (primary) hypertensionMild intermittent asthma, uncomplicated 4 Yonny Salinas. [address], [place], [place], [address] , [place]. tel:[phone] OFFICE/OUTPA TIENT VISIT, [facility], [address], [place], [place], [address], [place] tel:[phone] [facility] DM (chief complaint) Barrett1 (chief complaint) HLP (chief complaint) Beatty's esophagus without dysplasiaType 2 diabetes mellitus without complicationsAbnorm al weight lossDiverticulosis of intestine without abscess without hemorrhageMixed hyperlipidemia 4 Yonny Brad. [address], [place], [place], [address] , [place]. tel:[phone] OFFICE/OUTPA TIENT VISIT, [facility], [address], [place], [address], [place] tel:[phone] [facility] HLP (chief complaint) Pre-DM (chief complaint) osteopenia 1 (chief complaint) barrett1 (chief complaint) anxiety1 (chief complaint) headache1 (chief complaint) Mixed hyperlipidemiaHyper glycemiaOther specified disorder of bone densityPersonal history of nicotine dependenceEncntr screen mammogram for malignant neoplasm of breastMigraine w/o aura, not intractable, w/o status migrainosusGenerali zed Anxiety Disorder Jan- 4 Yonny Salinas. [address], [place], [place], [address] , [place]. tel:[phone] PREV VISIT, EST, 65 & OVER [facility], [address], [place], [place], [address], [place] tel:[phone] [facility] physical (chief complaint) Encounter for general adult medical exam w abnormal findingsFatty liverCentrilobular emphysemaBarrett's esophagus without dysplasiaMigraine w/o aura, not intractable, w/o status migrainosusMixed hyperlipidemiaOther specified disorder of bone densityGeneralized Anxiety DisorderHyperglycem ia Dec- 4 Yonny Salinas. [address], [place], [place], [address] , [place]. [phone] OFFICE/OUTPA TIENT VISIT, [facility], [address] [place], [address], [place] tel:[phone] [facility] hand pain1 (chief complaint) Lesion of ulnar nerve of right armPalmar fascial fibromatosis [Dupuytren] 3 Yonny Salinas. [address], [place], [place], [address] , [place]. tel:[phone] OFFICE/OUTPA TIENT VISIT, [facility], [address], [place], [place], [address], [place] tel:[phone] [facility] osteopenia 1 (chief complaint) fatty liver1 (chief complaint) CAD (chief complaint) emphysema1 (chief complaint) Barrett1 (chief complaint) Centrilobular emphysemaBarrett's esophagus without dysplasiaOther specified disorder of bone densityFatty liverArterioscleros is of catawba coronary artery without angina pectoris 3 Yonny Cameron [address], [place], [place], [address] , [place]. tel:[phone] OFFICE/OUTPA TIENT VISIT, [facility], [address], [place], [place], [address], [place] tel:[phone] [facility] Barrett1 (chief complaint) migraine1 (chief complaint) anxiety1 (chief complaint) Migraine w/o aura, not intractable, w/o status migrainosusGenerali zed Anxiety DisorderBarrett's esophagus without dysplasia 3 Yonny Cameron [address], [place], [place], [address] , [place]. tel:[phone] OFFICE/OUTPA TIENT VISIT, [facility], [address], [place], [place], [address], [place] tel:[phone] [facility] anxiety1 (chief complaint) HLp (chief complaint) Barrett1 (chief complaint) migraine1 (chief complaint) Baetty's esophagus without dysplasiaGeneralize d Anxiety DisorderMixed hyperlipidemiaMigra ine w/o aura, not intractable, w/o status migrainosusChronic pain syndrome 3 Yonny Cameron [address], [place], [place], [address] , [place]. [phone] OFFICE/OUTPA TIENT VISIT, [facility], [address], [place], [place], [address], [place] tel:[phone] [facility] COPD1 (chief complaint) bone1 (chief complaint) sleep apnea1 (chief complaint) Tobacco useCentrilobular emphysemaOther specified disorder of bone densityPrimary central sleep apneaEncounter for other screening for malignant neoplasm of breast 3 Yonny Cameron [address], [place], [place], [address] , [place]. [phone] OFFICE/OUTPA TIENT VISIT, EST [facility], [address], [place], [place], [address], [place] tel:[phone] [facility] sick1 (chief complaint) Viral infection 3 Yonny Salinas. [address], [place], [place], [address] , [place]. [phone] PREV VISIT, EST, AGE 40-64 [facility], [address], [place], [place], [address], [place] [phone] [facility] physical (chief complaint) Beatty's esophagus without dysplasiaMixed hyperlipidemiaChron ic pain syndromeHyperglycem iaEncounter for general adult medical exam w abnormal findingsGeneralized Anxiety Disorder Jun-0 2 Yonny Salinas. [address], [place], [place], [address] , [place]. tel:[phone] OFFICE/OUTPA TIENT VISIT, EST [facility], [address], [place], [place], [address], [place] tel:[phone] [facility] migraine1 (chief complaint) HLP (chief complaint) anxiety1 (chief complaint) barrett1 (chief complaint) MigraineBarrett's esophagus without dysplasiaHyperlipid emiaGeneralized Anxiety Disorder 2 Yonny Salinas. [address], [place], [place], [address] , [place]. tel:[phone] OFFICE/OUTPA TIENT VISIT, EST [facility], [address], [place], [place], [address], [place] tel:[phone] [facility] asthma1 (chief complaint) CAD (chief complaint) OAB (chief complaint) knee pain1 (chief complaint) AsthmaOveractive bladderPeripheral vascular disease, unspecifiedOsteoart hritis of knee 1 Yonny Salinas. [address], [place], [place], [address] , [place]. tel:[phone] OFFICE/OUTPA TIENT VISIT, [facility], [address], [place], [place], [address], [place] tel:[phone] [facility] headache1 (chief complaint) HLP (chief complaint) COPD1 (chief complaint) Barrett1 (chief complaint) anxiety1 (chief complaint) glucose1 (chief complaint) Beatty's esophagus without dysplasiaHyperlipid emiaVenous insufficiencyEmphys emaMigraineGenerali zed Anxiety DisorderVitamin D deficiency, unspecifiedHypergly cemiaEncounter for oth screening for malignant neoplasm of breast Jun-0 1 Yonny Cameron [address], [place], [place], [address] , [place]. tel: [phone] OFFICE/OUTPA TIENT VISIT, [facility], [address], [place], [place], [address], [place] tel:[phone] [facility] fatty liver1 (chief complaint) headache1 (chief complaint) barrett1 (chief complaint) sinus1 (chief complaint) chronic pain1 (chief complaint) MigraineOther spondylosis, cervical regionBarrett's esophagus without dysplasiaHyperlipid emiaFatty liverAcute sinusitisEncounter for oth screening for malignant neoplasm of breast Dec- 1 Yonny Cameron [address], [place], [place], [address] , [place]. tel: [phone] OFFICE/OUTPA TIENT VISIT, [facility], [address] [place], [place], [address], [place] tel:[phone] [facility] anxiety1 (chief complaint) headache1 (chief complaint) chronic pain1 (chief complaint) Other spondylosis, cervical regionGeneralized Anxiety DisorderMigraine 0 Yonny Cameron [address], [place], [place], [address] , [place]. tel: [phone] Referring Provider: Bessie Willams [address], [place], [place], [address]. tel:[phone] OFFICE/OUTPA TIENT VISIT, [facility], [address], [place], [place], [address], [place] tel:[phone] [facility] neck pain1 (chief complaint) HLP (chief complaint) headache1 (chief complaint) barrett1 (chief complaint) Other spondylosis, cervical regionHyperlipidemi aHeadacheBarrett's esophagus without dysplasia Jun- 0 Yonny Salinas. [address], [place], [place], [address] , [place]. tel:[phone] Referring Provider: Brad Blancas, [address], [place], [place], [address]. tel:[phone] OFFICE/OUTPA TIENT VISIT, [facility], [address], [place], [place], [address], [place] tel:[phone] [facility] chest pain1 (chief complaint) Anterior chest-wall pain Jun- 0 Yonny Salinas. [address], [place], [place], [address] , [place]. tel:[phone] Referring Provider: Brad Blancas [address], [place], [place], [address]. tel:[phone] OFFICE/OUTPA TIENT VISIT, [facility], [address], [place], [place], [address], [place] tel:[phone] [facility] cellulitis 1 (chief complaint) sick (chief complaint) Stasis dermatitisUpper respiratory infection May-0 0 Yonny Salinas. [address], [place], [place], [address] , [place]. tel:[phone] Referring Provider: Bessie Willams [address], [place], [place], [address]. tel:[phone] OFFICE/OUTPA TIENT VISIT, [facility], [address], [place], [place], [address], [place] tel:[phone] [facility] rash1 (chief complaint) cough1 (chief complaint) Cellulitis of right lower limbAcute bronchitis [address], [place], [place], [address] , [place]. tel:[phone] Referring Provider: Bessie Willams [address], [place], [place], [address]. tel:[phone] OFFICE/OUTPA TIENT VISIT, EST [facility], [address], [place], [place], [address], [place] tel:[phone] [facility] UTI1 (chief complaint) Urinary tract infectionEncounter for oth screening for malignant neoplasm of breast 0 Yonny Cameron [address], [place], [place], [address] , [place]. tel:[phone] Referring Provider: Bessie Willams [address], [place], [place], [address]. tel:[phone] PREV VISIT, EST, AGE 40-64 [facility], [address], [place], [place], [address], [place] tel:[phone] [facility] physical (chief complaint) Encounter for general adult medical exam w abnormal findingsHeadacheHyp erlipidemiaBarrett' s esophagus without dysplasiaSleep apneaCOPD [address], [place], [place], [address] , [place]. tel:[phone] Referring Provider: Bessie Willams [address], [place], [place], [address]. tel:[phone] OFFICE/OUTPA TIENT VISIT, EST [facility], [address], [place], [place], [address], [place] tel:[phone] [facility] HLP (chief complaint) proteinuri a1 (chief complaint) D (chief complaint) migraine1 (chief complaint) GERD1 (chief complaint) Beatty's esophagus without dysplasiaHeadachePr oteinuriaVitamin D deficiency, unspecifiedHyperlip idemia 201 9 Yonny Cameron [address], [place], [place], [address] , [place]. tel:[phone] Referring Provider: Bessie Willams [address], [place], [place], [address]. tel:[phone] OFFICE/OUTPA TIENT VISIT, EST [facility], [address], [place], [place], [address], [place] tel:[phone] [facility] HLP (chief complaint) anxiety1 (chief complaint) GERD1 (chief complaint) headache1 (chief complaint) Encounter for oth screening for malignant neoplasm of breastSleep apneaHyperlipidemia Beatty's esophagus without dysplasiaHeadacheGe neralized Anxiety Disorder 9 Yonny Cameron [address], [place], [place], [address] , [place]. tel:[phone] Referring Provider: [address], [place], [place], [address]. tel:[phone] PREV VISIT, EST, AGE 40-64 [facility], [address], [place], [place], [address], [place] tel:[phone] [facility] PHysical (chief complaint) Body mass index (BMI) 40.0-44.9, adultEncounter for general adult medical exam w abnormal findingsLumbago with sciatica, left sideHyperlipidemiaC OPDVenous insufficiency 9 Yonny Cameron [address], [place], [place], [address] , [place]. tel:[phone] Referring Provider: Bessie Willams [address], [place], [place], [address]. tel:[phone] OFFICE/OUTPA TIENT VISIT, EST [facility], [address] [place], [address], [place] tel:[phone] [facility] COPD1 (chief complaint) cough1 (chief complaint) HLP (chief complaint) chest pain1 (chief complaint) HyperlipidemiaCOPDC hest painSleep apneaBody mass index (BMI) 45.0-49.9, adult [address], [place], [place], [address] , [place]. tel:[phone] Referring Provider: Bessie Willams [address], [place], [place], [address]. tel:[phone] OFFICE/OUTPA TIENT VISIT, [facility], [address], [place], [place], [address], [place] tel:[phone] [facility] physical (chief complaint) Body mass index (BMI) 45.0-49.9, adultBarrett's esophagus without dysplasiaHyperlipid emiaCOPDEncounter for general adult medical exam w abnormal findingsHeadache 8 Yonny Cameron [address], [place], [place], [address] , [place]. tel:[phone] Referring Provider: Bessie Willams [address], [place], [place], [address]. tel:[phone] OFFICE/OUTPA TIENT VISIT, [facility], [address], [place], [place], [address], [place] tel:[phone] [facility] COPD1 (chief complaint) HLP (chief complaint) tobacco (chief complaint) foot pain1 (chief complaint) Body mass index (BMI) 40.0-44.9, adultPain in footHyperlipidemiaT obacco useCOPD [address], [place], [place], [address] , [place]. tel:[phone] Referring Provider: Bessie Willams [address], [place], [place], [address]. tel:[phone] OFFICE/OUTPA TIENT VISIT, [facility], [address], [place], [place], [address], [place] tel:[phone] [facility] anxiety1 (chief complaint) HLP (chief complaint) headache1 (chief complaint) COPD1 (chief complaint) Body mass index (BMI) 40.0-44.9, adultHyperlipidemia COPDHeadacheBarrett 's esophagus without dysplasiaGeneralize d Anxiety Disorder 8 Yonny Cameron [address], [place], [place], [address] , [place]. tel:[phone] Referring Provider: [address], [place], [place], [address]. tel:[phone] OFFICE/OUTPA TIENT VISIT, [facility], [address], [place], [place], [address], [place] tel:[phone] [facility] sick (chief complaint) tobacco (chief complaint) headache1 (chief complaint) Tobacco useHeadacheAcute upper respiratory infection, unspecifiedConjunct ivitis 8 Yonny Cameron [address], [place], [place], [address] , [place]. [phone] Referring Provider: [address], [place], [place], [address]. tel:[phone] OFFICE/OUTPA TIENT VISIT, [facility], [address], [place], [place], [address], [place] tel:[phone] [facility] headache1 (chief complaint) CAD1 (chief complaint) COPD1 (chief complaint) HLP (chief complaint) HeadacheHyperlipide miaCOPDArterioscler osis of catawba coronary artery w/o angina pectoris [address], [place], [place], [address] , [place]. tel:[phone] Referring Provider: [address], [place], [place], [address]. tel:[phone] PREV VISIT, EST, AGE 40-64 [facility], [address], [place], [place], [address], [place] tel:[phone] [facility] PHysical (chief complaint) Encounter for general adult medical exam w abnormal findingsOther migraine, not intractable, without status migrainosusHyperlip idemiaGeneralized Anxiety Disorder 0 7 Blancas Brad. [address], [place], [place], [address] , [place]. tel:[phone] Referring Provider: Bessie Willams [address], [place], [place], [address]. tel:[phone] OFFICE/OUTPA TIENT VISIT, [facility], [address], [place], [place], [address], [place] tel:[phone] [facility] tobacco1 (chief complaint) headache1 (chief complaint) Beatty (chief complaint) Beatty's esophagus without dysplasiaHeadacheAb normal weight lossTobacco use 7 Yonny Cameron [address], [place], [place], [address] , [place]. tel:[phone] Referring Provider: Bessie Willams [facility] A, [place], [place], [address]. tel:[phone] OFFICE/OUTPA TIENT VISIT, [facility], [address], [place], [place], [address], [place] tel:[phone] [facility] HLP (chief complaint) SOB (chief complaint) Barrett1 (chief complaint) weight loss1 (chief complaint) HyperlipidemiaBarre tt's esophagus without dysplasiaGeneralize d Anxiety DisorderAbnormal weight loss 7 [address], [place], [place], [address] , [place]. tel:[phone] OFFICE/OUTPA TIENT VISIT, [facility], [address], [place], [place], [address], [place] tel:[phone] [facility] HLP (chief complaint) chest pain1 (chief complaint) hep C (chief complaint) COPD (chief complaint) Beatty (chief complaint) anxiety1 (chief complaint) HyperlipidemiaHeada cheGeneralized Anxiety DisorderEncounter for screening for other viral diseases Jan- 7 [address], [place], [place], [address] , [place]. tel:[phone] Referring Provider: [address], [place], [place], [address]. tel:[phone] OFFICE/OUTPA TIENT VISIT, [facility] Center, [address], [place], [place], [address], [place] tel:[phone] [facility] chest pain1 (chief complaint) SOB1 (chief complaint) HLP (chief complaint) Barrett1 (chief complaint) headache1 (chief complaint) Shortness of breathHyperlipidemi aBarrett's esophagus without dysplasiaHeadache 7 Yonny Salinas. [address], [place], [place], [address] , [place]. tel:[phone] Referring Provider: Bessie [address], [place], [place], [address]. tel:[phone] OFFICE/OUTPA TIENT VISIT, [facility], [address], [place], [place], [address], [place] tel:[phone] [facility] Beatty (chief complaint) HLP (chief complaint) tobacco1 (chief complaint) CAD (chief complaint) Arteriosclerosis of catawba coronary artery w/o angina pectorisBarrett's esophagus without dysplasiaHyperlipid emiaHyperglycemia 7 Yonny Salinas. [address], [place], [place], [address] , [place]. [phone] Referring Provider: Bessie Willams [address], [place], [place], [address]. tel:[phone] OFFICE/OUTPA TIENT VISIT, [facility], [address], [place], [place], [address], [place] tel:[phone] [facility] GERD1 (chief complaint) headache1 (chief complaint) HLP (chief complaint) tobacco1 (chief complaint) HeadacheHyperlipide miaBarrett's esophagus without dysplasiaTobacco use 7 Yonny Salinas. [address], [place], [place], [address] , [place]. tel:[phone] Referring Provider: Bessie Willams [address], [place], [place], [address]. tel:[phone] OFFICE/OUTPA TIENT VISIT, [facility], [address], [place], [place], [address], tel:[phone] [facility] headache1 (chief complaint) back pain1 (chief complaint) Beatty (chief complaint) obesity1 (chief complaint) LumbagoBarrett's esophagus without dysplasiaHeadacheBo dy mass index (BMI) 45.0-49.9, adult 6 Yonny Salinas. [address], [place], [place], [address] , [place]. tel:[phone] Referring Provider: Bessie Willams [address], [place], [place], [address]. tel:[phone] OFFICE/OUTPA TIENT VISIT, [facility], [address] [place], [address], [place] tel:[phone] [facility] Beatty (chief complaint) HLP (chief complaint) headache1 (chief complaint) obesity1 (chief complaint) HyperlipidemiaBarre tt's esophagus without dysplasiaEssential (primary) hypertensionHeadach e 6 Yonny Salinas. [address], [place], [place], [address] , [place]. tel:[phone] Referring Provider: Bessei Willams [address], [place], [place], [address]. tel:[phone] OFFICE/OUTPA TIENT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
[2025-06-17] VITALS (14 sets, daily range): BP systolic 110–158; BP diastolic 72–97; PULSE 70–85; RESP 12–26; TEMP 36.4–37.2; O2SAT 95–100
--- OUTSIDE RECORDS SUMMARY | 2025-06-17 00:53 | XMS_ITS | Patient Health Record ---
Author Organization [facility] Address [address] [place] [address] [place] [address] Care Team Providers Care Executive Assistant To General Counsel Name Role Phone PABLITO HOFFMAN MD Primary Care Provider Layo Cooley Unavailable [phone] ALLERGIES Allergen (clinical drug ingredient) Drug/Non Drug [...] calories (E66.01) Active confirmed Morbid obesity (disorder) (822115122) Problem Bilateral primary osteoarthritis of knee (M17.0) Active confirmed Osteoarthritis of knee (065601945) Problem Pain in right hip (M25.551) Active confirmed Arthralgia of t he pelvic region and thigh (632816537) Problem Pain in unspecified knee (M25.569) Active confirmed Pain of knee region (finding) (3664135290) Problem Sacroiliitis, not elsewhere classified (M46.1) Active confirmed Solitary sacroiliitis (026415609) Problem Spondylosis without myelopathy or radiculopathy, lumbar region (M47.816) Active confirmed Lumbosacral spondylosis without myelopathy (59976072) Problem Spondylosis without myelopathy or radiculopathy, lumbosacral region (M47.817) Active confirmed Lumbosacral spondylosis without myelopathy (disorder) (37584453) Problem Other intervertebral disc degeneration, lumbar region (M51.36) Active confirmed Degeneration of lumbar intervertebral disc (78987836) Problem Radiculopathy, cervical region (M54.12) Active confirmed Cervical radiculopathy (57773802) Problem Radiculopathy, lumbar region (M54.16) Active confirmed Lumbar radiculopathy (667409420) Problem Osseous stenosis of neural canal of lumbar region (M99.33) Active confirmed Spinal stenosis of lumbar region (02066919) Problem long term (current) use of opiate analgesic (Z79.891) Active confirmed High risk drug monitoring status (395841195) Problem Other intermediate project manager (current) drug therapy (Z79.899) Active confirmed Long-term current use of drug therapy (342531753) Problem Spinal stenosis, lumbar region with neurogenic claudication (M48.062) Active confirmed Neurogenic claudication (071429588) PLAN OF TREATMENT Pending Test Test Name Order Date Chem 7 (BUN, Cr, Lytes, Glu) 11/28/2021 MRI : Lumbar Spine without contrast (221 39) 08/15/2021 XRAY right shoulder 11/28/2021 [facility] Results 03/27/2022 Insurance Providers Payer Name Payer Address Payer Phone Subscriber Number Group Number Insured Name Patient Relationship to Insured Coverage Start Date Coverage End Date [facility] MEDICARE ADVANTAGE (PPO) [address] [address] [place] [phone] [id number] TRUDI BARRETT Self - patient is the insured Medicaid [place] [address] [address] [place] [address] [phone] [id number] TRUDI BARRETT Self - patient is the insured MEDICAL (GENERAL) HISTORY Medical History History ICD Code GERD Type 2 Diabetes Mellitus Essential Hypertension Asthma Osteo Arthritis Surgical History Surgery Date(Month/Year) Right Shoulder Arthroplasty Right TKA 09/12/2021
--- OUTSIDE RECORDS SUMMARY | 2025-06-17 00:53 | XMS_ITS | Clinical Summary ---
Author Organization [facility] Address [address] [place] [address] Care Team Providers Care Medical Records Analyst Name Role Phone Brad Blancas MD Primary Care Provider [phone] Elkin Bautista MD Unavailable Babatunde Valdez RN Unavailable Source Comments [facility],non-owned Affiliates and Associated Physician Practices is amultiple site organization consisting of ambulatory clinics and hospital sitesin [place], [place], [place] and [place]. This disclosure is being madepursuant to the Care Everywhere program and may not contain all information available regarding this patient. Last updated 18.[facility] Allergies Active Allergy Reactions Criticality Noted Date Comments Naproxen Urticaria 03/16/2015 Nsaids Nausea and/or Vomiting Low 07/15/2016 Penicillins Rash Medium 02/20/2015 Aminobenzoate Rash,Itching Medium 02/20/2015 Medications * Be aware that medications may not be up to date on this document. Alwaysverify current medications with the patient. omeprazole (PRILOSEC) 20 MG capsule Take 20 [...] MG capsule 100 mg 2 times daily 8 Active albuterol (PROVENTIL;VENT WES) (2.5 MG/3ML) 0.083% nebulizer solution USE 3 ML IN NEBULIZER THREE TIMES DAILY DIRECTED 9 Active cyclobenzaprine (FLEXERIL) 10 MG tablet Take by mouth 2 times daily 0 Active fluticasone propionate (FLONASE) 50 MCG/ACT nasal spray fluticasone propionate 50 mcg/actuation nasal spray,suspension USE 2 SPRAYS IN EACH NOSTRIL BID FOR 7 DAYS. Active furosemide (LASIX) 20 MG tablet Take by mouth once daily 0 Active HYDROcodone-glynn taminophen (NORCO) 10-325 MG tablet hydrocodone 10 mg-acetaminophen 325 mg tablet Active rosuvastatin (CRESTOR) 40 MG tablet Take by mouth once daily 0 Active SUMAtriptan (IMITREX) 50 MG tablet as needed 0 Active oxybutynin CR 24hr (DITROPAN-XL) 10 MG tablet Take 10 mg by mouth once daily 0 Active Active Problems Problem Noted Date Diagnosed Date Smoker 06/23/2016 Status post shoulder replacement, right 08/14/20 15 Overview (09/08/2018): Overview: ICD-10 update Degenerative arthritis of right shoulder region 03/16/2015 Glenohumeral arthritis, right 02/20/2015 Immunizations Immunization Administration Dates Next Due INFLUENZA VACCINE 08/05/2020 [...] drink = 0.6 oz pur e alcohol) Comments No Sex and Gender Information Value Date Recorded Sex Assigned at Not on file Legal Sex Female 9:36 AM CDT Gender Identity Not on file Sexual Orientation [...] 104.3 kg (230 lb) 10/02/2020 8:59 AM [facility] [employer] Height 154.9 cm (5' 1) 10/02/2020 8:59 AM [employer] Body Mass Index 43.46 10/02/2020 8:59 AM [employer] Plan of Treatment Health Maintenance Due Date [...] MEDICARE AWV CALENDAR YEAR 2024 COVID-19 VACCINE ( season) 2025 06/24/2024, 09/30/2021, 01/01/2021, Additional history exists INFLUENZA VACCINE (#1) 2025 , 09/30/2021, 08/05/2020, Additional history exists HEPATITIS B VACCINE Aged Out No longe r eligible based on patient's age to complete this topic HIB VACCINE Aged Out No longer eligi ble based on patient's age to complete this topic HPV VACCINE Aged Out No longer eligi ble based on patient's age to complete this topic MENINGOCOCCAL (Group B) VACCINE SHARED DECISION-MAKING Aged Out No longer eligible based on patient's age to complete this topic MENINGOCOCCAL GROUPS A/C/Y/W VACCINE Aged Out No longer eligible based on patient's age to complete this topic Medical Devices Implanted Type Area House Fellow Device Identifier Shelf Expiration Date Model / Serial / Lot Rogers Peg Xlink 44mm Implanted:Qty: 1 on 03/19/2015 by Jose Polo MD at [facility] Right: Shoulder [employer] 02/02/2020 6 / [id number] Harvey Bone Stout-G Hv 40/20 Implanted:Qty: 1 on 03/19/2015 by Jose Polo MD at [facility] Right: Shoulder [employer] 10/05/2016 [id number] / / [id number] [employer] Porocoat Stem Implanted:Qty: 1 on 03/19/2015 by Jose Polo MD at [facility] Right: Shoulder [employer] 08/05/202410991100-07-14 0 / [id number] [employer] Anatomic Proximal Body Implanted:Qty: 1 on 03/19/2015 by Jose Polo MD at [facility] Right: Shoulder [employer] 09/04/20241099 0 / / [id number] [employer] Eccentric Humeral Head Implanted:Qty: 1 on 03/19/2015 by Jose Polo MD at [facility] Right: Shoulder [employer] 03/05/2024 0 / / [id number] Sys Shld Tot Arthroplst Implanted:Qty: 1 on 03/19/2015 by Jose Polo MD at [facility] [employer] S3 DEPUY / / Procedures Procedure Name Priority Date/Time Associated Diagnosis Comments BASIC METABOLIC PANEL (CALCIUM TOTAL) AM Draw 03/20/2015 3:49 AM CDT from Last 3 Months or Most Recently Relevant to Health Maintenance Results * (ABNORMAL) BASIC METABOLIC PANEL (CALCIUM TOTAL) (03/20/2015 3:49 AM CDT) [facility] Glucose 120(H) 74 - 106 mg/dL [...] - 1.30 mg/dL 03/20/2015 5:44 AM CDT [facility] eGFR by MDRD >60 >60 mL/min/1.7 3m2 03/20/2015 5:44 AM CDT [facility] eGFR by MDRD >60 >60 mL/min/1.7 3m2 03/20/2015 5:44 AM CDT [facility] Blood BLOOD SPECIMEN / Unknown Lab Venipuncture / Unknown 03/20/2015 3:49 AM CDT 03/20/2015 5:15 AM CDT Hira Esqueda MD LAB - CHEMISTRY ORDERABLES Julita mehta Result [facility] [address] [place] [address] from Last 3 Months or Most Recently Relevant to Health Maintenance Insurance [facility] [place] [address] MEDICAID - [facility] MEDICAID - [place] [facility] MANAGED MEDICARE ADV Advance Directives * Full Code (Latest Code Status on File) Date Activated Date Inactivated Comments 03/19/2015 9:35 PM 03/20/2015 6:23 PM Care Teams Medical Records Analyst Relationship Specialty Start Date End Date Brad Blancas MD [address] [place] [address] PCP - General Family Medicine 06/23/16 Elkin Bautista MD [address] [place] [address] [address] [place] [address] Internal Medicine 06/23/16 Babatunde Valdez, RN Angle Shearer 03/20/15
--- OUTSIDE RECORDS SUMMARY | 2025-06-17 00:53 | XMS_ITS | Clinical Summary ---
Author Organization [facility] Medical Office Building B Address [address] [place] [address] Care Team Providers Care Diesel Engine Erector Name Role Phone Brad Blancas MD Primary Care Provider [phone] Gadiel Wadsworth Unavailable [phone] Rebel Guajardo MD Unavailable Allergies Active Allergy Reactions Criticality Noted Date Comments Aminobenzoic Acid Itching,Rash Medium 02/20/2015 Atorvastatin Muscle pain High 02/10/2018 Celecoxib Hives Medium 01/28/2022 Isosorbide Headache High 01/01/2017 Meloxicam Hives Medium 01/28/2022 Naproxen Hives,Urticaria Medium 03/16/2015 Nsaids (Non-Steroidal Anti-Inflammatory Drug) Nausea & Vomiting,Nausea And Vomiting Low 07/15/2016 Penicillins Rash High 02/20/2015 Medications fluticasone propionate (FLONASE) 50 mcg/actuation nasal spray Administer 2 sprays into each nostril as needed Active nitroglycerin (NITROSTAT) 0.4 mg SL tablet nitroglycerin 0.4 mg sublingual tablet Active rosuvastatin (CRESTOR) 40 mg tablet Take 1 tablet (40 mg total) by mouth daily 05/18/20 20 Active furosemide (LASIX) 20 mg tablet Take by mouth daily 06/14/20 20 Active venlafaxine XR (EFFEXOR-XR) 75 mg 24 hr capsule Take by mouth daily 11/09/19 20 Active SUMAtriptan (IMITREX) 50 mg tablet Take 1 tablet (50 mg total) by mouth once as needed 07/17/20 Active cyclobenzapri ne (FLEXERIL) 10 mg tablet Take by mouth 2 (two) times a day as needed 07/11/20 Active azelastine (ASTELIN) 137 mcg (0.1 %) nasal spray Administer 1 spray into each nostril 2 (two) times a day Use in each nostril as directed Active loratadine (CLARITIN) 10 mg tablet Take 1 tablet (10 mg total) by mouth daily Active cholecalcifer ol (VITAMIN D-3) 5,000 unit capsule Take 1 capsule (5,000 Units total) by mouth daily Active albuterol 1.25 mg/3 mL nebulizer solution Take 3 mL (1.25 mg total) by nebulization every 6 (six) hours as needed for wheezing Active omeprazole (PriLOSEC) 20 mg capsule 01/09/20 22 Active Mounjaro 12.5 mg/0.5 mL pen injector INJECT (12.5MG) BY SUBCUTANEOUS ROUTE EVERY WEEK 06/01/20 24 Active biotin 10,000 mcg capsule Take by mouth daily Active gabapentin (NEURONTIN) 100 mg capsule Take 1 capsule (100 mg total) by mouth 3 (three) times a day As needed Active HYDROcodone-a cetaminophen (NORCO) 10-325 mg per tabletIndicat ions:Pain Take 1 tablet by mouth every 4 (four) hours as needed for pain Active nystatin powder APPLY TO THE AFFECTED AREA(S) BY TOPICAL ROUTE 2 TIMES PER DAY NEEDED 02/14/20 25 Active budesonide-fo rmoteroL (Symbicort) 80-4.5 mcg/actuation inhaler INHALE 2 PUFFS BY MOUTH 2 TIMES A DAY RINSE MOUTH WITH WATER AFTER USE. DO NOT SWALLOW. 30.6 each 06/06/20 25 Active budesonide-fo rmoteroL (SYMBICORT) 80-4.5 mcg/actuation inhaler Inhale 2 puffs 2 (two) times a day Rinse mouth with water after use. Do not swallow. 1 each 08/08/20 24 025 Discontinued Active Problems Problem Noted Date Diagnosed Date Primary osteoarthritis of left knee 04/26/2025 History of total knee arthroplasty, right 2021 [...] lesion 12/19/2016 Atherosclerotic heart diseas e of [place] coronary artery without angina pectoris 12/19/2016 Chronic [...] Encounters Date Type Department Care Team Description 05/03/2025 Telephone [facility] Medical Group Pulmonary at [place] [address] [place] [address] Rudd Lilia [facility] 04/27/2025 Telephone [facility] Orthopedics and Sports Medicine [address] [place] [address] Jose Luis Yin MD Surgical Clearance 04/26/2025 3:45 PM CDT Office Visit [facility] Medical [facility] Orthopedic and Sports Medicine [facility] [place] [address] Jose Luis Yin MD Primary osteoarthritis of left knee (Primary Dx); Patellar tendinitis of right knee from Last 3 Months Immunizations Immunization Administration [...] Used Date Smoking Tobacco: Former Cigarettes 1.5 3.8 1 11/09/2020 - 1968 Smokeless Tobacco: Never [...] on file Legal Sex Female 1:45 AM TIE INSPECTOR Gender Identity Not on file Sexual Orientation Not on file Obstetrics History Last Filed Vital Signs Vital Sign Reading Time Taken Comments Blood Pressure 131/79 04/26/2025 4:44 PM CDT Pulse 54 04/26/2025 4:44 PM CDT Temperature 36.5 C (97.7 F) 11/04/2024 5:03 PM TIE INSPECTOR Respiratory Rate 16 11/05/2024 6:30 AM TIE INSPECTOR Oxygen Saturation 91% 11/05/2024 6:30 AM TIE INSPECTOR Inhaled Oxygen Concentration - - Weight 90.9 kg (200 lb 8 oz) 04/26/2025 4:44 PM CDT Height 154.9 cm (5' 1) 04/26/2025 4:44 PM CDT Body Mass Index 37.88 04/26/2025 4:44 PM CDT Plan of Treatment Health Maintenance Due Date Last Done Comments Breast Cancer Screening-Mammogram 1958 Colon Cancer Screening-Colonoscopy 1960 Hepatitis C Screening 1960 Osteoporosis Screening-Bone Density Scan 1958 Hepatitis B Screening 1976 DTaP/Tdap/Td Vaccine (1 - Tdap) 08/08/2014 4 Depression Screening 08/20/2022 08/20/2021, 02/28/2021, 07/19/2020 Fall Risk Assessment 09/17/2022 09/17/2021 Well Visit 65+ 2023 Covid-19 Vaccine (2023-2 5 season) 2025 06/24/2024, 09/30/2021, 01/01/2021, Additional history exists Influenza Vaccine (#1) 2025 , 06/22/2024, 09/30/2021, Additional history exists Zoster Vaccine Completed 11/15/2021, 06/11/2020 Pneumococcal vaccine 65+ Completed 024, 06/23/2016, 2014 Medical Devices Implanted Type Area Destination Specialist Device Identifier Shelf Expiration Date Model / Serial / Lot [employer]uy [employer] [id number] Attune Cruciate Retain Cementless Knee Right 4 Component Femoral - [id number] Implanted:Qty: 1 on 09/12/2021 by Jose Luis Yin MD at [facility] Right: Knee [employer] 10/04/2030 [id number] / / [id number] [employer] [id number] Attune 7mm Cruciate Retaining Rotate Platform Knee 4 Insert - [id number] Implanted:Qty: 1 on 09/12/2021 by Jose Luis Yin MD at [facility] Right: Knee [employer] 11/04/2024 [id number] / / [id number] [employer] [id number] Attune Cementless Rotate Platform Knee 5 Baseplate Tibial - [id number] Implanted:Qty: 1 on 09/12/2021 by Jose Luis Yin MD at [facility] Right: Knee [employer] 04/03/2031 [id number] / / 04/03/2031 Insurance [facility] Address: [address] [address] [place] [address] IDPA [facility] Address: [address] [address] [place] [address] [facility] Address: [address] [address] [place] [address] IDPA Advance Directives For more information, please contact: [phone] * Full Code (Latest Code Status on File) Date Activated Date Inactivated Comments 09/12/2021 8:02 AM 09/17/2021 6:41 PM Care Teams Diesel Engine Erector Relationship Specialty Start Date End Date Brad Blancas MD [address] [place] [address] PCP - General Family Medicine 02/14/19 Gadiel Wadsworth PA [address] [facility] [address] [place] [address] Physician Continuous Pillowcase Cutter Orthopedic Surgery 09/17/21 [place] [address] [facility] [address] [place] [address] Consulting Physician Cardiovascular Disease 08/08/24
[2025-06-17 03:34] LABS: Hematocrit 48.4 % (37.0-47.0); Hemoglobin 16.2 g/dL (12.0-15.0); Immature Granulocyte Percent A 0.2 % (0-0.5); Lymphocytes Absolute Auto 3.04 K/mm3 (0.9-3.2); Mean Corpuscular HGB Conc 33.5 g/dl (32-36); Mean Corpuscular Hemoglobin 28.4 pg (26-34); Mean Corpuscular Volume 84.8 fl (80-100); Nucleated Red Blood Cells Absolute Auto 0.000 K/mm3 (0.0-0.012); Nucleated Red Blood Cells Perc 0.0 % (0.0-0.2); Platelet Count Result 275 k/mm3 (150-375); Red Blood Count 5.71 M/mm3 (4.2-5.4); White Blood Count 8.4 K/mm3 (4.5-10.0)
[2025-06-17] MEDS: SODIUM CHLORIDE 0.9% IV 1,000 ML 999 ML IV CONT (03:51)
[2025-06-17 04:03] LABS: Add Urine Microscopic? YES; Appearance Urine Cloudy (Clear); Glucose Urine UA Negative (Negative); Leukocyte Esterase Ur Negative LEU/UL (Negative); Need Manual Microscopic Reviewed; Nitrate Urine Negative (Negative); Non Pathogenic Casts >20; Specific Grav Ur 1.035 (1.001-1.035)
--- NOTE | 2025-06-17 04:15 | PC.NURSE ---
Patient is tough stick, multiple RNs attempted and unsuccessful. 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 Spoke with Braeden, he states he will be down to after morning rounds.
--- OUTSIDE RECORDS SUMMARY | 2025-06-17 04:20 | XMS_ITS | Clinical Summary ---
Author Organization [facility] Medical [facility] Building B Address [address] [place] [address] Care Team Providers Care Prepleater Name Role Phone Brad Blancas MD Primary Care Provider [phone] Gadiel Wadsworth Unavailable [phone] Reble Guajardo MD Unavailable Allergies Active Allergy Reactions [...] lesion 12/19/2016 Atherosclerotic heart diseas e of [place] coronary artery without angina pectoris 12/19/2016 Chronic [...] Type Department Care Team Description 05/03/[address] [facility] Medical Group Pulmonary at [place] [address] [place] [address] Rudd Lilia [facility] 04/27/2025 Telephone [facility] Orthopedics and Sports Medicine [address] [place] [address] Jose Luis Yin MD Surgical Clearance 04/26/2025 3:45 PM CDT Office Visit [facility] Medical Group Orthopedic and Sports Medicine [facility] [place] [address] Jose Luis Yin MD Primary osteoarthritis of [...] on file Legal Sex Female 1:45 AM PLANT SPRAYER Gender Identity Not on file Sexual Orientation Not on file Obstetrics History Last Filed Vital Signs Vital Sign Reading Time Taken Comments Blood Pressure 131/79 04/26/2025 4:44 PM CDT Pulse 54 04/26/2025 4:44 PM CDT Temperature 36.5 C (97.7 F) 11/04/2024 5:03 PM PLANT SPRAYER Respiratory Rate 16 11/05/2024 6:30 AM PLANT SPRAYER Oxygen Saturation 91% 11/05/2024 6:30 AM PLANT SPRAYER Inhaled Oxygen Concentration - - Weight 90.9 [...] 06/23/2016, 2014 Medical Devices Implanted Type Area Certified Personal Trainer Device Identifier Shelf Expiration Date Model / Serial / Lot Depuy [employer] [id number] Attune Cruciate Retain Cementless Knee Right 4 Component Femoral - [id number] Implanted:Qty: 1 on 09/12/2021 by Jose Luis Yin MD at [facility] Right: Knee [employer] 10/04/2030 [id number] / / [id number] [employer] [id number] Attune 7mm Cruciate Retaining Rotate Platform Knee 4 Insert - [id number] Implanted:Qty: 1 on 09/12/2021 by Jose Luis Yin MD at [facility] Right: Knee [employer] 11/04/2024 [id number] / / [id number] [employer] [id number] Attune Cementless Rotate Platform Knee 5 Baseplate Tibial - [id number] Implanted:Qty: 1 on 09/12/2021 by Jose Luis Yin MD at [facility] Right: Knee [employer] 04/03/2031 [id number] / / 04/03/2031 Insurance [facility]IC[facility] Address: [address] [address] [place] [address] IDPA [facility] Address: [address] [address] [place] [address] [facility]IC[facility] Address: [address] [address] [place] [address] IDPA Advance Directives For more information, please contact: [phone] * Full Code (Latest Code Status on File) Date Activated Date Inactivated Comments 09/12/2021 8:02 AM 09/17/2021 6:41 PM Care Teams Prepleater Relationship Specialty Start Date End Date Brad Blancas MD [address] [place] [address] PCP - General Family Medicine 02/14/19 Gadiel Wadsworth PA [address] [facility] [facility] [address] [place] [address] Physician Robotics Software Engineer Orthopedic Surgery 09/17/21 [place] [address] [address] [facility] [address] [place] [address] Consulting Physician Cardiovascular Disease 08/08/24
--- OUTSIDE RECORDS SUMMARY | 2025-06-17 04:20 | XMS_ITS | Clinical Summary ---
Author Organization [facility] [employer] Address [address] [place] [address] Care Team Providers Care Rivet Passer Name Role Phone Brad Blancas MD Primary Care Provider [phone] Elkin Bautista MD Unavailable Babatunde Valdez RN Unavailable [phone] [facility],non-owned Affiliates and Associated Physician Practices is amultiple site organization consisting of ambulatory clinics and hospital sitesin [place], [place], [place] and [place]. This disclosure is being madepursuant to the Care Everywhere program and may not contain all information available regarding this patient. Last updated 18.[facility] [employer] Allergies Active Allergy Reactions Criticality Noted Date [...] 104.3 kg (230 lb) 10/02/2020 8:59 AM BUTTON RIVETER Height 154.9 cm (5' 1) 10/02/2020 8:59 AM BUTTON RIVETER Body Mass Index 43.46 10/02/2020 8:59 AM BUTTON RIVETER Plan of Treatment Health Maintenance Due Date [...] this topic Medical Devices Implanted Type Area Manufacturing Tech Device Identifier Shelf Expiration Date Model / Serial / Lot [place] Peg Xlink 44mm Implanted:Qty: 1 on 03/19/2015 by Jose Polo MD at [facility] Right: Shoulder [employer] 02/02/2020 6 / [id number] Harvey Bone Louise-G Hv 40/20 Implanted:Qty: 1 on 03/19/2015 by Jose Polo MD at [facility] Right: Shoulder [employer] 10/05/2016 [id number] / / [id number] Global Unite Porocoat Stem Implanted:Qty: 1 on 03/19/2015 by Jose Polo MD at [facility] Right: Shoulder [employer] Inc 08/05/202410991100-07-14 0 / [id number] [employer] Anatomic Proximal Body Implanted:Qty: 1 on 03/19/2015 by Jose Polo MD at [facility] Right: Shoulder [employer] 09/04/20241099 0 / / [id number] [employer] Eccentric Humeral Head Implanted:Qty: 1 on 03/19/2015 by Jose Polo MD at [facility] Right: Shoulder [employer] Inc 03/05/2024 0 / / [id number] Sys Shld Tot Arthroplst Implanted:Qty: 1 on 03/19/2015 by Jose Polo MD at [facility] Dep[employer] Inc S3 DEPUY / / Procedures Procedure Name Priority Date/Time Associated Diagnosis Comments BASIC METABOLIC PANEL (CALCIUM TOTAL) AM Draw 03/20/2015 3:49 AM CDT from Last 3 Months or Most Recently Relevant to Health Maintenance Results * (ABNORMAL) BASIC METABOLIC PANEL (CALCIUM TOTAL) (03/20/2015 3:49 AM CDT) [facility] Glucose 120(H) 74 - 106 mg/dL 03/20/2015 [...] LAB - CHEMISTRY ORDERABLES Julita mehta Result [facility] [address] [place] [address] from Last 3 Months or Most Recently Relevant to Health Maintenance Insurance [facility] MANAGED MEDICARE ADV MEDICAID - [facility] MEDICAID - [place] [facility] MANAGED MEDICARE ADV Advance Directives * Full Code (Latest Code Status on File) Date Activated Date Inactivated Comments 03/19/2015 9:35 PM 03/20/2015 6:23 PM Care Teams Rivet Passer Relationship Specialty Start Date End Date Brad Blancas MD [address] [place] [address] PCP - General Family Medicine 06/23/16 Elkin Bautista MD [address] [place] [address] [address] [place] [address] Internal Medicine 06/23/16 Babatunde Valdez, RN Fruit Picker 03/20/15
[2025-06-17 05:23] LABS: Alanine Aminotransferase 28 U/L (6-35); Albumin Level 3.8 g/dL (3.5-5.1); Alkaline Phosphatase 89 U/L (38-126); Anion Gap 7 mmol/L (4-12); Aspartate Amino Transferase 29 U/L (14-36); Bilirubin,Total 1.2 mg/dL (0.2-1.3); Blood Urea Nitrogen 20 mg/dL (7-17); Calcium 8.7 mg/dL (8.4-10.2); Carbon Dioxide 24 mmol/L (22-30); Chloride 105 mmol/L (98-107); Estimated CRCL calculation 57 ml/min; Estimated Glomerular Filt Rate > 60; Glucose 100 mg/dL (65-110); Lipase 34 U/L (23-300); Magnesium 2.2 mg/dL (1.6-2.3); Potassium 4.1 mmol/L (3.4-5.0); Sodium 136 mmol/L (137-145); Total Protein 7.0 g/dL (6.3-8.2)
--- NOTE | 2025-06-17 05:41 | ED_ITS ---
HPI - General Adult General Chief complaint: Nausea/Vomiting/Diarrhea Stated complaint: diarrhea x 3 weeks, urgent care yest Time Seen by Provider: 06/17/25 03:42 History of Present Illness HPI narrative: Patient is a 64-year-old female who presents emergency department this evening complaining of diarrhea for the past 3 weeks. States that was precipitated by Augmentin and urethra mycin which she was placed on for potential canal. Patient states that she has tried taking probiotics and increasing her fiber diet to help with the symptoms but her symptoms have not improved. States that she has had multiple episodes of diarrhea today. Denies any active abdominal pain, chest pain or shortness of breath. Denies any fevers. Admits that she does get some chills and hot flashes when she is having the diarrhea episodes otherwise denies any additional symptoms or concerns. Related Data Home Medications ?Medication ?Instructions ?Recorded ?Confirmed ?Last Taken ?Type budesonide-formoterol HFA 160 2 puff inhalation Q12H 1 10/15/20 Unknown History mcg-4.5 mcg/actuation aerosol inhaler (Symbicort) clindamycin HCl 300 mg capsule 300 mg PO Q6H 08/15/21 Unknown History Allergies Allergy/AdvReac Type Severity Reaction Status Date / Time Penicillins Allergy Mild Rash Verified 06/17/25 03:45 naproxen Allergy Unknown Hives Verified 06/17/25 03:45 NSAIDS (Non-Steroidal Allergy Hives Verified 06/17/25 03:45 Anti-Inflamma Review of Systems 2 Review of Systems: All systems are reviewed and are negative unless stated otherwise in the HPI. [facility] Past Medical History Medical History Chronic pain Migraine Surgical History Surgical History H/O tubal ligation Social History Social History Smoking status: Current every day smoker Alcohol intake: never Gender identity (if verbalized by the patient): Female Exam 2 Narrative: General: Alert, awake, afebrile, in no acute distress. HEENT: PERRL, no rhinorrhea, no post nasal drip, oropharynx clear. Neck: Trachea midline, no JVD, no lymphadenopathy. Cardiovascular: Regular rate and rhythm, no murmurs, rubs or gallops, no peripheral edema. Respiratory: Clear to auscultation bilaterally, no tachypnea, no wheezing, no rhonchi, no rubs, no respiratory distress. Abdomen: Soft, nontender, nondistended, no rebound, no guarding, no peritoneal signs. Musculoskeletal: No joint swelling or deformity, normal muscle tone. Skin: No rashes or petechia, no signs of infection. Psychiatric: Alert and oriented, normal behavior and judgment for situation. Neurological: Alert and oriented to person, place, and time. Follows all commands. No focal deficits, speech is clear and fluent. Course Vital Signs Vital signs: Vital Signs Temperature 98.9 F 06/17/25 00:51 Pulse Rate 85 06/17/25 00:51 Respiratory Rate 16 06/17/25 00:51 Blood Pressure 144/80 H 06/17/25 00:51 Pulse Oximetry 99 06/17/25 00:51 Oxygen Delivery Room Air 06/17/25 00:51 Temperature 97.5 F L 06/17/25 03:09 Pulse Rate 73 06/17/25 03:09 Respiratory Rate 12 06/17/25 03:09 Blood Pressure 112/73 06/17/25 03:09 Pulse Oximetry 99 06/17/25 03:09 Oxygen Delivery Room Air 06/17/25 00:51 Medical Decision Making MDM Narrative Medical decision making narrative: The patient was evaluated by myself in the emergency department. History is obtained from patient who is an independent historian and physical exam was performed. External medical records were reviewed at this time. IV was established and pertinent tests were ordered. Patient was administered 1 L IV fluid bolus with normal saline. Laboratory results obtained revealing no acute process. Urinalysis unremarkable. Differential diagnosis considerations include dehydration, electrolyte derangements, acute kidney injury, gastroenteritis, acute viral syndrome. Comorbidities impacting this visit include none. I have evaluated and discussed social determinants of health with the patient that could potentially impact subsequent diagnosis and treatment plans. On repeat assessment of the patient, reevaluation revealed that the patient is doing well and is in no acute distress. Patient symptoms have improved since she arrived to our emergency department. Repeat vital signs were all reviewed and noted to be stable. Differential diagnosis and treatment plan were discussed with the patient at bedside. Patient agrees with discussion and after shared medical decision making agrees with discharge. All questions were answered to the patient's satisfaction. Patient will follow up with GI in 3-5 days. Script for Zofran was sent her pharmacy to use as needed for nausea/vomiting. Patient was provided with strict return precautions and instructed to return to the emergency department if any new or worsening symptoms develop. The patient was discharged in stable condition. Vital Signs Vital Signs: Vital Signs Temperature 98.9 F 06/17/25 00:51 Pulse Rate 85 06/17/25 00:51 Respiratory Rate 16 06/17/25 00:51 Blood Pressure 144/80 H 06/17/25 00:51 Pulse Oximetry 99 06/17/25 00:51 Oxygen Delivery Room Air 06/17/25 00:51 Temperature 97.5 F L 06/17/25 03:09 Pulse Rate 73 06/17/25 03:09 Respiratory Rate 12 06/17/25 03:09 Blood Pressure 112/73 06/17/25 03:09 Pulse Oximetry 99 06/17/25 03:09 Oxygen Delivery Room Air 06/17/25 00:51 Lab Data 06/17/25 03:28 06/17/25 05:08 Labs: Lab Results 06/17/25 06/17/25 06/17/25 Range/Units 03:28 03:46 05:08 WBC 8.4 (4.5-10.0) K/mm3 RBC 5.71 H (4.2-5.4) M/mm3 Hgb 16.2 H D (12.0-15.0) g/dL Hct 48.4 H (37.0-47.0) % MCV 84.8 (80-100) fl MCH 28.4 (26-34) pg MCHC 33.5 (32-36) g/dl RDW 13.0 (11.5-14.5) % Plt Count 275 (150-375) k/mm3 MPV 8.9 (7.4-10.4) fl Immature Gran % (Auto) 0.2 (0-0.5) % Neut % (Auto) 51.3 (45.5-73.1) % Lymph % (Auto) 36.3 (18.3-44.2) % Kerr % (Auto) 10.3 H (2.6-8.5) % Eos % (Auto) 1.3 (0-4.4) % Baso % (Auto) 0.6 (0.2-1.2) % Lymph # (Auto) 3.04 (0.9-3.2) K/mm3 Kerr # (Auto) 0.9 H (0.1-0.6) K/mm3 Eos # (Auto) 0.1 (0-0.3) K/mm3 Baso # (Auto) 0.1 (0.0-0.1) K/mm3 Abs Immat Gran (auto) 0.02 (0.00-0.031) K/mm3 Absolute Neuts (auto) 4.3 (1.3-6.7) K/mm3 Absolute Nucleated RBC 0.000 (0.0-0.012) K/mm3 Nucleated RBC % 0.0 (0.0-0.2) % Sodium 136 L (137-145) mmol/L Potassium 4.1 (3.4-5.0) mmol/L Chloride 105 (98-107) mmol/L Carbon Dioxide 24 (22-30) mmol/L Anion Gap 7 (4-12) mmol/L BUN 20 H (7-17) mg/dL Creatinine 0.86 (0.7-1.0) mg/dL Estim Creat Clear Calc 57 ml/min Estimated GFR > 60 (59 - ) Glucose 100 (65-110) mg/dL Calcium 8.7 (8.4-10.2) mg/dL Magnesium 2.2 (1.6-2.3) mg/dL Total Bilirubin 1.2 (0.2-1.3) mg/dL AST 29 (14-36) U/L ALT 28 (6-35) U/L Alkaline Phosphatase 89 (38-126) U/L Total Protein 7.0 (6.3-8.2) g/dL Albumin 3.8 (3.5-5.1) g/dL Lipase 34 (23-300) U/L Urine Color Dark yellow (Yellow) Urine Appearance Cloudy H (Clear) Urine pH 5.0 (5.0-9.0) Ur Specific [place] 1.035 (1.001-1.035) Urine Protein Trace (Negative) mg/dL Urine Glucose (UA) Negative (Negative) mg/dL Urine Ketones Negative (Negative) mg/dL Ur Blood (Man) Negative (Negative) Urine Nitrate Negative (Negative) Urine Bilirubin 1+ H (Negative) Urine Urobilinogen 1.0 (<2.0) mg/dL Add Ur Microanalysis Reviewed Leukocyte Esterase Rfl Negative (Negative) TATO/UL Urine RBC 0-2 (0-2) /hpf Urine WBC 0-5 (0-3) /hpf Ur Squamous Epith Cells Occasional (Few) /hpf Urine Bacteria None seen /hpf Urine Casts >20 Hyaline Casts Present (None) /lpf Urine Mucus Present /lpf Discharge Plan Discharge Clinical Impression: Diarrhea Patient Disposition: Home Condition: Stable Instructions: Antibiotic Form, Acute Diarrhea (ED) Additional Instructions: Please follow-up with the GI doctor you were provided with today, call this morning to set up a follow-up appointment to be seen within the next 3-5 days. Return to the emergency department if any new or worsening symptoms develop. Patient Language: [place] Prescriptions: New ondansetron 4 mg tablet,disintegrating 4 mg PO Q8H PRN (Reason: nausea and vomiting) Qty: 10 0RF No Action prednisone 20 mg tablet 20 mg PO DAILY Qty: 5 0RF doxycycline hyclate 100 mg tablet 100 mg PO BID Qty: 14 0RF budesonide-formoterol [Symbicort] 160-4.5 mcg/actuation HFA aerosol inhaler 2 puff inhalation Q12H clindamycin HCl 300 mg capsule 300 mg PO Q6H Follow-up/Referrals: Brad Blancas MD [Primary Care Provider, Family Practice] Isaias Singleton MD [Physician, Gastroenterology] - 3 Days Time of Disposition: 05:41
[2025-06-17] MEDS: ONDANSETRON INJ 4 MG/2 ML VIAL IV PUSH (05:52)
== END 2025-06-17 06:46 | disposition home or self-care (01) ==
PROVIDERS: Physician Assistant; Emergency Provider Emergency Medicine; PCP Emergency Medicine
DX: R19.7 Diarrhea, unspecified (principal); F17.200 Nicotine dependence, unspecified, uncomplicated
CPT/HCPCS: 36415; 80053; 81001; 83690; 83735; 85025; 96361; 96374; 99284; J2405; J7030

== ENCOUNTER 2025-06-20 21:53 | Emergency (ER) | payer MEDICARE, MEDICAID, SELFPAY ==
[2025-06-20 21:56] VITALS: BP 128/88; PULSE 95; RESP 15; TEMP 36.1; O2SAT 100
--- NOTE | 2025-06-20 22:41 | ED.NAVMDI ---
HPI - Nausea/Vomiting/Diarrhea General Chief complaint: Nausea/Vomiting/Diarrhea Stated complaint: diarrhea x4 weeks Time Seen by Provider: 06/20/25 22:20 History of Present Illness HPI Narrative: Patient is a 64-year-old female who presents to the ER with a 4 week history of diarrhea. She reports she has been to urgent care and her primary care provider, neither of which could figure out what was causing patient's diarrhea. Patient endorses intermittent abdominal cramping. She reports she was recently on 2 antibiotics for a root canal. Patient endorses a history of prediabetes, right shoulder replacement, right knee replacement, bladder sling, and a left groin stent. She denies any urinary symptoms, recent fevers, or back pain. Related Data Home Medications ?Medication ?Instructions ?Recorded ?Confirmed ?Last Taken ?Type budesonide-formoterol HFA 160 2 puff inhalation Q12H 08/15/21 Unknown History mcg-4.5 mcg/actuation aerosol inhaler (Symbicort) clindamycin HCl 300 mg capsule 300 mg PO Q6H 08/15/21 Unknown History Allergies Allergy/AdvReac Type Severity Reaction Status Date / Time Penicillins Allergy Mild Rash Verified 06/20/25 22:00 naproxen Allergy Unknown Hives Verified 06/20/25 22:00 NSAIDS (Non-Steroidal Allergy Hives Verified 06/20/25 22:00 Anti-Inflamma Review of Systems Review of Systems: All systems reviewed & are unremarkable except as noted in HPI and below PMFSH Past Medical History Medical History Chronic pain Migraine Surgical History Surgical History H/O tubal ligation Social History Social History Smoking status: Current every day smoker Alcohol intake: never Gender identity (if verbalized by the patient): Female Exam Narrative: GENERAL: Well appearing, obese, non-toxic, in no acute distress. HEAD: Normocephalic, atraumatic. NECK: Supple. No adenopathy, no masses. RESPIRATORY: Airway patent, respirations nonlabored. Clear to auscultation bilaterally, no rales, rhonchi, wheezing. CARDIOVASCULAR: Regular rate and rhythm without murmurs, rubs, or gallops. Peripheral pulses 2+ and equal bilaterally. ABDOMINAL: Soft, nontender, nondistended, no hepatosplenomegaly. Normoactive BS. MUSCULOSKELETAL: Moves all extremities. Strength/ROM intact without gross deformities. SKIN: Warm, dry, normal color. No rashes. NEURO: A&O X3. Speech clear. Cranial nerves II-XII intact. No ataxic movements. PSYCHIATRIC: Appropriate mood and affect. Normal interaction. Course Vital Signs Vital signs: Vital Signs Temperature 36.1 C L 06/20/25 21:56 Pulse Rate 95 06/20/25 21:56 Respiratory Rate 15 06/20/25 21:56 Blood Pressure 128/88 06/20/25 21:56 Pulse Oximetry 100 06/20/25 21:56 Oxygen Delivery Room Air 06/20/25 21:56 Temperature 36.1 C L 06/20/25 21:56 Pulse Rate 95 06/20/25 21:56 Respiratory Rate 15 06/20/25 21:56 Blood Pressure 128/88 06/20/25 21:56 Pulse Oximetry 100 06/20/25 21:56 Oxygen Delivery Room Air 06/20/25 21:56 MDM - Nausea/Vomiting/Diarrhea MDM Narrative Medical decision making narrative: Patient is a 64-year-old female who presents to the ER with a 4 week history of diarrhea. She reports she has been to urgent care and her primary care provider, neither of which could figure out what was causing patient's diarrhea. Patient endorses intermittent abdominal cramping. She reports she was recently on 2 antibiotics for a root canal. Patient endorses a history of prediabetes, right shoulder replacement, right knee replacement, bladder sling, and a left groin stent. She denies any urinary symptoms, recent fevers, or back pain. Labs Ordered: CBC, CMP, lipase, UA Imaging Ordered: None necessary Medications Ordered: Vancomycin p.o., 1 L normal saline IV bolus Results: Patient's stool culture came back positive for C diff. Diagnosis: C diff Consults: Infectious Disease (outpatient), [facility] [phone] Patient Education/Shared MDM: Results of lab work shared with patient. She will be given her 1st dose of antibiotics here in the ER. Patient strongly advised to maintain hydration status upon discharge and follow-up with [facility] Infectious Disease as soon as possible. She will be discharged home with a prescription for Vancomycin x 10 days. Strict return precautions provided. Patient verbalized understanding and is in agreement with plan. Vital signs stable at time of discharge. All questions answered. Differential Diagnosis Differential diagnosis: Likely traveler's diarrhea, food poisoning, gastroenteritis, clostridium difficile infection and dehydration Lab Data Attestation: I reviewed the patient's lab results. 06/20/25 23:09 06/20/25 23:09 Labs: Lab Results 06/20/25 06/21/25 Range/Units 23:09 01:03 WBC 7.5 (4.5-10.0) K/mm3 RBC 5.19 (4.2-5.4) M/mm3 Hgb 14.8 (12.0-15.0) g/dL Hct 44.3 (37.0-47.0) % MCV 85.4 (80-100) fl MCH 28.5 (26-34) pg MCHC 33.4 (32-36) g/dl RDW 13.1 (11.5-14.5) % Plt Count 292 (150-375) k/mm3 MPV 9.0 (7.4-10.4) fl Immature Gran % (Auto) 0.3 (0-0.5) % Neut % (Auto) 50.1 (45.5-73.1) % Lymph % (Auto) 40.2 (18.3-44.2) % Glades % (Auto) 7.2 (2.6-8.5) % Eos % (Auto) 1.5 (0-4.4) % Baso % (Auto) 0.7 (0.2-1.2) % Lymph # (Auto) 3.02 (0.9-3.2) K/mm3 Glades # (Auto) 0.5 (0.1-0.6) K/mm3 Eos # (Auto) 0.1 (0-0.3) K/mm3 Baso # (Auto) 0.1 (0.0-0.1) K/mm3 Abs Immat Gran (auto) 0.02 (0.00-0.031) K/mm3 Absolute Neuts (auto) 3.8 (1.3-6.7) K/mm3 Absolute Nucleated RBC 0.000 (0.0-0.012) K/mm3 Nucleated RBC % 0.0 (0.0-0.2) % Sodium 138 (137-145) mmol/L Potassium 4.1 (3.4-5.0) mmol/L Chloride 103 (98-107) mmol/L Carbon Dioxide 28 (22-30) mmol/L Anion Gap 7 (4-12) mmol/L BUN 24 H (7-17) mg/dL Creatinine 0.86 (0.7-1.0) mg/dL Estim Creat Clear Calc 49 ml/min Estimated GFR > 60 (59 - ) Glucose 81 (65-110) mg/dL Calcium 9.5 (8.4-10.2) mg/dL Total Bilirubin 0.8 (0.2-1.3) mg/dL AST 37 H (14-36) U/L ALT 36 H (6-35) U/L Alkaline Phosphatase 85 (38-126) U/L Total Protein 7.7 (6.3-8.2) g/dL Albumin 4.1 (3.5-5.1) g/dL Lipase 68 (23-300) U/L C. difficile (PCR) Positive A* (NEGATIVE) Discharge Plan Discharge Clinical Impression: Clostridium difficile infection, Diarrhea Patient Disposition: Home Condition: Stable Instructions: Antibiotic Form, C. Diff (Clostridioides Difficile) Infection (ED) Additional Instructions: Please return to the ER with any worsening symptoms. Follow-up with is [facility] Infectious Disease [phone] as soon as possible for further evaluation and direction. Take all medications as prescribed, including regularly scheduled medications. Complete your full dose of antibiotics. Patient Language: Citizen Of [place] Prescriptions: New vancomycin 125 mg capsule 125 mg PO DIRECTED Qty: 40 0RF Rx Instructions: take 125 mg 4 times per day for 10 days No Action prednisone 20 mg tablet 20 mg PO DAILY Qty: 5 0RF doxycycline hyclate 100 mg tablet 100 mg PO BID Qty: 14 0RF ondansetron 4 mg tablet,disintegrating 4 mg PO Q8H PRN (Reason: nausea and vomiting) Qty: 10 0RF budesonide-formoterol [Symbicort] 160-4.5 mcg/actuation HFA aerosol inhaler 2 puff inhalation Q12H clindamycin HCl 300 mg capsule 300 mg PO Q6H Follow-up/Referrals: Anjum Grove MD [Physician, Infectious Disease] Brad Blancas MD [Primary Care Provider, Family Practice] ,Yuniel Hummel MD [Non-Staff, Infectious Disease] Referral Note: Infectious disease Time of Disposition: 02:32
[2025-06-20] MEDS: SODIUM CHLORIDE 0.9% IV 1,000 ML 999 ML IV CONT (23:10)
[2025-06-20 23:17] LABS: Hematocrit 44.3 % (37.0-47.0); Hemoglobin 14.8 g/dL (12.0-15.0); Immature Granulocyte Percent A 0.3 % (0-0.5); Lymphocytes Absolute Auto 3.02 K/mm3 (0.9-3.2); Mean Corpuscular HGB Conc 33.4 g/dl (32-36); Mean Corpuscular Hemoglobin 28.5 pg (26-34); Mean Corpuscular Volume 85.4 fl (80-100); Nucleated Red Blood Cells Absolute Auto 0.000 K/mm3 (0.0-0.012); Nucleated Red Blood Cells Perc 0.0 % (0.0-0.2); Platelet Count Result 292 k/mm3 (150-375); Red Blood Count 5.19 M/mm3 (4.2-5.4); White Blood Count 7.5 K/mm3 (4.5-10.0)
[2025-06-20 23:29] LABS: Alanine Aminotransferase 36 U/L (6-35); Albumin Level 4.1 g/dL (3.5-5.1); Alkaline Phosphatase 85 U/L (38-126); Anion Gap 7 mmol/L (4-12); Aspartate Amino Transferase 37 U/L (14-36); Bilirubin,Total 0.8 mg/dL (0.2-1.3); Blood Urea Nitrogen 24 mg/dL (7-17); Calcium 9.5 mg/dL (8.4-10.2); Carbon Dioxide 28 mmol/L (22-30); Chloride 103 mmol/L (98-107); Estimated CRCL calculation 49 ml/min; Estimated Glomerular Filt Rate > 60; Glucose 81 mg/dL (65-110); Lipase 68 U/L (23-300); Potassium 4.1 mmol/L (3.4-5.0); Sodium 138 mmol/L (137-145); Total Protein 7.7 g/dL (6.3-8.2)
[2025-06-21 01:12] LABS: Add Urine Microscopic? NO; Appearance Urine Clear (Clear); Glucose Urine UA Negative (Negative); Leukocyte Esterase Ur Negative LEU/UL (Negative); Nitrate Urine Negative (Negative); Specific Grav Ur 1.030 (1.001-1.035)
[2025-06-21 02:07] LABS: Toxigenic C. Diff POSITIVE (NEGATIVE)
[2025-06-21 02:35] VITALS: BP 108/66; PULSE 71; RESP 16; O2SAT 98
[2025-06-21] MEDS: VANCOMYCIN HCL 125 MG ORAL CAPSULE PO (02:49)
== END 2025-06-21 02:58 | disposition home or self-care (01) ==
PROVIDERS: Emergency Provider Registered Nurse; PCP Emergency Medicine
DX: A04.72 Enterocolitis due to Clostridium difficile, not specified as recurrent (principal); R73.03 Prediabetes; F17.200 Nicotine dependence, unspecified, uncomplicated; Z96.611 Presence of right artificial shoulder joint; Z96.651 Presence of right artificial knee joint
CPT/HCPCS: 36415; 80053; 81003; 83690; 85025; 87493; 96360; 99283; A9270; J7030